=== PATIENT | male | born 1930 | race Asian ===

== ENCOUNTER 2020-06-19 15:45 | Inpatient (IN) | payer MEDICARE, MEDICAID ==
[2020-06-19] VITALS (9 sets, daily range): BP systolic 95–157; BP diastolic 62–103
[~2020-06-19] VITALS: Ht 172.7 cm; Wt 54.0 kg
--- NOTE | 2020-06-19 16:09 | NUR ---
pt arrives to ER with complaints of low oxygen saturation. EMS states oxygen saturation in 70% with supplemental oxygen. upon arrival pt placed on 4L NC with 95% saturation. Addendum: 06/19/20 at 1628 by KATE pt arrives to ER via EMS with complaints of generalized weakness x few days. pt was at [facility] with yesterday for evaluation of generalized weakness. EMS also states syncope episiode after bowel movement. pt placed on 4L nasal cannula en route due to low oxygen readings. Upon arrival, pt oxygen saturation 95%.
--- NOTE | 2020-06-19 16:20 | NUR ---
Patient brought into ER todays after having a syncopal episode after a bowel movement. No other significant complaint voiced. Will be monitored.
--- NOTE | 2020-06-19 16:30 | NUR ---
Patient noted to be spitting up blood- suction tube initiated. MD informed
--- NOTE | 2020-06-19 16:30 | Emergency Room Report ---
History of Present Illness General Chief Complaint: Syncope Source: Patient Present Illness HPI This patient is Kyrgyz speaking. However, the patient's granddaughter called me to give me the history regarding this patient. Apparently, for the past few days the patient has had generalized weakness and there was concern that he coughed or vomited up blood. He was seen at an emergency department last night and discharged home with a negative work-up per report. The patient is brought into the emergency department today because after having a bowel movement the patient had a syncopal episode. The patient himself has no specific complaints. There is no report of fever. There has been some cough. Allergies: Coded Allergies: No Known Allergies (Unverified , 06/19/20) COVID-19 Screening Contact w/high risk pt: No Experienced COVID-19 symptoms?: No COVID-19 Testing performed INSULATION MANAGER: No Patient History Past Medical History: see triage record, HTN Social History: Denies: smoking, alcohol use, drug use Reviewed Nursing Documentation: PMH: Agreed; PSxH: Agreed Nursing Documentation-PMH Hx Hypertension: Yes Review of Systems All Other Systems: negative except mentioned in HPI Physical Exam Vital Signs Date Time Temp Pulse Resp B/P (MAP) Pulse Ox O2 Delivery O2 Flow Rate FiO2 06/19/20 15:47 98.6 120 18 174/100 (124) 98 Room Air 06/19/20 16:08 4.0 Sp02 EP Interpretation: reviewed, normal General Appearance: no apparent distress, alert, GCS 15, non-toxic, cachetic Head: normocephalic, atraumatic Eyes: bilateral eye normal inspection, bilateral eye PERRL ENT: hearing grossly normal, normal pharynx, no angioedema, normal voice Neck: full range of motion, supple/symm/no masses Respiratory: chest non-tender, lungs clear, normal breath sounds, no respiratory distress, no retraction, no accessory muscle use, speaking full sentences Cardiovascular #1: no edema, tachycardia Gastrointestinal: normal bowel sounds, non tender, soft, no guarding, no rebound, distended - slightly distended Rectal: deferred Musculoskeletal: back normal, normal range of motion, gait/station normal, non- tender Neurologic: alert, motor strength/tone normal, oriented x3, sensory intact, responsive, speech normal Psychiatric: judgement/insight normal, memory normal, mood/affect normal, no suicidal/homicidal ideation Skin: no rash, normal color Procedures CPR/Code Blue CPR/Code Blue Narrative Mid ED course the patient suddenly began coughing up large amounts of blood and blood clots. The patient began having difficulty breathing and became hypoxemic. He also became altered and bradycardic. The patient also went into PEA arrest for less than a minute. The patient underwent CPR, rapid sequence intubation and ACLS protocol. Please see the RN code sheet. Prior to the patient becoming pulseless, the patient was becoming bradycardic and being bagged and he was given atropine. ROSC was obtained after 1 round of CPR. After the patient was intubated, the patient was arousing and fighting the ventilator. The patient was placed on a propofol drip and fentanyl drip for comfort on the ventilator. Intubation Intubation : Consent: Emergent Intubation Method: orotracheal Tube Size (cm): 7.5 Medications: Etomidate, Succinylcholine Breath Sounds after Intubation: equal Intubation Complications: no complications Post Intubation Xray: Yes Progress/Xray Impression: Appropriate tube placement Attempts: One Patient Tolerated: Well Complications: None Medical Decision Making Diagnostic Impression: Primary Impression: Massive hemoptysis Additional Impressions: Respiratory failure Anemia Cardiopulmonary arrest Elevated troponin Lactic acidosis ER Course Initially when I evaluated this patient he was alert, well-appearing and attempting to communicate with me. The patient is Kyrgyz speaking so history was primarily obtained through his granddaughter. During the patient's ED course, he suddenly developed massive hemoptysis and difficulty breathing. Initially, suctioning of the blood by the patient with a Yonker suction and later by myself was attempted to clear the patient's airway. However, the patient became more distressed and dyspneic and then became altered and was unable to maintain his airway. He became profoundly hypoxemic with oxygen saturations in the 40s. Initially the patient was incredibly tachycardic. The patient was bagged by bag valve mask and he was intubated by rapid sequence intubation. He did go into PEA temporarily and underwent CPR and ACLS for 1 round. ROSC was achieved. During the resuscitation the endotracheal tube was dislodged and was immediately replaced with a new endotracheal tube. An NG tube was placed to intermittent suction as the patient's abdomen was slightly distended. A large amount of blood was suctioned from the patient's airway. There was also blood in the nasogastric tube.At the same time during the patient's resuscitation he was also transfused 4 units of emergency release O type of blood. After the patient was intubated and during his ED course his heart rate became very rapid at over 200 and irregular consistent with A. fib or a flutter with rapid ventricular rate. Given that the patient was sedated and unstable, the patient underwent cardioversion x2. Initial cardioversion was with 50 J and the second cardioversion was with 100 J. This effectively converted the patient into sinus rhythm at a rate in the 120s with a repeat EKG showing sinus tachycardia. The patient's telemetry in the emergency department remained in a low sinus tachycardia in the low 100s 105-110. I am unsure of the etiology patient's massive hemoptysis versus GI bleed with aspiration. Possibilities do include gastric malignancy, pulmonary malignancy, infection. The patient did undergo CT of the head, chest, abdomen and pelvis but this was obtained emergently and before I had labs and so this was done without contrast. The patient also did arouse on the ventilator and was uncomfortable and agitated while on the ventilator so he was placed on a propofol drip and fentanyl drip for his own comfort and for ventilator synchronization. The patient's granddaughter was updated when the patient did deteriorate. The family would like him to be full code full treatment. This patient was evaluated in the context of the global COVID-19 pandemic, which necessitated consideration that the patient might be at risk for infection with the [id number] virus that causes COVID-19. Institutional protocols and algorithms that pertain to the evaluation of patients at risk for COVID-19 and the state of rapid change based on information released by multiple regulatory bodies including the CDC and federal and state organizations. These policies and algorithms were followed during the patient's care in the ED. This patient is critically ill. This patient required complex medical decision- making, aggressive intervention, extensive laboratory workup and monitoring. Critical care time: 40 minutes. Laboratory Tests Test 06/19/20 16:23 06/19/20 17:10 06/19/20 17:41 White Blood Count 3.5 K/UL (4.8-10.8) L 4.1 K/UL (4.8-10.8) L Red Blood Count 2.80 M/UL (4.70-6.10) L 2.05 M/UL (4.70-6.10) L Hemoglobin 9.7 G/DL (14.2-18.0) L 7.0 G/DL (14.2-18.0) L Hematocrit 28.5 % (42.0-52.0) L 21.4 % (42.0-52.0) L Mean Corpuscular Volume 102 FL (80-99) H 105 FL (80-99) H Mean Corpuscular Hemoglobin 34.5 PG (27.0-31.0) H 34.0 PG (27.0-31.0) H Mean Corpuscular Hemoglobin Concent 34.0 G/DL (32.0-36.0) 32.5 G/DL (32.0-36.0) Red Cell Distribution Width 14.1 % (11.6-14.8) 15.0 % (11.6-14.8) H Platelet Count 90 K/UL (150-450) L 89 K/UL (150-450) L Mean Platelet Volume 8.6 FL (6.5-10.1) 8.6 FL (6.5-10.1) Neutrophils (%) (Auto) % (45.0-75.0) % (45.0-75.0) Lymphocytes (%) (Auto) % (20.0-45.0) % (20.0-45.0) Monocytes (%) (Auto) % (1.0-10.0) % (1.0-10.0) Eosinophils (%) (Auto) % (0.0-3.0) % (0.0-3.0) Basophils (%) (Auto) % (0.0-2.0) % (0.0-2.0) Neutrophils % (Manual) Pending Pending Lymphocytes % (Manual) Pending Pending Platelet Estimate Pending Pending Platelet Morphology Pending Pending Prothrombin Time 11.6 SEC (9.30-11.50) H Prothrombin Time INR 1.1 (0.9-1.1) Activated Partial Thromboplast Time 24 SEC (23-33) Sodium Level 138 MMOL/L (136-145) Potassium Level 3.8 MMOL/L (3.5-5.1) Chloride Level 105 MMOL/L (98-107) Carbon Dioxide Level 21 MMOL/L (21-32) Anion Gap 12 mmol/L (5-15) Blood Urea Nitrogen 18 mg/dL (7-18) Creatinine 1.2 MG/DL (0.55-1.30) Estimated Glomerular Filtration Rate 57.1 mL/min (>60) Glucose Level 271 MG/DL (74-106) H Calcium Level 8.1 MG/DL (8.5-10.1) L Ferritin Pending Total Bilirubin 1.8 MG/DL (0.2-1.0) H Direct Bilirubin 0.7 MG/DL (0.0-0.3) H Aspartate Amino Transferase (AST) 68 U/L (15-37) H Alanine Aminotransferase (ALT) 37 U/L (12-78) Alkaline Phosphatase 81 U/L (46-116) Lactate Dehydrogenase Pending Total Creatine Kinase Pending Creatine Kinase MB Pending Troponin I 0.058 ng/mL (0.000-0.056) C-Reactive Protein, Quantitative Pending Total Protein 7.3 G/DL (6.4-8.2) Albumin 2.3 G/DL (3.4-5.0) L Globulin 5.0 g/dL Albumin/Globulin Ratio 0.5 (1.0-2.7) L Triglycerides Level Pending Lipase Pending Urine Color Yellow Urine Appearance Slightly cloudy Urine pH 6 (4.5-8.0) Urine Specific Dickens 1.015 (1.005-1.035) Urine Protein 4+ (NEGATIVE) H Urine Glucose (UA) 3+ (NEGATIVE) H Urine Ketones Negative (NEGATIVE) Urine Blood 5+ (NEGATIVE) H Urine Nitrite Negative (NEGATIVE) Urine Bilirubin Negative (NEGATIVE) Urine Urobilinogen 4 MG/DL (0.0-1.0) H Urine Leukocyte Esterase Negative (NEGATIVE) Urine RBC Pending Urine WBC Pending Urine Squamous Epithelial Cells Pending Urine Bacteria Pending Lactic Acid Level 4.00 mmol/L (0.4-2.0) H EKG Diagnostic Results Rate: tachycardiac Rhythm: other - S.tachycardia Rhythm Strip Diag. Results EP Interpretation: yes Rate: 120's Rhythm: no PVC's, no ectopy, other - S.tachycardia Chest X-Ray Diagnostic Results Chest X-Ray Diagnostic Results : Chest X-Ray Ordered: Yes # of Views/Limited/Complete: 1 View Indication: Other - cough, respiratory failure, Tube placement EP Interpretation: Yes Interpretation: other - Bilateral patchy opacities. ET in place, NGT in place. CT/MRI/US Diagnostic Results CT/MRI/US Diagnostic Results : Imaging Test Ordered: CT head, CT Chest/abd/pelvis Impression CT Head: No acute findings. Specifically no intracranial bleed, mass effect or edema. See official report. CT chest/abd/pelvis: Bilateral pulmonary interstitial fluid. Thickening of the stomach wall. Dilated small bowel loops with no transition point. Please see official reports in the electronic record medical record for details. Last Vital Signs Date Time Temp Pulse Resp B/P (MAP) Pulse Ox O2 Delivery O2 Flow Rate FiO2 06/19/20 16:08 100.3 106 18 157/103 95 Nasal Cannula 4.0 Disposition: ADMITTED INPATIENT Condition: Critical Belinda Schultz DO Jun 19, 2020 16:30
--- NOTE | 2020-06-19 16:33 | NUR ---
pt arrives to ER via EMS with complaints of generalized weakness and hematemesis x few days. pt was evaluated yesterday at [facility] for same complaints and discharged. upon arrival to room pt has one episode of vomiting bright red blood. pt placed on 4L NC. upon arrival oxygen saturation 95%. skin warm and dry. pt placed on surveillance monitor. Family also states pt had syncope episode after bowel movement today.
--- NOTE | 2020-06-19 16:50 | NUR ---
pt on continuous cardiac/O2 monitor. 20g L forearm, 20g R AC. labs sent. pt had hemoptysis/syncopal episode. pt vomiting blood. MD notified. MD in room with 3 ED RN and instrumentation engineering technician. suction setup at bedside, suctioning pt. 150mL blood suctioned. Code Blue initiated. RT called. XR called. Drugs - See code blue sheet meds given. pt placed on defib pads. 1650: vitals: HR elevation @195/109 R18 pt bradycardic, HR decreased to 52, O2 38%. pt placed on BVM. prepping to intubate. 1653: pulse check, no pulse felt. CPR initated. meds given per code sheet. 1655: CPR pause. pulse check.pt BP 42/23, HR 133 sinus tach, RR 48 pt on continuous cardiac/O2 monitor. 1659: pt intubated, 7.5cm, 20 @ teeth. BP 90/59, HR 156, O2 reading in progress. XRAY at bedside. 1700: 1st unit hung. untype for emergency bolus, lab aware, Oneg blood to R AC. 1701: IV placed, 18g R wrist. 1703: labs drawn, sent to lab for type & cross. 1705: second bag blood hung, untype/not crossed per emergency md order. lab aware. 1707: unit 1 blood complete. no reaction noted. 1710: unit 2 blood complete. no reaction noted. 1712: pt HR 140, sinus tach. pt cardiovert at 50J. per MD order. 1713: 138/96, HR 130, RR 16, O2 98%. 1716: OG tube inserted, 14 mohawk, per MD verbal order. placement checked with ascultation. XRAY ordered by MD. gastric contents returned,on intermittent wall suction. 1717: pt rhythm Vtach. cardiovert at 100J per MD order. 1719: 156/102 BP, HR 126, RR15, 95% 1720: 2LNS bolus hung per MD order. R AC, L forearm IV. 1723: MRSA/VRE swab sent, COVID sent. 1730: hung untype blood from lab, blood per emergency protocol, MD order, lab aware. unit 3. 16 mohawk hyman inserted per MD verbal order. 1738: hung unit 4 untype/uncross blood per emergency protocol, MD order, lab aware. 1740: unit 4 complete. no reaction noted. 1743: propofol started 5mcg/kg/min per MD order. 1747: unit 4 complete. no reaction noted. 1750: pt taken to CT. location and measurement technician, ED RN, instrumentation engineering technician & RT with pt. 1757: return from CT. 1758: BP 129/85, HR 105, RR 14, 98% O2. 1805: BP 142/92, HR 106, 100% O2, 15RR 1816: BP 139/76, RR 15, HR 111, 100% O2. 1819: increased propofol to 7.5 mcg/kg/min. 1820: belonging sheet completed. pt bleonging in bag. 1835: family at bedside. 1840: BP 132/82, HR 107, RR14, 100% O2. MD at bedside. pt still on continuous cardiac/O2 monitor. pt on vent. 100mL gastric contents suctioned.
--- NOTE | 2020-06-19 17:20 | Diagnostic Imaging Report ---
EXAM: XR Chest, 1 View CLINICAL HISTORY: SYNCOPE TECHNIQUE: Frontal view of the chest. COMPARISON: No relevant prior studies available. FINDINGS: Lungs: Multifocal bilateral interstitial and airspace opacities. Pleural space: No pleural effusion. No pneumothorax. Heart: Unremarkable. No cardiomegaly. Tubes, lines and devices: Endotracheal tube terminates 6.5 cm above the vijay. IMPRESSION: 1. Endotracheal tube terminates 6.5 cm above the vijay. 2. Multifocal bilateral interstitial and airspace opacities. Differential of multifocal infection, edema, pulmonary hemorrhage, or aspiration.
[2020-06-19 17:27] LABS: HEMATOCRIT 28.5 % (42.0-52.0); HEMOGLOBIN 9.7 G/DL (14.2-18.0); MEAN CORPUSCULAR VOLUME 102 FL (80-99); PLATELET COUNT 90 K/UL (150-450); RED CELL DISTRIBUTION WIDTH 14.1 % (11.6-14.8); WHITE BLOOD COUNT 3.5 K/UL (4.8-10.8)
[2020-06-19 17:29] LABS: HEMATOCRIT 21.4 % (42.0-52.0); MEAN CORPUSCULAR VOLUME 105 FL (80-99); PLATELET COUNT 89 K/UL (150-450); RED BLOOD COUNT 2.05 M/UL (4.70-6.10); WHITE BLOOD COUNT 4.1 K/UL (4.8-10.8)
[2020-06-19 17:32] LABS: INR 1.1 (0.9-1.1)
[2020-06-19] MEDS ORDERED: propofoL 1,000mg/100ml 100 ML IV PRN (17:45)
[2020-06-19] MEDS ORDERED: Morphine Sulfate 4mg/ml Inj (IV USE ONLY) IVP ONE (17:45)
--- NOTE | 2020-06-19 17:48 | Diagnostic Imaging Report ---
EXAM: XR Chest, 1 View CLINICAL HISTORY: TUBE PLCMT TECHNIQUE: Frontal view of the chest. COMPARISON: June 19, 2020 FINDINGS: Lungs: Unchanged multifocal bilateral interstitial and airspace opacities. Pleural space: No pleural effusion. No pneumothorax. Heart: Unremarkable. No cardiomegaly. Tubes, lines and devices: Esophagogastric tube terminates within the gastric fundus. Unchanged position of the endotracheal tube. IMPRESSION: 1. Esophagogastric tube terminates within the gastric fundus. Unchanged position of the endotracheal tube. 2. Unchanged multifocal bilateral interstitial and airspace opacities.
[2020-06-19 18:07] LABS: ALBUMIN 2.3 G/DL (3.4-5.0); ALBUMIN/GLOBULIN RATIO 0.5 (1.0-2.7); BILIRUBIN,TOTAL 1.8 MG/DL (0.2-1.0); CALCIUM 8.1 MG/DL (8.5-10.1); CREATININE 1.2 MG/DL (0.55-1.30); POTASSIUM 3.8 MMOL/L (3.5-5.1)
[2020-06-19 18:12] LABS: BILIRUBIN,DIRECT 0.7 MG/DL (0.0-0.3)
[2020-06-19 18:20] LABS: APPEARANCE,URINE SLIGHTLY CLOUDY; BILIRUBIN, URINE NEGATIVE (NEGATIVE); GLUCOSE, URINE (UA) 3+ (NEGATIVE); KETONES,URINE NEGATIVE (NEGATIVE); LEUKOCYTE ESTERASE ,URINE NEGATIVE (NEGATIVE); NITRITE,URINE NEGATIVE (NEGATIVE); PH,URINE 6 (4.5-8.0); PROTEIN,URINE 4+ (NEGATIVE); UROBILINOGEN,URINE 4 MG/DL (0.0-1.0)
--- NOTE | 2020-06-19 18:20 | Diagnostic Imaging Report ---
EXAM: CT Head Without Intravenous Contrast CLINICAL HISTORY: AMS TECHNIQUE: Axial computed tomography images of the head/brain without intravenous contrast. CTDI is 53.4 mGy and DLP is 992.1 mGy-cm. One or more of the following dose reduction techniques were used: automated exposure control, adjustment of the mA and/or kV according to patient size, use of iterative reconstruction technique. COMPARISON: No relevant prior studies available. FINDINGS: Brain: No hemorrhage, extra-axial fluid collection, mass effect, or edema. Parenchymal atrophy. Mild chronic microvascular ischemic changes. Ventricles: Unremarkable. Bones/joints: Unremarkable. No fracture. Soft tissues: Unremarkable. Sinuses: Trace fluid within the sphenoid sinuses. Mild mucosal thickening within the maxillary and ethmoid air cells.. Mastoid air cells: Unremarkable as visualized. IMPRESSION: 1. No acute intracranial abnormality. 2. Parenchymal atrophy and mild chronic microvascular ischemic changes.
[2020-06-19 18:33] LABS: COLOR,URINE YELLOW
--- NOTE | 2020-06-19 18:36 | Diagnostic Imaging Report ---
EXAM: CT Chest Without Intravenous Contrast CLINICAL HISTORY: AMS TECHNIQUE: Axial computed tomography images of the chest without intravenous contrast. CTDI is 3.7 mGy and DLP is 110 mGy-cm. One or more of the following dose reduction techniques were used: automated exposure control, adjustment of the mA and/or kV according to patient size, use of iterative reconstruction technique. COMPARISON: No relevant prior studies available. FINDINGS: Lungs: Multifocal bilateral groundglass and consolidative airspace opacities. Findings most pronounced within the left lower lobe but present within all lobes. Mild background paraseptal emphysematous changes at the bases. Some secretions within the bronchial tree bilaterally. Pleural space: Unremarkable. No pneumothorax. No significant effusion. Heart: Unremarkable. No cardiomegaly. No significant pericardial effusion. Bones/joints: Unremarkable. Soft tissues: Unremarkable. Vasculature: Unremarkable. Lymph nodes: Unremarkable. Tubes, lines and devices: Appropriately positioned endotracheal tube. IMPRESSION: Extensive bilateral airspace opacities. Secretions in the airways. Consider large volume aspiration or multifocal infection as the most likely etiologies. EXAM: CT Abdomen and Pelvis Without Intravenous Contrast CLINICAL HISTORY: AMS TECHNIQUE: Axial computed tomography images of the abdomen and pelvis without intravenous contrast. CTDI is 3.7 mGy and DLP is 155.7 mGy-cm. One or more of the following dose reduction techniques were used: automated exposure control, adjustment of the mA and/or kV according to patient size, use of iterative reconstruction technique. COMPARISON: No relevant prior studies available. FINDINGS: ABDOMEN: Liver: Few incompletely characterized low-attenuation lesions within the liver. Gallbladder and bile ducts: Cholelithiasis. Pancreas: Unremarkable. Spleen: Unremarkable. Adrenals: Unremarkable. Kidneys and ureters: Unremarkable. No obstructing stones. No hydronephrosis. Stomach and bowel: Gas filled mildly distended small bowel loops measuring up to 4 cm. There is mucosal thickening within the stomach potentially representing gastritis or malignancy. PELVIS: Appendix: No findings to suggest acute appendicitis. Bladder: Calabrese catheter in the bladder. Reproductive: Unremarkable as visualized. ABDOMEN and PELVIS: Intraperitoneal space: Trace nonspecific ascites. No free air. Bones/joints: Status post left hip ORIF. Multiple bones within the pelvis and spine. Soft tissues: Unremarkable. Vasculature: Unremarkable. Lymph nodes: Unremarkable. Tubes, lines and devices: Esophagogastric tube within the stomach. IMPRESSION: 1. Gas filled mildly distended small bowel loops measuring up to 4 cm. Abrupt transition point difficult to identify. Obstruction on the differential. Also consider ileus. 2. There is mucosal thickening within the stomach potentially representing gastritis or malignancy. 3. Few incompletely characterized low-attenuation lesions within the liver. 4. Cholelithiasis. 5. Trace nonspecific ascites.
[2020-06-19 18:43] LABS: CKMB 4.3 NG/ML (0.0-3.6)
[2020-06-19] MEDS ORDERED: fentaNYL 100 mcg/2 mL IV ONE (18:45)
--- NOTE | 2020-06-19 19:34 | NUR ---
REPORT FROM TL CALDWELL. PT CONNECTED TO MONITOR. PT CONNECTED TO VENT RATE 16, TV 450, FIO2 100, PEEP 5. PT HAS 18 G IV TO RFA. PROFOPOL AT 25MCG/KG/MIN. PT HAS 20G TO LFA. PT HAS [address] CATHE[address] PLACE. V/S STABLE. PT TOLERATING SEDATION WELL.
[2020-06-19] MEDS ORDERED: Succinylcholine 20mg/ml 10ml vial IV ONE (19:45)
[2020-06-19] MEDS ORDERED: Etomidate 40mg/20ml Inj IV ONE (19:45)
[2020-06-19] MEDS ORDERED: Atropine Inj 1mg/10ml Syr IVP ONE (19:45)
[2020-06-19] MEDS ORDERED: fentaNYL 2500mcg/NS 250ml 250 ML IV PRN (19:45)
--- NOTE | 2020-06-19 20:05 | NUR ---
RT AT BEDSIDE FOR ABG COLLECTION
--- NOTE | 2020-06-19 20:37 | NUR ---
RT AT BEDSIDE. FIO2 TITRATED TO 50%, FENTANYL STARTED TO LFA. 50MCG/HR.
--- NOTE | 2020-06-19 21:00 | NUR ---
NURSE NOTES: Report received from ALO Torres at the bedside. Pt is Covid PUI Pt arrived to ER via EMS with complaints of generalized weakness and hematemesis x few days. Pt was evaluated yesterday at [facility] for same complaints and discharged. Upon arrival to the ED, Pt has one episode of vomiting bright red blood. Blood suctioned 150mL. s/p Code Blue, SEE code blue sheet for the details, at ED (HR 52 O2 38%). Orally intubated, ETT 7.5/22cm from the lip line. Setting AC 16, TV 450, Peep 5, and FiO2 50% 4Units of RBC transfused at ED OG tube 14F inserted , gastric contents returned, on intermittent wall suction. Calabrese inserted 16F inserted. Pt rhythm changed to V-tach. Cardioversion performed at 100J per ERMD order. MRSA/VRE swab and COVID PCR sent to LAB. PIV LFA 20G and RFA 18G: Propofol 25mcgs/min and Fentanyl 50mg/hr are running 100mL gastric contents suctioned at the ED before transferred. Will contact Dr. Pelletier to receive the admission order. Belonging check done with charger operator helper. Safety measures observed and no acute distress noted. Will continue to monitor.
--- NOTE | 2020-06-19 21:05 | NUR ---
BEDSIDE REPORT GIVEN TO JEFF CALDWELL
--- NOTE | 2020-06-19 22:00 | NUR ---
NURSE NOTES: Contacted Dr. Pelletier. Raji call back. CT result IMPRESSION: 1. Gas filled mildly distended small bowel loops measuring up to 4 cm. Abrupt transition point difficult to identify. Obstruction on the differential. Also consider ileus. 2. There is mucosal thickening within the stomach potentially representing gastritis or malignancy. 3. Few incompletely characterized low-attenuation lesions within the liver. 4. Cholelithiasis. 5. Trace nonspecific ascites. IMPRESSION: Extensive bilateral airspace opacities. Secretions in the airways. Consider large volume aspiration or multifocal infection as the most likely etiologies.
--- NOTE | 2020-06-19 22:12 | History & Physical ---
History and Physical History & Physicial Ventura Pelletier MD Jun 19, 2020 22:12
[2020-06-19] MEDS ORDERED: Pantoprazole Inj IVP ONE (22:30)
[2020-06-19] MEDS ORDERED: Cefepime HCl 1 GM in D5W 55 ML IVPB ONE (22:30)
[2020-06-19] MEDS ORDERED: DOPamine 400mg/250ml 250 ML IV PRN (22:30)
--- NOTE | 2020-06-19 22:30 | NUR ---
NURSE NOTES: Received an admission order from Dr. Pelletier.
[2020-06-19] MEDS: fentaNYL 2500mcg/NS 250ml 250 ML IV SCH (23:00)
[2020-06-19] MEDS: D5 1/2NS w/KCl 20mEq 1,000 ML IV SCH (23:00)
--- NOTE | 2020-06-19 23:00 | NUR ---
NURSE NOTES: Family at bedside. Family expressed concerned regarding patients code status. Family expressed wishes to make patient DNR. Family has came to agreement to continue full treatment and be DNR. Relayed info to attending MD.
[2020-06-19 23:15] LABS: HEMOGLOBIN 10.9 G/DL (14.2-18.0); MEAN CORPUSCULAR VOLUME 96 FL (80-99); PLATELET COUNT 74 K/UL (150-450); RED BLOOD COUNT 3.45 M/UL (4.70-6.10); RED CELL DISTRIBUTION WIDTH 16.1 % (11.6-14.8); WHITE BLOOD COUNT 9.4 K/UL (4.8-10.8)
[2020-06-19 23:42] LABS: CALCIUM 7.2 MG/DL (8.5-10.1); CREATININE 1.2 MG/DL (0.55-1.30); POTASSIUM 4.4 MMOL/L (3.5-5.1)
[2020-06-19 23:55] LABS: ALBUMIN 1.9 G/DL (3.4-5.0); ALBUMIN/GLOBULIN RATIO 0.5 (1.0-2.7); BILIRUBIN,TOTAL 2.2 MG/DL (0.2-1.0); PHOSPHORUS 3.6 MG/DL (2.5-4.9)
[2020-06-20] VITALS (34 sets, daily range): BP systolic 89–173; BP diastolic 55–102
[2020-06-20 00:24] LABS: BILIRUBIN,DIRECT 1.1 MG/DL (0.0-0.3)
--- NOTE | 2020-06-20 01:00 | NUR ---
NURSE NOTES: Pt suctioned, turned, and repositioned Bloody tinge sputum noted. MD already aware. Pt remains afebrile and VSS. Neuro status remains unchanged No gag reflection noted. No reponse for pain stimuli
--- NOTE | 2020-06-20 03:00 | NUR ---
NURSE NOTES: Pt suctioned, turned, and repositioned Bloody tinge sputum still noted. MD already aware. Pt remains afebrile and VSS. Neuro status remains unchanged. No gag reflection noted. No response for pain stimuli Safety measures observed and no acute distress noted at this time. Will continue to monitor.
[2020-06-20 05:15] LABS: HEMOGLOBIN 10.7 G/DL (14.2-18.0); MEAN CORPUSCULAR VOLUME 96 FL (80-99); PLATELET COUNT 67 K/UL (150-450); RED BLOOD COUNT 3.33 M/UL (4.70-6.10); RED CELL DISTRIBUTION WIDTH 15.5 % (11.6-14.8); WHITE BLOOD COUNT 6.7 K/UL (4.8-10.8)
[2020-06-20 05:51] LABS: ALANINE AMINOTRANSFERASE 37 U/L (12-78); ALBUMIN 1.9 G/DL (3.4-5.0); ALBUMIN/GLOBULIN RATIO 0.5 (1.0-2.7); ALKALINE PHOSPHATASE 64 U/L (46-116); ANION GAP 7 mmol/L (5-15); ASPARTATE AMINO TRANSFERASE 71 U/L (15-37); BILIRUBIN,TOTAL 2.4 MG/DL (0.2-1.0); BLOOD UREA NITROGEN 23 mg/dL (7-18); CALCIUM 7.5 MG/DL (8.5-10.1); CARBON DIOXIDE 24 MMOL/L (21-32); CHLORIDE 110 MMOL/L (98-107); CREATININE 1.1 MG/DL (0.55-1.30); PHOSPHORUS 2.9 MG/DL (2.5-4.9); POTASSIUM 3.9 MMOL/L (3.5-5.1); SODIUM 141 MMOL/L (136-145)
[2020-06-20 06:48] LABS: BILIRUBIN,DIRECT 1.3 MG/DL (0.0-0.3)
--- NOTE | 2020-06-20 06:56 | NUR ---
HOME MEDICATION: Silodosin (Rapaflo) 8mg 1 pill daily BPH Valacyclovir HCL 50mg 1 pill daily Antivirals Temazepam 15mg 1 pill daily Benzodiazepines Amlodipine 2.5mg 1 pill daily [employer] [facility] [place] Levothyroxine 50mcg 1 pill daily Typothyroidism.
--- NOTE | 2020-06-20 06:56 | NUR ---
NURSE NOTES: AFB sputum collected and sent to lab TSPOT collected and sent with lab COVID PCR swabbed and sent to lab.
--- NOTE | 2020-06-20 07:20 | NUR ---
RESPIRATORY NOTE: PT received on mechanical ventilation with current ventilator settings: AC/VC 16,450,40%,+5. Alarms are on and audible. Vent circuit is secure and out of the way. Airway is secure and patent. No s/s of respiratory distress noted at this time. Will continue to monitor.
--- NOTE | 2020-06-20 07:42 | NUR ---
HAND OFF: Report given to Sharmila Joya RN. Endorsed POC.
--- NOTE | 2020-06-20 08:00 | NUR ---
NURSE NOTES: Received patient with both eyes open - does not follow commands. Orally intubated- no resp. distress noted. With OGT in place -connected to low int. suction with moderate amt. of dark brownish/greenish drainage. With [address] # 20 @ RFA and # 22 @ right wrist. F/C in place with moderate amt. of urine
--- NOTE | 2020-06-20 08:35 | NUR ---
NURSE NOTES: Kimber ( Grand daughter) caklled the unit updated with patient's condition. All questions and concerns addressed
--- NOTE | 2020-06-20 08:47 | NUR ---
RD ASSESSMENT & RECOMMENDATIONS SEE CARE ACTIVITY FOR COMPLETE ASSESSMENT DAILY ESTIMATED NEEDS: Needs based on Critical care, underweight/ 54kg 22-30 kcals/kg 1333-1374 total kcals 1.2-2 g protein/kg 65-108 g total protein 25-30 mL/kg 3825-4852 total fluid mLs NUTRITION DIAGNOSIS: Swallowing difficulty R/T respiratory failure as evidenced by orally intubated upon adm, s/p code blue, remains orally intubated and sedated, NPO. CURRENT TF:NPO ENTERAL NUTRITION RECOMMENDATIONS: Vital AF 1.2 @ 50ml/hr x 24 hrs to provide 1200ml, 1440kcal, 90g prot, 973ml free water * When medically appropriate to feed and hemodynamically stable, -> initiate Vital AF 1.2 @ 10ml/hr x 8 hrs, advance 10ml q 8 hrs as tolerated to goal rate -> HOB over 30 degrees/ H2O flush per MD ADDITIONAL RECOMMENDATIONS: * Calibrated bedscale wt * Monitor for ability to feed: s/p hematemesis, possible GIB, on pressors * Monitor BGs, need for hypoglycemics * Monitor lytes, replete as needed (low mag)
[2020-06-20] MEDS: Pantoprazole Inj IVP SCH ×2 (08:55→20:48)
[2020-06-20] MEDS: Cefepime HCl 1 GM in D5W 55 ML IVPB SCH ×2 (08:58→21:00)
--- NOTE | 2020-06-20 09:00 | NUR ---
RESPIRATORY NOTE: ABG drawn at this time. Results reported to Mahnaz CALDWELL.
--- NOTE | 2020-06-20 10:14 | NUR ---
NURSE NOTES: Dr. hunt called to inform the heart rate has increased to 135-160 in rhythm of SVT, telephone order obtained to administer one dose of metoprolol 2.5mg, IVP
[2020-06-20] MEDS ORDERED: Metoprolol Tartrate 5mg/5ml Inj IVP SCH (10:15)
--- NOTE | 2020-06-20 10:42 | NUR ---
NURSE NOTES: HR 173 BP 127/86- Metoprolol 2.5 mg given slow IVP
[2020-06-20] MEDS ORDERED: RAPAFLO8 MG ORAL (10:55)
[2020-06-20] MEDS ORDERED: SYNTHROID50 MCG ORAL (10:55)
[2020-06-20] MEDS ORDERED: TEMAZEPAM15 MG ORAL (10:55)
[2020-06-20] MEDS ORDERED: VALACYCLOVIR500 MG ORAL (10:55)
[2020-06-20] MEDS ORDERED: AMLODIPINE BES2.5 MG ORAL (10:55)
--- NOTE | 2020-06-20 11:00 | NUR ---
NURSE NOTES: HR decreased to 88/min and JUDITH 143/80 after metoprolol2.5 mg IVP
--- NOTE | 2020-06-20 11:09 | Consultation ---
History of Present Illness General Date patient seen: Jun 20, 2020 Reason for Hospitalization: Syncope Present Illness HPI This is a very unfortunate 89-year-old male multimedical comorbidities who had a syncopal event recently after a bowel movement came into the ED for evaluation hypotensive bradycardic cardiac arrest ACLS intubated resuscitated imaging performed identified possible SBO ileus GI bleed possible gastric malignancy surgery called to evaluate assist with care. Patient seen patient evaluated chart reviewed patient in intensive care unit critically ill on support unable to provide history. Allergies: Coded Allergies: No Known Allergies (Unverified , 06/19/20) COVID-19 Screening Contact w/high risk pt: Yes Experienced COVID-19 symptoms?: Yes Coronavirus symptoms experienc: Fatigue, Shortness of Breath, Cough, Nausea/Vomiting Medication History Scheduled Amlodipine Besylate* (Amlodipine Besylate*), 2.5 MG ORAL DAILY, (Reported) Levothyroxine Sodium (Synthroid*), 50 MCG ORAL DAILY, (Reported) Silodosin (Rapaflo), 8 MG ORAL DAILY, (Reported) Temazepam (Temazepam*), 15 MG ORAL BEDTIME, (Reported) Valacyclovir Hcl* (Valtrex*), 500 MG ORAL DAILY, (Reported) Patient History Limited by: medical condition History Provided By: Medical Record, PMD Healthcare decision maker N Resuscitation status Advanced Directive on File Past Medical/Surgical History Past Medical/Surgical History: (1) Massive hemoptysis (2) Cardiopulmonary arrest (3) Lactic acidosis (4) Anemia (5) Respiratory failure (6) Elevated troponin Review of Systems Review of Symptoms General ROS: no weight loss or fever Psychological ROS: no depression or mood changes, no memory loss Ophthalmic ROS: no visual changes or eye irritation ENT ROS: no nasal congestion, hearing loss, dizziness Allergy and Immunology ROS: no allergic symptoms or urticaria Hematological and Lymphatic ROS: no swollen glands, unusual bleeding or bruising Endocrine ROS: no polyuria, polydipsia, weight changes, temperature intolerance Respiratory ROS: no cough, shortness of breath, or wheezing Cardiovascular ROS: no chest pain or dyspnea on exertion Gastrointestinal ROS: denies abdominal pain, bright red blood in stool. Musculoskeletal ROS: no myalgias or arthralgias Neurological ROS: no TIA or stroke symptoms Dermatological ROS: no new or changing skin lesions, rashes or pruritis limited given medical condition Physical Exam Physical Exam General appearance: mod distress, appears stated age Head: Normocephalic, without obvious abnormality, atraumatic Eyes: conjunctivae/corneas clear. PERRL, EOM's intact. Fundi benign Throat: Lips, mucosa, and tongue normal. Teeth and gums normal ett in place Neck: supple, symmetrical, trachea midline, no adenopathy, thyroid: not enlarged, symmetric, no tenderness/mass/nodules, no carotid bruit and no JVD Lungs: dec to auscultation bilaterally on vent Heart: regular rate and rhythm, S1, S2 normal, no murmur, click, rub or gallop Abdomen: soft, non-tender. Bowel sounds normal. No masses, no organomegaly distended Extremities: extremities normal, atraumatic, no cyanosis or edema Pulses: 2+ and symmetric Skin: Skin color, texture, turgor normal. No rashes or lesions Neurologic: Grossly normal Last 24 Hour Vital Signs Date Time Temp Pulse Resp B/P (MAP) Pulse Ox O2 Delivery O2 Flow Rate FiO2 06/20/20 10:40 173 127/86 06/20/20 10:00 148 15 135/89 (104) 97 06/20/20 09:00 91 16 148/80 (102) 97 06/20/20 09:00 Mechanical Ventilator Mechanical Ventilator Mechanical Ventilator 06/20/20 08:00 78 06/20/20 08:00 40 06/20/20 08:00 98.7 97 14 173/94 (120) 97 06/20/20 07:20 99 22 40 06/20/20 07:00 77 19 124/65 (84) 100 06/20/20 07:00 19 124/65 Mechanical Ventilator 40 06/20/20 06:30 73 17 102/58 (73) 100 06/20/20 06:30 73 17 06/20/20 06:00 18 104/60 Mechanical Ventilator 40 06/20/20 06:00 98.7 71 18 104/60 (75) 99 06/20/20 05:30 74 18 107/61 (76) 99 06/20/20 05:00 18 97/60 Mechanical Ventilator 40 06/20/20 05:00 72 18 97/60 (72) 98 06/20/20 04:49 94 19 40 06/20/20 04:30 75 20 90/55 (67) 96 06/20/20 04:00 75 06/20/20 04:00 40 06/20/20 04:00 20 89/58 Mechanical Ventilator 40 06/20/20 04:00 75 20 89/58 (68) 96 06/20/20 04:00 Mechanical Ventilator 06/20/20 03:30 93 8 137/77 (97) 96 06/20/20 03:00 109 22 167/102 (123) 91 06/20/20 03:00 22 167/102 Mechanical Ventilator 40 06/20/20 02:44 92 22 40 06/20/20 02:30 87 19 134/75 (94) 98 06/20/20 02:00 90 15 132/77 (95) 98 06/20/20 02:00 15 132/77 Mechanical Ventilator 40 06/20/20 01:00 10 152/85 Mechanical Ventilator 40 06/20/20 01:00 101 10 152/85 (107) 98 06/20/20 00:51 96 20 40 06/20/20 00:30 91 12 141/85 (103) 98 06/20/20 00:00 78 06/20/20 00:00 Mechanical Ventilator 06/20/20 00:00 18 101/66 Mechanical Ventilator 40 06/20/20 00:00 98.7 78 16 101/66 (78) 100 06/20/20 00:00 40 06/19/20 23:30 79 16 95/62 (73) 98 06/19/20 23:00 81 15 101/66 (78) 98 06/19/20 23:00 30 100/61 Mechanical Ventilator 50 06/19/20 23:00 15 101/66 Mechanical Ventilator 40 06/19/20 22:31 81 21 40 06/19/20 22:00 11 120/79 Mechanical Ventilator 40 06/19/20 22:00 93 11 120/79 (93) 96 06/19/20 21:45 98 12 128/75 (92) 96 06/19/20 21:30 104 13 129/79 (96) 95 06/19/20 21:15 107 16 142/91 (108) 94 06/19/20 21:00 98.6 101 13 119/78 (92) 99 06/19/20 21:00 13 119/78 Mechanical Ventilator 40 06/19/20 21:00 Mechanical Ventilator 06/19/20 20:43 16 126/85 Endotracheal Tube 50 06/19/20 20:01 107 16 50 06/19/20 19:37 110 16 121/89 100 Endotracheal Tube 100 06/19/20 18:56 11 118/69 Endotracheal Tube 100 06/19/20 17:14 163 16 100 06/19/20 16:08 100.3 106 18 157/103 95 Nasal Cannula 4.0 06/19/20 15:47 98.6 120 18 174/100 (124) 98 Room Air Intake and Output 06/19/20 06/20/20 19:00 07:00 Intake Total 653.266 ml Output Total 330 ml Balance 323.266 ml Intake IV Total 653.266 ml Output Urine Total 330 ml Laboratory Tests Test 06/19/20 16:23 06/19/20 17:10 06/19/20 17:41 06/19/20 19:50 White Blood Count 3.5 K/UL (4.8-10.8) L 4.1 K/UL (4.8-10.8) L Red Blood Count 2.80 M/UL (4.70-6.10) L 2.05 M/UL (4.70-6.10) L Hemoglobin 9.7 G/DL (14.2-18.0) L 7.0 G/DL (14.2-18.0) L Hematocrit 28.5 % (42.0-52.0) L 21.4 % (42.0-52.0) L Mean Corpuscular Volume 102 FL (80-99) H 105 FL (80-99) H Mean Corpuscular Hemoglobin 34.5 PG (27.0-31.0) H 34.0 PG (27.0-31.0) H Mean Corpuscular Hemoglobin Concent 34.0 G/DL (32.0-36.0) 32.5 G/DL (32.0-36.0) Red Cell Distribution Width 14.1 % (11.6-14.8) 15.0 % (11.6-14.8) H Platelet Count 90 K/UL (150-450) L 89 K/UL (150-450) L Mean Platelet Volume 8.6 FL (6.5-10.1) 8.6 FL (6.5-10.1) Neutrophils (%) (Auto) % (45.0-75.0) % (45.0-75.0) Lymphocytes (%) (Auto) % (20.0-45.0) % (20.0-45.0) Monocytes (%) (Auto) % (1.0-10.0) % (1.0-10.0) Eosinophils (%) (Auto) % (0.0-3.0) % (0.0-3.0) Basophils (%) (Auto) % (0.0-2.0) % (0.0-2.0) Differential Total Cells Counted 100 100 Neutrophils % (Manual) 83 % (45-75) H 65 % (45-75) Lymphocytes % (Manual) 11 % (20-45) L 30 % (20-45) Monocytes % (Manual) 6 % (1-10) 5 % (1-10) Eosinophils % (Manual) 0 % (0-3) 0 % (0-3) Basophils % (Manual) 0 % (0-2) 0 % (0-2) Band Neutrophils 0 % (0-8) 0 % (0-8) Platelet Estimate Decreased L Decreased L Platelet Morphology Normal Normal Hypochromasia 1+ 2+ Anisocytosis 1+ 1+ Macrocytosis 1+ 1+ Prothrombin Time 11.6 SEC (9.30-11.50) H Prothromb Time International Ratio 1.1 (0.9-1.1) Activated Partial Thromboplast Time 24 SEC (23-33) Sodium Level 138 MMOL/L (136-145) Potassium Level 3.8 MMOL/L (3.5-5.1) Chloride Level 105 MMOL/L (98-107) Carbon Dioxide Level 21 MMOL/L (21-32) Anion Gap 12 mmol/L (5-15) Blood Urea Nitrogen 18 mg/dL (7-18) Creatinine 1.2 MG/DL (0.55-1.30) Estimat Glomerular Filtration Rate 57.1 mL/min (>60) Glucose Level 271 MG/DL (74-106) H Calcium Level 8.1 MG/DL (8.5-10.1) L Ferritin 142 NG/ML (8-388) Total Bilirubin 1.8 MG/DL (0.2-1.0) H Direct Bilirubin 0.7 MG/DL (0.0-0.3) H Aspartate Amino Transf (AST/SGOT) 68 U/L (15-37) H Alanine Aminotransferase (ALT/SGPT) 37 U/L (12-78) Alkaline Phosphatase 81 U/L (46-116) Lactate Dehydrogenase 328 U/L (81-234) H Total Creatine Kinase 253 U/L (26-308) Creatine Kinase MB 4.3 NG/ML (0.0-3.6) H Creatine Kinase MB Relative Index 1.6 Troponin I 0.058 ng/mL (0.000-0.056) C-Reactive Protein, Quantitative 4.4 mg/dL (0.00-0.90) H Total Protein 7.3 G/DL (6.4-8.2) Albumin 2.3 G/DL (3.4-5.0) L Globulin 5.0 g/dL Albumin/Globulin Ratio 0.5 (1.0-2.7) L Triglycerides Level 71 MG/DL (30-150) Lipase 81 U/L (73-393) Urine Color Yellow Urine Appearance Slightly cloudy Urine pH 6 (4.5-8.0) Urine Specific [place] 1.015 (1.005-1.035) Urine Protein 4+ (NEGATIVE) H Urine Glucose (UA) 3+ (NEGATIVE) H Urine Ketones Negative (NEGATIVE) Urine Blood 5+ (NEGATIVE) H Urine Nitrite Negative (NEGATIVE) Urine Bilirubin Negative (NEGATIVE) Urine Urobilinogen 4 MG/DL (0.0-1.0) H Urine Leukocyte Esterase Negative (NEGATIVE) Urine RBC 20-30 /HPF (0 - 0) H Urine WBC 0-2 /HPF (0 - 0) Urine Squamous Epithelial Cells Occasional /LPF Urine Bacteria Moderate /HPF (NONE) H Lactic Acid Level 4.00 mmol/L (0.4-2.0) H Arterial Blood pH 7.245 (7.350-7.450) Arterial Blood Partial Pressure CO2 44.3 mmHg (35.0-45.0) Arterial Blood Partial Pressure O2 265.0 mmHg (75.0-100.0) H Arterial Blood HCO3 18.8 mmol/L (22.0-26.0) L Arterial Blood Oxygen Saturation 98.9 % (95-100) Arterial Blood Base Excess -8.2 (-2-2) L Manan Test Positive Test 3/4/21 22:40 06/19/20 23:00 06/20/20 03:50 06/20/20 09:00 Arterial Blood pH 7.426 (7.350-7.450) 7.364 (7.350-7.450) Arterial Blood Partial Pressure CO2 31.3 mmHg (35.0-45.0) L 38.3 mmHg (35.0-45.0) Arterial Blood Partial Pressure O2 111.0 mmHg (75.0-100.0) H 73.6 mmHg (75.0-100.0) L Arterial Blood HCO3 20.1 mmol/L (22.0-26.0) L 21.3 mmol/L (22.0-26.0) L Arterial Blood Oxygen Saturation 97.4 % (95-100) 94.2 % (95-100) L Arterial Blood Base Excess -3.4 (-2-2) L -3.6 (-2-2) L Manan Test Positive Positive White Blood Count 9.4 K/UL (4.8-10.8) # 6.7 K/UL (4.8-10.8) Red Blood Count 3.45 M/UL (4.70-6.10) L 3.33 M/UL (4.70-6.10) L Hemoglobin 10.9 G/DL (14.2-18.0) #L 10.7 G/DL (14.2-18.0) L Hematocrit 33.0 % (42.0-52.0) #L 32.0 % (42.0-52.0) L Mean Corpuscular Volume 96 FL (80-99) # 96 FL (80-99) Mean Corpuscular Hemoglobin 31.6 PG (27.0-31.0) H 32.2 PG (27.0-31.0) H Mean Corpuscular Hemoglobin Concent 32.9 G/DL (32.0-36.0) 33.4 G/DL (32.0-36.0) Red Cell Distribution Width 16.1 % (11.6-14.8) H 15.5 % (11.6-14.8) H Platelet Count 74 K/UL (150-450) L 67 K/UL (150-450) L Mean Platelet Volume 8.1 FL (6.5-10.1) 8.8 FL (6.5-10.1) Neutrophils (%) (Auto) % (45.0-75.0) % (45.0-75.0) Lymphocytes (%) (Auto) % (20.0-45.0) % (20.0-45.0) Monocytes (%) (Auto) % (1.0-10.0) % (1.0-10.0) Eosinophils (%) (Auto) % (0.0-3.0) % (0.0-3.0) Basophils (%) (Auto) % (0.0-2.0) % (0.0-2.0) Sodium Level 142 MMOL/L (136-145) 141 MMOL/L (136-145) Potassium Level 4.4 MMOL/L (3.5-5.1) 3.9 MMOL/L (3.5-5.1) Chloride Level 110 MMOL/L (98-107) H 110 MMOL/L (98-107) H Carbon Dioxide Level 24 MMOL/L (21-32) 24 MMOL/L (21-32) Anion Gap 8 mmol/L (5-15) 7 mmol/L (5-15) Blood Urea Nitrogen 21 mg/dL (7-18) H 23 mg/dL (7-18) H Creatinine 1.2 MG/DL (0.55-1.30) 1.1 MG/DL (0.55-1.30) Estimat Glomerular Filtration Rate 57.1 mL/min (>60) > 60 mL/min (>60) Glucose Level 188 MG/DL (74-106) H 153 MG/DL (74-106) H Lactic Acid Level 2.20 mmol/L (0.66-2.22) Calcium Level 7.2 MG/DL (8.5-10.1) L 7.5 MG/DL (8.5-10.1) L Phosphorus Level 3.6 MG/DL (2.5-4.9) 2.9 MG/DL (2.5-4.9) Magnesium Level 1.7 MG/DL (1.8-2.4) L 1.7 MG/DL (1.8-2.4) L Total Bilirubin 2.2 MG/DL (0.2-1.0) H 2.4 MG/DL (0.2-1.0) H Direct Bilirubin 1.1 MG/DL (0.0-0.3) H 1.3 MG/DL (0.0-0.3) H Aspartate Amino Transf (AST/SGOT) 68 U/L (15-37) H 71 U/L (15-37) H Alanine Aminotransferase (ALT/SGPT) 37 U/L (12-78) 37 U/L (12-78) Alkaline Phosphatase 68 U/L (46-116) 64 U/L (46-116) Troponin I 0.326 ng/mL (0.000-0.056) 0.346 ng/mL (0.000-0.056) Total Protein 5.7 G/DL (6.4-8.2) L 5.8 G/DL (6.4-8.2) L Albumin 1.9 G/DL (3.4-5.0) L 1.9 G/DL (3.4-5.0) L Globulin 3.8 g/dL 3.9 g/dL Albumin/Globulin Ratio 0.5 (1.0-2.7) L 0.5 (1.0-2.7) L TB Test (T-Spot) Pending TB Test Nil Control (T-Spot) Pending TB Test Panel A (T-Spot) Pending TB Test Panel B (T-Spot) Pending TB Test Positive Control (T-Spot) Pending Microbiology Date/Time Source Procedure Growth Status 06/19/20 17:51 Nasopharynx SARS-CoV-2 Antigen (Rapid)(KENDRICK) - Final Complete Height (Feet): 5 Height (Inches): 8.00 Weight (Pounds): 119 Medications Current Medications Medications (Trade) Dose Ordered Sig/Augusto Route PRN Reason Start Time Stop Time Status Last Admin Dose Admin Acetaminophen (Tylenol) 650 mg EVERY 6 HOURS PRN NG Temp >100.5 06/19/20 22:30 07/19/20 22:29 Cefepime HCl 1 gm/ Dextrose 55 ml @ 110 mls/hr EVERY 12 HOURS IVPB 06/20/20 09:00 06/27/20 08:59 06/20/20 08:58 Dextrose/ Electrolytes 1,000 ml @ 75 mls/hr [id number] IV 06/19/20 22:30 07/19/20 22:29 06/19/20 23:00 Dopamine HCl/ Dextrose 250 ml @ 0 mls/hr Q24H PRN IV For hypotension 06/19/20 22:30 06/22/20 22:18 Fentanyl Citrate 250 ml @ 1 mls/hr Q24H IV 06/19/20 22:30 06/21/20 22:29 06/19/20 23:00 Pantoprazole (Protonix) 40 mg EVERY 12 HOURS IVP 06/20/20 09:00 07/20/20 08:59 06/20/20 08:55 Assessment/Plan Problem List: (1) Massive hemoptysis Assessment & Plan: Trend h/h no active bleeding ? gi malignancy GI consult ?EGD NG tube ICD Codes: R04.2 - Hemoptysis SNOMED: 63748937, 28291216 (2) Cardiopulmonary arrest ICD Codes: I46.9 - Cardiac arrest, cause unspecified SNOMED: 609400892, 49502037 (3) Lactic acidosis ICD Codes: E87.2 - Acidosis SNOMED: 50953902, 841462722, 089620830 (4) Anemia ICD Codes: D64.9 - Anemia, unspecified SNOMED: 430759524, 94450910 (5) Respiratory failure ICD Codes: J96.90 - Respiratory failure, unspecified, unspecified whether with hypoxia or hypercapnia SNOMED: 377520642, 07757108 (6) Elevated troponin ICD Codes: R77.8 - Other specified abnormalities of plasma proteins SNOMED: 829344436, 340064831, 032551659 (7) Abdominal distension Assessment & Plan: CT noted sbo vs ileus gas filled bowel loops abd distended on exam limited exam given condition critically ill will follow with exam and recs KUB ordered ABDOMEN: Liver: Few incompletely characterized low-attenuation lesions within the liver. Gallbladder and bile ducts: Cholelithiasis. Pancreas: Unremarkable. Spleen: Unremarkable. Adrenals: Unremarkable. Kidneys and ureters: Unremarkable. No obstructing stones. No hydronephrosis. Stomach and bowel: Gas filled mildly distended small bowel loops measuring up to 4 cm. There is mucosal thickening within the stomach potentially representing gastritis or malignancy. PELVIS: Appendix: No findings to suggest acute appendicitis. Bladder: Calabrese catheter in the bladder. Reproductive: Unremarkable as visualized. ABDOMEN and PELVIS: Intraperitoneal space: Trace nonspecific ascites. No free air. Bones/joints: Status post left hip ORIF. Multiple bones within the pelvis and spine. Soft tissues: Unremarkable. Vasculature: Unremarkable. Lymph nodes: Unremarkable. Tubes, lines and devices: Esophagogastric tube within the stomach. IMPRESSION: 1. Gas filled mildly distended small bowel loops measuring up to 4 cm. Abrupt transition point difficult to identify. Obstruction on the differential. Also consider ileus. 2. There is mucosal thickening within the stomach potentially representing gastritis or malignancy. 3. Few incompletely characterized low-attenuation lesions within the liver. 4. Cholelithiasis. 5. Trace nonspecific ascites. ICD Codes: R14.0 - Abdominal distension (gaseous) SNOMED: 33087223 Samuel Lazar Jun 20, 2020 11:09
--- NOTE | 2020-06-20 11:31 | Diagnostic Imaging Report ---
Indication: Lower extremity edema, shortness of breath Technique: Grayscale and duplex images of the bilateral lower extremity veins Comparison: Negative Findings: Bilaterally, grayscale and duplex images demonstrate no evidence of intraluminal thrombus. Normal phasic Doppler waveforms, demonstrating normal augmentation response and no evidence of valvular insufficiency. Greater saphenous vein(s) and tibial veins are patent. Normal compressibility. Impression: Negative for evidence of lower extremity deep venous thrombosis bilaterally
--- NOTE | 2020-06-20 12:00 | NUR ---
NURSE NOTES: Fentanyl at 150mcg/hr- patient calm at this time .V/S stable
--- NOTE | 2020-06-20 14:04 | Internal Med Progress Note ---
Subjective Physician Name Ventura Pelletier Attending Physician Ventura Pelletier MD Current Medications Medications (Trade) Dose Ordered Sig/Augusto Route PRN Reason Start Time Stop Time Status Last Admin Dose Admin Acetaminophen (Tylenol) 650 mg EVERY 6 HOURS PRN NG Temp >100.5 06/19/20 22:30 07/19/20 22:29 Cefepime HCl 1 gm/ Dextrose 55 ml @ 110 mls/hr EVERY 12 HOURS IVPB 06/20/20 09:00 06/27/20 08:59 06/20/20 08:58 Dextrose/ Electrolytes 1,000 ml @ 75 mls/hr [id number] IV 06/19/20 22:30 07/19/20 22:29 06/19/20 23:00 Dopamine HCl/ Dextrose 250 ml @ 0 mls/hr Q24H PRN IV For hypotension 06/19/20 22:30 06/22/20 22:18 Fentanyl Citrate 250 ml @ 1 mls/hr Q24H IV 06/19/20 22:30 06/21/20 22:29 06/19/20 23:00 Pantoprazole (Protonix) 40 mg EVERY 12 HOURS IVP 06/20/20 09:00 07/20/20 08:59 06/20/20 08:55 Allergies: Coded Allergies: No Known Allergies (Unverified , 06/19/20) Subjective In MICU, remain intubated, on ventilation, sedated, hemoglobin: 10.7, troponin 0 0.058 decreased to 0.346. Objective Last Vital Signs Date Time Temp Pulse Resp B/P (MAP) Pulse Ox O2 Delivery O2 Flow Rate FiO2 06/20/20 13:00 88 17 142/73 (96) 98 06/20/20 12:00 40 06/20/20 12:00 Mechanical Ventilator Mechanical Ventilator Mechanical Ventilator 06/20/20 12:00 98.4 06/19/20 16:08 4.0 Laboratory Tests Test 06/19/20 16:23 06/19/20 17:10 06/19/20 17:41 06/19/20 19:50 White Blood Count 3.5 K/UL (4.8-10.8) L 4.1 K/UL (4.8-10.8) L Red Blood Count 2.80 M/UL (4.70-6.10) L 2.05 M/UL (4.70-6.10) L Hemoglobin 9.7 G/DL (14.2-18.0) L 7.0 G/DL (14.2-18.0) L Hematocrit 28.5 % (42.0-52.0) L 21.4 % (42.0-52.0) L Mean Corpuscular Volume 102 FL (80-99) H 105 FL (80-99) H Mean Corpuscular Hemoglobin 34.5 PG (27.0-31.0) H 34.0 PG (27.0-31.0) H Mean Corpuscular Hemoglobin Concent 34.0 G/DL (32.0-36.0) 32.5 G/DL (32.0-36.0) Red Cell Distribution Width 14.1 % (11.6-14.8) 15.0 % (11.6-14.8) H Platelet Count 90 K/UL (150-450) L 89 K/UL (150-450) L Mean Platelet Volume 8.6 FL (6.5-10.1) 8.6 FL (6.5-10.1) Neutrophils (%) (Auto) % (45.0-75.0) % (45.0-75.0) Lymphocytes (%) (Auto) % (20.0-45.0) % (20.0-45.0) Monocytes (%) (Auto) % (1.0-10.0) % (1.0-10.0) Eosinophils (%) (Auto) % (0.0-3.0) % (0.0-3.0) Basophils (%) (Auto) % (0.0-2.0) % (0.0-2.0) Differential Total Cells Counted 100 100 Neutrophils % (Manual) 83 % (45-75) H 65 % (45-75) Lymphocytes % (Manual) 11 % (20-45) L 30 % (20-45) Monocytes % (Manual) 6 % (1-10) 5 % (1-10) Eosinophils % (Manual) 0 % (0-3) 0 % (0-3) Basophils % (Manual) 0 % (0-2) 0 % (0-2) Band Neutrophils 0 % (0-8) 0 % (0-8) Platelet Estimate Decreased L Decreased L Platelet Morphology Normal Normal Hypochromasia 1+ 2+ Anisocytosis 1+ 1+ Macrocytosis 1+ 1+ Prothrombin Time 11.6 SEC (9.30-11.50) H Prothromb Time International Ratio 1.1 (0.9-1.1) Activated Partial Thromboplast Time 24 SEC (23-33) Sodium Level 138 MMOL/L (136-145) Potassium Level 3.8 MMOL/L (3.5-5.1) Chloride Level 105 MMOL/L (98-107) Carbon Dioxide Level 21 MMOL/L (21-32) Anion Gap 12 mmol/L (5-15) Blood Urea Nitrogen 18 mg/dL (7-18) Creatinine 1.2 MG/DL (0.55-1.30) Estimat Glomerular Filtration Rate 57.1 mL/min (>60) Glucose Level 271 MG/DL (74-106) H Calcium Level 8.1 MG/DL (8.5-10.1) L Ferritin 142 NG/ML (8-388) Total Bilirubin 1.8 MG/DL (0.2-1.0) H Direct Bilirubin 0.7 MG/DL (0.0-0.3) H Aspartate Amino Transf (AST/SGOT) 68 U/L (15-37) H Alanine Aminotransferase (ALT/SGPT) 37 U/L (12-78) Alkaline Phosphatase 81 U/L (46-116) Lactate Dehydrogenase 328 U/L (81-234) H Total Creatine Kinase 253 U/L (26-308) Creatine Kinase MB 4.3 NG/ML (0.0-3.6) H Creatine Kinase MB Relative Index 1.6 Troponin I 0.058 ng/mL (0.000-0.056) C-Reactive Protein, Quantitative 4.4 mg/dL (0.00-0.90) H Total Protein 7.3 G/DL (6.4-8.2) Albumin 2.3 G/DL (3.4-5.0) L Globulin 5.0 g/dL Albumin/Globulin Ratio 0.5 (1.0-2.7) L Triglycerides Level 71 MG/DL (30-150) Lipase 81 U/L (73-393) Urine Color Yellow Urine Appearance Slightly cloudy Urine pH 6 (4.5-8.0) Urine Specific [place] 1.015 (1.005-1.035) Urine Protein 4+ (NEGATIVE) H Urine Glucose (UA) 3+ (NEGATIVE) H Urine Ketones Negative (NEGATIVE) Urine Blood 5+ (NEGATIVE) H Urine Nitrite Negative (NEGATIVE) Urine Bilirubin Negative (NEGATIVE) Urine Urobilinogen 4 MG/DL (0.0-1.0) H Urine Leukocyte Esterase Negative (NEGATIVE) Urine RBC 20-30 /HPF (0 - 0) H Urine WBC 0-2 /HPF (0 - 0) Urine Squamous Epithelial Cells Occasional /LPF Urine Bacteria Moderate /HPF (NONE) H Lactic Acid Level 4.00 mmol/L (0.4-2.0) H Arterial Blood pH 7.245 (7.350-7.450) Arterial Blood Partial Pressure CO2 44.3 mmHg (35.0-45.0) Arterial Blood Partial Pressure O2 265.0 mmHg (75.0-100.0) H Arterial Blood HCO3 18.8 mmol/L (22.0-26.0) L Arterial Blood Oxygen Saturation 98.9 % (95-100) Arterial Blood Base Excess -8.2 (-2-2) L Manan Test Positive Test 06/19/20 22:40 06/19/20 23:00 06/20/20 03:50 06/20/20 09:00 Arterial Blood pH 7.426 (7.350-7.450) 7.364 (7.350-7.450) Arterial Blood Partial Pressure CO2 31.3 mmHg (35.0-45.0) L 38.3 mmHg (35.0-45.0) Arterial Blood Partial Pressure O2 111.0 mmHg (75.0-100.0) H 73.6 mmHg (75.0-100.0) L Arterial Blood HCO3 20.1 mmol/L (22.0-26.0) L 21.3 mmol/L (22.0-26.0) L Arterial Blood Oxygen Saturation 97.4 % (95-100) 94.2 % (95-100) L Arterial Blood Base Excess -3.4 (-2-2) L -3.6 (-2-2) L Manan Test Positive Positive White Blood Count 9.4 K/UL (4.8-10.8) # 6.7 K/UL (4.8-10.8) Red Blood Count 3.45 M/UL (4.70-6.10) L 3.33 M/UL (4.70-6.10) L Hemoglobin 10.9 G/DL (14.2-18.0) #L 10.7 G/DL (14.2-18.0) L Hematocrit 33.0 % (42.0-52.0) #L 32.0 % (42.0-52.0) L Mean Corpuscular Volume 96 FL (80-99) # 96 FL (80-99) Mean Corpuscular Hemoglobin 31.6 PG (27.0-31.0) H 32.2 PG (27.0-31.0) H Mean Corpuscular Hemoglobin Concent 32.9 G/DL (32.0-36.0) 33.4 G/DL (32.0-36.0) Red Cell Distribution Width 16.1 % (11.6-14.8) H 15.5 % (11.6-14.8) H Platelet Count 74 K/UL (150-450) L 67 K/UL (150-450) L Mean Platelet Volume 8.1 FL (6.5-10.1) 8.8 FL (6.5-10.1) Neutrophils (%) (Auto) % (45.0-75.0) % (45.0-75.0) Lymphocytes (%) (Auto) % (20.0-45.0) % (20.0-45.0) Monocytes (%) (Auto) % (1.0-10.0) % (1.0-10.0) Eosinophils (%) (Auto) % (0.0-3.0) % (0.0-3.0) Basophils (%) (Auto) % (0.0-2.0) % (0.0-2.0) Sodium Level 142 MMOL/L (136-145) 141 MMOL/L (136-145) Potassium Level 4.4 MMOL/L (3.5-5.1) 3.9 MMOL/L (3.5-5.1) Chloride Level 110 MMOL/L (98-107) H 110 MMOL/L (98-107) H Carbon Dioxide Level 24 MMOL/L (21-32) 24 MMOL/L (21-32) Anion Gap 8 mmol/L (5-15) 7 mmol/L (5-15) Blood Urea Nitrogen 21 mg/dL (7-18) H 23 mg/dL (7-18) H Creatinine 1.2 MG/DL (0.55-1.30) 1.1 MG/DL (0.55-1.30) Estimat Glomerular Filtration Rate 57.1 mL/min (>60) > 60 mL/min (>60) Glucose Level 188 MG/DL (74-106) H 153 MG/DL (74-106) H Lactic Acid Level 2.20 mmol/L (0.66-2.22) Calcium Level 7.2 MG/DL (8.5-10.1) L 7.5 MG/DL (8.5-10.1) L Phosphorus Level 3.6 MG/DL (2.5-4.9) 2.9 MG/DL (2.5-4.9) Magnesium Level 1.7 MG/DL (1.8-2.4) L 1.7 MG/DL (1.8-2.4) L Total Bilirubin 2.2 MG/DL (0.2-1.0) H 2.4 MG/DL (0.2-1.0) H Direct Bilirubin 1.1 MG/DL (0.0-0.3) H 1.3 MG/DL (0.0-0.3) H Aspartate Amino Transf (AST/SGOT) 68 U/L (15-37) H 71 U/L (15-37) H Alanine Aminotransferase (ALT/SGPT) 37 U/L (12-78) 37 U/L (12-78) Alkaline Phosphatase 68 U/L (46-116) 64 U/L (46-116) Troponin I 0.326 ng/mL (0.000-0.056) 0.346 ng/mL (0.000-0.056) Total Protein 5.7 G/DL (6.4-8.2) L 5.8 G/DL (6.4-8.2) L Albumin 1.9 G/DL (3.4-5.0) L 1.9 G/DL (3.4-5.0) L Globulin 3.8 g/dL 3.9 g/dL Albumin/Globulin Ratio 0.5 (1.0-2.7) L 0.5 (1.0-2.7) L TB Test (T-Spot) Pending TB Test Nil Control (T-Spot) Pending TB Test Panel A (T-Spot) Pending TB Test Panel B (T-Spot) Pending TB Test Positive Control (T-Spot) Pending Microbiology Date/Time Source Procedure Growth Status 06/19/20 17:51 Nasopharynx SARS-CoV-2 Antigen (Rapid)(KENDRICK) - Final Complete Intake and Output 06/19/20 06/20/20 19:00 07:00 Intake Total 653.266 ml Output Total 330 ml Balance 323.266 ml Intake IV Total 653.266 ml Output Urine Total 330 ml Objective General: intubated, remained on ventilation, sedated. HEENT: NCAT, sclera anicteric, PERRL, ET Tube, NG Tube. Neck: Supple, no significant jugular venous distention, Lungs: mechanical breath sounds, no Wheeze or Rales. Heart: Regular rate and rhythm, normal S1/S2, no murmurs. Abdomen: soft, nontender, nondistended. Normoactive bowel sounds. / Rectal: Refused and deferred. Extremities: No Cyanosis , clubbing or edema. Neuro: limited secondary to patient's status, able to move extremities slowly. Skin: warm, no rash. Assessment/Plan Assessment/Plan Acute respiratory failure Acute PE arrest. Elevated troponin most likely due to non-ST elevation [place] type 2 , demand ischemia. Thrombocytopenia. Upper GI bleed. Severe anemia most likely secondary to acute blood loss as a result of GI bleed. Aspiration pneumonia. Hypertension. Hypothyroidism. BPH. Plan: Follow up with cultures and laboratory. 2D echo reviewed. Antibiotics: Cefepime and Flagyl. DVT prophylaxis: SCD. Protonix IV twice a day. Discussed with the granddaughter Landy at [phone] extensively with regard to the plan of care laboratory and imaging studies. CODE STATUS: DNR. Ventura Pelletier MD Jun 20, 2020 14:04
--- NOTE | 2020-06-20 14:10 | NUR ---
NURSE NOTES: Dr. Davis called the unit- updated with patient's condition- aware of latest lab. results
--- NOTE | 2020-06-20 14:11 | Cardiology Report ---
APPROVED REPORT EXAM: Two-dimensional and M-mode echocardiogram with Doppler and color Doppler. INDICATION s/p arrest M-Mode DIMENSIONS IVSd0.9 (0.7-1.1cm)Left Atrium (MM)3.8 (1.6-4.0cm) LVDd4.9 (3.5-5.6cm)Aortic Root2.7 (2.0-3.7cm) PWd0.9 (0.7-1.1cm)Aortic Cusp Exc.1.3 (1.5-2.0cm) IVSs1.2 cmEPSS0.7 (>1.0cm) LVDs3.0 (2.5-4.0cm) PWs1.2 cm <Conclusion> Normal left ventricular chamber size, systolic function and wall motion. Left ventricular ejection fraction estimated to be 55 %. No evidence of left ventricular hypertrophy. Mild left atrial enlargement. Right atrial size at upper limits of normal. Right ventricular chamber size at upper limits of normal. Moderate focal aortic valve sclerosis with adequate cusp excursion. Thickened mitral valve leaflets with normal excursion. Mitral annulus and aortic root calcification. Pulmonic valve not well visualized. Normal tricuspid valve structure. IVC at normal size and collapsing with respiration. A color flow and spectral Doppler study was performed and revealed: Severe aortic regurgitation. Mitral diastolic velocities suggest reduced left ventricular relaxation c/w mild diastolic dysfunction (Grade I). Moderate mitral regurgitation. Moderate tricuspid regurgitation. Tricuspid systolic velocities suggests peak right ventricular systolic pressure of 81 mmHg, consistent with severe pulmonary hypertension.
--- NOTE | 2020-06-20 14:22 | Consultation ---
Consult Note Consult Note I am asked to evaluate the patient at the request of Dr. Pelletier for fluid and electrolyte management Patient seen in ICU. Intubated on ventilator. Labs reviewed. ER note: This patient is Maced[place] speaking. However, the patient's granddaughter called me to give me the history regarding this patient. Apparently, for the past few days the patient has had generalized weakness and there was concern that he coughed or vomited up blood. He was seen at an emergency department last night and discharged home with a negative work-up per report. The patient is brought into the emergency department today because after having a bowel movement the patient had a syncopal episode. The patient himself has no specific complaints. There is no report of fever. There has been some cough. Allergies: No Known Allergies (Unverified , 06/19/20) COVID-19 Screening Contact w/high risk pt: No Experienced COVID-19 symptoms?: No COVID-19 Testing performed [employer] SPECIALIST: No Past Medical History: see triage record, HTN Social History: Denies: smoking, alcohol use, drug use Reviewed Nursing Documentation: PMH: Agreed; PSxH: Agreed Hx Hypertension: Yes Vital Signs Date Time Temp Pulse Resp B/P (MAP) Pulse Ox O2 Delivery O2 Flow Rate FiO2 06/19/20 15:47 98.6 120 18 174/100 (124) 98 Room Air 06/19/20 16:08 4.0 Sp02 EP Interpretation: reviewed, normal PHYSICAL EXAMINATION: GENERAL: Reveals an 89-year-old male. HEENT: Unremarkable. Endotracheal tube is in place. LUNGS: Clear breath sounds bilaterally. ABDOMEN: Soft. EXTREMITIES: There is no edema. NEUROLOGIC: Nonfocal. He is sedated, therefore full exam is not possible. VITAL SIGNS: Blood pressure is 113/60, heart rate 74, respirations 18, O2 saturation 100% on 40% FiO2. X-ray chest obtained earlier yesterday shows bilateral multifocal interstitial opacities suspicious of a COVID pneumonia and/or pulmonary edema. His initial COVID testing is negative. . Assessment/Plan Status post cardiorespiratory arrest Elevated troponin Oliguria Lactic acidosis Massive hemoptysis Acute respiratory failure, intubated on ventilator Electrolyte imbalance Plan: Pulmonary support Correct abnormal electrolytes and chemistries Anemia work-up Monitor renal parameters and urine output Urine studies Magnesium supplement Per orders Kapil Rea MD Jun 20, 2020 14:22
--- NOTE | 2020-06-20 14:30 | NUR ---
NURSE NOTES: Dr. Pelletier came to see patient- updated with patient's condition- made aware that grand daughter would like to speak with him- with instruction to let the family call his office.
[2020-06-20] MEDS: D5 1/2NS w/KCl 20mEq 1,000 ML IV SCH (14:45)
--- NOTE | 2020-06-20 17:15 | NUR ---
NURSE NOTES: Grand daughter ( Kimber ) called the unit- updated with patient's condition by Edda Dumont RN
--- NOTE | 2020-06-20 17:29 | Diagnostic Imaging Report ---
Indication: Shortness of breath Technique: One view of the chest Comparison: 06/19/2020 Findings: Stable satisfactory tube positions. Bilateral infiltrates are probably unchanged, allowing for differences in degree of exposure technique. There does appear to be slightly increased pleural fluid on the left. Impression: Increased left pleural effusion Other stable findings as described
--- NOTE | 2020-06-20 17:49 | Diagnostic Imaging Report ---
History: ABD TEND Exam: US ABDOMEN Comparison: FINDINGS: Visualized portions of the pancreas appear unremarkable. 2.3 x 1.8 x 1.8 cm hyperechoic focus within the liver is nonspecific. Main portal vein is patent with flow towards the liver. CBD within limits for age at 6 mm. Gallbladder is distended and contains a couple small stones measuring around 5 mm. Echogenic focus at the fundus measuring around 9 mm may represent tumefactive sludge, polyp or stone. No wall thickening or pericholecystic free fluid identified. No hydronephrosis or free fluid seen. 1.6 cm right renal cyst. Spleen measures 9.5 cm. IMPRESSION: 2.3 x 1.8 x 1.8 cm hyperechoic focus within the liver is nonspecific. CBD within limits for age at 6 mm. Gallbladder is distended and contains a couple small stones measuring around 5 mm. Echogenic focus at the fundus measuring around 9 mm may represent tumefactive sludge, polyp or stone. No wall thickening or pericholecystic free fluid identified.
--- NOTE | 2020-06-20 17:52 | NUR ---
NURSE NOTES: Dr. Sevilla here - seen patient- updated with patient's status- aware of fast HR rate this morning. Also made aware of latest troponin level 0.238
--- NOTE | 2020-06-20 18:14 | Cardiology Progress Note ---
Assessment/Plan Assessment/Plan respiratory failure s/p cp arrest / pea resolved with in 1 min massive hemoptysis vs gi bleed vs both svt paf phtn ar / mr / tr with normal lv function abn trop due to demand anemia thrombocytopenia pui probable aspiration not clear why such high pasp duplex neg amio for main of sinus metoprolol for tachy if needed consider heme evla supportive care silvino abx empiric repeat ekg in am repeat trop iv diuretics when bp allow [id number] Objective Last 24 Hour Vital Signs Date Time Temp Pulse Resp B/P (MAP) Pulse Ox O2 Delivery O2 Flow Rate FiO2 06/20/20 18:00 144 14 101/71 (81) 95 06/20/20 17:00 14 127/78 Mechanical Ventilator 40 06/20/20 17:00 134 16 127/78 (94) 98 06/20/20 16:00 99.5 78 16 113/61 (78) 98 06/20/20 16:00 40 06/20/20 16:00 16 113/61 Mechanical Ventilator 40 06/20/20 16:00 Mechanical Ventilator Mechanical Ventilator Mechanical Ventilator 06/20/20 16:00 78 06/20/20 15:00 16 119/55 Mechanical Ventilator 40 06/20/20 15:00 77 16 119/55 (76) 97 06/20/20 14:00 15 126/6 Mechanical Ventilator 40 06/20/20 14:00 86 19 140/73 (95) 97 06/20/20 13:47 87 19 40 06/20/20 13:00 88 17 142/73 (96) 98 06/20/20 13:00 17 136/73 40 06/20/20 12:00 40 06/20/20 12:00 Mechanical Ventilator Mechanical Ventilator Mechanical Ventilator 06/20/20 12:00 17 136/73 Mechanical Ventilator 40 06/20/20 12:00 18 132/74 Mechanical Ventilator 40 06/20/20 12:00 85 06/20/20 12:00 98.4 86 18 132/74 (93) 99 06/20/20 11:45 18 143/78 Mechanical Ventilator 40 06/20/20 11:30 18 133/74 Mechanical Ventilator 40 06/20/20 11:15 19 135/79 Mechanical Ventilator 40 06/20/20 11:00 20 143/80 Mechanical Ventilator 40 06/20/20 11:00 88 20 143/80 (101) 98 06/20/20 10:40 173 127/86 06/20/20 10:00 148 15 135/89 (104) 97 06/20/20 10:00 15 135/89 Mechanical Ventilator 40 06/20/20 09:00 91 16 148/80 (102) 97 06/20/20 09:00 16 148/80 Mechanical Ventilator 40 06/20/20 09:00 Mechanical Ventilator Mechanical Ventilator Mechanical Ventilator 06/20/20 08:00 78 06/20/20 08:00 40 06/20/20 08:00 15 173/94 Mechanical Ventilator 40 06/20/20 08:00 98.7 97 14 173/94 (120) 97 06/20/20 07:20 99 22 40 06/20/20 07:00 77 19 124/65 (84) 100 06/20/20 07:00 19 124/65 Mechanical Ventilator 40 06/20/20 06:30 73 17 102/58 (73) 100 06/20/20 06:30 73 17 06/20/20 06:00 18 104/60 Mechanical Ventilator 40 06/20/20 06:00 98.7 71 18 104/60 (75) 99 06/20/20 05:30 74 18 107/61 (76) 99 06/20/20 05:00 18 97/60 Mechanical Ventilator 40 06/20/20 05:00 72 18 97/60 (72) 98 06/20/20 04:49 94 19 40 06/20/20 04:30 75 20 90/55 (67) 96 06/20/20 04:00 75 06/20/20 04:00 40 06/20/20 04:00 20 89/58 Mechanical Ventilator 40 06/20/20 04:00 75 20 89/58 (68) 96 06/20/20 04:00 Mechanical Ventilator 06/20/20 03:30 93 8 137/77 (97) 96 06/20/20 03:00 109 22 167/102 (123) 91 06/20/20 03:00 22 167/102 Mechanical Ventilator 40 06/20/20 02:44 92 22 40 06/20/20 02:30 87 19 134/75 (94) 98 06/20/20 02:00 90 15 132/77 (95) 98 06/20/20 02:00 15 132/77 Mechanical Ventilator 40 06/20/20 01:00 10 152/85 Mechanical Ventilator 40 06/20/20 01:00 101 10 152/85 (107) 98 06/20/20 00:51 96 20 40 06/20/20 00:30 91 12 141/85 (103) 98 06/20/20 00:00 78 06/20/20 00:00 Mechanical Ventilator 06/20/20 00:00 18 101/66 Mechanical Ventilator 40 06/20/20 00:00 98.7 78 16 101/66 (78) 100 06/20/20 00:00 40 06/19/20 23:30 79 16 95/62 (73) 98 06/19/20 23:00 81 15 101/66 (78) 98 06/19/20 23:00 30 100/61 Mechanical Ventilator 50 06/19/20 23:00 15 101/66 Mechanical Ventilator 40 06/19/20 22:31 81 21 40 06/19/20 22:00 11 120/79 Mechanical Ventilator 40 06/19/20 22:00 93 11 120/79 (93) 96 06/19/20 21:45 98 12 128/75 (92) 96 06/19/20 21:30 104 13 129/79 (96) 95 06/19/20 21:15 107 16 142/91 (108) 94 06/19/20 21:00 98.6 101 13 119/78 (92) 99 06/19/20 21:00 13 119/78 Mechanical Ventilator 40 06/19/20 21:00 Mechanical Ventilator 06/19/20 20:43 16 126/85 Endotracheal Tube 50 06/19/20 20:01 107 16 50 06/19/20 19:37 110 16 121/89 100 Endotracheal Tube 100 06/19/20 18:56 11 118/69 Endotracheal Tube 100 Intake and Output 06/19/20 06/20/20 19:00 07:00 Intake Total 653.266 ml Output Total 330 ml Balance 323.266 ml Intake IV Total 653.266 ml Output Urine Total 330 ml Laboratory Tests Test 06/19/20 19:50 06/19/20 22:40 06/19/20 23:00 06/20/20 03:50 Arterial Blood pH 7.245 (7.350-7.450) 7.426 (7.350-7.450) Arterial Blood Partial Pressure CO2 44.3 mmHg (35.0-45.0) 31.3 mmHg (35.0-45.0) L Arterial Blood Partial Pressure O2 265.0 mmHg (75.0-100.0) H 111.0 mmHg (75.0-100.0) H Arterial Blood HCO3 18.8 mmol/L (22.0-26.0) L 20.1 mmol/L (22.0-26.0) L Arterial Blood Oxygen Saturation 98.9 % (95-100) 97.4 % (95-100) Arterial Blood Base Excess -8.2 (-2-2) L -3.4 (-2-2) L Manan Test Positive Positive White Blood Count 9.4 K/UL (4.8-10.8) # 6.7 K/UL (4.8-10.8) Red Blood Count 3.45 M/UL (4.70-6.10) L 3.33 M/UL (4.70-6.10) L Hemoglobin 10.9 G/DL (14.2-18.0) #L 10.7 G/DL (14.2-18.0) L Hematocrit 33.0 % (42.0-52.0) #L 32.0 % (42.0-52.0) L Mean Corpuscular Volume 96 FL (80-99) # 96 FL (80-99) Mean Corpuscular Hemoglobin 31.6 PG (27.0-31.0) H 32.2 PG (27.0-31.0) H Mean Corpuscular Hemoglobin Concent 32.9 G/DL (32.0-36.0) 33.4 G/DL (32.0-36.0) Red Cell Distribution Width 16.1 % (11.6-14.8) H 15.5 % (11.6-14.8) H Platelet Count 74 K/UL (150-450) L 67 K/UL (150-450) L Mean Platelet Volume 8.1 FL (6.5-10.1) 8.8 FL (6.5-10.1) Neutrophils (%) (Auto) % (45.0-75.0) % (45.0-75.0) Lymphocytes (%) (Auto) % (20.0-45.0) % (20.0-45.0) Monocytes (%) (Auto) % (1.0-10.0) % (1.0-10.0) Eosinophils (%) (Auto) % (0.0-3.0) % (0.0-3.0) Basophils (%) (Auto) % (0.0-2.0) % (0.0-2.0) Sodium Level 142 MMOL/L (136-145) 141 MMOL/L (136-145) Potassium Level 4.4 MMOL/L (3.5-5.1) 3.9 MMOL/L (3.5-5.1) Chloride Level 110 MMOL/L (98-107) H 110 MMOL/L (98-107) H Carbon Dioxide Level 24 MMOL/L (21-32) 24 MMOL/L (21-32) Anion Gap 8 mmol/L (5-15) 7 mmol/L (5-15) Blood Urea Nitrogen 21 mg/dL (7-18) H 23 mg/dL (7-18) H Creatinine 1.2 MG/DL (0.55-1.30) 1.1 MG/DL (0.55-1.30) Estimat Glomerular Filtration Rate 57.1 mL/min (>60) > 60 mL/min (>60) Glucose Level 188 MG/DL (74-106) H 153 MG/DL (74-106) H Lactic Acid Level 2.20 mmol/L (0.66-2.22) Calcium Level 7.2 MG/DL (8.5-10.1) L 7.5 MG/DL (8.5-10.1) L Phosphorus Level 3.6 MG/DL (2.5-4.9) 2.9 MG/DL (2.5-4.9) Magnesium Level 1.7 MG/DL (1.8-2.4) L 1.7 MG/DL (1.8-2.4) L Total Bilirubin 2.2 MG/DL (0.2-1.0) H 2.4 MG/DL (0.2-1.0) H Direct Bilirubin 1.1 MG/DL (0.0-0.3) H 1.3 MG/DL (0.0-0.3) H Aspartate Amino Transf (AST/SGOT) 68 U/L (15-37) H 71 U/L (15-37) H Alanine Aminotransferase (ALT/SGPT) 37 U/L (12-78) 37 U/L (12-78) Alkaline Phosphatase 68 U/L (46-116) 64 U/L (46-116) Troponin I 0.326 ng/mL (0.000-0.056) 0.346 ng/mL (0.000-0.056) Total Protein 5.7 G/DL (6.4-8.2) L 5.8 G/DL (6.4-8.2) L Albumin 1.9 G/DL (3.4-5.0) L 1.9 G/DL (3.4-5.0) L Globulin 3.8 g/dL 3.9 g/dL Albumin/Globulin Ratio 0.5 (1.0-2.7) L 0.5 (1.0-2.7) L TB Test (T-Spot) Pending TB Test Nil Control (T-Spot) Pending TB Test Panel A (T-Spot) Pending TB Test Panel B (T-Spot) Pending TB Test Positive Control (T-Spot) Pending Test 06/20/20 09:00 06/20/20 14:45 Arterial Blood pH 7.364 (7.350-7.450) Arterial Blood Partial Pressure CO2 38.3 mmHg (35.0-45.0) Arterial Blood Partial Pressure O2 73.6 mmHg (75.0-100.0) L Arterial Blood HCO3 21.3 mmol/L (22.0-26.0) L Arterial Blood Oxygen Saturation 94.2 % (95-100) L Arterial Blood Base Excess -3.6 (-2-2) L Manan Test Positive Troponin I 0.238 ng/mL (0.000-0.056) Microbiology Date/Time Source Procedure Growth Status 06/19/20 17:51 Nasopharynx SARS-CoV-2 Antigen (Rapid)([facility]) - Final Complete Ken Sevilla MD Jun 20, 2020 18:14
--- NOTE | 2020-06-20 18:19 | NUR ---
Patient went to A-Fib after PM care - Dr. Sevilla aware - with new orders given
[2020-06-20] MEDS: Metoprolol Tartrate 5mg/5ml Inj IVP PRN (18:32)
--- NOTE | 2020-06-20 18:32 | NUR ---
NURSE NOTES: HR 132- A-fib- Metoprolol 2.5 mg given IVP as PRN per Dr. Sevilla
[2020-06-20] MEDS: fentaNYL 2500mcg/NS 250ml 250 ML IV SCH (19:00)
--- NOTE | 2020-06-20 19:20 | NUR ---
NURSE NOTES: Report given to Haleigh Merrill RN. Endorsed
[2020-06-20] MEDS: Octreotide Acetate 500 MCG in Sodium Chloride 499 ML IV SCH (19:30)
--- NOTE | 2020-06-20 19:30 | NUR ---
NURSE NOTES: NURSE NOTES: Report received from JAVI Joya.Pt is Covid PUI Pt is sedated and obtunded s/p Code Blue, SEE code blue sheet for the details, at ED (HR 52 O2 38%). Orally intubated, ETT 7.5/22cm from the lip line. Setting AC 16, TV 450, Peep 5, and FiO2 50% 4Units of RBC transfused at ED Hgn 10.7 this morning OG tube 14F inserted , gastric contents returned, continuous suction ordered per AMRN Calabrese inserted 16F inserted. Pt rhythm changed to Afif w RVR. Metprolol 2.5mg PRN q4h >125SBP DVT duplex negative SCD started IVP R Wrist 22G and L Wrist 20G Troponn 0.32 and 0.346, 0.238 Dr. Tillmanrad aware. ABG done. 2D echo done EF 55% PIV LFA 20G and RFA 18G: Fentanyl 150mg/hr and D5 1/2NS with Kcl20 are running, CDI 80mL gastric contents suctioned per AMRN. EKG ddone, AFB x 2 done 3rd test will be due at [address] Davis is planning to do EGD but wait TB result. EEG tets will be done by midnight. OB stool must be collected Xray abs and pelvis tomorrow Safety measures observed and no acute distress noted. Will continue to monitor.
--- NOTE | 2020-06-20 19:44 | History and Physical Report ---
DATE OF ADMISSION: 06/19/2020 CHIEF COMPLAINT: Respiratory arrest. HISTORY OF PRESENT ILLNESS: This is an 89-year-old Nepali gentleman with a past medical history significant for hypertension, hypothyroidism, BPH, history of fall in 2018 with a hip fracture status post repair, followed by pneumonia complication, who presented to the hospital from home after he was noted to be vomiting blood. The patient's granddaughter, Landy, who is reporting everything stated that the last Tuesday, four days ago, the patient started having coughing blood, then by Tuesday, he started having vomiting blood, went to the [facility] emergency, had extensive workup done including imaging and blood work and subsequently was discharged home. On , which is today, the patient noted to have multiple bowel movements and then after the bowel movements he started having shakiness, shivering, and then had a syncopal episode. EMS was called and the patient was transferred to the hospital. While he was in the emergency department, the patient initially was awake, responsive and was in no acute distress. However, the patient went into respiratory arrest after having large bloody clots he was vomiting and became hypoxemic, altered, bradycardic and went into PEA arrest for less than a minute. CPR was started, rapid sequence intubation and ACLS protocol, and the patient became pulseless and had become bradycardic and bagged. Atropine was given and subsequently the patient was placed on ventilation. drip and fentanyl drip for comfort ventilation was started in the emergency room and subsequently the patient was admitted to ICU with acute hypoxemic respiratory failure with PEA arrest with possible upper GI bleed requiring blood transfusion. PAST MEDICAL HISTORY/PAST SURGICAL HISTORY: As above, history of hypertension, hypothyroidism, BPH, history of fall with a hip fracture, status post ORIF in 2018 followed by pneumonia. MEDICATIONS: At home, please refer to medication reconciliation. ALLERGIES: No known drug allergies. SOCIAL HISTORY: No smoking, alcohol, or drugs. According to granddaughterLandy, the patient is independent living at home by himself. FAMILY HISTORY: Noncontributory. REVIEW OF SYSTEMS: Mostly as above, coughing up blood and vomiting blood. No double vision. No chest pain or shortness of breath prior to arrival to emergency room. PHYSICAL EXAMINATION: VITAL SIGNS: On admission from the emergency room, temperature 98.6, pulse 120, respirations 18, and blood pressure 174/100. GENERAL: The patient is intubated on ventilation, sedated. HEAD AND NECK: Pupils are equal and reactive to light. Anicteric. ET tube in mouth. Neck was supple. No JVD. LUNGS: Good air entry. No wheezing or rhonchi. The patient has mechanical breath sounds. HEART: S1, S2. Regular rhythm. No murmur or gallops. ABDOMEN: Soft, nondistended, nontender. Positive bowel sounds. EXTREMITIES: No cyanosis, clubbing, or edema. NEUROLOGIC: Very limited secondary to the patient's status. The patient is sedated and cannot follow commands. LABORATORY DATA: On admission from the emergency department, WBC of 3.5, hemoglobin 9.7, hematocrit 28, platelets 90,000. Repeat laboratory again is WBC of 9.4, hemoglobin 10.9, hematocrit of 33, platelets 74,000 after the transfusion, two units of packed transfusion. Sodium 138, potassium 3.8, chloride 105, bicarb is 21, BUN 18, creatinine 1.2. GFR is 57. Glucose is 271. Calcium is 8.1. Lactate is 4.0. Lactate dehydrogenase is 328. First troponin 0.058. CRP is 4.4. Triglycerides 71, lipase is 81. PT 11, INR is 1.1, PTT of 24. UA is +4 protein, +3 glucose, +5 blood, 20 to 30 rbc's, leukocyte esterase is negative, moderate bacteria. The patient's rapid COVID test is negative. Chest x-ray - initial chest x-ray showed endotracheal tube terminating at 6.5 cm, multifocal bilateral interstitial and airspace opacity, differential multifocal infection, edema, pulmonary hemorrhage or aspiration. CT scan of the chest, abdomen and pelvis, extensive bilateral airspace opacity secretion in the airway. Consider large volume aspiration or multifocal infection as a possibility, likely etiology and gas filling mild distended small bowel loops measure up to 4 cm, abrupt transition point difficult to identify obstruction, on the differential possible ileus. There is a mucosal thickening within the stomach potential representing gastritis or malignancy. Few incomplete characterized low attenuation lesion within the liver and cholelithiasis. Trace nonspecific ascites. CT of the head was done. No acute intracranial abnormality, parenchymal atrophy, and mild chronic microvascular ischemic changes. ASSESSMENT: 1. Acute hypoxemic respiratory failure. 2. PEA arrest. 3. Upper GI bleed. 4. Severe anemia, most likely secondary to acute GI bleed and acute blood loss. 5. History of hypertension. 6. Hypothyroidism. 7. BPH. 8. Thrombocytopenia. 9. The patient has elevated troponin, most likely secondary to non-ST elevation LA type 2 as a result of demand ischemia. PLAN: Admit the patient to ICU. We will follow up with Dr. Ken Sevilla from Cardiology, Dr. Davis from Gastroenterology, and Dr. Cormier from Pulmonary Critical Care. Follow up with 2D echo, duplex of lower extremity. At this time, with family member's discussion, the patient's code status is DNR. We will follow up with the laboratory, serial cardiac enzymes, and 2D echo. We will start the patient on Protonix IV and broad-spectrum antibiotics with cefepime and Flagyl. Ventura Pelletier M.D. DR: LAURYN JOB#: [id number] CC:
--- NOTE | 2020-06-20 20:14 | Consultation ---
DATE OF CONSULTATION: 06/20/2020 CHIEF COMPLAINT: GI bleeding. HISTORY OF PRESENT ILLNESS: Most of history per chart. The patient is elderly Sinhala male came to the hospital. He is intubated in ICU right now with respiratory failure. According to family, he possibly vomited blood, so GI consult requested. PAST MEDICAL HISTORY: Hypertension. SOCIAL HISTORY: There is no history of tobacco, alcohol, drug abuse. REVIEW OF SYSTEMS: Unable to obtain. FAMILY HISTORY: Noncontributory. PHYSICAL EXAMINATION: VITAL SIGNS: Temperature is 98.4, pulse 86, respirations 15, blood pressure is 126/61. HEENT: Normocephalic and atraumatic. Pale conjunctivae. NECK: Supple. No evidence of obvious lymphadenopathy. CARDIOVASCULAR: Tachy. Regular rate. Plus S1, S2. LUNGS: Decreased breath sounds bilaterally and diffusely based on the supine exam. ABDOMEN: Soft and nontender. No rebound. No guarding. No peritoneal sign. EXTREMITIES: No cyanosis, no clubbing, no edema. LABORATORY AND DIAGNOSTIC DATA: On admission hemoglobin was 9.7 dropped to 7, after 4 units now up to 10.7, platelet count is 67. INR is 1.1. Chem, sodium 141, potassium 3.9, BUN is 23, creatinine is 1.1, total bilirubin is 2.4, AST is 71, ALT of 37, alkaline phosphatase of 64. Troponin elevated at 0.346. ASSESSMENT AND PLAN: This is an 89-year-old Sinhala male with questionable liver disease given the patient has evidence of thrombocytopenia, admitted to the hospital with possible GI bleeding, currently on isolation has elevated troponins. CT of the abdomen showed evidence of gallstones, trace ascites, possible gastric wall thickening, questionable malignancy. Our plan is to keep the patient NPO. Monitor hemoglobin and hematocrit. Transfuse as needed. IV fluids for hydration. We were waiting for Cardiology to clear the patient for endoscopy. If the patient shows signs and symptoms of bleeding over the weekend, we have to do emergency endoscopy on the weekend. Otherwise, we will schedule him on Tuesday if it is cleared by Cardiology. Meanwhile, we are going to add octreotide drip given evidence of thrombocytopenia and ascites. Matt Olvin Davis DR: Shivam JOB#: [id number] CC:
--- NOTE | 2020-06-20 20:59 | Consultation ---
DATE OF CONSULTATION: 06/20/2020 PULMONARY/ICU CONSULTATION CONSULTING PHYSICIAN: Evangelista Cormier MD HISTORY OF PRESENT ILLNESS: This is an 89-year-old male who was brought in to the emergency room by family with generalized weakness. Patient also apparently had a syncopal episode after a bowel movement. Patient was seen and evaluated in the emergency room and subsequently was noted to have significant amount of hematemesis. He became hypoxic, altered, bradycardic. He went to PEA arrest as well. Patient underwent CPR and required intubation and ACLS protocol. He was admitted to the ICU. Patient is intubated. Currently, he is sedated and on ventilator. I have reviewed his most recent lab testing and noted hemoglobin is now 10.7 after transfusion. ABG showed pH 7.36, pCO2 38, pO2 of 73. Glucose of 155. Troponin is elevated at 0.32. His current vent settings are AC 16, tidal volume 50, FiO2 40%, PEEP of 5. Patient has been started on cefepime, IV fluids, dopamine. He has received fentanyl for sedation. He is also on broad-spectrum antibiotics. He has also been started on Protonix and octreotide. He has been seen by Gastroenterology and cardiac consult is pending. PAST MEDICAL HISTORY: Not known. ALLERGIES: Not known. PAST SURGICAL HISTORY: Not known. HOME MEDICATIONS: Apparently he was only on thyroid medications at home. CODE STATUS: DNR. I note, however, he is currently intubated and on pressors. REVIEW OF SYSTEMS: Not obtainable. PHYSICAL EXAMINATION: GENERAL: Reveals an 89-year-old male. HEENT: Unremarkable. Endotracheal tube is in place. LUNGS: Clear breath sounds bilaterally. ABDOMEN: Soft. EXTREMITIES: There is no edema. NEUROLOGIC: Nonfocal. He is sedated, therefore full exam is not possible. VITAL SIGNS: Blood pressure is 113/60, heart rate 74, respirations 18, O2 saturation 100% on 40% FiO2. X-ray chest obtained earlier yesterday shows bilateral multifocal interstitial opacities suspicious of a COVID pneumonia and/or pulmonary edema. His initial COVID testing is negative. IMPRESSION: 1. GI bleed. 2. Respiratory failure. 3. Shock. 4. Patchy bilateral infiltrates. 5. Non-STEMI. DISCUSSION: Admit to ICU. Cardiology consult pending. Patient cannot receive anticoagulation for STEMI given his GI bleed. Agree with the use of Protonix and octreotide. We will maintain assist-control mechanical ventilation. Deep prophylaxis with SCD. Sedation as required. IV fluids. We will follow carefully. Empiric antibiotics as appropriate. Evangelista Cormier M.D. DR: KIAN JOB#: [id number] CC: LISETTE
--- NOTE | 2020-06-20 21:00 | NUR ---
NURSE NOTES: Family Bill stopped by the unit to leave ER records from [facility] visit. Medical records in patients chart.
--- NOTE | 2020-06-20 21:30 | NUR ---
NURSE NOTES: Family has decided to reverse current code status. Patient will now Full code. Notified Dr. Pelletier regarding families decision.
--- NOTE | 2020-06-20 23:30 | NUR ---
NURSE NOTES: pathology technician arrived. EEG will be started in 20min.
[2020-06-21] VITALS (32 sets, daily range): BP systolic 83–173; BP diastolic 54–98
--- NOTE | 2020-06-21 00:30 | NUR ---
NURSE NOTES: EEG completed. Impression: generalized slowing. Pt opens eye.
[2020-06-21] MEDS: Metoprolol Tartrate 5mg/5ml Inj IVP PRN ×2 (00:48→20:04)
--- NOTE | 2020-06-21 00:48 | NUR ---
NURSE NOTES: Pt was Afib with RVR. Metoprolol 2.5mg IVP was given.
--- NOTE | 2020-06-21 01:59 | Consultation ---
DATE OF CONSULTATION: 06/20/2020 CARDIOLOGY CONSULTATION CONSULTING PHYSICIAN: Ken Sevilla MD REFERRING PHYSICIAN: Ventura Pelletier MD REASON FOR REFERRAL: SVT, abnormal cardiac enzymes, and GI bleed. HISTORY OF PRESENT ILLNESS: This is an elderly gentleman who is really not able to provide any meaningful history whatsoever. The patient's information is obtained from review of the patient's chart. The patient's granddaughter apparently provided some information to the emergency room physician. For the past few days, the patient has had generalized weakness and was concerned that he coughed up or vomited up some blood. He was seen in an emergency room the night before this admission and was discharged home with negative workup according to the reports of the family, but was taken back to the emergency room yesterday because of bowel movements and having an episode of passing out. The patient did not have any specific complaint. During the emergency room visit, the patient suddenly began coughing up large amounts of blood and blood clots and was having difficulty breathing and became hypoxic, altered, bradycardiac, and went through pulseless electric activity, arrest for less than a minute, underwent CPR, rapid sequence intubation, ACLS protocol, and was bagged and given atropine. Return of spontaneous conduction was noted after about 1 round of CPR. The patient was intubated and was aroused and ventilator. He was placed on propofol drip and fentanyl drip. During the evaluation in the emergency room, he was also noted to have a very distended abdomen and an NG tube was placed. Large amount of blood was suctioned from the patient's airway and blood in the nasogastric tube, and received 4 units of emergency release type-O blood and developed rapid heart rate of over 200 and irregular rhythm that was felt to be atrial fibrillation with rapid ventricular response. The patient was sedated and underwent cardioversion initially with 50, subsequently 100 joules, and finally achieved sinus rhythm at a rate of 120. PAST MEDICAL HISTORY: He is only known to be positive for history of hypertension. No other information is unfortunately available. ALLERGIES: No known drug allergies. SOCIAL HISTORY: Really unknown at this time. PHYSICAL EXAMINATION: GENERAL: On the physical examination that was performed through the emergency room, he was noted to have initially no respiratory distress, initially was nontoxic. NECK: Supple. No jugular venous distention. LUNGS: Mechanical breath sounds were noted. No wheezes or rales were noted. CARDIAC: Regular rate and rhythm. ABDOMEN: Soft. EXTREMITIES: Show no clubbing, cyanosis, or edema. LABORATORY VALUES: The patient's electrocardiograms were reviewed. It looks like the patient in the emergency room had episodes of what appeared to be supraventricular tachycardia at rate of 197, although likely in atrial fibrillation, if able to see any atrial activity at all. There are EKGs and subsequently the patient has been in sinus rhythm with premature complexes either before or after the episode of cardioversion and today with a lot of tremor artifact, appears to be sinus with right bundle-branch conduction defect. Really no significant ST or T-wave abnormalities on the EKG that was performed at 2:48 in the afternoon. The telemetry strips also showed some sinus rhythm, but subsequently the patient has converted to what appears to be in atrial fibrillation at the present time with ventricular response of 120. A CT of chest shows multifocal bilateral ground-glass and consolidative airspace opacities, most consistent with left lower lobe, but present in all lobes with mild background of paraseptal emphysemas. No pleural effusion is noted. Heart was unremarkable. No significant pericardial effusion was noted. The concern was large-volume aspiration or multifocal infection, most probably the etiology based on the CT scan. The patient had a CT scan of the head that showed no acute intracranial pathology, and a chest x-ray was performed today left pleural effusion, bilateral infiltrates felt to be unchanged. An echocardiogram was performed today and showed normal left ventricular systolic function, ejection fraction of 55%, severe aortic regurgitation, mild diastolic velocity suggestive of mild diastolic relaxation. Moderate MR and TR is noted with pulmonary artery systolic pressure of 81 with ejection fraction of 55%. A venous duplex study of the lower extremities was negative for deep venous thromboses bilaterally and abdominal ultrasound was performed showing a 2.3 x 1.8 x 1.8 hypoechoic focus in the liver nonspecific, common bile duct within normal limits, gallbladder is distended and contains small stones. Chest x-ray showed bilateral infiltrates at least with the one on my reading today. The patient's laboratory values, white count of 6.6 with hemoglobin of 10.7 and platelet count of 67. The patient's hemoglobin was as low as 7 yesterday at 5 o'clock. Platelets have been as high as 90 and as low as 67,000. A pH of 7.24 at the time of initial admission with pCO2 of 44, pO2 of 265, bicarb of 19, and 99% saturation. Subsequently, pH of 7.36, pCO2 of 38, pO2 of 74 with saturation of 94.2. Sodium 141, potassium 3.9, chloride 107, bicarb 24, BUN of 23, creatinine 1.1, and glucose of 153. Bilirubin is elevated at 2.4. AST and ALT of 71 and 37 respectively. Troponin 0.326, 0.346, and 0.238. Albumin of 1.9 and coags, INR 1.1 and PTT of 24. Urinalysis, 20-30 rbc's, 0-2 wbc's. ASSESSMENT AND PLAN: 1. Massive hemoptysis. 2. Possible GI bleed. 3. Status post cardiopulmonary arrest/PEA. 4. Anemia. 5. Abnormal cardiac enzymes secondary to demand. 6. Intermittent supraventricular tachycardia. 7. Paroxysmal atrial fibrillation. 8. Significant aortic regurgitation on echo with moderate mitral and tricuspid regurgitation. 9. Pulmonary hypertension. 10. Thromb[address]. Dr. Pelletier, this patient was seen in cardiac consultation. The patient has been in sinus rhythm and unfortunately converted to AFib. He will be provided some beta-blockers and some amiodarone to maintain sinus rhythm as he is not a candidate for any anticoagulation obviously at the present time. Infectious etiologies are being looked into and include not only COVID, SARS, but also tuberculosis. The patient remains in respiratory isolation. His cardiac enzymes have not increased nor decreased in a pattern that could be suggestive of a peak or karlee to suggest coronary syndrome. I suspect all demand related. How much of his pulmonary findings are related to aspiration or infiltrate versus how much possibility of pneumonia remains to be seen. If his blood pressure does allow and he is not febrile, diuretics will be provided to keep him rather on the dry side to see if his oxygenation would improve. Continue maintenance of ventilator therapy. Goals of care should be discussed with the patient's family to see, at the age of 89 with all of the things that he has already gone through, whether more aggressive care would be indicated or not. With his pulmonary findings on the CT scan, I am quite impressive and if truly aspirated or infection, prognosis will probably be poor. From a cardiac point of view, I will follow the patient with amiodarone and intermittent diuretics. His overall LV function appears to be intact. Ken Sevilla M.D. DR: PAPITO JOB#: [id number] CC:
--- NOTE | 2020-06-21 03:18 | NUR ---
NURSE NOTES: Message left for MD Sevilla in regards to patient HR 159-175. A-fib with RVR. awaiting call back.
--- NOTE | 2020-06-21 03:20 | NUR ---
NURSE NOTES: Pt has a fever 102.2 Cooling measure started and Tylenol sup given.
[2020-06-21] MEDS: Acetaminophen 650 MG SUPP RECTAL PRN (03:36)
[2020-06-21] MEDS: D5 1/2NS w/KCl 20mEq 1,000 ML IV SCH (04:00)
--- NOTE | 2020-06-21 05:00 | NUR ---
NURSE NOTES: AM care given. Turned and repositioned. Oral care performed
[2020-06-21] MEDS: Octreotide Acetate 500 MCG in Sodium Chloride 499 ML IV SCH ×3 (05:30→17:00)
[2020-06-21 06:31] LABS: HEMOGLOBIN 11.5 G/DL (14.2-18.0); MEAN CORPUSCULAR VOLUME 100 FL (80-99); PLATELET COUNT 92 K/UL (150-450); RED BLOOD COUNT 3.51 M/UL (4.70-6.10); RED CELL DISTRIBUTION WIDTH 15.7 % (11.6-14.8); WHITE BLOOD COUNT 7.6 K/UL (4.8-10.8)
[2020-06-21 06:42] LABS: INR 1.1 (0.9-1.1)
--- NOTE | 2020-06-21 06:59 | NUR ---
NURSE NOTES: Temp down to 97.3.
[2020-06-21 07:27] LABS: ALBUMIN 1.9 G/DL (3.4-5.0); ALBUMIN/GLOBULIN RATIO 0.4 (1.0-2.7); BILIRUBIN,TOTAL 2.3 MG/DL (0.2-1.0); CREATININE 1.2 MG/DL (0.55-1.30); POTASSIUM 4.7 MMOL/L (3.5-5.1)
[2020-06-21 07:29] LABS: BILIRUBIN,DIRECT 1.4 MG/DL (0.0-0.3)
--- NOTE | 2020-06-21 07:30 | NUR ---
HAND OFF; Report given to JAVI Sargent. Endorsed POC.
--- NOTE | 2020-06-21 08:00 | NUR ---
RESPIRATORY NOTE: Received pt on AC 16-450ml-40%FiO2- peep 5, ETT 7.5 @21cm lip line, secured by anchor fast. Pt is sedated, resting comfortably in the bed. Alarms are on and audible. Vent circuit is secure and out of the way.Vent is plugged into the red outlet, ambu bag at bedside. No acute respiratory distress noted at this time. ABG done and report to JAVI Sargent. No weaning today due to abnormal result of ABG. Will continue to closely monitor.
--- NOTE | 2020-06-21 08:20 | NUR ---
NURSE NOTES: Report received from JAVI Ricardo. Pt is Covid PUI, pending result. Pt is sedated and obtunded. s/p Code Blue, SEE code blue sheet for the details, at ED (HR 52 O2 38%). Orally intubated, ETT 7.5/22cm from the lip line. Setting AC 16, TV 450, Peep 5, and FiO2 50%. 4 Units of RBC transfused in ED. OG tube 14F noted at low intermittent suction. Calabrese inserted 16F inserted per MD request graining dark tony urine. Rhythm is in Afib with RVR HR 110-120. DVT duplex negative SCD on IV: R Wrist 22G and L Wrist 20G. Troponin trending down, last value 0.128, cardio Dr. Sevilla aware. ABG done this AM at 0730: PH 7.265 PCO2 50.8, O2 88.6, HCO3 22.5, O2 sat 95.2 Excess 4.6. 2D echo EF 55%. PIV LFA 20G and RFA 18G Safety measures observed and no acute distress noted. Will continue to monitor.
--- NOTE | 2020-06-21 08:57 | General Progress Note ---
Subjective ROS Limited/Unobtainable: No Allergies: Coded Allergies: No Known Allergies (Unverified , 06/19/20) Objective Last 24 Hour Vital Signs Date Time Temp Pulse Resp B/P (MAP) Pulse Ox O2 Delivery O2 Flow Rate FiO2 06/21/20 08:00 16 120/63 Mechanical Ventilator 40 06/21/20 08:00 40 06/21/20 07:30 67 16 40 06/21/20 07:00 97.3 61 16 121/54 (76) 100 06/21/20 07:00 16 121/54 Mechanical Ventilator 40 06/21/20 06:30 66 16 109/63 (78) 100 06/21/20 06:30 66 16 06/21/20 06:00 72 17 112/62 (79) 97 06/21/20 06:00 17 112/62 Mechanical Ventilator 40 06/21/20 05:30 84 16 153/83 (106) 95 06/21/20 05:09 92 22 40 06/21/20 05:00 77 16 126/66 (86) 95 06/21/20 05:00 16 126/66 Mechanical Ventilator 40 06/21/20 04:30 84 16 141/73 (95) 95 06/21/20 04:06 101.0 06/21/20 04:00 88 15 157/85 (109) 97 06/21/20 04:00 15 157/85 40 06/21/20 04:00 40 06/21/20 04:00 Mechanical Ventilator Mechanical Ventilator Mechanical Ventilator 06/21/20 04:00 88 06/21/20 03:30 102.3 141 16 105/66 (79) 97 06/21/20 03:20 146 16 40 06/21/20 03:00 82 16 109/74 (86) 97 06/21/20 03:00 16 109/74 Mechanical Ventilator 40 06/21/20 02:00 16 101/70 Mechanical Ventilator 40 06/21/20 02:00 143 16 101/70 (80) 97 06/21/20 01:30 80 15 114/63 (80) 96 06/21/20 01:15 133 15 103/59 (74) 96 06/21/20 01:00 18 96/73 Mechanical Ventilator 40 06/21/20 01:00 128 16 96/73 (81) 96 06/21/20 00:58 134 16 40 06/21/20 00:48 152 113/64 06/21/20 00:45 152 15 113/64 (80) 96 06/21/20 00:30 106 22 113/64 (80) 96 06/21/20 00:00 99.9 85 15 127/78 (94) 96 06/21/20 00:00 15 127/78 Mechanical Ventilator 40 06/21/20 00:00 85 06/21/20 00:00 Mechanical Ventilator Mechanical Ventilator Mechanical Ventilator 06/20/20 23:30 82 15 116/63 (80) 98 06/20/20 23:12 90 16 40 06/20/20 23:00 92 16 156/86 (109) 97 06/20/20 23:00 16 156/86 Mechanical Ventilator 40 06/20/20 22:30 80 14 110/60 (77) 99 06/20/20 22:00 80 15 108/59 (75) 99 06/20/20 22:00 15 108/59 Mechanical Ventilator 40 06/20/20 21:30 82 15 108/60 (76) 99 06/20/20 21:07 79 19 40 06/20/20 21:00 15 100/51 Mechanical Ventilator 40 06/20/20 21:00 80 15 100/57 (71) 97 06/20/20 20:30 80 16 100/61 (74) 97 06/20/20 20:00 Mechanical Ventilator Mechanical Ventilator Mechanical Ventilator 06/20/20 20:00 40 06/20/20 20:00 15 108/62 Mechanical Ventilator 40 06/20/20 20:00 99.0 76 15 108/62 (77) 98 06/20/20 19:19 69 19 40 06/20/20 19:00 74 17 96/68 (77) 95 06/20/20 19:00 16 105/61 Mechanical Ventilator 40 06/20/20 19:00 17 96/68 Mechanical Ventilator 40 06/20/20 19:00 16 105/61 Mechanical Ventilator 40 06/20/20 18:32 113 77/132 06/20/20 18:00 144 14 101/71 (81) 95 06/20/20 18:00 14 101/71 Mechanical Ventilator 40 06/20/20 17:00 14 127/78 Mechanical Ventilator 40 06/20/20 17:00 134 16 127/78 (94) 98 06/20/20 16:00 99.5 78 16 113/61 (78) 98 06/20/20 16:00 40 06/20/20 16:00 16 130/67 Mechanical Ventilator 40 06/20/20 16:00 16 113/61 Mechanical Ventilator 40 06/20/20 16:00 Mechanical Ventilator Mechanical Ventilator Mechanical Ventilator 06/20/20 16:00 78 06/20/20 15:30 16 130/67 Mechanical Ventilator 40 06/20/20 15:00 16 129/71 Mechanical Ventilator 40 06/20/20 15:00 16 119/55 Mechanical Ventilator 40 06/20/20 15:00 77 16 119/55 (76) 97 06/20/20 14:00 15 126/6 Mechanical Ventilator 40 06/20/20 14:00 86 19 140/73 (95) 97 06/20/20 13:47 87 19 40 06/20/20 13:00 88 17 142/73 (96) 98 06/20/20 13:00 17 136/73 40 06/20/20 12:00 40 06/20/20 12:00 Mechanical Ventilator Mechanical Ventilator Mechanical Ventilator 06/20/20 12:00 17 136/73 Mechanical Ventilator 40 06/20/20 12:00 18 132/74 Mechanical Ventilator 40 06/20/20 12:00 85 06/20/20 12:00 98.4 86 18 132/74 (93) 99 06/20/20 11:45 18 143/78 Mechanical Ventilator 40 06/20/20 11:30 18 133/74 Mechanical Ventilator 40 06/20/20 11:15 19 135/79 Mechanical Ventilator 40 06/20/20 11:00 20 143/80 Mechanical Ventilator 40 06/20/20 11:00 88 20 143/80 (101) 98 06/20/20 10:40 173 127/86 06/20/20 10:00 148 15 135/89 (104) 97 06/20/20 10:00 15 135/89 Mechanical Ventilator 40 06/20/20 09:00 91 16 148/80 (102) 97 06/20/20 09:00 16 148/80 Mechanical Ventilator 40 06/20/20 09:00 Mechanical Ventilator Mechanical Ventilator Mechanical Ventilator Intake and Output 06/20/20 06/21/20 19:00 07:00 Intake Total 1040 ml 1005 ml Output Total 675 ml 480 ml Balance 365 ml 525 ml Intake IV Total 1040 ml 1005 ml Output Urine Total 595 ml 480 ml Other 80 ml Laboratory Tests 06/20/20 09:00: Arterial Blood pH 7.364, Arterial Blood Partial Pressure CO2 38.3, Arterial Blood Partial Pressure O2 73.6L, Arterial Blood HCO3 21.3L, Arterial Blood Oxygen Saturation 94.2L, Arterial Blood Base Excess -3.6L, Manan Test Positive 06/20/20 14:45: Troponin I 0.238H 06/20/20 23:00: Troponin I 0.169H 06/21/20 05:20: Troponin I 0.128H, White Blood Count 7.6, Red Blood Count 3.51L, Hemoglobin 11.5L, Hematocrit 35.0L, Mean Corpuscular Volume 100H, Mean Corpuscular Hemoglobin 32.6H, Mean Corpuscular Hemoglobin Concent 32.7, Red Cell Distribution Width 15.7H, Platelet Count 92L, Mean Platelet Volume 8.6, Neutrophils (%) (Auto) , Lymphocytes (%) (Auto) , Monocytes (%) (Auto) , Eosinophils (%) (Auto) , Basophils (%) (Auto) , Neutrophils % (Manual) [Pending], Lymphocytes % (Manual) [Pending], Platelet Estimate [Pending], Platelet Morphology [Pending], Erythrocyte Sedimentation Rate 69H, Prothrombin Time 11.9H, Prothromb Time International Ratio 1.1, Activated Partial Thromboplast Time 32, Sodium Level 141, Potassium Level 4.7, Chloride Level 112H , Carbon Dioxide Level 24, Anion Gap 5, Blood Urea Nitrogen 25H, Creatinine 1.2, Estimat Glomerular Filtration Rate 57.1, Glucose Level 197H, Lactic Acid Level 1.10, Calcium Level 8.0L, Magnesium Level 2.3, Total Bilirubin 2.3H, Direct Bilirubin 1.4H, Aspartate Amino Transf (AST/SGOT) 63H, Alanine Aminotransferase (ALT/SGPT) 36, Alkaline Phosphatase 64, C-Reactive Protein, Quantitative 10.1H, Pro-B-Type Natriuretic Peptide 3248H, Total Protein 6.3L, Albumin 1.9L, Globulin 4.4, Albumin/Globulin Ratio 0.4L, Amylase Level 24L, Lipase 135, Carcinoembryonic Antigen [Pending], Hepatitis A IgM Antibody [Pending], Hep atitis B Surface Antigen [Pending], Hepatitis B Core IgM Antibody [Pending], Hepatitis C Antibody [Pending] 06/21/20 07:32: Arterial Blood pH 7.265L, Arterial Blood Partial Pressure CO2 50.8H, Arterial Blood Partial Pressure O2 88.6, Arterial Blood HCO3 22.5, Arterial Blood Oxygen Saturation 95.2, Arterial Blood Base Excess -4.6L, Manan Test Positive Height (Feet): 5 Height (Inches): 8.00 Weight (Pounds): 119 General Appearance: lethargic EENT: normal ENT inspection Neck: supple Cardiovascular: tachycardia Respiratory/Chest: decreased breath sounds Abdomen: hypoactive bowel sounds Extremities: non-tender Assessment/Plan Assessment/Plan: 1. Massive hemoptysis. 2. Possible GI bleed. 3. Status post cardiopulmonary arrest/PEA. 4. Anemia. 5. elevated trop>>>improving 6. Paroxysmal atrial fibrillation. 7. Thrombocytopenia. npo ppi GI procedures on hold fu cardiology poor prognosis Matt Davis MD Jun 21, 2020 08:57
--- NOTE | 2020-06-21 09:32 | Consultation ---
Consult Note Consult Note NEUROLOGY CONSULTATION DATE OF CONSULTATION: 06/21/2020 KYLEE MD: Dr. Awilda Johnson REASON FOR REFERRAL: Syncope HPI: This is a 89 year old Croatian speaking male patient. He is currently in ICU sedated on fentanyl most of the history and information was obtained from the chart, Apparently, for the past few days the patient has had generalized weakness and there was concern that he coughed or vomited up blood. He was seen at an emergency department with a negative work-up per report. The patient is brought into the emergency department again because due to syncopal episode alongside having bowel movements. He was coded in the ER according to the bedside RN and he was intubated. He lives at home. He has a past medical history significant for hypertension, hypothyroidism, BPH,history of fall in 2018 with a hip fracture status post repair, pneumonia he had large bloody clots he was vomiting in ER, he is being worked up for GI work up. We were consulted for syncope. PAST MEDICAL HISTORY: hypertension, hypothyroidism, BPH, history of fall with a hip fracture, status post ORIF in 2018 followed by pneumonia. PAST SURGICAL HISTORY: Unknown FAMILY HISTORY: Unknown SOCIAL HISTORY: Lives at home, unknown smoker drinks or does drugs. ALLERIGIES: NKDA ROS difficult to assess PE Neuro exam is limited at this time he is sedated on sedation IV meds in ICU has spontaneous movements of upper extremities. No facial droop symmetrical withdraws to painful stimuli. LAB Reviewed IMAGING: CT of the head was done. No acute intracranial abnormality, parenchymal atrophy, and mild chronic microvascular ischemic changes. MEDS: Reviewed Assessment and Plan: 1. Syncope --> likely due to vasovagal was having Bowel movement at that time also hypovolemic due to gi bleeding vomiting --> dehydration 2. Resp Arrest --> s/p intubation on vent 3. Hypertension 4. Anemia Thank you for allowing us to participate in patient's care plan of care was discussed with Dr. Edmar Valencia who agrees with plan. Jacqueline Solis NP Jun 21, 2020 09:32
[2020-06-21] MEDS: Pantoprazole Inj IVP SCH ×2 (09:34→20:04)
[2020-06-21] MEDS: Cefepime HCl 1 GM in D5W 55 ML IVPB SCH ×2 (09:34→20:03)
--- NOTE | 2020-06-21 09:48 | Diagnostic Imaging Report ---
EXAM: XR Abdomen, 1 View CLINICAL HISTORY: F/U TECHNIQUE: Frontal supine view of the abdomen/pelvis. COMPARISON: CT abdomen and pelvis 06/19/20, and chest x-ray 06/21/20 FINDINGS: Lower thorax: Bilateral lower lung airspace disease, worse in the left similar to prior study. Probable tiny pleural effusions. Gastrointestinal tract: The previously seen distended small bowel loops are improved. Gassy colon without definite obstruction, may be an ileus. Organs: Catheter in the urinary bladder. Bones/joints: Left femoral dynamic hip screw and intramedullary augustina. Degenerative changes of spine. Tubes, lines and devices: Nasogastric tube in the stomach. Proximal side-port at the GE junction, consider advancing 5 cm. IMPRESSION: 1. Nasogastric tube in the stomach. Proximal side-port at the GE junction, consider advancing 5 cm. 2. The previously seen distended small bowel loops are improved. Gassy colon without definite obstruction, may be an ileus. 3. Bilateral lower lung airspace disease, worse in the left similar to prior study. Probable tiny pleural effusions. <MYCVCSECTION> Communications: 06/21/20 10:12 Verify Receipt with Nurse Verified receipt with GARCE Dumont on 06/21 10:17 (-08:00)
--- NOTE | 2020-06-21 09:50 | Diagnostic Imaging Report ---
EXAM: XR Chest, 1 View CLINICAL HISTORY: F/U TECHNIQUE: Frontal view of the chest. COMPARISON: Chest x-ray 06/20/20 FINDINGS: Lungs: Perihilar and bilateral interstitial and airspace opacities are similar to prior study. Pleural space: Similar small left pleural effusion. Query tiny right pleural effusion. No pneumothorax. Heart: Stable mild cardiomegaly. Mediastinum: Unremarkable. Bones/joints: Unremarkable. Tubes, lines and devices: NG tube tip in the stomach, proximal side- port at the GE junction, consider advancing 5 cm. ET tube stable. IMPRESSION: 1. NG tube tip in the stomach, proximal side-port at the GE junction, consider advancing 5 cm. 2. Perihilar and bilateral interstitial and airspace opacities are similar to prior study. 3. Similar small left pleural effusion. Query tiny right pleural effusion.
--- NOTE | 2020-06-21 10:08 | Surgery Progress Note ---
Surgery Progress Note Subjective Additional Comments ill appearing non responsive NG tube with bilious output kub improved on vent Objective Last 24 Hour Vital Signs Date Time Temp Pulse Resp B/P (MAP) Pulse Ox O2 Delivery O2 Flow Rate FiO2 06/21/20 09:00 128 17 110/80 (90) 100 06/21/20 09:00 17 124/93 Mechanical Ventilator 40 06/21/20 08:55 77 22 40 06/21/20 08:00 130 06/21/20 08:00 Mechanical Ventilator Mechanical Ventilator Mechanical Ventilator 06/21/20 08:00 122 21 141/83 (102) 100 06/21/20 08:00 16 120/63 Mechanical Ventilator 40 06/21/20 08:00 40 06/21/20 07:30 67 16 40 06/21/20 07:00 97.3 61 16 121/54 (76) 100 06/21/20 07:00 16 121/54 Mechanical Ventilator 40 06/21/20 06:30 66 16 109/63 (78) 100 06/21/20 06:30 66 16 06/21/20 06:00 72 17 112/62 (79) 97 06/21/20 06:00 17 112/62 Mechanical Ventilator 40 06/21/20 05:30 84 16 153/83 (106) 95 06/21/20 05:09 92 22 40 06/21/20 05:00 77 16 126/66 (86) 95 06/21/20 05:00 16 126/66 Mechanical Ventilator 40 06/21/20 04:30 84 16 141/73 (95) 95 06/21/20 04:06 101.0 06/21/20 04:00 88 15 157/85 (109) 97 06/21/20 04:00 15 157/85 40 06/21/20 04:00 40 06/21/20 04:00 Mechanical Ventilator Mechanical Ventilator Mechanical Ventilator 06/21/20 04:00 88 06/21/20 03:30 102.3 141 16 105/66 (79) 97 06/21/20 03:20 146 16 40 06/21/20 03:00 82 16 109/74 (86) 97 06/21/20 03:00 16 109/74 Mechanical Ventilator 40 06/21/20 02:00 16 101/70 Mechanical Ventilator 40 06/21/20 02:00 143 16 101/70 (80) 97 06/21/20 01:30 80 15 114/63 (80) 96 06/21/20 01:15 133 15 103/59 (74) 96 06/21/20 01:00 18 96/73 Mechanical Ventilator 40 06/21/20 01:00 128 16 96/73 (81) 96 06/21/20 00:58 134 16 40 06/21/20 00:48 152 113/64 06/21/20 00:45 152 15 113/64 (80) 96 06/21/20 00:30 106 22 113/64 (80) 96 06/21/20 00:00 99.9 85 15 127/78 (94) 96 06/21/20 00:00 15 127/78 Mechanical Ventilator 40 06/21/20 00:00 85 06/21/20 00:00 Mechanical Ventilator Mechanical Ventilator Mechanical Ventilator 06/20/20 23:30 82 15 116/63 (80) 98 06/20/20 23:12 90 16 40 06/20/20 23:00 92 16 156/86 (109) 97 06/20/20 23:00 16 156/86 Mechanical Ventilator 40 06/20/20 22:30 80 14 110/60 (77) 99 06/20/20 22:00 80 15 108/59 (75) 99 06/20/20 22:00 15 108/59 Mechanical Ventilator 40 06/20/20 21:30 82 15 108/60 (76) 99 06/20/20 21:07 79 19 40 06/20/20 21:00 15 100/51 Mechanical Ventilator 40 06/20/20 21:00 80 15 100/57 (71) 97 06/20/20 20:30 80 16 100/61 (74) 97 06/20/20 20:00 Mechanical Ventilator Mechanical Ventilator Mechanical Ventilator 06/20/20 20:00 40 06/20/20 20:00 15 108/62 Mechanical Ventilator 40 06/20/20 20:00 99.0 76 15 108/62 (77) 98 06/20/20 19:19 69 19 40 06/20/20 19:00 74 17 96/68 (77) 95 06/20/20 19:00 16 105/61 Mechanical Ventilator 40 06/20/20 19:00 17 96/68 Mechanical Ventilator 40 06/20/20 19:00 16 105/61 Mechanical Ventilator 40 06/20/20 18:32 113 77/132 06/20/20 18:00 144 14 101/71 (81) 95 06/20/20 18:00 14 101/71 Mechanical Ventilator 40 06/20/20 17:00 14 127/78 Mechanical Ventilator 40 06/20/20 17:00 134 16 127/78 (94) 98 06/20/20 16:00 99.5 78 16 113/61 (78) 98 06/20/20 16:00 40 06/20/20 16:00 16 130/67 Mechanical Ventilator 40 06/20/20 16:00 16 113/61 Mechanical Ventilator 40 06/20/20 16:00 Mechanical Ventilator Mechanical Ventilator Mechanical Ventilator 06/20/20 16:00 78 06/20/20 15:30 16 130/67 Mechanical Ventilator 40 06/20/20 15:00 16 129/71 Mechanical Ventilator 40 06/20/20 15:00 16 119/55 Mechanical Ventilator 40 06/20/20 15:00 77 16 119/55 (76) 97 06/20/20 14:00 15 126/6 Mechanical Ventilator 40 06/20/20 14:00 86 19 140/73 (95) 97 06/20/20 13:47 87 19 40 06/20/20 13:00 88 17 142/73 (96) 98 06/20/20 13:00 17 136/73 40 06/20/20 12:00 40 06/20/20 12:00 Mechanical Ventilator Mechanical Ventilator Mechanical Ventilator 06/20/20 12:00 17 136/73 Mechanical Ventilator 40 06/20/20 12:00 18 132/74 Mechanical Ventilator 40 06/20/20 12:00 85 06/20/20 12:00 98.4 86 18 132/74 (93) 99 06/20/20 11:45 18 143/78 Mechanical Ventilator 40 06/20/20 11:30 18 133/74 Mechanical Ventilator 40 06/20/20 11:15 19 135/79 Mechanical Ventilator 40 06/20/20 11:00 20 143/80 Mechanical Ventilator 40 06/20/20 11:00 88 20 143/80 (101) 98 06/20/20 10:40 173 127/86 I&O Intake and Output 06/20/20 06/21/20 19:00 07:00 Intake Total 1040 ml 1005 ml Output Total 675 ml 480 ml Balance 365 ml 525 ml Intake IV Total 1040 ml 1005 ml Output Urine Total 595 ml 480 ml Other 80 ml Dressing: saturated Cardiovascular: RSR Respiratory: decreased breath sounds Abdomen: soft, non-tender, present bowel sounds, non-distended, decreased bowel sounds Extremities: no edema, no tenderness, no cyanosis Laboratory Tests Test 06/20/20 14:45 06/20/20 23:00 06/21/20 05:20 06/21/20 07:32 Troponin I 0.238 ng/mL (0.000-0.056) 0.169 ng/mL (0.000-0.056) 0.128 ng/mL (0.000-0.056) White Blood Count 7.6 K/UL (4.8-10.8) Red Blood Count 3.51 M/UL (4.70-6.10) L Hemoglobin 11.5 G/DL (14.2-18.0) L Hematocrit 35.0 % (42.0-52.0) L Mean Corpuscular Volume 100 FL (80-99) H Mean Corpuscular Hemoglobin 32.6 PG (27.0-31.0) H Mean Corpuscular Hemoglobin Concent 32.7 G/DL (32.0-36.0) Red Cell Distribution Width 15.7 % (11.6-14.8) H Platelet Count 92 K/UL (150-450) L Mean Platelet Volume 8.6 FL (6.5-10.1) Neutrophils (%) (Auto) % (45.0-75.0) Lymphocytes (%) (Auto) % (20.0-45.0) Monocytes (%) (Auto) % (1.0-10.0) Eosinophils (%) (Auto) % (0.0-3.0) Basophils (%) (Auto) % (0.0-2.0) Neutrophils % (Manual) Pending Lymphocytes % (Manual) Pending Platelet Estimate Pending Platelet Morphology Pending Erythrocyte Sedimentation Rate 69 MM/HR (0-20) H Prothrombin Time 11.9 SEC (9.30-11.50) H Prothromb Time International Ratio 1.1 (0.9-1.1) Activated Partial Thromboplast Time 32 SEC (23-33) Sodium Level 141 MMOL/L (136-145) Potassium Level 4.7 MMOL/L (3.5-5.1) Chloride Level 112 MMOL/L (98-107) H Carbon Dioxide Level 24 MMOL/L (21-32) Anion Gap 5 mmol/L (5-15) Blood Urea Nitrogen 25 mg/dL (7-18) H Creatinine 1.2 MG/DL (0.55-1.30) Estimat Glomerular Filtration Rate 57.1 mL/min (>60) Glucose Level 197 MG/DL (74-106) H Lactic Acid Level 1.10 mmol/L (0.4-2.0) Calcium Level 8.0 MG/DL (8.5-10.1) L Magnesium Level 2.3 MG/DL (1.8-2.4) Total Bilirubin 2.3 MG/DL (0.2-1.0) H Direct Bilirubin 1.4 MG/DL (0.0-0.3) H Aspartate Amino Transf (AST/SGOT) 63 U/L (15-37) H Alanine Aminotransferase (ALT/SGPT) 36 U/L (12-78) Alkaline Phosphatase 64 U/L (46-116) C-Reactive Protein, Quantitative 10.1 mg/dL (0.00-0.90) H Pro-B-Type Natriuretic Peptide 3248 pg/mL (0-125) H Total Protein 6.3 G/DL (6.4-8.2) L Albumin 1.9 G/DL (3.4-5.0) L Globulin 4.4 g/dL Albumin/Globulin Ratio 0.4 (1.0-2.7) L Amylase Level 24 U/L (25-115) L Lipase 135 U/L (73-393) Carcinoembryonic Antigen Pending Hepatitis A IgM Antibody Pending Hepatitis B Surface Antigen Pending Hepatitis B Core IgM Antibody Pending Hepatitis C Antibody Pending Arterial Blood pH 7.265 (7.350-7.450) Arterial Blood Partial Pressure CO2 50.8 mmHg (35.0-45.0) H Arterial Blood Partial Pressure O2 88.6 mmHg (75.0-100.0) Arterial Blood HCO3 22.5 mmol/L (22.0-26.0) Arterial Blood Oxygen Saturation 95.2 % (95-100) Arterial Blood Base Excess -4.6 (-2-2) L Manan Test Positive Plan Problems: (1) Massive hemoptysis Assessment & Plan: Trend h/h no active bleeding ? gi malignancy GI consult ?EGD NG tube (2) Cardiopulmonary arrest (3) Lactic acidosis (4) Anemia (5) Respiratory failure (6) Elevated troponin (7) Abdominal distension Assessment & Plan: CT noted sbo vs ileus gas filled bowel loops abd distended on exam limited exam given condition critically ill will follow with exam and recs KUB ordered - improved ng with bilious output likely ileus or resolving sbo will follow with clinical exam ABDOMEN: Liver: Few incompletely characterized low-attenuation lesions within the liver. Gallbladder and bile ducts: Cholelithiasis. Pancreas: Unremarkable. Spleen: Unremarkable. Adrenals: Unremarkable. Kidneys and ureters: Unremarkable. No obstructing stones. No hydronephrosis. Stomach and bowel: Gas filled mildly distended small bowel loops measuring up to 4 cm. There is mucosal thickening within the stomach potentially representing gastritis or malignancy. PELVIS: Appendix: No findings to suggest acute appendicitis. Bladder: Calabrese catheter in the bladder. Reproductive: Unremarkable as visualized. ABDOMEN and PELVIS: Intraperitoneal space: Trace nonspecific ascites. No free air. Bones/joints: Status post left hip ORIF. Multiple bones within the pelvis and spine. Soft tissues: Unremarkable. Vasculature: Unremarkable. Lymph nodes: Unremarkable. Tubes, lines and devices: Esophagogastric tube within the stomach. IMPRESSION: 1. Gas filled mildly distended small bowel loops measuring up to 4 cm. Abrupt transition point difficult to identify. Obstruction on the differential. Also consider ileus. 2. There is mucosal thickening within the stomach potentially representing gastritis or malignancy. 3. Few incompletely characterized low-attenuation lesions within the liver. 4. Cholelithiasis. 5. Trace nonspecific ascites. Samuel Lazar Jun 21, 2020 10:08
[2020-06-21] MEDS ORDERED: Tubing IV Secondary IV ONE (10:12)
[2020-06-21] MEDS ORDERED: D5 1/2NS 1000ml IV ONE (10:12)
[2020-06-21] MEDS ORDERED: NS 275ml ONE (10:12)
--- NOTE | 2020-06-21 10:30 | NUR ---
NURSE NOTES: AM care given. pt was found on cooling measures. all sheets changed. Turned and repositioned. Oral care performed
[2020-06-21] MEDS ORDERED: Etomidate 40mg/20ml Inj IV ONE (10:35)
[2020-06-21] MEDS ORDERED: Rocuronium Bromide 50mg/5ml Inj IV ONE (10:35)
--- NOTE | 2020-06-21 11:36 | Pulmonology Progress Note ---
Subjective ROS Limited/Unobtainable: No Interval Events: OGT in plaace; having darl NG drainage Constitutional: Reports: no symptoms HEENT: Repors: no symptoms Respiratory: Reports: no symptoms Cardiovascular: Reports: no symptoms Allergies: Coded Allergies: No Known Allergies (Unverified , 06/19/20) Objective Last 24 Hour Vital Signs Date Time Temp Pulse Resp B/P (MAP) Pulse Ox O2 Delivery O2 Flow Rate FiO2 06/21/20 11:00 16 90/56 Mechanical Ventilator 40 06/21/20 11:00 119 16 90/56 (67) 100 06/21/20 10:00 16 106/72 Mechanical Ventilator 40 06/21/20 10:00 120 17 99/65 (76) 99 06/21/20 09:00 128 17 110/80 (90) 100 06/21/20 09:00 17 124/93 Mechanical Ventilator 40 06/21/20 08:55 77 22 40 06/21/20 08:00 130 06/21/20 08:00 Mechanical Ventilator Mechanical Ventilator Mechanical Ventilator 06/21/20 08:00 122 21 141/83 (102) 100 06/21/20 08:00 16 120/63 Mechanical Ventilator 40 06/21/20 08:00 40 06/21/20 07:30 67 16 40 06/21/20 07:00 97.3 61 16 121/54 (76) 100 06/21/20 07:00 16 121/54 Mechanical Ventilator 40 06/21/20 06:30 66 16 109/63 (78) 100 06/21/20 06:30 66 16 06/21/20 06:00 72 17 112/62 (79) 97 06/21/20 06:00 17 112/62 Mechanical Ventilator 40 06/21/20 05:30 84 16 153/83 (106) 95 06/21/20 05:09 92 22 40 06/21/20 05:00 77 16 126/66 (86) 95 06/21/20 05:00 16 126/66 Mechanical Ventilator 40 06/21/20 04:30 84 16 141/73 (95) 95 06/21/20 04:06 101.0 06/21/20 04:00 88 15 157/85 (109) 97 06/21/20 04:00 15 157/85 40 06/21/20 04:00 40 06/21/20 04:00 Mechanical Ventilator Mechanical Ventilator Mechanical Ventilator 06/21/20 04:00 88 06/21/20 03:30 102.3 141 16 105/66 (79) 97 06/21/20 03:20 146 16 40 06/21/20 03:00 82 16 109/74 (86) 97 06/21/20 03:00 16 109/74 Mechanical Ventilator 40 06/21/20 02:00 16 101/70 Mechanical Ventilator 40 06/21/20 02:00 143 16 101/70 (80) 97 06/21/20 01:30 80 15 114/63 (80) 96 06/21/20 01:15 133 15 103/59 (74) 96 06/21/20 01:00 18 96/73 Mechanical Ventilator 40 06/21/20 01:00 128 16 96/73 (81) 96 06/21/20 00:58 134 16 40 06/21/20 00:48 152 113/64 06/21/20 00:45 152 15 113/64 (80) 96 06/21/20 00:30 106 22 113/64 (80) 96 06/21/20 00:00 99.9 85 15 127/78 (94) 96 06/21/20 00:00 15 127/78 Mechanical Ventilator 40 06/21/20 00:00 85 06/21/20 00:00 Mechanical Ventilator Mechanical Ventilator Mechanical Ventilator 06/20/20 23:30 82 15 116/63 (80) 98 06/20/20 23:12 90 16 40 06/20/20 23:00 92 16 156/86 (109) 97 06/20/20 23:00 16 156/86 Mechanical Ventilator 40 06/20/20 22:30 80 14 110/60 (77) 99 06/20/20 22:00 80 15 108/59 (75) 99 06/20/20 22:00 15 108/59 Mechanical Ventilator 40 06/20/20 21:30 82 15 108/60 (76) 99 06/20/20 21:07 79 19 40 06/20/20 21:00 15 100/51 Mechanical Ventilator 40 06/20/20 21:00 80 15 100/57 (71) 97 06/20/20 20:30 80 16 100/61 (74) 97 06/20/20 20:00 Mechanical Ventilator Mechanical Ventilator Mechanical Ventilator 06/20/20 20:00 40 06/20/20 20:00 15 108/62 Mechanical Ventilator 40 06/20/20 20:00 99.0 76 15 108/62 (77) 98 06/20/20 19:19 69 19 40 06/20/20 19:00 74 17 96/68 (77) 95 06/20/20 19:00 16 105/61 Mechanical Ventilator 40 06/20/20 19:00 17 96/68 Mechanical Ventilator 40 06/20/20 19:00 16 105/61 Mechanical Ventilator 40 06/20/20 18:32 113 77/132 06/20/20 18:00 144 14 101/71 (81) 95 06/20/20 18:00 14 101/71 Mechanical Ventilator 40 06/20/20 17:00 14 127/78 Mechanical Ventilator 40 06/20/20 17:00 134 16 127/78 (94) 98 06/20/20 16:00 99.5 78 16 113/61 (78) 98 06/20/20 16:00 40 06/20/20 16:00 16 130/67 Mechanical Ventilator 40 06/20/20 16:00 16 113/61 Mechanical Ventilator 40 06/20/20 16:00 Mechanical Ventilator Mechanical Ventilator Mechanical Ventilator 06/20/20 16:00 78 06/20/20 15:30 16 130/67 Mechanical Ventilator 40 06/20/20 15:00 16 129/71 Mechanical Ventilator 40 06/20/20 15:00 16 119/55 Mechanical Ventilator 40 06/20/20 15:00 77 16 119/55 (76) 97 06/20/20 14:00 15 126/6 Mechanical Ventilator 40 06/20/20 14:00 86 19 140/73 (95) 97 06/20/20 13:47 87 19 40 06/20/20 13:00 88 17 142/73 (96) 98 06/20/20 13:00 17 136/73 40 06/20/20 12:00 40 06/20/20 12:00 Mechanical Ventilator Mechanical Ventilator Mechanical Ventilator 06/20/20 12:00 17 136/73 Mechanical Ventilator 40 06/20/20 12:00 18 132/74 Mechanical Ventilator 40 06/20/20 12:00 85 06/20/20 12:00 98.4 86 18 132/74 (93) 99 06/20/20 11:45 18 143/78 Mechanical Ventilator 40 Intake and Output 06/20/20 06/21/20 19:00 07:00 Intake Total 1040 ml 1005 ml Output Total 675 ml 480 ml Balance 365 ml 525 ml Intake IV Total 1040 ml 1005 ml Output Urine Total 595 ml 480 ml Other 80 ml General Appearance: no acute distress HEENT: normocephalic Respiratory: chest wall non-tender, lungs clear Cardiovascular: normal peripheral pulses, normal rate Abdomen: normal bowel sounds Microbiology Date/Time Source Procedure Growth Status 06/19/20 17:55 Blood Blood Culture - Preliminary NO GROWTH AFTER 24 HOURS Resulted 06/19/20 17:51 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 Complete 06/19/20 17:51 Nasopharynx SARS-CoV-2 Antigen (Rapid)(KENDRICK) - Final Complete 06/19/20 17:45 Blood Blood Culture - Preliminary NO GROWTH AFTER 24 HOURS Resulted 06/19/20 17:41 Urine,Clean Catch Urine Culture - Preliminary NO GROWTH Resulted Laboratory Tests 06/20/20 14:45: Troponin I 0.238H 06/20/20 23:00: Troponin I 0.169H 06/21/20 05:20: Troponin I 0.128H, White Blood Count 7.6, Red Blood Count 3.51L, Hemoglobin 11.5L, Hematocrit 35.0L, Mean Corpuscular Volume 100H, Mean Corpuscular Hemoglobin 32.6H, Mean Corpuscular Hemoglobin Concent 32.7, Red Cell Distribution Width 15.7H, Platelet Count 92L, Mean Platelet Volume 8.6, Neutrophils (%) (Auto) , Lymphocytes (%) (Auto) , Monocytes (%) (Auto) , Eosinophils (%) (Auto) , Basophils (%) (Auto) , Differential Total Cells Counted 100, Neutrophils % (Manual) 89H, Lymphocytes % (Manual) 6L, Monocytes % (Manual) 5, Eosinophils % (Manual) 0, Basophils % (Manual) 0, Band Neutrophils 0, Platelet Estimate DecreasedL, Platelet Morphology Normal, Anisocytosis 1+, Erythrocyte Sedimentation Rate 69H, Prothrombin Time 11.9H, Prothromb Time International Ratio 1.1, Activated Partial Thromboplast Time 32, Sodium Level 141, Potassium Level 4.7, Chloride Level 112H, Carbon Dioxide Level 24, Anion Gap 5, Blood Urea Nitrogen 25H, Creatinine 1.2, Estimat Glomerular Filtration Rate 57.1, Glucose Level 197H, Lactic Acid Level 1.10, Calcium Level 8.0L, Magnesium Level 2.3, Total Bilirubin 2.3H, Direct Bilirubin 1.4H, Aspartate Amino Transf (AST/SGOT) 63H, Alanine Aminotransferase (ALT/SGPT) 36, Alkaline Phosphatase 64, C-Reactive Protein, Quantitative 10.1H, Pro-B-Type Natriuretic Peptide 3248H, Total Protein 6.3L, Albumin 1.9L, Globulin 4.4, Albumin/Globulin Ratio 0.4L, Amylase Level 24L, Lipase 135, Carcinoembryonic Antigen [Pending], Hepatitis A IgM Antibody [Pending], Hepatitis B Surface Antigen [Pending], Hepatitis B Core IgM Antibody [Pending], Hepatitis C Antibody [Pending] 06/21/20 07:32: Arterial Blood pH 7.265L, Arterial Blood Partial Pressure CO2 50.8H, Arterial Blood Partial Pressure O2 88.6, Arterial Blood HCO3 22.5, Arterial Blood Oxygen Saturation 95.2, Arterial Blood Base Excess -4.6L, Manan Test Positive Current Medications Medications (Trade) Dose Ordered Sig/Augusto Route PRN Reason Start Time Stop Time Status Last Admin Dose Admin Acetaminophen (Tylenol) 650 mg EVERY 6 HOURS PRN NG Temp >100.5 06/19/20 22:30 07/19/20 22:29 Acetaminophen (Tylenol) 650 mg Q4H PRN RECTAL Temp >100.5 06/21/20 03:30 07/21/20 03:29 06/21/20 03:36 Cefepime HCl 1 gm/ Dextrose 55 ml @ 110 mls/hr EVERY 12 HOURS IVPB 06/20/20 09:00 06/27/20 08:59 06/21/20 09:34 Dextrose/ Electrolytes 1,000 ml @ 75 mls/hr [id number] IV 06/19/20 22:30 07/19/20 22:29 06/21/20 04:00 Dopamine HCl/ Dextrose 250 ml @ 0 mls/hr Q24H PRN IV For hypotension 06/19/20 22:30 06/22/20 22:18 Fentanyl Citrate 250 ml @ 1 mls/hr Q24H IV 06/19/20 22:30 06/21/20 22:29 06/20/20 19:00 Levothyroxine Sodium (Synthroid) 25 mcg DAILY IV 06/20/20 16:00 07/20/20 15:59 06/21/20 09:35 Metoprolol Tartrate (Lopressor) 2.5 mg Q4H PRN IVP hr greatern than 125 06/20/20 18:15 09/18/20 18:14 06/21/20 00:48 Metronidazole 100 ml @ 100 mls/hr Q8HR IVPB 06/20/20 22:00 06/27/20 21:59 06/21/20 06:00 Octreotide Acetate 500 mcg/ Sodium Chloride 500 ml @ 50 mls/hr Q10H IV 06/20/20 16:30 07/20/20 16:29 06/21/20 05:30 Pantoprazole (Protonix) 40 mg EVERY 12 HOURS IVP 06/20/20 09:00 07/20/20 08:59 06/21/20 09:34 Assessment/Plan Assessment/Plan IMPRESSION: 1. GI bleed. Now resolved; on Octreotide 2. Respiratory failure. WIll continue AC mode 3. Shock. 4. Patchy bilateral infiltrates. 5. Non-STEMI. DISCUSSION: Patient cannot receive anticoagulation for STEMI given his GI bleed. Agree with the use of Protonix and octreotide. I will maintain assist-control mechanical ventilation. Deep prophylaxis with SCD. Sedation as required. IV fluids. I will follow carefully. Empiric antibiotics as appropriate. ABG 7./56/85; will hold weaning given respiratory acidosis Evangelista Cormier M.D. Evangelista Cormier MD Jun 21, 2020 11:36
--- NOTE | 2020-06-21 11:44 | NUR ---
PT,SEEN BY KIMBERLY HINOJOSA VENT SETING CHANGED [id number] ABG [place] ORDERS
[2020-06-21] MEDS: fentaNYL 2500mcg/NS 250ml 250 ML IV SCH ×3 (12:12→23:38)
--- NOTE | 2020-06-21 12:30 | NUR ---
NURSE NOTES: OGT was irrigated and reconnected to suction
[2020-06-21] MEDS: D5 1/2NS 1,000 ML IV SCH (13:48)
--- NOTE | 2020-06-21 13:54 | Nephrology Progress Note ---
Assessment/Plan Problem List: (1) Cardiopulmonary arrest (2) Respiratory failure (3) Elevated troponin (4) Abdominal distension (5) Electrolyte imbalance Assessment Status post cardiorespiratory arrest Elevated troponin Oliguria Lactic acidosis Massive hemoptysis Acute respiratory failure, intubated on ventilator Electrolyte imbalance Plan June 21: Midodrine for low BP started. Albumin bolus given. Potassium and IV discontinued. Continue to monitor renal parameters. Abnormal electrolytes noted and addressed. Check TSH level. Pulmonary support Correct abnormal electrolytes and chemistries Anemia work-up Monitor renal parameters and urine output Urine studies Magnesium supplement Per orders Subjective ROS Limited/Unobtainable: Yes Objective Objective Last 24 Hour Vital Signs Date Time Temp Pulse Resp B/P (MAP) Pulse Ox O2 Delivery O2 Flow Rate FiO2 06/21/20 13:00 106 18 83/55 (64) 100 06/21/20 12:45 109 18 40 06/21/20 12:12 18 116/65 Mechanical Ventilator 40 06/21/20 12:00 40 06/21/20 12:00 18 116/65 Mechanical Ventilator 40 06/21/20 12:00 130 06/21/20 12:00 Mechanical Ventilator Mechanical Ventilator Mechanical Ventilator 06/21/20 12:00 106 18 93/55 (68) 100 06/21/20 11:44 40 06/21/20 11:00 16 90/56 Mechanical Ventilator 40 06/21/20 11:00 119 16 40 06/21/20 11:00 119 16 90/56 (67) 100 06/21/20 10:00 16 106/72 Mechanical Ventilator 40 06/21/20 10:00 120 17 99/65 (76) 99 06/21/20 09:00 128 17 110/80 (90) 100 06/21/20 09:00 17 124/93 Mechanical Ventilator 40 06/21/20 08:55 77 22 40 06/21/20 08:00 130 06/21/20 08:00 Mechanical Ventilator Mechanical Ventilator Mechanical Ventilator 06/21/20 08:00 122 21 141/83 (102) 100 06/21/20 08:00 16 120/63 Mechanical Ventilator 40 06/21/20 08:00 40 06/21/20 07:30 67 16 40 06/21/20 07:00 97.3 61 16 121/54 (76) 100 06/21/20 07:00 16 121/54 Mechanical Ventilator 40 06/21/20 06:30 66 16 109/63 (78) 100 06/21/20 06:30 66 16 06/21/20 06:00 72 17 112/62 (79) 97 06/21/20 06:00 17 112/62 Mechanical Ventilator 40 06/21/20 05:30 84 16 153/83 (106) 95 06/21/20 05:09 92 22 40 06/21/20 05:00 77 16 126/66 (86) 95 06/21/20 05:00 16 126/66 Mechanical Ventilator 40 06/21/20 04:30 84 16 141/73 (95) 95 06/21/20 04:06 101.0 06/21/20 04:00 88 15 157/85 (109) 97 06/21/20 04:00 15 157/85 40 06/21/20 04:00 40 06/21/20 04:00 Mechanical Ventilator Mechanical Ventilator Mechanical Ventilator 06/21/20 04:00 88 06/21/20 03:30 102.3 141 16 105/66 (79) 97 06/21/20 03:20 146 16 40 06/21/20 03:00 82 16 109/74 (86) 97 06/21/20 03:00 16 109/74 Mechanical Ventilator 40 06/21/20 02:00 16 101/70 Mechanical Ventilator 40 06/21/20 02:00 143 16 101/70 (80) 97 06/21/20 01:30 80 15 114/63 (80) 96 06/21/20 01:15 133 15 103/59 (74) 96 06/21/20 01:00 18 96/73 Mechanical Ventilator 40 06/21/20 01:00 128 16 96/73 (81) 96 06/21/20 00:58 134 16 40 06/21/20 00:48 152 113/64 06/21/20 00:45 152 15 113/64 (80) 96 06/21/20 00:30 106 22 113/64 (80) 96 06/21/20 00:00 99.9 85 15 127/78 (94) 96 06/21/20 00:00 15 127/78 Mechanical Ventilator 40 06/21/20 00:00 85 06/21/20 00:00 Mechanical Ventilator Mechanical Ventilator Mechanical Ventilator 06/20/20 23:30 82 15 116/63 (80) 98 06/20/20 23:12 90 16 40 06/20/20 23:00 92 16 156/86 (109) 97 06/20/20 23:00 16 156/86 Mechanical Ventilator 40 06/20/20 22:30 80 14 110/60 (77) 99 06/20/20 22:00 80 15 108/59 (75) 99 06/20/20 22:00 15 108/59 Mechanical Ventilator 40 06/20/20 21:30 82 15 108/60 (76) 99 06/20/20 21:07 79 19 40 06/20/20 21:00 15 100/51 Mechanical Ventilator 40 06/20/20 21:00 80 15 100/57 (71) 97 06/20/20 20:30 80 16 100/61 (74) 97 06/20/20 20:00 Mechanical Ventilator Mechanical Ventilator Mechanical Ventilator 06/20/20 20:00 40 06/20/20 20:00 15 108/62 Mechanical Ventilator 40 06/20/20 20:00 99.0 76 15 108/62 (77) 98 06/20/20 19:19 69 19 40 06/20/20 19:00 74 17 96/68 (77) 95 06/20/20 19:00 16 105/61 Mechanical Ventilator 40 06/20/20 19:00 17 96/68 Mechanical Ventilator 40 06/20/20 19:00 16 105/61 Mechanical Ventilator 40 06/20/20 18:32 113 77/132 06/20/20 18:00 144 14 101/71 (81) 95 06/20/20 18:00 14 101/71 Mechanical Ventilator 40 06/20/20 17:00 14 127/78 Mechanical Ventilator 40 06/20/20 17:00 134 16 127/78 (94) 98 06/20/20 16:00 99.5 78 16 113/61 (78) 98 06/20/20 16:00 40 06/20/20 16:00 16 130/67 Mechanical Ventilator 40 06/20/20 16:00 16 113/61 Mechanical Ventilator 40 06/20/20 16:00 Mechanical Ventilator Mechanical Ventilator Mechanical Ventilator 06/20/20 16:00 78 06/20/20 15:30 16 130/67 Mechanical Ventilator 40 06/20/20 15:00 16 129/71 Mechanical Ventilator 40 06/20/20 15:00 16 119/55 Mechanical Ventilator 40 06/20/20 15:00 77 16 119/55 (76) 97 06/20/20 14:00 15 126/6 Mechanical Ventilator 40 06/20/20 14:00 86 19 140/73 (95) 97 Intake and Output 06/20/20 06/21/20 19:00 07:00 Intake Total 1040 ml 1005 ml Output Total 675 ml 480 ml Balance 365 ml 525 ml Intake IV Total 1040 ml 1005 ml Output Urine Total 595 ml 480 ml Other 80 ml Current Medications Medications (Trade) Dose Ordered Sig/Augusto Route PRN Reason Start Time Stop Time Status Last Admin Dose Admin Acetaminophen (Tylenol) 650 mg EVERY 6 HOURS PRN NG Temp >100.5 06/19/20 22:30 07/19/20 22:29 Acetaminophen (Tylenol) 650 mg Q4H PRN RECTAL Temp >100.5 06/21/20 03:30 07/21/20 03:29 06/21/20 03:36 Cefepime HCl 1 gm/ Dextrose 55 ml @ 110 mls/hr EVERY 12 HOURS IVPB 06/20/20 09:00 06/27/20 08:59 06/21/20 09:34 Dextrose/Sodium Chloride 1,000 ml @ 75 mls/hr [id number] IV 06/21/20 13:41 07/21/20 13:40 06/21/20 13:48 Dopamine HCl/ Dextrose 250 ml @ 0 mls/hr Q24H PRN IV For hypotension 06/19/20 22:30 06/22/20 22:18 Fentanyl Citrate 250 ml @ 1 mls/hr Q24H IV 06/19/20 22:30 06/21/20 22:29 06/21/20 12:12 Levothyroxine Sodium (Synthroid) 25 mcg DAILY IV 06/20/20 16:00 07/20/20 15:59 06/21/20 09:35 Metoprolol Tartrate (Lopressor) 2.5 mg Q4H PRN IVP hr greatern than 125 06/20/20 18:15 09/18/20 18:14 06/21/20 00:48 Metronidazole 100 ml @ 100 mls/hr Q8HR IVPB 06/20/20 22:00 06/27/20 21:59 06/21/20 13:48 Octreotide Acetate 500 mcg/ Sodium Chloride 500 ml @ 50 mls/hr Q10H IV 06/20/20 16:30 07/20/20 16:29 06/21/20 05:30 Pantoprazole (Protonix) 40 mg EVERY 12 HOURS IVP 06/20/20 09:00 07/20/20 08:59 06/21/20 09:34 Laboratory Tests 06/20/20 14:45: Troponin I 0.238H 06/20/20 23:00: Troponin I 0.169H 06/21/20 05:20: Troponin I 0.128H, White Blood Count 7.6, Red Blood Count 3.51L, Hemoglobin 11.5L, Hematocrit 35.0L, Mean Corpuscular Volume 100H, Mean Corpuscular Hemoglobin 32.6H, Mean Corpuscular Hemoglobin Concent 32.7, Red Cell Distribution Width 15.7H, Platelet Count 92L, Mean Platelet Volume 8.6, Neutrophils (%) (Auto) , Lymphocytes (%) (Auto) , Monocytes (%) (Auto) , Eosinophils (%) (Auto) , Basophils (%) (Auto) , Differential Total Cells Counted 100, Neutrophils % (Manual) 89H, Lymphocytes % (Manual) 6L, Monocytes % (Manual) 5, Eosinophils % (Manual) 0, Basophils % (Manual) 0, Band Neutrophils 0, Platelet Estimate DecreasedL, Platelet Morphology Normal, Anisocytosis 1+, Erythrocyte Sedimentation Rate 69H, Prothrombin Time 11.9H, Prothromb Time International Ratio 1.1, Activated Partial Thromboplast Time 32, Sodium Level 141, Potassium Level 4.7, Chloride Level 112H, Carbon Dioxide Level 24, Anion Gap 5, Blood Urea Nitrogen 25H, Creatinine 1.2, Estimat Glomerular Filtration Rate 57.1, Glucose Level 197H, Lactic Acid Level 1.10, Calcium Level 8.0L, Magnesium Level 2.3, Total Bilirubin 2.3H, Direct Bilirubin 1.4H, Aspartate Amino Transf (AST/SGOT) 63H, Alanine Aminotransferase (ALT/SGPT) 36, Alkaline Phosphatase 64, C-Reactive Protein, Quantitative 10.1H, Pro-B-Type Natriuretic Peptide 3248H, Total Protein 6.3L, Albumin 1.9L, Globulin 4.4, Albumin/Globulin Ratio 0.4L, Amylase Level 24L, Lipase 135, Carcinoembryonic Antigen [Pending], Hepatitis A IgM Antibody [Pending], Hepatitis B Surface Antigen [Pending], Hepatitis B Core IgM Antibody [Pending], Hepatitis C Antibody [Pending] 06/21/20 07:32: Arterial Blood pH 7.265L, Arterial Blood Partial Pressure CO2 50.8H, Arterial Blood Partial Pressure O2 88.6, Arterial Blood HCO3 22.5, Arterial Blood Oxygen Saturation 95.2, Arterial Blood Base Excess -4.6L, Manan Test Positive Height (Feet): 5 Height (Inches): 8.00 Weight (Pounds): 119 Cardiovascular: tachycardia Respiratory/Chest: decreased breath sounds Abdomen: distended Kapil Rea MD Jun 21, 2020 13:54
[2020-06-21] MEDS ORDERED: fentaNYL 2500mcg/NS 250ml 250 ML IV SCH (14:00)
[2020-06-21] MEDS: Midodrine 10mg tab NG SCH ×2 (15:26→21:18)
--- NOTE | 2020-06-21 16:01 | Internal Med Progress Note ---
Subjective Date of Service: Jun 21, 2020 Physician Name Angel Peter Attending Physician Ventura Pelletier MD Current Medications Medications (Trade) Dose Ordered Sig/Augusto Route PRN Reason Start Time Stop Time Status Last Admin Dose Admin Acetaminophen (Tylenol) 650 mg EVERY 6 HOURS PRN NG Temp >100.5 06/19/20 22:30 07/19/20 22:29 Acetaminophen (Tylenol) 650 mg Q4H PRN RECTAL Temp >100.5 06/21/20 03:30 07/21/20 03:29 06/21/20 03:36 Cefepime HCl 1 gm/ Dextrose 55 ml @ 110 mls/hr EVERY 12 HOURS IVPB 06/20/20 09:00 06/27/20 08:59 06/21/20 09:34 Dextrose/Sodium Chloride 1,000 ml @ 75 mls/hr [id number] IV 06/21/20 13:41 07/21/20 13:40 06/21/20 13:48 Dopamine HCl/ Dextrose 250 ml @ 0 mls/hr Q24H PRN IV For hypotension 06/19/20 22:30 06/22/20 22:18 Fentanyl Citrate 250 ml @ 1 mls/hr Q24H IV 06/19/20 22:30 06/23/20 22:29 06/21/20 12:12 Levothyroxine Sodium (Synthroid) 25 mcg DAILY IV 06/20/20 16:00 07/20/20 15:59 06/21/20 09:35 Metoprolol Tartrate (Lopressor) 2.5 mg Q4H PRN IVP hr greatern than 125 06/20/20 18:15 09/18/20 18:14 06/21/20 00:48 Metronidazole 100 ml @ 100 mls/hr Q8HR IVPB 06/20/20 22:00 06/27/20 21:59 06/21/20 13:48 Midodrine (Pro-Amatine) 10 mg Q8HR NG 06/21/20 14:00 09/19/20 13:59 06/21/20 15:26 Octreotide Acetate 500 mcg/ Sodium Chloride 500 ml @ 50 mls/hr Q10H IV 06/20/20 16:30 07/20/20 16:29 06/21/20 05:30 Pantoprazole (Protonix) 40 mg EVERY 12 HOURS IVP 06/20/20 09:00 07/20/20 08:59 06/21/20 09:34 Allergies: Coded Allergies: No Known Allergies (Unverified , 06/19/20) ROS Limited/Unobtainable: Yes Subjective 89 YO M admitted with syncopal episode. Now S/P cardiac arrest and GI bleed. Cover for Int Rashaun-Dr Pelletier. ICU. Intubated and sedated Objective Last Vital Signs Date Time Temp Pulse Resp B/P (MAP) Pulse Ox O2 Delivery O2 Flow Rate FiO2 06/21/20 15:00 18 112/62 Mechanical Ventilator 40 06/21/20 14:45 105 06/21/20 14:00 100 06/21/20 07:00 97.3 06/19/20 16:08 4.0 Laboratory Tests Test 06/20/20 23:00 06/21/20 05:20 06/21/20 07:32 Troponin I 0.169 ng/mL (0.000-0.056) 0.128 ng/mL (0.000-0.056) White Blood Count 7.6 K/UL (4.8-10.8) Red Blood Count 3.51 M/UL (4.70-6.10) L Hemoglobin 11.5 G/DL (14.2-18.0) L Hematocrit 35.0 % (42.0-52.0) L Mean Corpuscular Volume 100 FL (80-99) H Mean Corpuscular Hemoglobin 32.6 PG (27.0-31.0) H Mean Corpuscular Hemoglobin Concent 32.7 G/DL (32.0-36.0) Red Cell Distribution Width 15.7 % (11.6-14.8) H Platelet Count 92 K/UL (150-450) L Mean Platelet Volume 8.6 FL (6.5-10.1) Neutrophils (%) (Auto) % (45.0-75.0) Lymphocytes (%) (Auto) % (20.0-45.0) Monocytes (%) (Auto) % (1.0-10.0) Eosinophils (%) (Auto) % (0.0-3.0) Basophils (%) (Auto) % (0.0-2.0) Differential Total Cells Counted 100 Neutrophils % (Manual) 89 % (45-75) H Lymphocytes % (Manual) 6 % (20-45) L Monocytes % (Manual) 5 % (1-10) Eosinophils % (Manual) 0 % (0-3) Basophils % (Manual) 0 % (0-2) Band Neutrophils 0 % (0-8) Platelet Estimate Decreased L Platelet Morphology Normal Anisocytosis 1+ Erythrocyte Sedimentation Rate 69 MM/HR (0-20) H Prothrombin Time 11.9 SEC (9.30-11.50) H Prothromb Time International Ratio 1.1 (0.9-1.1) Activated Partial Thromboplast Time 32 SEC (23-33) Sodium Level 141 MMOL/L (136-145) Potassium Level 4.7 MMOL/L (3.5-5.1) Chloride Level 112 MMOL/L (98-107) H Carbon Dioxide Level 24 MMOL/L (21-32) Anion Gap 5 mmol/L (5-15) Blood Urea Nitrogen 25 mg/dL (7-18) H Creatinine 1.2 MG/DL (0.55-1.30) Estimat Glomerular Filtration Rate 57.1 mL/min (>60) Glucose Level 197 MG/DL (74-106) H Lactic Acid Level 1.10 mmol/L (0.4-2.0) Calcium Level 8.0 MG/DL (8.5-10.1) L Phosphorus Level 2.0 MG/DL (2.5-4.9) L Magnesium Level 2.3 MG/DL (1.8-2.4) Total Bilirubin 2.3 MG/DL (0.2-1.0) H Direct Bilirubin 1.4 MG/DL (0.0-0.3) H Aspartate Amino Transf (AST/SGOT) 63 U/L (15-37) H Alanine Aminotransferase (ALT/SGPT) 36 U/L (12-78) Alkaline Phosphatase 64 U/L (46-116) C-Reactive Protein, Quantitative 10.1 mg/dL (0.00-0.90) H Pro-B-Type Natriuretic Peptide 3248 pg/mL (0-125) H Total Protein 6.3 G/DL (6.4-8.2) L Albumin 1.9 G/DL (3.4-5.0) L Globulin 4.4 g/dL Albumin/Globulin Ratio 0.4 (1.0-2.7) L Amylase Level 24 U/L (25-115) L Lipase 135 U/L (73-393) Carcinoembryonic Antigen Pending Thyroid Stimulating Hormone (TSH) 1.608 uiU/mL (0.358-3.740) Hepatitis A IgM Antibody Pending Hepatitis B Surface Antigen Pending Hepatitis B Core IgM Antibody Pending Hepatitis C Antibody Pending Arterial Blood pH 7.265 (7.350-7.450) Arterial Blood Partial Pressure CO2 50.8 mmHg (35.0-45.0) H Arterial Blood Partial Pressure O2 88.6 mmHg (75.0-100.0) Arterial Blood HCO3 22.5 mmol/L (22.0-26.0) Arterial Blood Oxygen Saturation 95.2 % (95-100) Arterial Blood Base Excess -4.6 (-2-2) L Manan Test Positive Microbiology Date/Time Source Procedure Growth Status 06/19/20 17:55 Blood Blood Culture - Preliminary NO GROWTH AFTER 24 HOURS Resulted 06/19/20 17:51 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 Complete 06/19/20 17:51 Nasopharynx SARS-CoV-2 Antigen (Rapid)(KENDRICK) - Final Complete 06/19/20 17:45 Blood Blood Culture - Preliminary NO GROWTH AFTER 24 HOURS Resulted 06/19/20 17:41 Urine,Clean Catch Urine Culture - Preliminary NO GROWTH Resulted Intake and Output 06/20/20 06/21/20 19:00 07:00 Intake Total 1040 ml 1005 ml Output Total 675 ml 480 ml Balance 365 ml 525 ml Intake IV Total 1040 ml 1005 ml Output Urine Total 595 ml 480 ml Other 80 ml Objective Objective General: intubated, remained on ventilation, sedated. HEENT: NCAT, sclera anicteric, PERRL, ET Tube, NG Tube. Neck: Supple, no significant jugular venous distention, Lungs: mech vent; coarsebreath sounds with Wheeze and Rales. Heart: Regular rate and rhythm, normal S1/S2, no murmurs. Abdomen: soft, nontender, nondistended. Normoactive bowel sounds. / Rectal: Refused and deferred. Extremities: No Cyanosis , clubbing or edema. Neuro: limited secondary to patient's status, able to move extremities slowly. Skin: warm, no rash. Assessment/Plan Assessment/Plan ASSESSMENT: 1. Acute hypoxemic respiratory failure. 2. PEA arrest. 3. Upper GI bleed. 4. Severe anemia, most likely secondary to acute GI bleed and acute blood loss. 5. History of hypertension. 6. Hypothyroidism. 7. BPH. 8. Thrombocytopenia. 9. The patient has elevated troponin, most likely secondary to non-ST elevation ND type 2 as a result of demand ischemia. PLAN: Admit the patient to ICU. We will follow up with Dr. Ken Sevilla from Cardiology, Dr. Davis from Gastroenterology, and Dr. Cormier from Pulmonary Critical Care. Follow up with 2D echo, duplex of lower extremity. At this time, with family member's discussion, the patient's code status is full code. We will follow up with the laboratory, serial cardiac enzymes, and 2D echo. We will start the patient on Protonix IV and broad-spectrum antibiotics with cefepime and Flagyl. Angel Peter MD Jun 21, 2020 16:01
--- NOTE | 2020-06-21 16:29 | Electroencephalogram ---
DATE OF PROCEDURE: 06/20/2020 REQUESTING PHYSICIAN: Ventura Pelletier MD. READING PHYSICIAN: Marcello Alberto MD. PROCEDURE PERFORMED: EEG. HISTORY: This EEG was performed on an 89-year-old gentleman with history of cardiopulmonary arrest. The purpose of this EEG was to evaluate the patient for the degree and type of encephalopathy. TECHNICAL NOTE: This EEG was performed on a [employer] Unit with electrodes placed on the scalp according to the International 10-20 system. [id number] and [id number]-ev-vul montages were used. The EEG was technically satisfactory and was performed while the patient was in an unresponsive state. OBSERVATIONS: In the reportedly unresponsive state, the background activity consisted of 4-4.5 Hz theta and 1.5-2.5 Hz delta activity. A few triphasic waveforms with an anterior to posterior gradient were also seen throughout the tracing. No significant change in the EEG background was noted when the patent was stimulated. No definite focal abnormalities or epileptiform discharges were seen. IMPRESSION: This is an abnormal EEG characterized by: 1. Slowing of the background in the 4-5 Hz theta and 1.5-2.5 Hz delta range. 2. The presence of triphasic waveforms. 3. No reactivity to external stimulation. COMMENT: This study is consistent with an encephalopathy of a moderately severe degree, most probably with a metabolic component as evidenced by the triphasic waveforms. Marcello Alberto M.D., M.S.P.H. DR: Jarret JOB#: [id number] [facility]ITALKayla
--- NOTE | 2020-06-21 16:56 | Cardiology Progress Note ---
Assessment/Plan Problem List: (1) Massive hemoptysis (2) Cardiopulmonary arrest (3) Elevated troponin Status: not improved, unchanged Status Narrative s/p cardiopulm arrest, ? PEA Respiratory failure, on vent Acute GI bleed PAF Elevated troponin / type 2 AR Assessment/Plan Continue vent support - wean as tolerated. Monitor h/h -. transfuse as needed to mainain hg > 7. Gi following Continue metoprolol, amiodarone for PAF Subjective ROS Limited/Unobtainable: Yes Subjective Cardiology for Dr. Sevilla. Intubated, opens eyes to voice Objective Last 24 Hour Vital Signs Date Time Temp Pulse Resp B/P (MAP) Pulse Ox O2 Delivery O2 Flow Rate FiO2 06/21/20 16:00 Mechanical Ventilator Mechanical Ventilator Mechanical Ventilator 06/21/20 16:00 85 06/21/20 16:00 97.6 84 18 138/70 (92) 100 06/21/20 16:00 40 06/21/20 15:00 62 18 112/62 (79) 100 06/21/20 15:00 18 112/62 Mechanical Ventilator 40 06/21/20 14:45 105 18 40 06/21/20 14:00 18 111/68 Mechanical Ventilator 40 06/21/20 14:00 108 18 111/68 (82) 100 06/21/20 13:00 106 18 83/55 (64) 100 06/21/20 13:00 18 80/54 Mechanical Ventilator 40 06/21/20 12:45 109 18 40 06/21/20 12:12 18 116/65 Mechanical Ventilator 40 06/21/20 12:00 40 06/21/20 12:00 18 116/65 Mechanical Ventilator 40 06/21/20 12:00 130 06/21/20 12:00 Mechanical Ventilator Mechanical Ventilator Mechanical Ventilator 06/21/20 12:00 106 18 93/55 (68) 100 06/21/20 11:44 40 06/21/20 11:00 16 90/56 Mechanical Ventilator 40 06/21/20 11:00 119 16 40 06/21/20 11:00 119 16 90/56 (67) 100 06/21/20 10:00 16 106/72 Mechanical Ventilator 40 06/21/20 10:00 120 17 99/65 (76) 99 06/21/20 09:00 128 17 110/80 (90) 100 06/21/20 09:00 17 124/93 Mechanical Ventilator 40 06/21/20 08:55 77 22 40 06/21/20 08:00 130 06/21/20 08:00 Mechanical Ventilator Mechanical Ventilator Mechanical Ventilator 06/21/20 08:00 122 21 141/83 (102) 100 06/21/20 08:00 16 120/63 Mechanical Ventilator 40 06/21/20 08:00 40 06/21/20 07:30 67 16 40 06/21/20 07:00 97.3 61 16 121/54 (76) 100 06/21/20 07:00 16 121/54 Mechanical Ventilator 40 06/21/20 06:30 66 16 109/63 (78) 100 06/21/20 06:30 66 16 06/21/20 06:00 72 17 112/62 (79) 97 06/21/20 06:00 17 112/62 Mechanical Ventilator 40 06/21/20 05:30 84 16 153/83 (106) 95 06/21/20 05:09 92 22 40 06/21/20 05:00 77 16 126/66 (86) 95 06/21/20 05:00 16 126/66 Mechanical Ventilator 40 06/21/20 04:30 84 16 141/73 (95) 95 06/21/20 04:06 101.0 06/21/20 04:00 88 15 157/85 (109) 97 06/21/20 04:00 15 157/85 40 06/21/20 04:00 40 06/21/20 04:00 Mechanical Ventilator Mechanical Ventilator Mechanical Ventilator 06/21/20 04:00 88 06/21/20 03:30 102.3 141 16 105/66 (79) 97 06/21/20 03:20 146 16 40 06/21/20 03:00 82 16 109/74 (86) 97 06/21/20 03:00 16 109/74 Mechanical Ventilator 40 06/21/20 02:00 16 101/70 Mechanical Ventilator 40 06/21/20 02:00 143 16 101/70 (80) 97 06/21/20 01:30 80 15 114/63 (80) 96 06/21/20 01:15 133 15 103/59 (74) 96 06/21/20 01:00 18 96/73 Mechanical Ventilator 40 06/21/20 01:00 128 16 96/73 (81) 96 06/21/20 00:58 134 16 40 06/21/20 00:48 152 113/64 06/21/20 00:45 152 15 113/64 (80) 96 06/21/20 00:30 106 22 113/64 (80) 96 06/21/20 00:00 99.9 85 15 127/78 (94) 96 06/21/20 00:00 15 127/78 Mechanical Ventilator 40 06/21/20 00:00 85 06/21/20 00:00 Mechanical Ventilator Mechanical Ventilator Mechanical Ventilator 06/20/20 23:30 82 15 116/63 (80) 98 06/20/20 23:12 90 16 40 06/20/20 23:00 92 16 156/86 (109) 97 06/20/20 23:00 16 156/86 Mechanical Ventilator 40 06/20/20 22:30 80 14 110/60 (77) 99 06/20/20 22:00 80 15 108/59 (75) 99 06/20/20 22:00 15 108/59 Mechanical Ventilator 40 06/20/20 21:30 82 15 108/60 (76) 99 06/20/20 21:07 79 19 40 06/20/20 21:00 15 100/51 Mechanical Ventilator 40 06/20/20 21:00 80 15 100/57 (71) 97 06/20/20 20:30 80 16 100/61 (74) 97 06/20/20 20:00 Mechanical Ventilator Mechanical Ventilator Mechanical Ventilator 06/20/20 20:00 40 06/20/20 20:00 15 108/62 Mechanical Ventilator 40 06/20/20 20:00 99.0 76 15 108/62 (77) 98 06/20/20 19:19 69 19 40 06/20/20 19:00 74 17 96/68 (77) 95 06/20/20 19:00 16 105/61 Mechanical Ventilator 40 06/20/20 19:00 17 96/68 Mechanical Ventilator 40 06/20/20 19:00 16 105/61 Mechanical Ventilator 40 06/20/20 18:32 113 77/132 06/20/20 18:00 144 14 101/71 (81) 95 06/20/20 18:00 14 101/71 Mechanical Ventilator 40 06/20/20 17:00 14 127/78 Mechanical Ventilator 40 06/20/20 17:00 134 16 127/78 (94) 98 General Appearance: WD/WN, thin, on vent EENT: PERRL/EOMI, other - og tube w/ brown drainage Neck: no JVD Rhythm: NSR Cardiovascular: normal rate, regular rhythm, no gallop/murmur Respiratory/Chest: lungs clear Abdomen: non tender, soft, decreased bowel sounds Extremities: no swelling Intake and Output 06/20/20 06/21/20 19:00 07:00 Intake Total 1040 ml 1005 ml Output Total 675 ml 480 ml Balance 365 ml 525 ml Intake IV Total 1040 ml 1005 ml Output Urine Total 595 ml 480 ml Other 80 ml Laboratory Tests Test 06/20/20 23:00 06/21/20 05:20 06/21/20 07:32 Troponin I 0.169 ng/mL (0.000-0.056) 0.128 ng/mL (0.000-0.056) White Blood Count 7.6 K/UL (4.8-10.8) Red Blood Count 3.51 M/UL (4.70-6.10) L Hemoglobin 11.5 G/DL (14.2-18.0) L Hematocrit 35.0 % (42.0-52.0) L Mean Corpuscular Volume 100 FL (80-99) H Mean Corpuscular Hemoglobin 32.6 PG (27.0-31.0) H Mean Corpuscular Hemoglobin Concent 32.7 G/DL (32.0-36.0) Red Cell Distribution Width 15.7 % (11.6-14.8) H Platelet Count 92 K/UL (150-450) L Mean Platelet Volume 8.6 FL (6.5-10.1) Neutrophils (%) (Auto) % (45.0-75.0) Lymphocytes (%) (Auto) % (20.0-45.0) Monocytes (%) (Auto) % (1.0-10.0) Eosinophils (%) (Auto) % (0.0-3.0) Basophils (%) (Auto) % (0.0-2.0) Differential Total Cells Counted 100 Neutrophils % (Manual) 89 % (45-75) H Lymphocytes % (Manual) 6 % (20-45) L Monocytes % (Manual) 5 % (1-10) Eosinophils % (Manual) 0 % (0-3) Basophils % (Manual) 0 % (0-2) Band Neutrophils 0 % (0-8) Platelet Estimate Decreased L Platelet Morphology Normal Anisocytosis 1+ Erythrocyte Sedimentation Rate 69 MM/HR (0-20) H Prothrombin Time 11.9 SEC (9.30-11.50) H Prothromb Time International Ratio 1.1 (0.9-1.1) Activated Partial Thromboplast Time 32 SEC (23-33) Sodium Level 141 MMOL/L (136-145) Potassium Level 4.7 MMOL/L (3.5-5.1) Chloride Level 112 MMOL/L (98-107) H Carbon Dioxide Level 24 MMOL/L (21-32) Anion Gap 5 mmol/L (5-15) Blood Urea Nitrogen 25 mg/dL (7-18) H Creatinine 1.2 MG/DL (0.55-1.30) Estimat Glomerular Filtration Rate 57.1 mL/min (>60) Glucose Level 197 MG/DL (74-106) H Lactic Acid Level 1.10 mmol/L (0.4-2.0) Calcium Level 8.0 MG/DL (8.5-10.1) L Phosphorus Level 2.0 MG/DL (2.5-4.9) L Magnesium Level 2.3 MG/DL (1.8-2.4) Total Bilirubin 2.3 MG/DL (0.2-1.0) H Direct Bilirubin 1.4 MG/DL (0.0-0.3) H Aspartate Amino Transf (AST/SGOT) 63 U/L (15-37) H Alanine Aminotransferase (ALT/SGPT) 36 U/L (12-78) Alkaline Phosphatase 64 U/L (46-116) C-Reactive Protein, Quantitative 10.1 mg/dL (0.00-0.90) H Pro-B-Type Natriuretic Peptide 3248 pg/mL (0-125) H Total Protein 6.3 G/DL (6.4-8.2) L Albumin 1.9 G/DL (3.4-5.0) L Globulin 4.4 g/dL Albumin/Globulin Ratio 0.4 (1.0-2.7) L Amylase Level 24 U/L (25-115) L Lipase 135 U/L (73-393) Carcinoembryonic Antigen Pending Thyroid Stimulating Hormone (TSH) 1.608 uiU/mL (0.358-3.740) Hepatitis A IgM Antibody Pending Hepatitis B Surface Antigen Pending Hepatitis B Core IgM Antibody Pending Hepatitis C Antibody Pending Arterial Blood pH 7.265 (7.350-7.450) Arterial Blood Partial Pressure CO2 50.8 mmHg (35.0-45.0) H Arterial Blood Partial Pressure O2 88.6 mmHg (75.0-100.0) Arterial Blood HCO3 22.5 mmol/L (22.0-26.0) Arterial Blood Oxygen Saturation 95.2 % (95-100) Arterial Blood Base Excess -4.6 (-2-2) L Manan Test Positive Microbiology Date/Time Source Procedure Growth Status 06/19/20 17:55 Blood Blood Culture - Preliminary NO GROWTH AFTER 24 HOURS Resulted 06/19/20 17:51 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 Complete 06/19/20 17:51 Nasopharynx SARS-CoV-2 Antigen (Rapid)(KENDRICK) - Final Complete 06/19/20 17:45 Blood Blood Culture - Preliminary NO GROWTH AFTER 24 HOURS Resulted 06/19/20 17:41 Urine,Clean Catch Urine Culture - Preliminary NO GROWTH Resulted Tala Mittal MD Jun 21, 2020 16:56
--- NOTE | 2020-06-21 19:54 | NUR ---
NURSE NOTES: Received report from JAVI Sargent. Pt is awake, opens eyes, tracks some movement, no movement of the extremities. Pt is romanian speaking, RN attempted to communicate in Occitan, no specific acknowledgement other than blinking of eyes. Pt currently in afib RVR with HR 140s. Will give metoprolo 5mg IVP PRN. SpO2 98% on ETT 7.5cm, 22cm from lip, AC 18, TV 500, P5, FiO2 40%. Calabrese draining well to gravity with dark tony urine. R W 22g and L AC 22g asymptomatic and flushing well, D51/2NS running at 75cc/hr, Sandostatin at 50cc/hr. Vitals are stable at this moment. HOB elevated, side rails x2, bed alarmed, locked, and in lowest position, Will continue plan of care. WIll continue to monitor.
--- NOTE | 2020-06-21 21:00 | NUR ---
NURSE NOTES: Attempts to communicate with pt successful. Pt able to nod, shake head, and use other body language to communicate. Pt able to follow commands. Will continue to monitor.
[2020-06-21] MEDS ORDERED: Metoprolol Tartrate 5mg/5ml Inj IVP ONE (21:15)
--- NOTE | 2020-06-21 21:30 | NUR ---
NURSE NOTES: Pt still in afib RVR, HR 140s to 170s. Dr. Sevilla called, received orders for metoprolol 5mg IVP once. Orders received and will carry out.
[2020-06-21] MEDS ORDERED: Digoxin 0.5mg/2ml Inj IVP ONE ×2 (22:30→23:30)
--- NOTE | 2020-06-21 22:30 | NUR ---
NURSE NOTES: Pt sustaining afib RVR Hr 120-150s after previous interventions. Dr. Sevilla called, received orders for digoxin 0.25mg IVP once now and another dose of digoxin 0.25 IVP one hour later. Will carry out.
[2020-06-22] VITALS (24 sets, daily range): BP systolic 87–184; BP diastolic 58–95
--- NOTE | 2020-06-22 00:08 | NUR ---
NURSE NOTES: Pt now ST rate of 120s to 140s. Will give metoprolol 2.5mg IVP PRN and continue to monitor.
[2020-06-22] MEDS: Metoprolol Tartrate 5mg/5ml Inj IVP PRN ×2 (00:22→11:36)
--- NOTE | 2020-06-22 03:12 | NUR ---
NURSE NOTES: Cleaned and turned pt. Oral care provided. Linens and gowns changed. Pt tolerated well. No acute distress noted. No change in condition at this time. Will continue to monitor.
[2020-06-22] MEDS: D5 1/2NS 1,000 ML IV SCH ×2 (03:21→16:32)
--- NOTE | 2020-06-22 04:55 | NUR ---
NURSE NOTES: Pt in sinus rhythm. Vital signs are stable at this time. Will continue to monitor.
[2020-06-22] MEDS: Midodrine 10mg tab NG SCH ×3 (05:04→22:00)
--- NOTE | 2020-06-22 07:15 | NUR ---
NURSE NOTES: Report received from Batsheva Altamirano RN.Pt in bed awake,restless on and off,Orally intubated ETT7.5,LIP line 22cm AC18,TV 500 Fio2 40%,Peep +5,no signs of pain or discomfort,S-R on the monitor,OGT to low intermittent suction,with coffee ground to dark green secretions,Calabrese cath draining yellow urine ,Skin warm and dry with PIV x2 LFA and Rt Wrist,with Fentanyl drip at 90mcg /hr,ans to LFA Sandostatin at 50 ml/hr and IVF D5 1/2 NS at 75 ml/hr,SR up x2 HOB elevated ,bed lock in lowest position,will continue with plans of care.
--- NOTE | 2020-06-22 07:30 | NUR ---
RESPIRATORY NOTE: Received pt with ETT 7.5@ 21cm lip lines, secured by anchor fast. Pt opens eyes, resting comfortably in the bed with current vent settings. Endotracheal suctioned moderate thick bloody secretions. RN Seema notified. No SOB or resp distress noted. Alarms are on and audible. Vent circuit is secure and out of the way.Vent is plugged into the red outlet, ambu bag at bedside. Will continue to closely monitor.
--- NOTE | 2020-06-22 08:00 | NUR ---
NURSE NOTES: Pt awake, restless, fighting the vent,Fentanyl drip increased to 100 mcg/hr,will continue to monitor pt .
[2020-06-22 08:02] LABS: HEMATOCRIT 37.6 % (42.0-52.0); HEMOGLOBIN 12.5 G/DL (14.2-18.0); MEAN CORPUSCULAR VOLUME 98 FL (80-99); PLATELET COUNT 80 K/UL (150-450); RED BLOOD COUNT 3.84 M/UL (4.70-6.10); RED CELL DISTRIBUTION WIDTH 15.4 % (11.6-14.8); WHITE BLOOD COUNT 7.6 K/UL (4.8-10.8)
[2020-06-22 08:38] LABS: ALANINE AMINOTRANSFERASE 34 U/L (12-78); ALBUMIN 2.3 G/DL (3.4-5.0); ALBUMIN/GLOBULIN RATIO 0.5 (1.0-2.7); ALKALINE PHOSPHATASE 66 U/L (46-116); ANION GAP 8 mmol/L (5-15); ASPARTATE AMINO TRANSFERASE 59 U/L (15-37); BILIRUBIN,TOTAL 2.2 MG/DL (0.2-1.0); BLOOD UREA NITROGEN 21 mg/dL (7-18); CALCIUM 8.2 MG/DL (8.5-10.1); CARBON DIOXIDE 24 MMOL/L (21-32); CHLORIDE 109 MMOL/L (98-107); POTASSIUM 4.5 MMOL/L (3.5-5.1); SODIUM 141 MMOL/L (136-145)
--- NOTE | 2020-06-22 08:40 | NUR ---
NURSE NOTES: ABG drawn,per results of ABG,Gee increased FIo2 to 50%,o2 sat 98%.
[2020-06-22 08:43] LABS: BILIRUBIN,DIRECT 1.2 MG/DL (0.0-0.3)
[2020-06-22 08:46] LABS: PHOSPHORUS 1.9 MG/DL (2.5-4.9)
--- NOTE | 2020-06-22 09:16 | General Progress Note ---
Subjective ROS Limited/Unobtainable: No Allergies: Coded Allergies: No Known Allergies (Unverified , 06/19/20) Objective Last 24 Hour Vital Signs Date Time Temp Pulse Resp B/P (MAP) Pulse Ox O2 Delivery O2 Flow Rate FiO2 06/22/20 09:00 91 21 151/78 (102) 100 06/22/20 08:00 40 06/22/20 08:00 Mechanical Ventilator Mechanical Ventilator Mechanical Ventilator 06/22/20 08:00 106 06/22/20 08:00 98.7 102 19 149/78 (101) 97 06/22/20 07:30 107 23 40 06/22/20 07:00 22 166/90 Mechanical Ventilator 40 06/22/20 07:00 19 153/85 Mechanical Ventilator 40 06/22/20 07:00 110 21 166/90 (115) 92 06/22/20 06:30 90 18 06/22/20 06:00 116 26 184/95 (124) 89 06/22/20 06:00 20 184/95 Mechanical Ventilator 40 06/22/20 05:00 91 14 160/81 (107) 99 06/22/20 05:00 21 160/81 Mechanical Ventilator 40 06/22/20 04:00 97.6 98 20 160/88 (112) 97 06/22/20 04:00 21 160/84 Mechanical Ventilator 40 06/22/20 04:00 Mechanical Ventilator Mechanical Ventilator Mechanical Ventilator 06/22/20 04:00 93 06/22/20 04:00 40 06/22/20 03:15 101 25 40 06/22/20 03:00 27 160/84 Mechanical Ventilator 40 06/22/20 03:00 100 27 160/84 (109) 95 06/22/20 02:15 21 158/83 Mechanical Ventilator 40 06/22/20 02:00 101 21 158/87 (110) 95 06/22/20 02:00 21 158/87 Mechanical Ventilator 40 06/22/20 01:25 21 158/87 Mechanical Ventilator 40 06/22/20 01:10 19 155/84 Mechanical Ventilator 40 06/22/20 01:00 97 19 155/84 (107) 98 06/22/20 00:55 19 155/84 Mechanical Ventilator 40 06/22/20 00:40 19 145/93 Mechanical Ventilator 40 06/22/20 00:25 23 130/93 Mechanical Ventilator 40 06/22/20 00:22 143 143/96 06/22/20 00:10 21 148/85 Mechanical Ventilator 40 06/22/20 00:00 98.1 129 23 148/85 (106) 96 06/22/20 00:00 147 06/22/20 00:00 Mechanical Ventilator Mechanical Ventilator Mechanical Ventilator 06/21/20 23:55 24 143/96 Mechanical Ventilator 40 06/21/20 23:38 143 06/21/20 23:38 18 149/63 Mechanical Ventilator 40 06/21/20 23:30 146 28 40 06/21/20 23:00 145 23 148/98 (115) 98 06/21/20 22:45 143 06/21/20 22:00 143 23 122/82 (95) 97 06/21/20 21:27 172 159/96 06/21/20 21:00 175 26 159/98 (118) 96 06/21/20 20:04 146 175/67 06/21/20 20:00 97.5 154 17 143/92 (109) 99 06/21/20 20:00 157 06/21/20 20:00 40 06/21/20 20:00 Mechanical Ventilator Mechanical Ventilator Mechanical Ventilator 06/21/20 19:30 133 18 40 06/21/20 18:59 98 18 173/92 (119) 99 06/21/20 18:00 90 18 151/77 (101) 99 06/21/20 17:00 96 18 168/87 (114) 100 06/21/20 16:58 93 18 40 06/21/20 16:00 Mechanical Ventilator Mechanical Ventilator Mechanical Ventilator 06/21/20 16:00 85 06/21/20 16:00 97.6 84 18 138/70 (92) 100 06/21/20 16:00 40 06/21/20 15:00 62 18 112/62 (79) 100 06/21/20 15:00 18 112/62 Mechanical Ventilator 40 06/21/20 14:45 105 18 40 06/21/20 14:00 18 111/68 Mechanical Ventilator 40 06/21/20 14:00 108 18 111/68 (82) 100 06/21/20 13:00 106 18 83/55 (64) 100 06/21/20 13:00 18 80/54 Mechanical Ventilator 40 06/21/20 12:45 109 18 40 06/21/20 12:12 18 116/65 Mechanical Ventilator 40 06/21/20 12:00 40 06/21/20 12:00 18 116/65 Mechanical Ventilator 40 06/21/20 12:00 130 06/21/20 12:00 Mechanical Ventilator Mechanical Ventilator Mechanical Ventilator 06/21/20 12:00 106 18 93/55 (68) 100 06/21/20 11:44 40 06/21/20 11:00 16 90/56 Mechanical Ventilator 40 06/21/20 11:00 119 16 40 06/21/20 11:00 119 16 90/56 (67) 100 06/21/20 10:00 16 106/72 Mechanical Ventilator 40 06/21/20 10:00 120 17 99/65 (76) 99 Intake and Output 06/21/20 06/22/20 19:00 07:00 Intake Total 1605 ml 1363.00 ml Output Total 370 ml 770 ml Balance 1235 ml 593.00 ml Intake IV Total 1605 ml 1363.00 ml Output Urine Total 370 ml 370 ml Gastric Drainage Total 400 ml Laboratory Tests 06/22/20 06:15: White Blood Count 7.6, Red Blood Count 3.84L, Hemoglobin 12.5L, Hematocrit 37.6L , Mean Corpuscular Volume 98, Mean Corpuscular Hemoglobin 32.5H, Mean Corpuscular Hemoglobin Concent 33.3, Red Cell Distribution Width 15.4H, Platelet Count 80L, Mean Platelet Volume 9.4, Neutrophils (%) (Auto) , Lymphocytes (%) (Auto) , Monocytes (%) (Auto) , Eosinophils (%) (Auto) , Basophils (%) (Auto) , Differential Total Cells Counted 100, Neutrophils % (Manual) 90H, Lymphocytes % (Manual) 5L, Monocytes % (Manual) 5, Eosinophils % (Manual) 0, Basophils % (Manual) 0, Band Neutrophils 0, Platelet Estimate DecreasedL, Platelet Morphology Normal, Anisocytosis 1+, Sodium Level 141, Potassium Level 4.5, Chloride Level 109H, Carbon Dioxide Level 24, Anion Gap 8, Blood Urea Nitrogen 21H, Creatinine 1.0, Estimat Glomerular Filtration Rate > 60, Glucose Level 182H , Calcium Level 8.2L, Phosphorus Level 1.9L, Magnesium Level 1.9, Total Bilirubin 2.2H, Direct Bilirubin 1.2H, Aspartate Amino Transf (AST/SGOT) 59H, Alanine Aminotransferase (ALT/SGPT) 34, Alkaline Phosphatase 66, C-Reactive Protein, Quantitative 9.5H, Pro-B-Type Natriuretic Peptide 6997H, Total Protein 6.8, Albumin 2.3L, Globulin 4.5, Albumin/Globulin Ratio 0.5L 06/22/20 07:42: Arterial Blood pH 7.331L, Arterial Blood Partial Pressure CO2 43.3, Arterial Blood Partial Pressure O2 52.0L, Arterial Blood HCO3 22.4, Arterial Blood Oxygen Saturation 86.0*L, Arterial Blood Base Excess -3.4L, Manan Test Positive Height (Feet): 5 Height (Inches): 8.00 Weight (Pounds): 119 General Appearance: no apparent distress EENT: normal ENT inspection Neck: supple Cardiovascular: normal rate Respiratory/Chest: decreased breath sounds Abdomen: hypoactive bowel sounds Extremities: non-tender Assessment/Plan Status: not improved, unchanged Assessment/Plan: 1. Massive hemoptysis. 2. Possible GI bleed. 3. Status post cardiopulmonary arrest/PEA. 4. Anemia. 5. elevated trop>>>improving 6. Paroxysmal atrial fibrillation. 7. Thrombocytopenia. npo ppi GI procedures on hold fu cardiology poor prognosis Matt Davis MD Jun 22, 2020 09:16
--- NOTE | 2020-06-22 09:47 | Pulmonology Progress Note ---
Subjective ROS Limited/Unobtainable: No Interval Events: OGT in plaace; having dark NG drainage; hgb stable Constitutional: Reports: no symptoms HEENT: Repors: no symptoms Respiratory: Reports: no symptoms Cardiovascular: Reports: no symptoms Allergies: Coded Allergies: No Known Allergies (Unverified , 06/19/20) Objective Last 24 Hour Vital Signs Date Time Temp Pulse Resp B/P (MAP) Pulse Ox O2 Delivery O2 Flow Rate FiO2 06/22/20 09:00 91 21 151/78 (102) 100 06/22/20 08:40 111 22 50 06/22/20 08:00 40 06/22/20 08:00 Mechanical Ventilator Mechanical Ventilator Mechanical Ventilator 06/22/20 08:00 106 06/22/20 08:00 98.7 102 19 149/78 (101) 97 06/22/20 07:30 107 23 40 06/22/20 07:00 22 166/90 Mechanical Ventilator 40 06/22/20 07:00 19 153/85 Mechanical Ventilator 40 06/22/20 07:00 110 21 166/90 (115) 92 06/22/20 06:30 90 18 06/22/20 06:00 116 26 184/95 (124) 89 06/22/20 06:00 20 184/95 Mechanical Ventilator 40 06/22/20 05:00 91 14 160/81 (107) 99 06/22/20 05:00 21 160/81 Mechanical Ventilator 40 06/22/20 04:00 97.6 98 20 160/88 (112) 97 06/22/20 04:00 21 160/84 Mechanical Ventilator 40 06/22/20 04:00 Mechanical Ventilator Mechanical Ventilator Mechanical Ventilator 06/22/20 04:00 93 06/22/20 04:00 40 06/22/20 03:15 101 25 40 06/22/20 03:00 27 160/84 Mechanical Ventilator 40 06/22/20 03:00 100 27 160/84 (109) 95 06/22/20 02:15 21 158/83 Mechanical Ventilator 40 06/22/20 02:00 101 21 158/87 (110) 95 06/22/20 02:00 21 158/87 Mechanical Ventilator 40 06/22/20 01:25 21 158/87 Mechanical Ventilator 40 06/22/20 01:10 19 155/84 Mechanical Ventilator 40 06/22/20 01:00 97 19 155/84 (107) 98 06/22/20 00:55 19 155/84 Mechanical Ventilator 40 06/22/20 00:40 19 145/93 Mechanical Ventilator 40 06/22/20 00:25 23 130/93 Mechanical Ventilator 40 06/22/20 00:22 143 143/96 06/22/20 00:10 21 148/85 Mechanical Ventilator 40 06/22/20 00:00 98.1 129 23 148/85 (106) 96 06/22/20 00:00 147 06/22/20 00:00 Mechanical Ventilator Mechanical Ventilator Mechanical Ventilator 06/21/20 23:55 24 143/96 Mechanical Ventilator 40 06/21/20 23:38 143 06/21/20 23:38 18 149/63 Mechanical Ventilator 40 06/21/20 23:30 146 28 40 06/21/20 23:00 145 23 148/98 (115) 98 06/21/20 22:45 143 06/21/20 22:00 143 23 122/82 (95) 97 06/21/20 21:27 172 159/96 06/21/20 21:00 175 26 159/98 (118) 96 06/21/20 20:04 146 175/67 06/21/20 20:00 97.5 154 17 143/92 (109) 99 06/21/20 20:00 157 06/21/20 20:00 40 06/21/20 20:00 Mechanical Ventilator Mechanical Ventilator Mechanical Ventilator 06/21/20 19:30 133 18 40 06/21/20 18:59 98 18 173/92 (119) 99 06/21/20 18:00 90 18 151/77 (101) 99 06/21/20 17:00 96 18 168/87 (114) 100 06/21/20 16:58 93 18 40 06/21/20 16:00 Mechanical Ventilator Mechanical Ventilator Mechanical Ventilator 06/21/20 16:00 85 06/21/20 16:00 97.6 84 18 138/70 (92) 100 06/21/20 16:00 40 06/21/20 15:00 62 18 112/62 (79) 100 06/21/20 15:00 18 112/62 Mechanical Ventilator 40 06/21/20 14:45 105 18 40 06/21/20 14:00 18 111/68 Mechanical Ventilator 40 06/21/20 14:00 108 18 111/68 (82) 100 06/21/20 13:00 106 18 83/55 (64) 100 06/21/20 13:00 18 80/54 Mechanical Ventilator 40 06/21/20 12:45 109 18 40 06/21/20 12:12 18 116/65 Mechanical Ventilator 40 06/21/20 12:00 40 06/21/20 12:00 18 116/65 Mechanical Ventilator 40 06/21/20 12:00 130 06/21/20 12:00 Mechanical Ventilator Mechanical Ventilator Mechanical Ventilator 06/21/20 12:00 106 18 93/55 (68) 100 06/21/20 11:44 40 06/21/20 11:00 16 90/56 Mechanical Ventilator 40 06/21/20 11:00 119 16 40 06/21/20 11:00 119 16 90/56 (67) 100 06/21/20 10:00 16 106/72 Mechanical Ventilator 40 06/21/20 10:00 120 17 99/65 (76) 99 Intake and Output 06/21/20 06/22/20 19:00 07:00 Intake Total 1605 ml 1363.00 ml Output Total 370 ml 770 ml Balance 1235 ml 593.00 ml Intake IV Total 1605 ml 1363.00 ml Output Urine Total 370 ml 370 ml Gastric Drainage Total 400 ml General Appearance: no acute distress HEENT: normocephalic Respiratory: chest wall non-tender, lungs clear Cardiovascular: normal peripheral pulses, normal rate Abdomen: normal bowel sounds Microbiology Date/Time Source Procedure Growth Status 06/20/20 05:00 Nasopharynx Coronavirus COVID-19 PCR ([facility]) - Final Complete 06/19/20 17:55 Blood Blood Culture - Preliminary NO GROWTH AFTER 48 HOURS Resulted 06/19/20 17:51 Rectum - Final NO CARBAPENEM-RESISTANT ENTEROBACTERI... Complete 06/19/20 17:51 Rectum VRE Culture - Final Enterococcus Faecium - Vre Complete 06/19/20 17:51 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 Complete 06/19/20 17:51 Nasopharynx SARS-CoV-2 Antigen (Rapid)([facility]) - Final Complete 06/19/20 17:45 Blood Blood Culture - Preliminary NO GROWTH AFTER 48 HOURS Resulted 06/19/20 17:41 Urine,Clean Catch Urine Culture - Final NO GROWTH AFTER 48 HOURS Complete Laboratory Tests 06/22/20 06:15: White Blood Count 7.6, Red Blood Count 3.84L, Hemoglobin 12.5L, Hematocrit 37.6L , Mean Corpuscular Volume 98, Mean Corpuscular Hemoglobin 32.5H, Mean Corpuscular Hemoglobin Concent 33.3, Red Cell Distribution Width 15.4H, Platelet Count 80L, Mean Platelet Volume 9.4, Neutrophils (%) (Auto) , Lymphocytes (%) (Auto) , Monocytes (%) (Auto) , Eosinophils (%) (Auto) , Basophils (%) (Auto) , Differential Total Cells Counted 100, Neutrophils % (Manual) 90H, Lymphocytes % (Manual) 5L, Monocytes % (Manual) 5, Eosinophils % (Manual) 0, Basophils % (Manual) 0, Band Neutrophils 0, Platelet Estimate DecreasedL, Platelet Morphology Normal, Anisocytosis 1+, Sodium Level 141, Potassium Level 4.5, Chloride Level 109H, Carbon Dioxide Level 24, Anion Gap 8, Blood Urea Nitrogen 21H, Creatinine 1.0, Estimat Glomerular Filtration Rate > 60, Glucose Level 182H , Calcium Level 8.2L, Phosphorus Level 1.9L, Magnesium Level 1.9, Total Bilirubin 2.2H, Direct Bilirubin 1.2H, Aspartate Amino Transf (AST/SGOT) 59H, Alanine Aminotransferase (ALT/SGPT) 34, Alkaline Phosphatase 66, C-Reactive Protein, Quantitative 9.5H, Pro-B-Type Natriuretic Peptide 6997H, Total Protein 6.8, Albumin 2.3L, Globulin 4.5, Albumin/Globulin Ratio 0.5L 06/22/20 07:42: Arterial Blood pH 7.331L, Arterial Blood Partial Pressure CO2 43.3, Arterial Blood Partial Pressure O2 52.0L, Arterial Blood HCO3 22.4, Arterial Blood Oxygen Saturation 86.0*L, Arterial Blood Base Excess -3.4L, Manan Test Positive Current Medications Medications (Trade) Dose Ordered Sig/Augusto Route PRN Reason Start Time Stop Time Status Last Admin Dose Admin Acetaminophen (Tylenol) 650 mg EVERY 6 HOURS PRN NG Temp >100.5 06/19/20 22:30 07/19/20 22:29 Acetaminophen (Tylenol) 650 mg Q4H PRN RECTAL Temp >100.5 06/21/20 03:30 07/21/20 03:29 06/21/20 03:36 Cefepime HCl 1 gm/ Dextrose 55 ml @ 110 mls/hr EVERY 12 HOURS IVPB 06/20/20 09:00 06/27/20 08:59 06/21/20 20:03 Dextrose/Sodium Chloride 1,000 ml @ 75 mls/hr [id number] IV 06/21/20 13:41 07/21/20 13:40 06/22/20 03:21 Dopamine HCl/ Dextrose 250 ml @ 0 mls/hr Q24H PRN IV For hypotension 06/19/20 22:30 06/22/20 22:18 Fentanyl Citrate 250 ml @ 1 mls/hr Q24H IV 06/19/20 22:30 06/23/20 22:29 06/21/20 23:38 Levothyroxine Sodium (Synthroid) 50 mcg DAILY@0630 ORAL 06/22/20 11:00 07/22/20 10:59 Metoprolol Tartrate (Lopressor) 2.5 mg Q4H PRN IVP hr greatern than 125 06/20/20 18:15 09/18/20 18:14 06/22/20 00:22 Metronidazole 100 ml @ 100 mls/hr Q8HR IVPB 06/20/20 22:00 06/27/20 21:59 06/22/20 05:04 Midodrine (Pro-Amatine) 10 mg Q8HR NG 06/21/20 14:00 09/19/20 13:59 06/21/20 15:26 Octreotide Acetate 500 mcg/ Sodium Chloride 500 ml @ 50 mls/hr Q10H IV 06/20/20 16:30 07/20/20 16:29 06/21/20 17:00 Pantoprazole (Protonix) 40 mg EVERY 12 HOURS IVP 06/20/20 09:00 07/20/20 08:59 06/21/20 20:04 Assessment/Plan Assessment/Plan IMPRESSION: 1. GI bleed. Now resolved; on Octreotide 2. Respiratory failure. Will continue AC mode 3. Shock. 4. Patchy bilateral infiltrates. 5. Non-STEMI. DISCUSSION: Patient cannot receive anticoagulation for STEMI given his GI bleed. Agree with the use of Protonix and octreotide. I will maintain assist-control mechanical ventilation. Deep prophylaxis with SCD. Sedation as required. IV fluids. I will follow carefully. Empiric antibiotics as appropriate. ABG 7.; will hold weaning given respiratory acidosis Vent adjusted Olvin Flores Omar Syed MD Jun 22, 2020 09:47
[2020-06-22] MEDS: Pantoprazole Inj IVP SCH ×2 (09:48→19:59)
[2020-06-22] MEDS: Octreotide Acetate 500 MCG in Sodium Chloride 499 ML IV SCH ×2 (09:48→18:49)
[2020-06-22] MEDS: Cefepime HCl 1 GM in D5W 55 ML IVPB SCH ×2 (09:49→19:58)
--- NOTE | 2020-06-22 10:15 | Diagnostic Imaging Report ---
EXAM: XR Abdomen, 2 Views CLINICAL HISTORY: NGT TECHNIQUE: Frontal view of the abdomen/pelvis with upright view of the abdomen. COMPARISON: 06/21/20 FINDINGS: Lower thorax: There unchanged bibasilar infiltrates. Intraperitoneal space: No free air. Gastrointestinal tract: The bowel gas pattern is nonspecific. No obstruction is identified. Bones/joints: Unremarkable. Tubes, lines and devices: There is an NG tube in good position in the mid stomach. IMPRESSION: 1. The bowel gas pattern is nonspecific. No obstruction is identified. 2. There is an NG tube in good position in the mid stomach.
--- NOTE | 2020-06-22 10:17 | Neurology Progress Note ---
Interim History Interim History ROS Limited/Unobtainable: No Events: awake remains in icu Objective Physical Exam Last Vital Signs Date Time Temp Pulse Resp B/P (MAP) Pulse Ox O2 Delivery O2 Flow Rate FiO2 06/22/20 09:00 91 21 151/78 (102) 100 06/22/20 08:40 50 06/22/20 08:00 Mechanical Ventilator Mechanical Ventilator Mechanical Ventilator 06/22/20 08:00 98.7 06/19/20 16:08 4.0 Laboratory Tests Test 06/22/20 06:15 06/22/20 07:42 White Blood Count 7.6 K/UL (4.8-10.8) Red Blood Count 3.84 M/UL (4.70-6.10) L Hemoglobin 12.5 G/DL (14.2-18.0) L Hematocrit 37.6 % (42.0-52.0) L Mean Corpuscular Volume 98 FL (80-99) Mean Corpuscular Hemoglobin 32.5 PG (27.0-31.0) H Mean Corpuscular Hemoglobin Concent 33.3 G/DL (32.0-36.0) Red Cell Distribution Width 15.4 % (11.6-14.8) H Platelet Count 80 K/UL (150-450) L Mean Platelet Volume 9.4 FL (6.5-10.1) Neutrophils (%) (Auto) % (45.0-75.0) Lymphocytes (%) (Auto) % (20.0-45.0) Monocytes (%) (Auto) % (1.0-10.0) Eosinophils (%) (Auto) % (0.0-3.0) Basophils (%) (Auto) % (0.0-2.0) Differential Total Cells Counted 100 Neutrophils % (Manual) 90 % (45-75) H Lymphocytes % (Manual) 5 % (20-45) L Monocytes % (Manual) 5 % (1-10) Eosinophils % (Manual) 0 % (0-3) Basophils % (Manual) 0 % (0-2) Band Neutrophils 0 % (0-8) Platelet Estimate Decreased L Platelet Morphology Normal Anisocytosis 1+ Sodium Level 141 MMOL/L (136-145) Potassium Level 4.5 MMOL/L (3.5-5.1) Chloride Level 109 MMOL/L (98-107) H Carbon Dioxide Level 24 MMOL/L (21-32) Anion Gap 8 mmol/L (5-15) Blood Urea Nitrogen 21 mg/dL (7-18) H Creatinine 1.0 MG/DL (0.55-1.30) Estimat Glomerular Filtration Rate > 60 mL/min (>60) Glucose Level 182 MG/DL (74-106) H Calcium Level 8.2 MG/DL (8.5-10.1) L Phosphorus Level 1.9 MG/DL (2.5-4.9) L Magnesium Level 1.9 MG/DL (1.8-2.4) Total Bilirubin 2.2 MG/DL (0.2-1.0) H Direct Bilirubin 1.2 MG/DL (0.0-0.3) H Aspartate Amino Transf (AST/SGOT) 59 U/L (15-37) H Alanine Aminotransferase (ALT/SGPT) 34 U/L (12-78) Alkaline Phosphatase 66 U/L (46-116) C-Reactive Protein, Quantitative 9.5 mg/dL (0.00-0.90) H Pro-B-Type Natriuretic Peptide 6997 pg/mL (0-125) H Total Protein 6.8 G/DL (6.4-8.2) Albumin 2.3 G/DL (3.4-5.0) L Globulin 4.5 g/dL Albumin/Globulin Ratio 0.5 (1.0-2.7) L Arterial Blood pH 7.331 (7.350-7.450) Arterial Blood Partial Pressure CO2 43.3 mmHg (35.0-45.0) Arterial Blood Partial Pressure O2 52.0 mmHg (75.0-100.0) L Arterial Blood HCO3 22.4 mmol/L (22.0-26.0) Arterial Blood Oxygen Saturation 86.0 % (95-100) *L Arterial Blood Base Excess -3.4 (-2-2) L Manan Test Positive Neurologic Exam Objective ROS difficult to assess PE Neuro exam is limited at this time he is awake today , tracts eyes PERRLA has spontaneous movements of upper extremities. No facial droop symmetrical withdraws to painful stimul Impression/Recommendations Status: not improved, unchanged Diagnostic Impression LAB Reviewed IMAGING: CT of the head was done. No acute intracranial abnormality, parenchymal atrophy, and mild chronic microvascular ischemic changes. MEDS: Reviewed Assessment and Plan: 1. Syncope --> likely due to vasovagal was having Bowel movement at that time also hyp ovolemic due to gi bleeding vomiting --> dehydration 2. Resp Arrest --> s/p intubation on vent 3. Hypertension 4. Anemia Thank you for allowing us to participate in patient's care plan of care was discussed with Dr. Edmar Valencia who agrees with plan. Jacqueline Solis NP Jun 22, 2020 10:16
--- NOTE | 2020-06-22 11:05 | Surgery Progress Note ---
Surgery Progress Note Subjective Additional Comments ill appearing on support no n/v Objective Last 24 Hour Vital Signs Date Time Temp Pulse Resp B/P (MAP) Pulse Ox O2 Delivery O2 Flow Rate FiO2 06/22/20 10:00 91 21 154/78 (103) 100 06/22/20 09:00 91 21 151/78 (102) 100 06/22/20 08:40 111 22 50 06/22/20 08:00 40 06/22/20 08:00 Mechanical Ventilator Mechanical Ventilator Mechanical Ventilator 06/22/20 08:00 106 06/22/20 08:00 98.7 102 19 149/78 (101) 97 06/22/20 07:30 107 23 40 06/22/20 07:00 22 166/90 Mechanical Ventilator 40 06/22/20 07:00 19 153/85 Mechanical Ventilator 40 06/22/20 07:00 110 21 166/90 (115) 92 06/22/20 06:30 90 18 06/22/20 06:00 116 26 184/95 (124) 89 06/22/20 06:00 20 184/95 Mechanical Ventilator 40 06/22/20 05:00 91 14 160/81 (107) 99 06/22/20 05:00 21 160/81 Mechanical Ventilator 40 06/22/20 04:00 97.6 98 20 160/88 (112) 97 06/22/20 04:00 21 160/84 Mechanical Ventilator 40 06/22/20 04:00 Mechanical Ventilator Mechanical Ventilator Mechanical Ventilator 06/22/20 04:00 93 06/22/20 04:00 40 06/22/20 03:15 101 25 40 06/22/20 03:00 27 160/84 Mechanical Ventilator 40 06/22/20 03:00 100 27 160/84 (109) 95 06/22/20 02:15 21 158/83 Mechanical Ventilator 40 06/22/20 02:00 101 21 158/87 (110) 95 06/22/20 02:00 21 158/87 Mechanical Ventilator 40 06/22/20 01:25 21 158/87 Mechanical Ventilator 40 06/22/20 01:10 19 155/84 Mechanical Ventilator 40 06/22/20 01:00 97 19 155/84 (107) 98 06/22/20 00:55 19 155/84 Mechanical Ventilator 40 06/22/20 00:40 19 145/93 Mechanical Ventilator 40 06/22/20 00:25 23 130/93 Mechanical Ventilator 40 06/22/20 00:22 143 143/96 06/22/20 00:10 21 148/85 Mechanical Ventilator 40 06/22/20 00:00 98.1 129 23 148/85 (106) 96 06/22/20 00:00 147 06/22/20 00:00 Mechanical Ventilator Mechanical Ventilator Mechanical Ventilator 06/21/20 23:55 24 143/96 Mechanical Ventilator 40 06/21/20 23:38 143 06/21/20 23:38 18 149/63 Mechanical Ventilator 40 06/21/20 23:30 146 28 40 06/21/20 23:00 145 23 148/98 (115) 98 06/21/20 22:45 143 06/21/20 22:00 143 23 122/82 (95) 97 06/21/20 21:27 172 159/96 06/21/20 21:00 175 26 159/98 (118) 96 06/21/20 20:04 146 175/67 06/21/20 20:00 97.5 154 17 143/92 (109) 99 06/21/20 20:00 157 06/21/20 20:00 40 06/21/20 20:00 Mechanical Ventilator Mechanical Ventilator Mechanical Ventilator 06/21/20 19:30 133 18 40 06/21/20 18:59 98 18 173/92 (119) 99 06/21/20 18:00 90 18 151/77 (101) 99 06/21/20 17:00 96 18 168/87 (114) 100 06/21/20 16:58 93 18 40 06/21/20 16:00 Mechanical Ventilator Mechanical Ventilator Mechanical Ventilator 06/21/20 16:00 85 06/21/20 16:00 97.6 84 18 138/70 (92) 100 06/21/20 16:00 40 06/21/20 15:00 62 18 112/62 (79) 100 06/21/20 15:00 18 112/62 Mechanical Ventilator 40 06/21/20 14:45 105 18 40 06/21/20 14:00 18 111/68 Mechanical Ventilator 40 06/21/20 14:00 108 18 111/68 (82) 100 06/21/20 13:00 106 18 83/55 (64) 100 06/21/20 13:00 18 80/54 Mechanical Ventilator 40 06/21/20 12:45 109 18 40 06/21/20 12:12 18 116/65 Mechanical Ventilator 40 06/21/20 12:00 40 06/21/20 12:00 18 116/65 Mechanical Ventilator 40 06/21/20 12:00 130 06/21/20 12:00 Mechanical Ventilator Mechanical Ventilator Mechanical Ventilator 06/21/20 12:00 106 18 93/55 (68) 100 06/21/20 11:44 40 I&O Intake and Output 06/21/20 06/22/20 19:00 07:00 Intake Total 1605 ml 1363.00 ml Output Total 370 ml 770 ml Balance 1235 ml 593.00 ml Intake IV Total 1605 ml 1363.00 ml Output Urine Total 370 ml 370 ml Gastric Drainage Total 400 ml Dressing: saturated Cardiovascular: RSR Respiratory: decreased breath sounds Abdomen: soft, non-tender, present bowel sounds Extremities: no tenderness, no cyanosis Laboratory Tests Test 06/22/20 06:15 06/22/20 07:42 White Blood Count 7.6 K/UL (4.8-10.8) Red Blood Count 3.84 M/UL (4.70-6.10) L Hemoglobin 12.5 G/DL (14.2-18.0) L Hematocrit 37.6 % (42.0-52.0) L Mean Corpuscular Volume 98 FL (80-99) Mean Corpuscular Hemoglobin 32.5 PG (27.0-31.0) H Mean Corpuscular Hemoglobin Concent 33.3 G/DL (32.0-36.0) Red Cell Distribution Width 15.4 % (11.6-14.8) H Platelet Count 80 K/UL (150-450) L Mean Platelet Volume 9.4 FL (6.5-10.1) Neutrophils (%) (Auto) % (45.0-75.0) Lymphocytes (%) (Auto) % (20.0-45.0) Monocytes (%) (Auto) % (1.0-10.0) Eosinophils (%) (Auto) % (0.0-3.0) Basophils (%) (Auto) % (0.0-2.0) Differential Total Cells Counted 100 Neutrophils % (Manual) 90 % (45-75) H Lymphocytes % (Manual) 5 % (20-45) L Monocytes % (Manual) 5 % (1-10) Eosinophils % (Manual) 0 % (0-3) Basophils % (Manual) 0 % (0-2) Band Neutrophils 0 % (0-8) Platelet Estimate Decreased L Platelet Morphology Normal Anisocytosis 1+ Sodium Level 141 MMOL/L (136-145) Potassium Level 4.5 MMOL/L (3.5-5.1) Chloride Level 109 MMOL/L (98-107) H Carbon Dioxide Level 24 MMOL/L (21-32) Anion Gap 8 mmol/L (5-15) Blood Urea Nitrogen 21 mg/dL (7-18) H Creatinine 1.0 MG/DL (0.55-1.30) Estimat Glomerular Filtration Rate > 60 mL/min (>60) Glucose Level 182 MG/DL (74-106) H Calcium Level 8.2 MG/DL (8.5-10.1) L Phosphorus Level 1.9 MG/DL (2.5-4.9) L Magnesium Level 1.9 MG/DL (1.8-2.4) Total Bilirubin 2.2 MG/DL (0.2-1.0) H Direct Bilirubin 1.2 MG/DL (0.0-0.3) H Aspartate Amino Transf (AST/SGOT) 59 U/L (15-37) H Alanine Aminotransferase (ALT/SGPT) 34 U/L (12-78) Alkaline Phosphatase 66 U/L (46-116) C-Reactive Protein, Quantitative 9.5 mg/dL (0.00-0.90) H Pro-B-Type Natriuretic Peptide 6997 pg/mL (0-125) H Total Protein 6.8 G/DL (6.4-8.2) Albumin 2.3 G/DL (3.4-5.0) L Globulin 4.5 g/dL Albumin/Globulin Ratio 0.5 (1.0-2.7) L Arterial Blood pH 7.331 (7.350-7.450) Arterial Blood Partial Pressure CO2 43.3 mmHg (35.0-45.0) Arterial Blood Partial Pressure O2 52.0 mmHg (75.0-100.0) L Arterial Blood HCO3 22.4 mmol/L (22.0-26.0) Arterial Blood Oxygen Saturation 86.0 % (95-100) *L Arterial Blood Base Excess -3.4 (-2-2) L Manan Test Positive Plan Problems: (1) Massive hemoptysis Assessment & Plan: Trend h/h no active bleeding ? gi malignancy GI consult ?EGD NG tube (2) Cardiopulmonary arrest (3) Lactic acidosis (4) Anemia (5) Respiratory failure (6) Elevated troponin (7) Abdominal distension Assessment & Plan: CT noted sbo vs ileus gas filled bowel loops abd distended on exam limited exam given condition critically ill will follow with exam and recs KUB ordered - improved ng with bilious output likely ileus or resolving sbo will follow with clinical exam ABDOMEN: Liver: Few incompletely characterized low-attenuation lesions within the liver. Gallbladder and bile ducts: Cholelithiasis. Pancreas: Unremarkable. Spleen: Unremarkable. Adrenals: Unremarkable. Kidneys and ureters: Unremarkable. No obstructing stones. No hydronephrosis. Stomach and bowel: Gas filled mildly distended small bowel loops measuring up to 4 cm. There is mucosal thickening within the stomach potentially representing gastritis or malignancy. PELVIS: Appendix: No findings to suggest acute appendicitis. Bladder: Calabrese catheter in the bladder. Reproductive: Unremarkable as visualized. ABDOMEN and PELVIS: Intraperitoneal space: Trace nonspecific ascites. No free air. Bones/joints: Status post left hip ORIF. Multiple bones within the pelvis and spine. Soft tissues: Unremarkable. Vasculature: Unremarkable. Lymph nodes: Unremarkable. Tubes, lines and devices: Esophagogastric tube within the stomach. IMPRESSION: 1. Gas filled mildly distended small bowel loops measuring up to 4 cm. Abrupt transition point difficult to identify. Obstruction on the differential. Also consider ileus. 2. There is mucosal thickening within the stomach potentially representing gastritis or malignancy. 3. Few incompletely characterized low-attenuation lesions within the liver. 4. Cholelithiasis. 5. Trace nonspecific ascites. Samuel Lazar Jun 22, 2020 11:05
--- NOTE | 2020-06-22 11:35 | NUR ---
NURSE NOTES: Metoprolol 2.5mg IV given ,HR 140-150 /min,Pt with low grade fever T99.6,1200 Tylenol 650 mg per OGT given,will continue to monitor HR.
[2020-06-22] MEDS: Acetaminophen 650mg/20.3ml NG PRN (12:09)
--- NOTE | 2020-06-22 14:44 | Internal Med Progress Note ---
Subjective Date of Service: Jun 22, 2020 Physician Name Angel Peter Attending Physician Ventura Pelletier MD Current Medications Medications (Trade) Dose Ordered Sig/Augusto Route PRN Reason Start Time Stop Time Status Last Admin Dose Admin Acetaminophen (Tylenol) 650 mg EVERY 6 HOURS PRN NG Temp >100.5 06/19/20 22:30 07/19/20 22:29 06/22/20 12:09 Acetaminophen (Tylenol) 650 mg Q4H PRN RECTAL Temp >100.5 06/21/20 03:30 07/21/20 03:29 06/21/20 03:36 Cefepime HCl 1 gm/ Dextrose 55 ml @ 110 mls/hr EVERY 12 HOURS IVPB 06/20/20 09:00 06/27/20 08:59 06/22/20 09:49 Dextrose/Sodium Chloride 1,000 ml @ 75 mls/hr [id number] IV 06/21/20 13:41 07/21/20 13:40 06/22/20 03:21 Dopamine HCl/ Dextrose 250 ml @ 0 mls/hr Q24H PRN IV For hypotension 06/19/20 22:30 06/22/20 22:18 Fentanyl Citrate 250 ml @ 1 mls/hr Q24H IV 06/19/20 22:30 06/23/20 22:29 06/21/20 23:38 Levothyroxine Sodium (Synthroid) 50 mcg DAILY@0630 ORAL 06/22/20 11:00 07/22/20 10:59 06/22/20 11:36 Metoprolol Tartrate (Lopressor) 2.5 mg Q4H PRN IVP hr greatern than 125 06/20/20 18:15 09/18/20 18:14 06/22/20 11:36 Metronidazole 100 ml @ 100 mls/hr Q8HR IVPB 06/20/20 22:00 06/27/20 21:59 06/22/20 13:47 Midodrine (Pro-Amatine) 10 mg Q8HR NG 06/21/20 14:00 09/19/20 13:59 06/22/20 13:47 Octreotide Acetate 500 mcg/ Sodium Chloride 500 ml @ 50 mls/hr Q10H IV 06/20/20 16:30 07/20/20 16:29 06/22/20 09:48 Pantoprazole (Protonix) 40 mg EVERY 12 HOURS IVP 06/20/20 09:00 07/20/20 08:59 06/22/20 09:48 Allergies: Coded Allergies: No Known Allergies (Unverified , 06/19/20) ROS Limited/Unobtainable: Yes Subjective 89 YO M admitted with syncopal episode. Now S/P cardiac arrest and GI bleed. Cover for Int Med-Dr Pelletier. ICU. Intubated and sedated Objective Last Vital Signs Date Time Temp Pulse Resp B/P (MAP) Pulse Ox O2 Delivery O2 Flow Rate FiO2 06/22/20 14:00 79 17 110/67 (81) 100 06/22/20 14:00 Mechanical Ventilator 60 06/22/20 12:00 99.6 06/19/20 16:08 4.0 Laboratory Tests Test 06/22/20 06:15 06/22/20 07:42 White Blood Count 7.6 K/UL (4.8-10.8) Red Blood Count 3.84 M/UL (4.70-6.10) L Hemoglobin 12.5 G/DL (14.2-18.0) L Hematocrit 37.6 % (42.0-52.0) L Mean Corpuscular Volume 98 FL (80-99) Mean Corpuscular Hemoglobin 32.5 PG (27.0-31.0) H Mean Corpuscular Hemoglobin Concent 33.3 G/DL (32.0-36.0) Red Cell Distribution Width 15.4 % (11.6-14.8) H Platelet Count 80 K/UL (150-450) L Mean Platelet Volume 9.4 FL (6.5-10.1) Neutrophils (%) (Auto) % (45.0-75.0) Lymphocytes (%) (Auto) % (20.0-45.0) Monocytes (%) (Auto) % (1.0-10.0) Eosinophils (%) (Auto) % (0.0-3.0) Basophils (%) (Auto) % (0.0-2.0) Differential Total Cells Counted 100 Neutrophils % (Manual) 90 % (45-75) H Lymphocytes % (Manual) 5 % (20-45) L Monocytes % (Manual) 5 % (1-10) Eosinophils % (Manual) 0 % (0-3) Basophils % (Manual) 0 % (0-2) Band Neutrophils 0 % (0-8) Platelet Estimate Decreased L Platelet Morphology Normal Anisocytosis 1+ Sodium Level 141 MMOL/L (136-145) Potassium Level 4.5 MMOL/L (3.5-5.1) Chloride Level 109 MMOL/L (98-107) H Carbon Dioxide Level 24 MMOL/L (21-32) Anion Gap 8 mmol/L (5-15) Blood Urea Nitrogen 21 mg/dL (7-18) H Creatinine 1.0 MG/DL (0.55-1.30) Estimat Glomerular Filtration Rate > 60 mL/min (>60) Glucose Level 182 MG/DL (74-106) H Calcium Level 8.2 MG/DL (8.5-10.1) L Phosphorus Level 1.9 MG/DL (2.5-4.9) L Magnesium Level 1.9 MG/DL (1.8-2.4) Total Bilirubin 2.2 MG/DL (0.2-1.0) H Direct Bilirubin 1.2 MG/DL (0.0-0.3) H Aspartate Amino Transf (AST/SGOT) 59 U/L (15-37) H Alanine Aminotransferase (ALT/SGPT) 34 U/L (12-78) Alkaline Phosphatase 66 U/L (46-116) C-Reactive Protein, Quantitative 9.5 mg/dL (0.00-0.90) H Pro-B-Type Natriuretic Peptide 6997 pg/mL (0-125) H Total Protein 6.8 G/DL (6.4-8.2) Albumin 2.3 G/DL (3.4-5.0) L Globulin 4.5 g/dL Albumin/Globulin Ratio 0.5 (1.0-2.7) L Arterial Blood pH 7.331 (7.350-7.450) Arterial Blood Partial Pressure CO2 43.3 mmHg (35.0-45.0) Arterial Blood Partial Pressure O2 52.0 mmHg (75.0-100.0) L Arterial Blood HCO3 22.4 mmol/L (22.0-26.0) Arterial Blood Oxygen Saturation 86.0 % (95-100) *L Arterial Blood Base Excess -3.4 (-2-2) L Manan Test Positive Microbiology Date/Time Source Procedure Growth Status 06/20/20 05:00 Nasopharynx Coronavirus COVID-19 PCR ([facility]) - Final Complete 06/19/20 17:55 Blood Blood Culture - Preliminary NO GROWTH AFTER 48 HOURS Resulted 06/19/20 17:51 Rectum - Final NO CARBAPENEM-RESISTANT ENTEROBACTERI... Complete 06/19/20 17:51 Rectum VRE Culture - Final Enterococcus Faecium - Vre Complete 06/19/20 17:51 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 Complete 06/19/20 17:51 Nasopharynx SARS-CoV-2 Antigen (Rapid)(KENDRICK) - Final Complete 06/19/20 17:45 Blood Blood Culture - Preliminary NO GROWTH AFTER 48 HOURS Resulted 06/19/20 17:41 Urine,Clean Catch Urine Culture - Final NO GROWTH AFTER 48 HOURS Complete Intake and Output 06/21/20 06/22/20 19:00 07:00 Intake Total 1605 ml 1363.00 ml Output Total 370 ml 770 ml Balance 1235 ml 593.00 ml Intake IV Total 1605 ml 1363.00 ml Output Urine Total 370 ml 370 ml Gastric Drainage Total 400 ml Objective Objective General: intubated, remained on ventilation, sedated. HEENT: NCAT, sclera anicteric, PERRL, ET Tube, NG Tube. Neck: Supple, no significant jugular venous distention, Lungs: mech vent; coarse breath sounds with Wheeze and Rales. Heart: Regular rate and rhythm, normal S1/S2, no murmurs. Abdomen: soft, nontender, nondistended. Normoactive bowel sounds. / Rectal: Refused and deferred. Extremities: No Cyanosis , clubbing or edema. Neuro: limited secondary to patient's status, able to move extremities slowly. Skin: warm, no rash. Assessment/Plan Assessment/Plan ASSESSMENT: 1. Acute hypoxemic respiratory failure. 2. PEA arrest. 3. Upper GI bleed. 4. Severe anemia, most likely secondary to acute GI bleed and acute blood loss. 5. History of hypertension. 6. Hypothyroidism. 7. BPH. 8. Thrombocytopenia. 9. The patient has elevated troponin, most likely secondary to non-ST elevation HI type 2 as a result of demand ischemia. PLAN: Admit the patient to ICU. We will follow up with Dr. Ken Sevilla from Cardiology, Dr. Davis from Gastroenterology, and Dr. Cormier from Pulmonary Critical Care. Follow up with 2D echo, duplex of lower extremity. At this time, with family member's discussion, the patient's code status is full code. We will follow up with the laboratory, serial cardiac enzymes, and 2D echo. We will start the patient on Protonix IV and broad-spectrum antibiotics with cefepime and Flagyl. Angel Peter MD Jun 22, 2020 14:44
--- NOTE | 2020-06-22 15:35 | NUR ---
NURSE NOTES: Dr Chan at bedside,seen pt .
--- NOTE | 2020-06-22 15:54 | Cardiology Progress Note ---
Assessment/Plan Problem List: (1) Massive hemoptysis (2) Cardiopulmonary arrest (3) Elevated troponin Status: not improved, unchanged Status Narrative s/p cardiopulm arrest, ? PEA - > due to hypovolemia w/ GI bleed. Respiratory failure, on vent Acute GI bleed PAF - maintaining SR Elevated troponin / type 2 SD - troponin levels decreasing Assessment/Plan Continue vent support - wean as tolerated. Monitor h/h -. transfuse as needed to maintain hg > 7. Gi following. Now on metoprolol prn, as BPs borderline. Would start amiodarone if any further AF episodes. Subjective ROS Limited/Unobtainable: Yes Subjective Cardiology for Dr. Sevilla. Intubated, sedated Objective Last 24 Hour Vital Signs Date Time Temp Pulse Resp B/P (MAP) Pulse Ox O2 Delivery O2 Flow Rate FiO2 06/22/20 15:00 76 18 109/59 (76) 100 06/22/20 14:56 75 18 60 06/22/20 14:00 79 17 110/67 (81) 100 06/22/20 14:00 16 106/61 Mechanical Ventilator 60 06/22/20 13:00 17 93/68 Mechanical Ventilator 60 06/22/20 13:00 149 18 87/58 (68) 100 06/22/20 12:55 149 18 60 06/22/20 12:00 Mechanical Ventilator Mechanical Ventilator Mechanical Ventilator 06/22/20 12:00 99.6 06/22/20 12:00 17 98/62 Mechanical Ventilator 60 06/22/20 12:00 140 06/22/20 12:00 60 06/22/20 12:00 148 18 94/66 (75) 100 06/22/20 11:36 140 149/93 06/22/20 11:00 140 20 143/93 (110) 93 06/22/20 11:00 24 149/93 Mechanical Ventilator 60 06/22/20 10:51 159 25 60 06/22/20 10:00 91 21 154/78 (103) 100 06/22/20 10:00 17 154/78 Mechanical Ventilator 60 06/22/20 09:00 22 151/78 Mechanical Ventilator 50 06/22/20 09:00 91 21 151/78 (102) 100 06/22/20 08:40 111 22 50 06/22/20 08:00 40 06/22/20 08:00 Mechanical Ventilator Mechanical Ventilator Mechanical Ventilator 06/22/20 08:00 22 172/88 Mechanical Ventilator 50 06/22/20 08:00 106 06/22/20 08:00 98.7 102 19 149/78 (101) 97 06/22/20 07:30 107 23 40 06/22/20 07:00 22 166/90 Mechanical Ventilator 40 06/22/20 07:00 19 153/85 Mechanical Ventilator 40 06/22/20 07:00 110 21 166/90 (115) 92 06/22/20 06:30 90 18 06/22/20 06:00 116 26 184/95 (124) 89 06/22/20 06:00 20 184/95 Mechanical Ventilator 40 06/22/20 05:00 91 14 160/81 (107) 99 06/22/20 05:00 21 160/81 Mechanical Ventilator 40 06/22/20 04:00 97.6 98 20 160/88 (112) 97 06/22/20 04:00 21 160/84 Mechanical Ventilator 40 06/22/20 04:00 Mechanical Ventilator Mechanical Ventilator Mechanical Ventilator 06/22/20 04:00 93 06/22/20 04:00 40 06/22/20 03:15 101 25 40 06/22/20 03:00 27 160/84 Mechanical Ventilator 40 06/22/20 03:00 100 27 160/84 (109) 95 06/22/20 02:15 21 158/83 Mechanical Ventilator 40 06/22/20 02:00 101 21 158/87 (110) 95 06/22/20 02:00 21 158/87 Mechanical Ventilator 40 06/22/20 01:25 21 158/87 Mechanical Ventilator 40 06/22/20 01:10 19 155/84 Mechanical Ventilator 40 06/22/20 01:00 97 19 155/84 (107) 98 06/22/20 00:55 19 155/84 Mechanical Ventilator 40 06/22/20 00:40 19 145/93 Mechanical Ventilator 40 06/22/20 00:25 23 130/93 Mechanical Ventilator 40 06/22/20 00:22 143 143/96 06/22/20 00:10 21 148/85 Mechanical Ventilator 40 06/22/20 00:00 98.1 129 23 148/85 (106) 96 06/22/20 00:00 147 06/22/20 00:00 Mechanical Ventilator Mechanical Ventilator Mechanical Ventilator 06/21/20 23:55 24 143/96 Mechanical Ventilator 40 06/21/20 23:38 143 06/21/20 23:38 18 149/63 Mechanical Ventilator 40 06/21/20 23:30 146 28 40 06/21/20 23:00 145 23 148/98 (115) 98 06/21/20 22:45 143 06/21/20 22:00 143 23 122/82 (95) 97 06/21/20 21:27 172 159/96 06/21/20 21:00 175 26 159/98 (118) 96 06/21/20 20:04 146 175/67 06/21/20 20:00 97.5 154 17 143/92 (109) 99 06/21/20 20:00 157 06/21/20 20:00 40 06/21/20 20:00 Mechanical Ventilator Mechanical Ventilator Mechanical Ventilator 06/21/20 19:30 133 18 40 06/21/20 18:59 98 18 173/92 (119) 99 06/21/20 18:00 90 18 151/77 (101) 99 06/21/20 17:00 96 18 168/87 (114) 100 06/21/20 16:58 93 18 40 06/21/20 16:00 Mechanical Ventilator Mechanical Ventilator Mechanical Ventilator 06/21/20 16:00 85 06/21/20 16:00 97.6 84 18 138/70 (92) 100 06/21/20 16:00 40 General Appearance: thin, on vent EENT: other - ET and OG tubes in place Neck: no JVD Rhythm: NSR Cardiovascular: normal rate, regular rhythm, no gallop/murmur Respiratory/Chest: other - bilateral rhonchi Abdomen: non tender, soft Extremities: no swelling Intake and Output 06/21/20 06/22/20 19:00 07:00 Intake Total 1605 ml 1363.00 ml Output Total 370 ml 770 ml Balance 1235 ml 593.00 ml Intake IV Total 1605 ml 1363.00 ml Output Urine Total 370 ml 370 ml Gastric Drainage Total 400 ml CXR: reviewed - biateral infiltrates L > R, other Laboratory Tests Test 06/22/20 06:15 06/22/20 07:42 White Blood Count 7.6 K/UL (4.8-10.8) Red Blood Count 3.84 M/UL (4.70-6.10) L Hemoglobin 12.5 G/DL (14.2-18.0) L Hematocrit 37.6 % (42.0-52.0) L Mean Corpuscular Volume 98 FL (80-99) Mean Corpuscular Hemoglobin 32.5 PG (27.0-31.0) H Mean Corpuscular Hemoglobin Concent 33.3 G/DL (32.0-36.0) Red Cell Distribution Width 15.4 % (11.6-14.8) H Platelet Count 80 K/UL (150-450) L Mean Platelet Volume 9.4 FL (6.5-10.1) Neutrophils (%) (Auto) % (45.0-75.0) Lymphocytes (%) (Auto) % (20.0-45.0) Monocytes (%) (Auto) % (1.0-10.0) Eosinophils (%) (Auto) % (0.0-3.0) Basophils (%) (Auto) % (0.0-2.0) Differential Total Cells Counted 100 Neutrophils % (Manual) 90 % (45-75) H Lymphocytes % (Manual) 5 % (20-45) L Monocytes % (Manual) 5 % (1-10) Eosinophils % (Manual) 0 % (0-3) Basophils % (Manual) 0 % (0-2) Band Neutrophils 0 % (0-8) Platelet Estimate Decreased L Platelet Morphology Normal Anisocytosis 1+ Sodium Level 141 MMOL/L (136-145) Potassium Level 4.5 MMOL/L (3.5-5.1) Chloride Level 109 MMOL/L (98-107) H Carbon Dioxide Level 24 MMOL/L (21-32) Anion Gap 8 mmol/L (5-15) Blood Urea Nitrogen 21 mg/dL (7-18) H Creatinine 1.0 MG/DL (0.55-1.30) Estimat Glomerular Filtration Rate > 60 mL/min (>60) Glucose Level 182 MG/DL (74-106) H Calcium Level 8.2 MG/DL (8.5-10.1) L Phosphorus Level 1.9 MG/DL (2.5-4.9) L Magnesium Level 1.9 MG/DL (1.8-2.4) Total Bilirubin 2.2 MG/DL (0.2-1.0) H Direct Bilirubin 1.2 MG/DL (0.0-0.3) H Aspartate Amino Transf (AST/SGOT) 59 U/L (15-37) H Alanine Aminotransferase (ALT/SGPT) 34 U/L (12-78) Alkaline Phosphatase 66 U/L (46-116) C-Reactive Protein, Quantitative 9.5 mg/dL (0.00-0.90) H Pro-B-Type Natriuretic Peptide 6997 pg/mL (0-125) H Total Protein 6.8 G/DL (6.4-8.2) Albumin 2.3 G/DL (3.4-5.0) L Globulin 4.5 g/dL Albumin/Globulin Ratio 0.5 (1.0-2.7) L Arterial Blood pH 7.331 (7.350-7.450) Arterial Blood Partial Pressure CO2 43.3 mmHg (35.0-45.0) Arterial Blood Partial Pressure O2 52.0 mmHg (75.0-100.0) L Arterial Blood HCO3 22.4 mmol/L (22.0-26.0) Arterial Blood Oxygen Saturation 86.0 % (95-100) *L Arterial Blood Base Excess -3.4 (-2-2) L Manan Test Positive Microbiology Date/Time Source Procedure Growth Status 06/20/20 05:00 Nasopharynx Coronavirus COVID-19 PCR ([facility]) - Final Complete 06/19/20 17:55 Blood Blood Culture - Preliminary NO GROWTH AFTER 48 HOURS Resulted 06/19/20 17:51 Rectum - Final NO CARBAPENEM-RESISTANT ENTEROBACTERI... Complete 06/19/20 17:51 Rectum VRE Culture - Final Enterococcus Faecium - Vre Complete 06/19/20 17:51 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 Complete 06/19/20 17:51 Nasopharynx SARS-CoV-2 Antigen (Rapid)(KENDRICK) - Final Complete 06/19/20 17:45 Blood Blood Culture - Preliminary NO GROWTH AFTER 48 HOURS Resulted 06/19/20 17:41 Urine,Clean Catch Urine Culture - Final NO GROWTH AFTER 48 HOURS Complete Tala Mittal MD Jun 22, 2020 15:54
--- NOTE | 2020-06-22 16:12 | Nephrology Progress Note ---
Assessment/Plan Problem List: (1) Cardiopulmonary arrest (2) Respiratory failure (3) Elevated troponin (4) Abdominal distension (5) Electrolyte imbalance Assessment Status post cardiorespiratory arrest Elevated troponin Oliguria Lactic acidosis Massive hemoptysis Acute respiratory failure, intubated on ventilator Electrolyte imbalance Plan June 22: Labs reviewed. Abnormal electrolytes addressed. Patient is full code intubated on ventilator. FiO2 60%. Continue per current management. Continue per consultants. June 21: Midodrine for low BP started. Albumin bolus given. Potassium and IV discontinued. Continue to monitor renal parameters. Abnormal electrolytes noted and addressed. Check TSH level. Pulmonary support Correct abnormal electrolytes and chemistries Anemia work-up Monitor renal parameters and urine output Urine studies Magnesium supplement Per orders Subjective ROS Limited/Unobtainable: Yes Objective Objective Last 24 Hour Vital Signs Date Time Temp Pulse Resp B/P (MAP) Pulse Ox O2 Delivery O2 Flow Rate FiO2 06/22/20 16:00 76 06/22/20 16:00 Mechanical Ventilator Mechanical Ventilator Mechanical Ventilator 06/22/20 16:00 60 06/22/20 15:00 76 18 109/59 (76) 100 06/22/20 14:56 75 18 60 06/22/20 14:00 79 17 110/67 (81) 100 06/22/20 14:00 16 106/61 Mechanical Ventilator 60 06/22/20 13:00 17 93/68 Mechanical Ventilator 60 06/22/20 13:00 149 18 87/58 (68) 100 06/22/20 12:55 149 18 60 06/22/20 12:00 Mechanical Ventilator Mechanical Ventilator Mechanical Ventilator 06/22/20 12:00 99.6 06/22/20 12:00 17 98/62 Mechanical Ventilator 60 06/22/20 12:00 140 06/22/20 12:00 60 06/22/20 12:00 148 18 94/66 (75) 100 06/22/20 11:36 140 149/93 06/22/20 11:00 140 20 143/93 (110) 93 06/22/20 11:00 24 149/93 Mechanical Ventilator 60 06/22/20 10:51 159 25 60 06/22/20 10:00 91 21 154/78 (103) 100 06/22/20 10:00 17 154/78 Mechanical Ventilator 60 06/22/20 09:00 22 151/78 Mechanical Ventilator 50 06/22/20 09:00 91 21 151/78 (102) 100 06/22/20 08:40 111 22 50 06/22/20 08:00 40 06/22/20 08:00 Mechanical Ventilator Mechanical Ventilator Mechanical Ventilator 06/22/20 08:00 22 172/88 Mechanical Ventilator 50 06/22/20 08:00 106 06/22/20 08:00 98.7 102 19 149/78 (101) 97 06/22/20 07:30 107 23 40 06/22/20 07:00 22 166/90 Mechanical Ventilator 40 06/22/20 07:00 19 153/85 Mechanical Ventilator 40 06/22/20 07:00 110 21 166/90 (115) 92 06/22/20 06:30 90 18 06/22/20 06:00 116 26 184/95 (124) 89 06/22/20 06:00 20 184/95 Mechanical Ventilator 40 06/22/20 05:00 91 14 160/81 (107) 99 06/22/20 05:00 21 160/81 Mechanical Ventilator 40 06/22/20 04:00 97.6 98 20 160/88 (112) 97 06/22/20 04:00 21 160/84 Mechanical Ventilator 40 06/22/20 04:00 Mechanical Ventilator Mechanical Ventilator Mechanical Ventilator 06/22/20 04:00 93 06/22/20 04:00 40 06/22/20 03:15 101 25 40 06/22/20 03:00 27 160/84 Mechanical Ventilator 40 06/22/20 03:00 100 27 160/84 (109) 95 06/22/20 02:15 21 158/83 Mechanical Ventilator 40 06/22/20 02:00 101 21 158/87 (110) 95 06/22/20 02:00 21 158/87 Mechanical Ventilator 40 06/22/20 01:25 21 158/87 Mechanical Ventilator 40 06/22/20 01:10 19 155/84 Mechanical Ventilator 40 06/22/20 01:00 97 19 155/84 (107) 98 06/22/20 00:55 19 155/84 Mechanical Ventilator 40 06/22/20 00:40 19 145/93 Mechanical Ventilator 40 06/22/20 00:25 23 130/93 Mechanical Ventilator 40 06/22/20 00:22 143 143/96 06/22/20 00:10 21 148/85 Mechanical Ventilator 40 06/22/20 00:00 98.1 129 23 148/85 (106) 96 06/22/20 00:00 147 06/22/20 00:00 Mechanical Ventilator Mechanical Ventilator Mechanical Ventilator 06/21/20 23:55 24 143/96 Mechanical Ventilator 40 06/21/20 23:38 143 06/21/20 23:38 18 149/63 Mechanical Ventilator 40 06/21/20 23:30 146 28 40 06/21/20 23:00 145 23 148/98 (115) 98 06/21/20 22:45 143 06/21/20 22:00 143 23 122/82 (95) 97 06/21/20 21:27 172 159/96 06/21/20 21:00 175 26 159/98 (118) 96 06/21/20 20:04 146 175/67 06/21/20 20:00 97.5 154 17 143/92 (109) 99 06/21/20 20:00 157 06/21/20 20:00 40 06/21/20 20:00 Mechanical Ventilator Mechanical Ventilator Mechanical Ventilator 06/21/20 19:30 133 18 40 06/21/20 18:59 98 18 173/92 (119) 99 06/21/20 18:00 90 18 151/77 (101) 99 06/21/20 17:00 96 18 168/87 (114) 100 06/21/20 16:58 93 18 40 Intake and Output 06/21/20 06/22/20 19:00 07:00 Intake Total 1605 ml 1363.00 ml Output Total 370 ml 770 ml Balance 1235 ml 593.00 ml Intake IV Total 1605 ml 1363.00 ml Output Urine Total 370 ml 370 ml Gastric Drainage Total 400 ml Current Medications Medications (Trade) Dose Ordered Sig/Augusto Route PRN Reason Start Time Stop Time Status Last Admin Dose Admin Acetaminophen (Tylenol) 650 mg EVERY 6 HOURS PRN NG Temp >100.5 06/19/20 22:30 07/19/20 22:29 06/22/20 12:09 Acetaminophen (Tylenol) 650 mg Q4H PRN RECTAL Temp >100.5 06/21/20 03:30 07/21/20 03:29 06/21/20 03:36 Cefepime HCl 1 gm/ Dextrose 55 ml @ 110 mls/hr EVERY 12 HOURS IVPB 06/20/20 09:00 06/27/20 08:59 06/22/20 09:49 Dextrose/Sodium Chloride 1,000 ml @ 75 mls/hr [id number] IV 06/21/20 13:41 07/21/20 13:40 06/22/20 03:21 Dopamine HCl/ Dextrose 250 ml @ 0 mls/hr Q24H PRN IV For hypotension 06/19/20 22:30 06/22/20 22:18 Fentanyl Citrate 250 ml @ 1 mls/hr Q24H IV 06/19/20 22:30 06/23/20 22:29 06/21/20 23:38 Levothyroxine Sodium (Synthroid) 50 mcg DAILY@0630 ORAL 06/22/20 11:00 07/22/20 10:59 06/22/20 11:36 Metoprolol Tartrate (Lopressor) 2.5 mg Q4H PRN IVP hr greatern than 125 06/20/20 18:15 09/18/20 18:14 06/22/20 11:36 Metronidazole 100 ml @ 100 mls/hr Q8HR IVPB 06/20/20 22:00 06/27/20 21:59 06/22/20 13:47 Midodrine (Pro-Amatine) 10 mg Q8HR NG 06/21/20 14:00 09/19/20 13:59 06/22/20 13:47 Octreotide Acetate 500 mcg/ Sodium Chloride 500 ml @ 50 mls/hr Q10H IV 06/20/20 16:30 07/20/20 16:29 06/22/20 09:48 Pantoprazole (Protonix) 40 mg EVERY 12 HOURS IVP 06/20/20 09:00 07/20/20 08:59 06/22/20 09:48 Potassium Phosphate 20 mm/ Sodium Chloride 281.6667 ml @ 46.944 m... ONCE ONCE IV 06/22/20 17:00 06/22/20 22:59 Laboratory Tests 06/22/20 06:15: White Blood Count 7.6, Red Blood Count 3.84L, Hemoglobin 12.5L, Hematocrit 37.6L , Mean Corpuscular Volume 98, Mean Corpuscular Hemoglobin 32.5H, Mean Corpusc ular Hemoglobin Concent 33.3, Red Cell Distribution Width 15.4H, Platelet Count 80L, Mean Platelet Volume 9.4, Neutrophils (%) (Auto) , Lymphocytes (%) (Auto) , Monocytes (%) (Auto) , Eosinophils (%) (Auto) , Basophils (%) (Auto) , Differential Total Cells Counted 100, Neutrophils % (Manual) 90H, Lymphocytes % (Manual) 5L, Monocytes % (Manual) 5, Eosinophils % (Manual) 0, Basophils % (Manual) 0, Band Neutrophils 0, Platelet Estimate DecreasedL, Platelet Morphology Normal, Anisocytosis 1+, Sodium Level 141, Potassium Level 4.5, Chloride Level 109H, Carbon Dioxide Level 24, Anion Gap 8, Blood Urea Nitrogen 21H, Creatinine 1.0, Estimat Glomerular Filtration Rate > 60, Glucose Level 182H , Calcium Level 8.2L, Phosphorus Level 1.9L, Magnesium Level 1.9, Total Bilirubin 2.2H, Direct Bilirubin 1.2H, Aspartate Amino Transf (AST/SGOT) 59H, Alanine Aminotransferase (ALT/SGPT) 34, Alkaline Phosphatase 66, C-Reactive Protein, Quantitative 9.5H, Pro-B-Type Natriuretic Peptide 6997H, Total Protein 6.8, Albumin 2.3L, Globulin 4.5, Albumin/Globulin Ratio 0.5L 06/22/20 07:42: Arterial Blood pH 7.331L, Arterial Blood Partial Pressure CO2 43.3, Arterial Blood Partial Pressure O2 52.0L, Arterial Blood HCO3 22.4, Arterial Blood Oxygen Saturation 86.0*L, Arterial Blood Base Excess -3.4L, Manan Test Positive Height (Feet): 5 Height (Inches): 8.00 Weight (Pounds): 119 General Appearance: no apparent distress EENT: other - Intubated on ventilator Neck: limited range of motion Cardiovascular: tachycardia Respiratory/Chest: decreased breath sounds Abdomen: distended Kapil Rea MD Jun 22, 2020 16:12
[2020-06-22] MEDS ORDERED: Potassium Phosphate 20 MM in NS 275 ML IV ONE (17:00)
--- NOTE | 2020-06-22 17:00 | NUR ---
NURSE NOTES: Bed bath given ,kept dry and clean,Pulled turned and repositioned.
--- NOTE | 2020-06-22 18:30 | NUR ---
NURSE NOTES: Family members at bedside,seen condition of ptKyung cruise staff member updated family re pt's status in Malay language.
--- NOTE | 2020-06-22 19:15 | NUR ---
NURSE HAND-OFF REPORT: Latest Vital Signs: Temperature 98.9 , Pulse 75 , B/P 137 /70 , Respiratory Rate 18 , O2 SAT 100 , Mechanical Ventilator, O2 Flow Rate . Vital Sign Comment: stable EKG Rhythm: Sinus Rhythm Rhythm change?: N Notified?: Nilesh -Dr. Roel LEUNG Response: Order Received& Read Back Latest Coyle Fall Score: 50 Fall Risk: High Risk Safety Measures: Call light Within Reach, Bed Alarm Zone 2, Side Rails Side Rails x2, Bed position Low and Locked. Fall Precautions: Yellow Socks Report given to Batsheva Altamirano RN..
--- NOTE | 2020-06-22 19:37 | NUR ---
NURSE NOTES: Received report from JAVI Stephenson. Pt is sedated RASS -2, arousable to shaking, follows commands when given in Sinhala. No distress noted. Pt currently SR. SpO2 98% on ETT 7.5cm, 22cm from lip, AC 18, TV 500, P5, FiO2 60%. Calabrese draining well to gravity with tony urine. R W 22g and L AC 22g asymptomatic and flushing well, D5 1/2NS running at 75cc/hr, Sandostatin at 50cc/hr. Fentanyl drip at 100mcg/hr. Vitals are stable at this moment. HOB elevated, side rails x2, bed alarmed, locked, and in lowest position, Will continue plan of care. WIll continue to monitor.
[2020-06-22] MEDS: Amiodarone 200mg tab NG SCH (20:45)
--- NOTE | 2020-06-22 21:15 | NUR ---
NURSE NOTES: Called Dr. Sevilla due to pt's SBP 170 to 160. Received orders to dc metoprolol 2.5mg ivp prn4h, and schedule amiodarone 2.5mg ogt bid and amlodipine 2.5mg ogt bidprn. Orders noted and will carry out.
[2020-06-22] MEDS: fentaNYL 2500mcg/NS 250ml 250 ML IV SCH ×2 (22:34→23:17)
[2020-06-23] VITALS (24 sets, daily range): BP systolic 94–195; BP diastolic 47–105
[2020-06-23] MEDS: Acetaminophen 650mg/20.3ml NG PRN ×2 (00:17→18:28)
--- NOTE | 2020-06-23 00:22 | NUR ---
NURSE NOTES: Pt noted to have a fever of 100.5. Tylenol 650mg OGT given for PRN fever. Will continue to monitor.
--- NOTE | 2020-06-23 02:10 | NUR ---
NURSE NOTES: No change in condition. SR on radiation monitor, SpO2 98% with FiO2 50%. Will continue to monitor.
--- NOTE | 2020-06-23 04:00 | NUR ---
NURSE NOTES: Pt cleaned and turned. Linens and gown changed. No BM noted at this time. Oral care provided. Pt follows commands. Will continue to monitor.
[2020-06-23] MEDS: Midodrine 10mg tab NG SCH ×2 (05:09→14:15)
[2020-06-23 05:12] LABS: HEMOGLOBIN 10.1 G/DL (14.2-18.0); MEAN CORPUSCULAR VOLUME 99 FL (80-99); PLATELET COUNT 64 K/UL (150-450); RED BLOOD COUNT 3.12 M/UL (4.70-6.10); RED CELL DISTRIBUTION WIDTH 15.3 % (11.6-14.8); WHITE BLOOD COUNT 3.5 K/UL (4.8-10.8)
[2020-06-23 05:40] LABS: PHOSPHORUS 2.2 MG/DL (2.5-4.9)
[2020-06-23] MEDS: Octreotide Acetate 500 MCG in Sodium Chloride 499 ML IV SCH ×3 (05:50→19:59)
[2020-06-23 06:07] LABS: ALANINE AMINOTRANSFERASE 25 U/L (12-78); ALBUMIN 1.5 G/DL (3.4-5.0); ALBUMIN/GLOBULIN RATIO 0.4 (1.0-2.7); ALKALINE PHOSPHATASE 45 U/L (46-116); ANION GAP 6 mmol/L (5-15); ASPARTATE AMINO TRANSFERASE 40 U/L (15-37); BILIRUBIN,TOTAL 1.7 MG/DL (0.2-1.0); BLOOD UREA NITROGEN 21 mg/dL (7-18); CALCIUM 7.6 MG/DL (8.5-10.1); CARBON DIOXIDE 24 MMOL/L (21-32); CHLORIDE 111 MMOL/L (98-107); POTASSIUM 4.2 MMOL/L (3.5-5.1); SODIUM 141 MMOL/L (136-145)
--- NOTE | 2020-06-23 07:13 | NUR ---
NURSE NOTES: Received report from JAVI Herman. Patient in bed, sedated RASS -2, no active s/s cardiac, respiratory distress noticed at this time. Patient SR with HR 75 at this time. ETT 7.5 22cm lip line. Vent AC 18 TV 500 PEEP 5 Fio2 50% O2 sat 100% at this time. NPO at this time, OGT in place, IV on right wrist 22G, left AC 22G, asymptomatic, patent, intact. Calabrese Catheter draining well to gravity at this time. Fentanyl drip running at 100mcg/hr, RASS -2, D5 1/2 NS @ 75ml/h, Sandostatin 50ml/hr. Bed in lowest position, side rails upx3, call light within reach, bed alarm on, Will continue to monitor.
--- NOTE | 2020-06-23 07:20 | NUR ---
NURSE HAND-OFF REPORT: Latest Vital Signs: Temperature 97.9 , Pulse 80 , B/P 161 /75 , Respiratory Rate 18 , O2 SAT 100 , Mechanical Ventilator, O2 Flow Rate . Vital Sign Comment: [Stable] EKG Rhythm: Sinus Rhythm Rhythm change?: N Notified?: Y -Dr. Roel LEUNG Response: Order Received& Read Back Latest Coyle Fall Score: 50 Fall Risk: High Risk Safety Measures: Call light Within Reach, Bed Alarm Zone 2, Side Rails Side Rails x2, Bed position Low and Locked. Fall Precautions: Yellow Socks Report given to [JAVI Schwartz].
--- NOTE | 2020-06-23 07:26 | NUR ---
RD ASSESSMENT & RECOMMENDATIONS SEE CARE ACTIVITY FOR COMPLETE ASSESSMENT DAILY ESTIMATED NEEDS: Needs based on Critical care, underweight/ 54kg 22-30 kcals/kg 3823-3936 total kcals 1.2-2 g protein/kg 65-108 g total protein 25-30 mL/kg 8353-4668 total fluid mLs NUTRITION DIAGNOSIS: Swallowing difficulty R/T respiratory failure as evidenced by orally intubated upon adm, s/p code blue, remains orally intubated and sedated, NPO. CURRENT TF:NPO ENTERAL NUTRITION RECOMMENDATIONS: Vital AF 1.2 @ 50ml/hr x 24 hrs to provide 1200ml, 1440kcal, 90g prot, 973ml free water * When medically appropriate to feed and hemodynamically stable, -> initiate Vital AF 1.2 @ 10ml/hr x 8 hrs, advance 10ml q 8 hrs as tolerated to goal rate -> HOB over 30 degrees/ H2O flush per MD ADDITIONAL RECOMMENDATIONS: * Calibrated bedscale wt * Monitor for ability to feed: s/p hematemesis, possible GIB, on pressors * Monitor BGs, need for hypoglycemics-> BG elevated, rec bed side BG/niss * Monitor lytes, replete as needed (low phos)
[2020-06-23] MEDS: Pantoprazole Inj IVP SCH ×2 (08:23→20:18)
[2020-06-23] MEDS: Amiodarone 200mg tab NG SCH (08:23)
[2020-06-23] MEDS: Cefepime HCl 1 GM in D5W 55 ML IVPB SCH ×2 (08:24→20:18)
[2020-06-23] MEDS: D5 1/2NS 1,000 ML IV SCH (09:36)
--- NOTE | 2020-06-23 10:22 | Nephrology Progress Note ---
Assessment/Plan Problem List: (1) Cardiopulmonary arrest (2) Respiratory failure (3) Elevated troponin (4) Abdominal distension (5) Electrolyte imbalance Assessment Status post cardiorespiratory arrest Elevated troponin Oliguria Lactic acidosis Massive hemoptysis Acute respiratory failure, intubated on ventilator Electrolyte imbalance Plan June 23: Labs reviewed. Abnormal electrolytes addressed. Discussed with RN. FiO2 lower at 60%. Continue per current management. June 22: Labs reviewed. Abnormal electrolytes addressed. Patient is full code intubated on ventilator. FiO2 60%. Continue per current management. Continue per consultants. June 21: Midodrine for low BP started. Albumin bolus given. Potassium and IV discontinued. Continue to monitor renal parameters. Abnormal electrolytes noted and addressed. Check TSH level. Pulmonary support Correct abnormal electrolytes and chemistries Anemia work-up Monitor renal parameters and urine output Urine studies Magnesium supplement Per orders Subjective ROS Limited/Unobtainable: Yes Objective Objective Last 24 Hour Vital Signs Date Time Temp Pulse Resp B/P (MAP) Pulse Ox O2 Delivery O2 Flow Rate FiO2 06/23/20 09:00 77 17 148/72 (97) 100 06/23/20 09:00 17 136/68 Mechanical Ventilator 50 06/23/20 08:55 74 18 50 06/23/20 08:00 50 06/23/20 08:00 Mechanical Ventilator Mechanical Ventilator Mechanical Ventilator 06/23/20 08:00 18 151/75 Mechanical Ventilator 50 06/23/20 08:00 82 06/23/20 08:00 98.7 81 18 151/75 (100) 100 06/23/20 07:00 18 161/75 Mechanical Ventilator 50 06/23/20 07:00 80 17 161/75 (103) 100 06/23/20 06:32 79 21 50 06/23/20 06:30 74 17 06/23/20 06:00 18 139/75 Mechanical Ventilator 50 06/23/20 06:00 75 17 139/75 (96) 100 06/23/20 05:00 17 131/68 Mechanical Ventilator 40 06/23/20 05:00 80 18 131/68 (89) 100 06/23/20 04:00 73 06/23/20 04:00 50 06/23/20 04:00 17 121/62 Mechanical Ventilator 40 06/23/20 04:00 97.9 77 17 121/62 (81) 100 06/23/20 04:00 Mechanical Ventilator Mechanical Ventilator Mechanical Ventilator 3/8/21 03:30 70 18 50 06/23/20 03:00 17 103/59 Mechanical Ventilator 50 06/23/20 03:00 73 17 103/59 (74) 100 06/23/20 02:00 17 94/54 Mechanical Ventilator 50 06/23/20 02:00 74 17 94/54 (67) 100 06/23/20 01:00 17 130/60 Mechanical Ventilator 50 06/23/20 01:00 81 17 103/60 (74) 100 06/23/20 00:51 99.1 06/23/20 00:00 100.5 86 17 144/69 (94) 100 06/23/20 00:00 Mechanical Ventilator Mechanical Ventilator Mechanical Ventilator 06/23/20 00:00 85 06/23/20 00:00 17 144/69 Mechanical Ventilator 50 06/22/20 23:28 85 18 50 06/22/20 23:17 17 144/71 Mechanical Ventilator 60 06/22/20 23:00 85 17 144/71 (95) 100 06/22/20 23:00 18 151/73 Mechanical Ventilator 60 06/22/20 22:00 17 151/74 Mechanical Ventilator 60 06/22/20 22:00 86 18 151/73 (99) 100 06/22/20 21:00 86 17 151/74 (99) 100 06/22/20 21:00 17 151/74 Mechanical Ventilator 40 06/22/20 20:00 60 06/22/20 20:00 98.5 84 17 169/83 (111) 100 06/22/20 20:00 Mechanical Ventilator Mechanical Ventilator Mechanical Ventilator 06/22/20 20:00 93 06/22/20 20:00 17 169/83 Mechanical Ventilator 60 06/22/20 19:30 80 19 60 06/22/20 19:00 79 17 164/73 (103) 100 06/22/20 19:00 17 164/73 Mechanical Ventilator 60 06/22/20 18:00 75 18 137/70 (92) 100 06/22/20 18:00 18 137/70 Mechanical Ventilator 60 06/22/20 17:00 17 143/67 Mechanical Ventilator 60 06/22/20 17:00 80 18 136/61 (86) 100 06/22/20 16:42 75 18 60 06/22/20 16:00 76 06/22/20 16:00 Mechanical Ventilator Mechanical Ventilator Mechanical Ventilator 06/22/20 16:00 18 120/65 Mechanical Ventilator 60 06/22/20 16:00 60 06/22/20 16:00 98.9 75 18 121/62 (81) 100 06/22/20 15:00 76 18 109/59 (76) 100 06/22/20 15:00 17 109/63 Mechanical Ventilator 60 06/22/20 14:56 75 18 60 06/22/20 14:00 79 17 110/67 (81) 100 06/22/20 14:00 16 106/61 Mechanical Ventilator 60 06/22/20 13:00 17 93/68 Mechanical Ventilator 60 06/22/20 13:00 149 18 87/58 (68) 100 06/22/20 12:55 149 18 60 06/22/20 12:00 Mechanical Ventilator Mechanical Ventilator Mechanical Ventilator 06/22/20 12:00 99.6 06/22/20 12:00 17 98/62 Mechanical Ventilator 60 06/22/20 12:00 140 06/22/20 12:00 60 06/22/20 12:00 148 18 94/66 (75) 100 06/22/20 11:36 140 149/93 06/22/20 11:00 140 20 143/93 (110) 93 06/22/20 11:00 24 149/93 Mechanical Ventilator 60 06/22/20 10:51 159 25 60 Intake and Output 06/22/20 06/23/20 19:00 07:00 Intake Total 1893.888 ml 2030.5 ml Output Total 855 ml 510 ml Balance 1038.888 ml 1520.5 ml Intake IV Total 1713.888 ml 2030.5 ml Other 180 ml Output Urine Total 755 ml 510 ml Gastric Drainage Total 100 ml Current Medications Medications (Trade) Dose Ordered Sig/Augusto Route PRN Reason Start Time Stop Time Status Last Admin Dose Admin Acetaminophen (Tylenol) 650 mg EVERY 6 HOURS PRN NG Temp >100.5 06/19/20 22:30 07/19/20 22:29 06/23/20 00:17 Acetaminophen (Tylenol) 650 mg Q4H PRN RECTAL Temp >100.5 06/21/20 03:30 07/21/20 03:29 06/21/20 03:36 Amiodarone HCl (Cordarone) 200 mg EVERY 12 HOURS NG 06/22/20 21:00 09/20/20 20:59 06/23/20 08:23 Amlodipine Besylate (Norvasc) 2.5 mg BIDPRN PRN NG For High Blood Pressure 06/22/20 20:30 07/22/20 20:29 Cefepime HCl 1 gm/ Dextrose 55 ml @ 110 mls/hr EVERY 12 HOURS IVPB 06/20/20 09:00 06/27/20 08:59 06/23/20 08:24 Dextrose/Sodium Chloride 1,000 ml @ 40 mls/hr Q24H IV 06/21/20 13:41 07/21/20 13:40 06/23/20 09:36 Fentanyl Citrate 250 ml @ 1 mls/hr Q24H IV 06/19/20 22:30 06/23/20 22:29 06/22/20 23:17 Levothyroxine Sodium (Synthroid) 50 mcg DAILY@0630 ORAL 06/22/20 11:00 07/22/20 10:59 06/23/20 05:49 Metronidazole 100 ml @ 100 mls/hr Q8HR IVPB 06/20/20 22:00 06/27/20 21:59 06/23/20 05:09 Midodrine (Pro-Amatine) 10 mg Q8HR NG 06/21/20 14:00 09/19/20 13:59 06/23/20 05:09 Octreotide Acetate 500 mcg/ Sodium Chloride 500 ml @ 50 mls/hr Q10H IV 06/20/20 16:30 07/20/20 16:29 06/23/20 05:50 Pantoprazole (Protonix) 40 mg EVERY 12 HOURS IVP 06/20/20 09:00 07/20/20 08:59 06/23/20 08:23 Potassium Phosphate 20 mm/ Sodium Chloride 281.6667 ml @ 46.944 m... ONCE ONCE IV 06/23/20 11:00 06/23/20 16:59 Laboratory Tests 06/23/20 04:16: White Blood Count 3.5#L, Red Blood Count 3.12L, Hemoglobin 10.1L, Hematocrit 31.0L, Mean Corpuscular Volume 99, Mean Corpuscular Hemoglobin 32.4H, Mean Corpuscular Hemoglobin Concent 32.6, Red Cell Distribution Width 15.3H, Platelet Count 64L, Mean Platelet Volume 9.1, Neutrophils (%) (Auto) , Lymphocytes (%) (Auto) , Monocytes (%) (Auto) , Eosinophils (%) (Auto) , Basophils (%) (Auto) , Sodium Level 141, Potassium Level 4.2, Chloride Level 111H, Carbon Dioxide Level 24, Anion Gap 6, Blood Urea Nitrogen 21H, Creatinine 1.0, Estimat Glomerular Filtration Rate > 60, Glucose Level 202H, Uric Acid 4.7, Calcium Level 7.6L, Phosphorus Level 2.2L, Magnesium Level 1.9, Total Bilirubin 1.7H, Direct Bilirubin 1.0H, Aspartate Amino Transf (AST/SGOT) 40H, Alanine Aminotransferase (ALT/SGPT) 25, Alkaline Phosphatase 45L, C-Reactive Protein, Quantitative 8.3H, Pro-B-Type Natriuretic Peptide [id number], Total Protein 5.0L, Albumin 1.5L, G lobulin 3.5, Albumin/Globulin Ratio 0.4L Height (Feet): 5 Height (Inches): 8.00 Weight (Pounds): 119 General Appearance: no apparent distress EENT: other - Intubated on ventilator Cardiovascular: normal rate Respiratory/Chest: decreased breath sounds Abdomen: distended Kapil Rea MD Jun 23, 2020 10:22
[2020-06-23] MEDS ORDERED: Potassium Phosphate 20 MM in NS 275 ML IV ONE (11:00)
--- NOTE | 2020-06-23 11:00 | NUR ---
NURSE NOTES: Patient tolerating Fio2 45%, O2 sat 100%. Will continue to monitor.
--- NOTE | 2020-06-23 11:09 | Pulmonology Progress Note ---
Subjective ROS Limited/Unobtainable: Yes Interval Events: OGT in plaace; having dark NG drainage; hgb stable Constitutional: Reports: no symptoms HEENT: Repors: no symptoms Respiratory: Reports: no symptoms Cardiovascular: Reports: no symptoms Allergies: Coded Allergies: No Known Allergies (Unverified , 06/19/20) Objective Last 24 Hour Vital Signs Date Time Temp Pulse Resp B/P (MAP) Pulse Ox O2 Delivery O2 Flow Rate FiO2 06/23/20 10:43 75 18 50 06/23/20 10:00 75 18 150/70 (96) 100 06/23/20 09:00 77 17 148/72 (97) 100 06/23/20 09:00 17 136/68 Mechanical Ventilator 50 06/23/20 08:55 74 18 50 06/23/20 08:00 50 06/23/20 08:00 Mechanical Ventilator Mechanical Ventilator Mechanical Ventilator 06/23/20 08:00 18 151/75 Mechanical Ventilator 50 06/23/20 08:00 82 06/23/20 08:00 98.7 81 18 151/75 (100) 100 06/23/20 07:00 18 161/75 Mechanical Ventilator 50 06/23/20 07:00 80 17 161/75 (103) 100 06/23/20 06:32 79 21 50 06/23/20 06:30 74 17 06/23/20 06:00 18 139/75 Mechanical Ventilator 50 06/23/20 06:00 75 17 139/75 (96) 100 06/23/20 05:00 17 131/68 Mechanical Ventilator 40 06/23/20 05:00 80 18 131/68 (89) 100 06/23/20 04:00 73 06/23/20 04:00 50 06/23/20 04:00 17 121/62 Mechanical Ventilator 40 06/23/20 04:00 97.9 77 17 121/62 (81) 100 06/23/20 04:00 Mechanical Ventilator Mechanical Ventilator Mechanical Ventilator 06/23/20 03:30 70 18 50 06/23/20 03:00 17 103/59 Mechanical Ventilator 50 06/23/20 03:00 73 17 103/59 (74) 100 06/23/20 02:00 17 94/54 Mechanical Ventilator 50 06/23/20 02:00 74 17 94/54 (67) 100 06/23/20 01:00 17 130/60 Mechanical Ventilator 50 06/23/20 01:00 81 17 103/60 (74) 100 06/23/20 00:51 99.1 06/23/20 00:00 100.5 86 17 144/69 (94) 100 06/23/20 00:00 Mechanical Ventilator Mechanical Ventilator Mechanical Ventilator 06/23/20 00:00 85 06/23/20 00:00 17 144/69 Mechanical Ventilator 50 06/22/20 23:28 85 18 50 06/22/20 23:17 17 144/71 Mechanical Ventilator 60 06/22/20 23:00 85 17 144/71 (95) 100 06/22/20 23:00 18 151/73 Mechanical Ventilator 60 06/22/20 22:00 17 151/74 Mechanical Ventilator 60 06/22/20 22:00 86 18 151/73 (99) 100 06/22/20 21:00 86 17 151/74 (99) 100 06/22/20 21:00 17 151/74 Mechanical Ventilator 40 06/22/20 20:00 60 06/22/20 20:00 98.5 84 17 169/83 (111) 100 06/22/20 20:00 Mechanical Ventilator Mechanical Ventilator Mechanical Ventilator 06/22/20 20:00 93 06/22/20 20:00 17 169/83 Mechanical Ventilator 60 06/22/20 19:30 80 19 60 06/22/20 19:00 79 17 164/73 (103) 100 06/22/20 19:00 17 164/73 Mechanical Ventilator 60 06/22/20 18:00 75 18 137/70 (92) 100 06/22/20 18:00 18 137/70 Mechanical Ventilator 60 06/22/20 17:00 17 143/67 Mechanical Ventilator 60 06/22/20 17:00 80 18 136/61 (86) 100 06/22/20 16:42 75 18 60 06/22/20 16:00 76 06/22/20 16:00 Mechanical Ventilator Mechanical Ventilator Mechanical Ventilator 06/22/20 16:00 18 120/65 Mechanical Ventilator 60 06/22/20 16:00 60 06/22/20 16:00 98.9 75 18 121/62 (81) 100 06/22/20 15:00 76 18 109/59 (76) 100 06/22/20 15:00 17 109/63 Mechanical Ventilator 60 06/22/20 14:56 75 18 60 06/22/20 14:00 79 17 110/67 (81) 100 06/22/20 14:00 16 106/61 Mechanical Ventilator 60 06/22/20 13:00 17 93/68 Mechanical Ventilator 60 06/22/20 13:00 149 18 87/58 (68) 100 06/22/20 12:55 149 18 60 06/22/20 12:00 Mechanical Ventilator Mechanical Ventilator Mechanical Ventilator 06/22/20 12:00 99.6 06/22/20 12:00 17 98/62 Mechanical Ventilator 60 06/22/20 12:00 140 06/22/20 12:00 60 06/22/20 12:00 148 18 94/66 (75) 100 06/22/20 11:36 140 149/93 Intake and Output 06/22/20 06/23/20 19:00 07:00 Intake Total 1893.888 ml 2030.5 ml Output Total 855 ml 510 ml Balance 1038.888 ml 1520.5 ml Intake IV Total 1713.888 ml 2030.5 ml Other 180 ml Output Urine Total 755 ml 510 ml Gastric Drainage Total 100 ml General Appearance: no acute distress HEENT: normocephalic Respiratory: chest wall non-tender, lungs clear Cardiovascular: normal peripheral pulses, normal rate Abdomen: normal bowel sounds Microbiology Date/Time Source Procedure Growth Status 06/21/20 01:00 Sputum AFB Specimen Processing Tissue - Final Resulted 06/21/20 01:00 Sputum Acid Fast Bacilli Smear - Final Resulted 06/21/20 01:00 Sputum Acid Fast Bacilli Culture Pending Resulted 06/20/20 14:00 Sputum AFB Specimen Processing Tissue - Final Resulted 06/20/20 14:00 Sputum Acid Fast Bacilli Smear - Final Resulted 06/20/20 14:00 Sputum Acid Fast Bacilli Culture Pending Resulted Laboratory Tests 06/23/20 04:16: White Blood Count 3.5#L, Red Blood Count 3.12L, Hemoglobin 10.1L, Hematocrit 31.0L, Mean Corpuscular Volume 99, Mean Corpuscular Hemoglobin 32.4H, Mean Corpuscular Hemoglobin Concent 32.6, Red Cell Distribution Width 15.3H, Platelet Count 64L, Mean Platelet Volume 9.1, Neutrophils (%) (Auto) , Lymphocytes (%) (Auto) , Monocytes (%) (Auto) , Eosinophils (%) (Auto) , Basophils (%) (Auto) , Sodium Level 141, Potassium Level 4.2, Chloride Level 111H, Carbon Dioxide Level 24, Anion Gap 6, Blood Urea Nitrogen 21H, Creatinine 1.0, Estimat Glomerular Filtration Rate > 60, Glucose Level 202H, Uric Acid 4.7, Calcium Level 7.6L, Phosphorus Level 2.2L, Magnesium Level 1.9, Total Bilirubin 1.7H, Direct Bilirubin 1.0H, Aspartate Amino Transf (AST/SGOT) 40H, Alanine Aminotransferase (ALT/SGPT) 25, Alkaline Phosphatase 45L, C-Reactive Protein, Quantitative 8.3H, Pro-B-Type Natriuretic Peptide 58694O, Total Protein 5.0L, Albumin 1.5L, Globulin 3.5, Albumin/Globulin Ratio 0.4L Current Medications Medications (Trade) Dose Ordered Sig/Augusto Route PRN Reason Start Time Stop Time Status Last Admin Dose Admin Acetaminophen (Tylenol) 650 mg EVERY 6 HOURS PRN NG Temp >100.5 06/19/20 22:30 07/19/20 22:29 06/23/20 00:17 Acetaminophen (Tylenol) 650 mg Q4H PRN RECTAL Temp >100.5 06/21/20 03:30 07/21/20 03:29 06/21/20 03:36 Amiodarone HCl (Cordarone) 200 mg EVERY 12 HOURS NG 06/22/20 21:00 09/20/20 20:59 06/23/20 08:23 Amlodipine Besylate (Norvasc) 2.5 mg BIDPRN PRN NG For High Blood Pressure 06/22/20 20:30 07/22/20 20:29 Cefepime HCl 1 gm/ Dextrose 55 ml @ 110 mls/hr EVERY 12 HOURS IVPB 06/20/20 09:00 06/27/20 08:59 06/23/20 08:24 Dextrose/Sodium Chloride 1,000 ml @ 40 mls/hr Q24H IV 06/21/20 13:41 07/21/20 13:40 06/23/20 09:36 Fentanyl Citrate 250 ml @ 1 mls/hr Q24H IV 06/19/20 22:30 06/23/20 22:29 06/22/20 23:17 Levothyroxine Sodium (Synthroid) 50 mcg DAILY@0630 ORAL 06/22/20 11:00 07/22/20 10:59 06/23/20 05:49 Metronidazole 100 ml @ 100 mls/hr Q8HR IVPB 06/20/20 22:00 06/27/20 21:59 06/23/20 05:09 Midodrine (Pro-Amatine) 10 mg Q8HR NG 06/21/20 14:00 09/19/20 13:59 06/23/20 05:09 Octreotide Acetate 500 mcg/ Sodium Chloride 500 ml @ 50 mls/hr Q10H IV 06/20/20 16:30 07/20/20 16:29 06/23/20 05:50 Pantoprazole (Protonix) 40 mg EVERY 12 HOURS IVP 06/20/20 09:00 07/20/20 08:59 06/23/20 08:23 Potassium Phosphate 20 mm/ Sodium Chloride 281.6667 ml @ 46.944 m... ONCE ONCE IV 06/23/20 11:00 06/23/20 16:59 Assessment/Plan Assessment/Plan 1. GI bleed. Now resolved; on Octreotide - TB result pending 2. Respiratory failure. Will continue AC mode 3. Shock. 4. Patchy bilateral infiltrates. 5. Non-STEMI. DISCUSSION: Patient cannot receive anticoagulation for STEMI given his GI bleed. Agree with the use of Protonix and octreotide. We will maintain assist-control mechanical ventilation. Deep prophylaxis with SCD. Sedation as required. IV fluids. I will follow carefully. Empiric antibiotics as appropriate. ABG noted; will hold weaning given respiratory acidosis -> Vent adjusted The care of this patient was discussed with my supervising physician Time spent for this encounter was approximately 31 minutes Saad Renteria Jun 23, 2020 11:09
--- NOTE | 2020-06-23 11:37 | Surgery Progress Note ---
Surgery Progress Note Subjective Additional Comments non responsive ill appearingon support Objective Last 24 Hour Vital Signs Date Time Temp Pulse Resp B/P (MAP) Pulse Ox O2 Delivery O2 Flow Rate FiO2 06/23/20 10:43 75 18 50 06/23/20 10:00 75 18 150/70 (96) 100 06/23/20 09:00 77 17 148/72 (97) 100 06/23/20 09:00 17 136/68 Mechanical Ventilator 50 06/23/20 08:55 74 18 50 06/23/20 08:00 50 06/23/20 08:00 Mechanical Ventilator Mechanical Ventilator Mechanical Ventilator 06/23/20 08:00 18 151/75 Mechanical Ventilator 50 06/23/20 08:00 82 06/23/20 08:00 98.7 81 18 151/75 (100) 100 06/23/20 07:00 18 161/75 Mechanical Ventilator 50 06/23/20 07:00 80 17 161/75 (103) 100 06/23/20 06:32 79 21 50 06/23/20 06:30 74 17 06/23/20 06:00 18 139/75 Mechanical Ventilator 50 06/23/20 06:00 75 17 139/75 (96) 100 06/23/20 05:00 17 131/68 Mechanical Ventilator 40 06/23/20 05:00 80 18 131/68 (89) 100 06/23/20 04:00 73 06/23/20 04:00 50 06/23/20 04:00 17 121/62 Mechanical Ventilator 40 06/23/20 04:00 97.9 77 17 121/62 (81) 100 06/23/20 04:00 Mechanical Ventilator Mechanical Ventilator Mechanical Ventilator 06/23/20 03:30 70 18 50 06/23/20 03:00 17 103/59 Mechanical Ventilator 50 06/23/20 03:00 73 17 103/59 (74) 100 06/23/20 02:00 17 94/54 Mechanical Ventilator 50 06/23/20 02:00 74 17 94/54 (67) 100 06/23/20 01:00 17 130/60 Mechanical Ventilator 50 06/23/20 01:00 81 17 103/60 (74) 100 06/23/20 00:51 99.1 06/23/20 00:00 100.5 86 17 144/69 (94) 100 06/23/20 00:00 Mechanical Ventilator Mechanical Ventilator Mechanical Ventilator 06/23/20 00:00 85 06/23/20 00:00 17 144/69 Mechanical Ventilator 50 06/22/20 23:28 85 18 50 06/22/20 23:17 17 144/71 Mechanical Ventilator 60 06/22/20 23:00 85 17 144/71 (95) 100 06/22/20 23:00 18 151/73 Mechanical Ventilator 60 06/22/20 22:00 17 151/74 Mechanical Ventilator 60 06/22/20 22:00 86 18 151/73 (99) 100 06/22/20 21:00 86 17 151/74 (99) 100 06/22/20 21:00 17 151/74 Mechanical Ventilator 40 06/22/20 20:00 60 06/22/20 20:00 98.5 84 17 169/83 (111) 100 06/22/20 20:00 Mechanical Ventilator Mechanical Ventilator Mechanical Ventilator 06/22/20 20:00 93 06/22/20 20:00 17 169/83 Mechanical Ventilator 60 06/22/20 19:30 80 19 60 06/22/20 19:00 79 17 164/73 (103) 100 06/22/20 19:00 17 164/73 Mechanical Ventilator 60 06/22/20 18:00 75 18 137/70 (92) 100 06/22/20 18:00 18 137/70 Mechanical Ventilator 60 06/22/20 17:00 17 143/67 Mechanical Ventilator 60 06/22/20 17:00 80 18 136/61 (86) 100 06/22/20 16:42 75 18 60 06/22/20 16:00 76 06/22/20 16:00 Mechanical Ventilator Mechanical Ventilator Mechanical Ventilator 06/22/20 16:00 18 120/65 Mechanical Ventilator 60 06/22/20 16:00 60 06/22/20 16:00 98.9 75 18 121/62 (81) 100 06/22/20 15:00 76 18 109/59 (76) 100 06/22/20 15:00 17 109/63 Mechanical Ventilator 60 06/22/20 14:56 75 18 60 06/22/20 14:00 79 17 110/67 (81) 100 06/22/20 14:00 16 106/61 Mechanical Ventilator 60 06/22/20 13:00 17 93/68 Mechanical Ventilator 60 06/22/20 13:00 149 18 87/58 (68) 100 06/22/20 12:55 149 18 60 06/22/20 12:00 Mechanical Ventilator Mechanical Ventilator Mechanical Ventilator 06/22/20 12:00 99.6 06/22/20 12:00 17 98/62 Mechanical Ventilator 60 06/22/20 12:00 140 06/22/20 12:00 60 06/22/20 12:00 148 18 94/66 (75) 100 I&O Intake and Output 06/22/20 06/23/20 19:00 07:00 Intake Total 1893.888 ml 2030.5 ml Output Total 855 ml 510 ml Balance 1038.888 ml 1520.5 ml Intake IV Total 1713.888 ml 2030.5 ml Other 180 ml Output Urine Total 755 ml 510 ml Gastric Drainage Total 100 ml Dressing: saturated Cardiovascular: RSR Respiratory: decreased breath sounds Abdomen: soft, non-tender, present bowel sounds, non-distended Extremities: no tenderness, no cyanosis Laboratory Tests Test 06/23/20 04:16 White Blood Count 3.5 K/UL (4.8-10.8) #L Red Blood Count 3.12 M/UL (4.70-6.10) L Hemoglobin 10.1 G/DL (14.2-18.0) L Hematocrit 31.0 % (42.0-52.0) L Mean Corpuscular Volume 99 FL (80-99) Mean Corpuscular Hemoglobin 32.4 PG (27.0-31.0) H Mean Corpuscular Hemoglobin Concent 32.6 G/DL (32.0-36.0) Red Cell Distribution Width 15.3 % (11.6-14.8) H Platelet Count 64 K/UL (150-450) L Mean Platelet Volume 9.1 FL (6.5-10.1) Neutrophils (%) (Auto) % (45.0-75.0) Lymphocytes (%) (Auto) % (20.0-45.0) Monocytes (%) (Auto) % (1.0-10.0) Eosinophils (%) (Auto) % (0.0-3.0) Basophils (%) (Auto) % (0.0-2.0) Sodium Level 141 MMOL/L (136-145) Potassium Level 4.2 MMOL/L (3.5-5.1) Chloride Level 111 MMOL/L (98-107) H Carbon Dioxide Level 24 MMOL/L (21-32) Anion Gap 6 mmol/L (5-15) Blood Urea Nitrogen 21 mg/dL (7-18) H Creatinine 1.0 MG/DL (0.55-1.30) Estimat Glomerular Filtration Rate > 60 mL/min (>60) Glucose Level 202 MG/DL (74-106) H Uric Acid 4.7 MG/DL (2.6-7.2) Calcium Level 7.6 MG/DL (8.5-10.1) L Phosphorus Level 2.2 MG/DL (2.5-4.9) L Magnesium Level 1.9 MG/DL (1.8-2.4) Total Bilirubin 1.7 MG/DL (0.2-1.0) H Direct Bilirubin 1.0 MG/DL (0.0-0.3) H Aspartate Amino Transf (AST/SGOT) 40 U/L (15-37) H Alanine Aminotransferase (ALT/SGPT) 25 U/L (12-78) Alkaline Phosphatase 45 U/L (46-116) L C-Reactive Protein, Quantitative 8.3 mg/dL (0.00-0.90) H Pro-B-Type Natriuretic Peptide 04926 pg/mL (0-125) H Total Protein 5.0 G/DL (6.4-8.2) L Albumin 1.5 G/DL (3.4-5.0) L Globulin 3.5 g/dL Albumin/Globulin Ratio 0.4 (1.0-2.7) L Plan Problems: (1) Massive hemoptysis Assessment & Plan: Trend h/h no active bleeding ? gi malignancy GI consult ?EGD NG tube (2) Cardiopulmonary arrest (3) Lactic acidosis (4) Anemia (5) Respiratory failure (6) Elevated troponin (7) Abdominal distension Assessment & Plan: CT noted sbo vs ileus gas filled bowel loops abd distended on exam limited exam given condition critically ill will follow with exam and recs KUB ordered - improved ng with bilious output likely ileus or resolving sbo will follow with clinical exam ABDOMEN: Liver: Few incompletely characterized low-attenuation lesions within the liver. Gallbladder and bile ducts: Cholelithiasis. Pancreas: Unremarkable. Spleen: Unremarkable. Adrenals: Unremarkable. Kidneys and ureters: Unremarkable. No obstructing stones. No hydronephrosis. Stomach and bowel: Gas filled mildly distended small bowel loops measuring up to 4 cm. There is mucosal thickening within the stomach potentially representing gastritis or malignancy. PELVIS: Appendix: No findings to suggest acute appendicitis. Bladder: Calabrese catheter in the bladder. Reproductive: Unremarkable as visualized. ABDOMEN and PELVIS: Intraperitoneal space: Trace nonspecific ascites. No free air. Bones/joints: Status post left hip ORIF. Multiple bones within the pelvis and spine. Soft tissues: Unremarkable. Vasculature: Unremarkable. Lymph nodes: Unremarkable. Tubes, lines and devices: Esophagogastric tube within the stomach. IMPRESSION: 1. Gas filled mildly distended small bowel loops measuring up to 4 cm. Abrupt transition point difficult to identify. Obstruction on the differential. Also consider ileus. 2. There is mucosal thickening within the stomach potentially representing gastritis or malignancy. 3. Few incompletely characterized low-attenuation lesions within the liver. 4. Cholelithiasis. 5. Trace nonspecific ascites. Smauel Lazar Jun 23, 2020 11:37
--- NOTE | 2020-06-23 13:45 | General Progress Note ---
Subjective ROS Limited/Unobtainable: No Allergies: Coded Allergies: No Known Allergies (Unverified , 06/19/20) Objective Last 24 Hour Vital Signs Date Time Temp Pulse Resp B/P (MAP) Pulse Ox O2 Delivery O2 Flow Rate FiO2 06/23/20 13:00 82 17 132/70 (90) 100 06/23/20 12:50 80 18 45 06/23/20 12:00 45 06/23/20 12:00 Mechanical Ventilator Mechanical Ventilator Mechanical Ventilator 06/23/20 12:00 98.9 78 17 143/73 (96) 100 06/23/20 12:00 76 06/23/20 11:00 80 18 147/68 (94) 100 06/23/20 10:43 75 18 45 06/23/20 10:40 45 06/23/20 10:00 75 18 150/70 (96) 100 06/23/20 09:00 77 17 148/72 (97) 100 06/23/20 09:00 17 136/68 Mechanical Ventilator 50 06/23/20 08:55 74 18 50 06/23/20 08:00 50 06/23/20 08:00 Mechanical Ventilator Mechanical Ventilator Mechanical Ventilator 06/23/20 08:00 18 151/75 Mechanical Ventilator 50 06/23/20 08:00 82 06/23/20 08:00 98.7 81 18 151/75 (100) 100 06/23/20 07:00 18 161/75 Mechanical Ventilator 50 06/23/20 07:00 80 17 161/75 (103) 100 06/23/20 06:32 79 21 50 06/23/20 06:30 74 17 06/23/20 06:00 18 139/75 Mechanical Ventilator 50 06/23/20 06:00 75 17 139/75 (96) 100 06/23/20 05:00 17 131/68 Mechanical Ventilator 40 06/23/20 05:00 80 18 131/68 (89) 100 06/23/20 04:00 73 06/23/20 04:00 50 06/23/20 04:00 17 121/62 Mechanical Ventilator 40 06/23/20 04:00 97.9 77 17 121/62 (81) 100 06/23/20 04:00 Mechanical Ventilator Mechanical Ventilator Mechanical Ventilator 06/23/20 03:30 70 18 50 06/23/20 03:00 17 103/59 Mechanical Ventilator 50 06/23/20 03:00 73 17 103/59 (74) 100 06/23/20 02:00 17 94/54 Mechanical Ventilator 50 06/23/20 02:00 74 17 94/54 (67) 100 06/23/20 01:00 17 130/60 Mechanical Ventilator 50 06/23/20 01:00 81 17 103/60 (74) 100 06/23/20 00:51 99.1 06/23/20 00:00 100.5 86 17 144/69 (94) 100 06/23/20 00:00 Mechanical Ventilator Mechanical Ventilator Mechanical Ventilator 06/23/20 00:00 85 06/23/20 00:00 17 144/69 Mechanical Ventilator 50 06/22/20 23:28 85 18 50 06/22/20 23:17 17 144/71 Mechanical Ventilator 60 06/22/20 23:00 85 17 144/71 (95) 100 06/22/20 23:00 18 151/73 Mechanical Ventilator 60 06/22/20 22:00 17 151/74 Mechanical Ventilator 60 06/22/20 22:00 86 18 151/73 (99) 100 06/22/20 21:00 86 17 151/74 (99) 100 06/22/20 21:00 17 151/74 Mechanical Ventilator 40 06/22/20 20:00 60 06/22/20 20:00 98.5 84 17 169/83 (111) 100 06/22/20 20:00 Mechanical Ventilator Mechanical Ventilator Mechanical Ventilator 06/22/20 20:00 93 06/22/20 20:00 17 169/83 Mechanical Ventilator 60 06/22/20 19:30 80 19 60 06/22/20 19:00 79 17 164/73 (103) 100 06/22/20 19:00 17 164/73 Mechanical Ventilator 60 06/22/20 18:00 75 18 137/70 (92) 100 06/22/20 18:00 18 137/70 Mechanical Ventilator 60 06/22/20 17:00 17 143/67 Mechanical Ventilator 60 06/22/20 17:00 80 18 136/61 (86) 100 06/22/20 16:42 75 18 60 06/22/20 16:00 76 06/22/20 16:00 Mechanical Ventilator Mechanical Ventilator Mechanical Ventilator 06/22/20 16:00 18 120/65 Mechanical Ventilator 60 06/22/20 16:00 60 06/22/20 16:00 98.9 75 18 121/62 (81) 100 06/22/20 15:00 76 18 109/59 (76) 100 06/22/20 15:00 17 109/63 Mechanical Ventilator 60 06/22/20 14:56 75 18 60 06/22/20 14:00 79 17 110/67 (81) 100 06/22/20 14:00 16 106/61 Mechanical Ventilator 60 Intake and Output 06/22/20 06/23/20 19:00 07:00 Intake Total 1893.888 ml 2030.5 ml Output Total 855 ml 510 ml Balance 1038.888 ml 1520.5 ml Intake IV Total 1713.888 ml 2030.5 ml Other 180 ml Output Urine Total 755 ml 510 ml Gastric Drainage Total 100 ml Laboratory Tests 06/23/20 04:16: White Blood Count 3.5#L, Red Blood Count 3.12L, Hemoglobin 10.1L, Hematocrit 31.0L, Mean Corpuscular Volume 99, Mean Corpuscular Hemoglobin 32.4H, Mean Corpuscular Hemoglobin Concent 32.6, Red Cell Distribution Width 15.3H, Platelet Count 64L, Mean Platelet Volume 9.1, Neutrophils (%) (Auto) , Lymphocytes (%) (Auto) , Monocytes (%) (Auto) , Eosinophils (%) (Auto) , Basophils (%) (Auto) , Sodium Level 141, Potassium Level 4.2, Chloride Level 111H, Carbon Dioxide Level 24, Anion Gap 6, Blood Urea Nitrogen 21H, Creatinine 1.0, Estimat Glomerular Filtration Rate > 60, Glucose Level 202H, Uric Acid 4.7, Calcium Level 7.6L, Phosphorus Level 2.2L, Magnesium Level 1.9, Total Bilirubin 1.7H, Direct Bilirubin 1.0H, Aspartate Amino Transf (AST/SGOT) 40H, Alanine Aminotransferase (ALT/SGPT) 25, Alkaline Phosphatase 45L, C-Reactive Protein, Quantitative 8.3H, Pro-B-Type Natriuretic Peptide 54351S, Total Protein 5.0L, Albumin 1.5L, Globulin 3.5, Albumin/Globulin Ratio 0.4L Height (Feet): 5 Height (Inches): 8.00 Weight (Pounds): 119 General Appearance: no apparent distress EENT: normal ENT inspection Neck: supple Cardiovascular: normal rate Respiratory/Chest: decreased breath sounds Abdomen: hypoactive bowel sounds Extremities: non-tender Assessment/Plan Status: not improved, unchanged Assessment/Plan: 1. Massive hemoptysis. 2. Possible GI bleed. 3. Status post cardiopulmonary arrest/PEA. 4. Anemia. 5. elevated trop>>>improving 6. Paroxysmal atrial fibrillation. 7. Thrombocytopenia. ppi GI procedures on hold cardiology poor prognosis start [facility] Matt Davis MD Jun 23, 2020 13:45
--- NOTE | 2020-06-23 15:50 | Neurology Progress Note ---
Interim History Interim History ROS Limited/Unobtainable: No Events: appears weaker, awake Objective Physical Exam Last Vital Signs Date Time Temp Pulse Resp B/P (MAP) Pulse Ox O2 Delivery O2 Flow Rate FiO2 06/23/20 15:00 86 18 145/76 (99) 100 06/23/20 14:00 Mechanical Ventilator 45 06/23/20 12:00 98.9 06/19/20 16:08 4.0 Laboratory Tests Test 06/23/20 04:16 White Blood Count 3.5 K/UL (4.8-10.8) #L Red Blood Count 3.12 M/UL (4.70-6.10) L Hemoglobin 10.1 G/DL (14.2-18.0) L Hematocrit 31.0 % (42.0-52.0) L Mean Corpuscular Volume 99 FL (80-99) Mean Corpuscular Hemoglobin 32.4 PG (27.0-31.0) H Mean Corpuscular Hemoglobin Concent 32.6 G/DL (32.0-36.0) Red Cell Distribution Width 15.3 % (11.6-14.8) H Platelet Count 64 K/UL (150-450) L Mean Platelet Volume 9.1 FL (6.5-10.1) Neutrophils (%) (Auto) % (45.0-75.0) Lymphocytes (%) (Auto) % (20.0-45.0) Monocytes (%) (Auto) % (1.0-10.0) Eosinophils (%) (Auto) % (0.0-3.0) Basophils (%) (Auto) % (0.0-2.0) Sodium Level 141 MMOL/L (136-145) Potassium Level 4.2 MMOL/L (3.5-5.1) Chloride Level 111 MMOL/L (98-107) H Carbon Dioxide Level 24 MMOL/L (21-32) Anion Gap 6 mmol/L (5-15) Blood Urea Nitrogen 21 mg/dL (7-18) H Creatinine 1.0 MG/DL (0.55-1.30) Estimat Glomerular Filtration Rate > 60 mL/min (>60) Glucose Level 202 MG/DL (74-106) H Uric Acid 4.7 MG/DL (2.6-7.2) Calcium Level 7.6 MG/DL (8.5-10.1) L Phosphorus Level 2.2 MG/DL (2.5-4.9) L Magnesium Level 1.9 MG/DL (1.8-2.4) Total Bilirubin 1.7 MG/DL (0.2-1.0) H Direct Bilirubin 1.0 MG/DL (0.0-0.3) H Aspartate Amino Transf (AST/SGOT) 40 U/L (15-37) H Alanine Aminotransferase (ALT/SGPT) 25 U/L (12-78) Alkaline Phosphatase 45 U/L (46-116) L C-Reactive Protein, Quantitative 8.3 mg/dL (0.00-0.90) H Pro-B-Type Natriuretic Peptide 26575 pg/mL (0-125) H Total Protein 5.0 G/DL (6.4-8.2) L Albumin 1.5 G/DL (3.4-5.0) L Globulin 3.5 g/dL Albumin/Globulin Ratio 0.4 (1.0-2.7) L Neurologic Exam Objective ROS difficult to assess PE Neuro exam is limited at this time he is awake today , tracts eyes PERRLA has spontaneous movements of upper extremities. No facial droop symmetrical withdraws to painful stimul Impression/Recommendations Status: not improved, unchanged Diagnostic Impression LAB Reviewed IMAGING: CT of the head was done. No acute intracranial abnormality, parenchymal atrophy, and mild chronic microvascular ischemic changes. MEDS: Reviewed Assessment and Plan: 1. Syncope --> likely due to vasovagal was having Bowel movement at that time also hypovolemic due to amount of blood loss from gi bleeding vomiting --> we will follow along at this time no further neuro recommendations. Continue to monitor. 2. Resp Arrest --> s/p intubation on vent 3. Hypertension 4. Anemia Thank you for allowing us to participate in patient's care plan of care was discussed with Dr. Edmar Valencia who agrees with plan. Jacqueline Solis NP Jun 23, 2020 15:50
--- NOTE | 2020-06-23 16:17 | NUR ---
NURSE NOTES: Dr. Sevilla made aware patient a.fib with RVR rate of 180-200s, [id number]. Per MD amiodarone 150mg bolus, amiodarone IV drip per pharmacy to dose, Order noted, entered, carried out, Will continue to monitor.
[2020-06-23] MEDS ORDERED: Amiodarone 900 MG in D5W 500ml 482 ML IV SCH (16:30)
--- NOTE | 2020-06-23 17:00 | NUR ---
NURSE NOTES: Amiodarone drip initiated 1mg/min, HR 115 BP 112/73 at this time.
[2020-06-23] MEDS ORDERED: Tubing IV Secondary IV ONE (17:02)
[2020-06-23] MEDS ORDERED: D5 1/2NS 1000ml IV ONE (17:02)
--- NOTE | 2020-06-23 19:12 | Internal Med Progress Note ---
Subjective Date of Service: Jun 23, 2020 Physician Name Angel Peter Attending Physician Ventura Pelletier MD Current Medications Medications (Trade) Dose Ordered Sig/Augusto Route PRN Reason Start Time Stop Time Status Last Admin Dose Admin Acetaminophen (Tylenol) 650 mg EVERY 6 HOURS PRN NG Temp >100.5 06/19/20 22:30 07/19/20 22:29 06/23/20 18:28 Acetaminophen (Tylenol) 650 mg Q4H PRN RECTAL Temp >100.5 06/21/20 03:30 07/21/20 03:29 06/21/20 03:36 Amiodarone HCl (Cordarone) 200 mg EVERY 12 HOURS NG 06/22/20 21:00 09/20/20 20:59 06/23/20 08:23 Amiodarone HCl 900 mg/Dextrose 500 ml @ 0 mls/hr ONCE IV 06/23/20 16:30 06/25/20 16:29 06/23/20 16:53 Amlodipine Besylate (Norvasc) 2.5 mg BIDPRN PRN NG For High Blood Pressure 06/22/20 20:30 07/22/20 20:29 06/23/20 15:57 Cefepime HCl 1 gm/ Dextrose 55 ml @ 110 mls/hr EVERY 12 HOURS IVPB 06/20/20 09:00 06/27/20 08:59 06/23/20 08:24 Dextrose/Sodium Chloride 1,000 ml @ 40 mls/hr Q24H IV 06/21/20 13:41 07/21/20 13:40 06/23/20 09:36 Fentanyl Citrate 250 ml @ 1 mls/hr Q24H IV 06/19/20 22:30 06/23/20 22:29 06/22/20 23:17 Levothyroxine Sodium (Synthroid) 50 mcg DAILY@0630 ORAL 06/22/20 11:00 07/22/20 10:59 06/23/20 05:49 Metronidazole 100 ml @ 100 mls/hr Q8HR IVPB 06/20/20 22:00 06/27/20 21:59 06/23/20 14:14 Midodrine (Pro-Amatine) 10 mg Q8HR NG 06/21/20 14:00 09/19/20 13:59 06/23/20 14:15 Octreotide Acetate 500 mcg/ Sodium Chloride 500 ml @ 50 mls/hr Q10H IV 06/20/20 16:30 07/20/20 16:29 06/23/20 05:50 Pantoprazole (Protonix) 40 mg EVERY 12 HOURS IVP 06/20/20 09:00 07/20/20 08:59 06/23/20 08:23 Allergies: Coded Allergies: No Known Allergies (Unverified , 06/19/20) ROS Limited/Unobtainable: Yes Subjective 89 YO M admitted with syncopal episode. Now S/P cardiac arrest and GI bleed. Cover for Int Med-Dr Pelletier. ICU. Intubated and sedated Objective Last Vital Signs Date Time Temp Pulse Resp B/P (MAP) Pulse Ox O2 Delivery O2 Flow Rate FiO2 06/23/20 18:00 110 17 112/73 (86) 100 06/23/20 18:00 Mechanical Ventilator 100 06/23/20 16:00 99.8 06/19/20 16:08 4.0 Laboratory Tests Test 06/23/20 04:16 White Blood Count 3.5 K/UL (4.8-10.8) #L Red Blood Count 3.12 M/UL (4.70-6.10) L Hemoglobin 10.1 G/DL (14.2-18.0) L Hematocrit 31.0 % (42.0-52.0) L Mean Corpuscular Volume 99 FL (80-99) Mean Corpuscular Hemoglobin 32.4 PG (27.0-31.0) H Mean Corpuscular Hemoglobin Concent 32.6 G/DL (32.0-36.0) Red Cell Distribution Width 15.3 % (11.6-14.8) H Platelet Count 64 K/UL (150-450) L Mean Platelet Volume 9.1 FL (6.5-10.1) Neutrophils (%) (Auto) % (45.0-75.0) Lymphocytes (%) (Auto) % (20.0-45.0) Monocytes (%) (Auto) % (1.0-10.0) Eosinophils (%) (Auto) % (0.0-3.0) Basophils (%) (Auto) % (0.0-2.0) Sodium Level 141 MMOL/L (136-145) Potassium Level 4.2 MMOL/L (3.5-5.1) Chloride Level 111 MMOL/L (98-107) H Carbon Dioxide Level 24 MMOL/L (21-32) Anion Gap 6 mmol/L (5-15) Blood Urea Nitrogen 21 mg/dL (7-18) H Creatinine 1.0 MG/DL (0.55-1.30) Estimat Glomerular Filtration Rate > 60 mL/min (>60) Glucose Level 202 MG/DL (74-106) H Uric Acid 4.7 MG/DL (2.6-7.2) Calcium Level 7.6 MG/DL (8.5-10.1) L Phosphorus Level 2.2 MG/DL (2.5-4.9) L Magnesium Level 1.9 MG/DL (1.8-2.4) Total Bilirubin 1.7 MG/DL (0.2-1.0) H Direct Bilirubin 1.0 MG/DL (0.0-0.3) H Aspartate Amino Transf (AST/SGOT) 40 U/L (15-37) H Alanine Aminotransferase (ALT/SGPT) 25 U/L (12-78) Alkaline Phosphatase 45 U/L (46-116) L C-Reactive Protein, Quantitative 8.3 mg/dL (0.00-0.90) H Pro-B-Type Natriuretic Peptide 88763 pg/mL (0-125) H Total Protein 5.0 G/DL (6.4-8.2) L Albumin 1.5 G/DL (3.4-5.0) L Globulin 3.5 g/dL Albumin/Globulin Ratio 0.4 (1.0-2.7) L Microbiology Date/Time Source Procedure Growth Status 06/21/20 01:00 Sputum AFB Specimen Processing Tissue - Final Resulted 06/21/20 01:00 Sputum Acid Fast Bacilli Smear - Final Resulted 06/21/20 01:00 Sputum Acid Fast Bacilli Culture Pending Resulted Intake and Output 06/22/20 06/23/20 19:00 07:00 Intake Total 1893.888 ml 2030.5 ml Output Total 855 ml 510 ml Balance 1038.888 ml 1520.5 ml IV Total 1713.888 ml 2030.5 ml Other 180 ml Output Urine Total 755 ml 510 ml Gastric Drainage Total 100 ml Objective Objective General: intubated, remained on ventilation, sedated. HEENT: NCAT, sclera anicteric, PERRL, ET Tube, NG Tube. Neck: Supple, no significant jugular venous distention, Lungs: mech vent; coarse breath sounds with Wheeze and Rales. Heart: Regular rate and rhythm, normal S1/S2, no murmurs. Abdomen: soft, nontender, nondistended. Normoactive bowel sounds. / Rectal: Refused and deferred. Extremities: No Cyanosis , clubbing or edema. Neuro: limited secondary to patient's status, able to move extremities slowly. Skin: warm, no rash. Assessment/Plan Assessment/Plan ASSESSMENT: 1. Acute hypoxemic respiratory failure. 2. PEA arrest. 3. Upper GI bleed. 4. Severe anemia, most likely secondary to acute GI bleed and acute blood loss. 5. History of hypertension. 6. Hypothyroidism. 7. BPH. 8. Thrombocytopenia. 9. The patient has elevated troponin, most likely secondary to non-ST elevation [place] type 2 as a result of demand ischemia. PLAN: Admit the patient to ICU. We will follow up with Dr. Ken Sevilla from Cardiology, Dr. Davis from Gastroenterology, and Dr. Cormier from Pulmonary Critical Care. Follow up with 2D echo, duplex of lower extremity. At this time, with family member's discussion, the patient's code status is full code. We will follow up with the laboratory, serial cardiac enzymes, and 2D echo. We will start the patient on Protonix IV and broad-spectrum antibiotics with cefepime and Flagyl. Angel Peter MD Jun 23, 2020 19:12
--- NOTE | 2020-06-23 19:14 | NUR ---
NURSE HAND-OFF REPORT: Latest Vital Signs: Temperature 100.0 , Pulse 108 , B/P 100 /62 , Respiratory Rate 17 , O2 SAT 100 , Mechanical Ventilator, O2 Flow Rate . Vital Sign Comment: Afib RVR made aware, on Amiodarone drip EKG Rhythm: A.fib RVR Rhythm change?: Nilesh LEUNG Notified?: Y -Dr. Roel LEUNG Response: Order Received& Read Back Latest Coyle Fall Score: 50 Fall Risk: High Risk Safety Measures: Call light Within Reach, Bed Alarm Zone 2, Side Rails Side Rails x2, Bed position Low and Locked. Fall Precautions: Yellow Socks Report given to JAVI Hannon.
--- NOTE | 2020-06-23 19:20 | Cardiology Progress Note ---
Assessment/Plan Assessment/Plan respiratory failure s/p cp arrest / pea resolved with in 1 min massive hemoptysis vs gi bleed vs both svt paf phtn ar / mr / tr with normal lv function abn trop due to demand anemia thrombocytopenia pui probable aspiration sytemic htn cirtical care not clear why such high pasp duplex neg amio for main of sinus iv stated today as wasin sinus but flipped back in to afib rvr now better on amiod drip metoprolol for tachy if needed consider heme evla supportive care silvino abx empiric in isolation fro possible TB repeat ekg in am repeat trop amlodipien started for sig elevated bp d/w rn on several occasion dc midodrine dc ivf when tolerated ngt feeding well cl need diuretics Subjective ROS Limited/Unobtainable: Yes Objective Last 24 Hour Vital Signs Date Time Temp Pulse Resp B/P (MAP) Pulse Ox O2 Delivery O2 Flow Rate FiO2 06/23/20 19:00 108 18 100/62 (75) 100 06/23/20 18:00 110 17 112/73 (86) 100 06/23/20 18:00 16 117/61 Mechanical Ventilator 100 06/23/20 17:00 128 16 103/60 (74) 100 06/23/20 17:00 17 105/57 Mechanical Ventilator 100 06/23/20 16:20 189 22 100 06/23/20 16:13 197 06/23/20 16:00 Mechanical Ventilator Mechanical Ventilator Mechanical Ventilator 06/23/20 16:00 115 06/23/20 16:00 21 155/78 Mechanical Ventilator 45 06/23/20 16:00 99.8 108 30 195/105 (135) 87 06/23/20 16:00 100 06/23/20 15:57 101 171/84 06/23/20 15:14 115 22 45 06/23/20 15:00 19 180/95 Mechanical Ventilator 45 06/23/20 15:00 86 18 145/76 (99) 100 06/23/20 14:00 18 142/77 Mechanical Ventilator 45 06/23/20 14:00 79 18 143/69 (93) 100 06/23/20 13:00 17 145/71 Mechanical Ventilator 45 06/23/20 13:00 82 17 132/70 (90) 100 06/23/20 12:50 80 18 45 06/23/20 12:00 17 133/63 Mechanical Ventilator 45 06/23/20 12:00 45 06/23/20 12:00 Mechanical Ventilator Mechanical Ventilator Mechanical Ventilator 06/23/20 12:00 98.9 78 17 143/73 (96) 100 06/23/20 12:00 76 06/23/20 11:00 80 18 147/68 (94) 100 06/23/20 11:00 17 143/72 Mechanical Ventilator 45 06/23/20 10:43 75 18 45 06/23/20 10:40 45 06/23/20 10:00 17 140/74 Mechanical Ventilator 45 06/23/20 10:00 75 18 150/70 (96) 100 06/23/20 09:00 77 17 148/72 (97) 100 06/23/20 09:00 17 136/68 Mechanical Ventilator 50 06/23/20 08:55 74 18 50 06/23/20 08:00 50 06/23/20 08:00 Mechanical Ventilator Mechanical Ventilator Mechanical Ventilator 06/23/20 08:00 18 151/75 Mechanical Ventilator 50 06/23/20 08:00 82 06/23/20 08:00 98.7 81 18 151/75 (100) 100 06/23/20 07:00 18 161/75 Mechanical Ventilator 50 06/23/20 07:00 80 17 161/75 (103) 100 06/23/20 06:32 79 21 50 06/23/20 06:30 74 17 06/23/20 06:00 18 139/75 Mechanical Ventilator 50 06/23/20 06:00 75 17 139/75 (96) 100 06/23/20 05:00 17 131/68 Mechanical Ventilator 40 06/23/20 05:00 80 18 131/68 (89) 100 06/23/20 04:00 73 06/23/20 04:00 50 06/23/20 04:00 17 121/62 Mechanical Ventilator 40 06/23/20 04:00 97.9 77 17 121/62 (81) 100 06/23/20 04:00 Mechanical Ventilator Mechanical Ventilator Mechanical Ventilator 06/23/20 03:30 70 18 50 06/23/20 03:00 17 103/59 Mechanical Ventilator 50 06/23/20 03:00 73 17 103/59 (74) 100 06/23/20 02:00 17 94/54 Mechanical Ventilator 50 06/23/20 02:00 74 17 94/54 (67) 100 06/23/20 01:00 17 130/60 Mechanical Ventilator 50 06/23/20 01:00 81 17 103/60 (74) 100 06/23/20 00:51 99.1 06/23/20 00:00 100.5 86 17 144/69 (94) 100 06/23/20 00:00 Mechanical Ventilator Mechanical Ventilator Mechanical Ventilator 06/23/20 00:00 85 06/23/20 00:00 17 144/69 Mechanical Ventilator 50 06/22/20 23:28 85 18 50 06/22/20 23:17 17 144/71 Mechanical Ventilator 60 06/22/20 23:00 85 17 144/71 (95) 100 06/22/20 23:00 18 151/73 Mechanical Ventilator 60 06/22/20 22:00 17 151/74 Mechanical Ventilator 60 06/22/20 22:00 86 18 151/73 (99) 100 06/22/20 21:00 86 17 151/74 (99) 100 06/22/20 21:00 17 151/74 Mechanical Ventilator 40 06/22/20 20:00 60 06/22/20 20:00 98.5 84 17 169/83 (111) 100 06/22/20 20:00 Mechanical Ventilator Mechanical Ventilator Mechanical Ventilator 06/22/20 20:00 93 06/22/20 20:00 17 169/83 Mechanical Ventilator 60 06/22/20 19:30 80 19 60 General Appearance: no apparent distress, on vent, patient on isolation, iso lation precautions Cardiovascular: irregularly irregular Extremities: no swelling Intake and Output 06/22/20 06/23/20 19:00 07:00 Intake Total 1893.888 ml 2030.5 ml Output Total 855 ml 510 ml Balance 1038.888 ml 1520.5 ml IV Total 1713.888 ml 2030.5 ml Other 180 ml Output Urine Total 755 ml 510 ml Gastric Drainage Total 100 ml Laboratory Tests Test 06/23/20 04:16 White Blood Count 3.5 K/UL (4.8-10.8) #L Red Blood Count 3.12 M/UL (4.70-6.10) L Hemoglobin 10.1 G/DL (14.2-18.0) L Hematocrit 31.0 % (42.0-52.0) L Mean Corpuscular Volume 99 FL (80-99) Mean Corpuscular Hemoglobin 32.4 PG (27.0-31.0) H Mean Corpuscular Hemoglobin Concent 32.6 G/DL (32.0-36.0) Red Cell Distribution Width 15.3 % (11.6-14.8) H Platelet Count 64 K/UL (150-450) L Mean Platelet Volume 9.1 FL (6.5-10.1) Neutrophils (%) (Auto) % (45.0-75.0) Lymphocytes (%) (Auto) % (20.0-45.0) Monocytes (%) (Auto) % (1.0-10.0) Eosinophils (%) (Auto) % (0.0-3.0) Basophils (%) (Auto) % (0.0-2.0) Sodium Level 141 MMOL/L (136-145) Potassium Level 4.2 MMOL/L (3.5-5.1) Chloride Level 111 MMOL/L (98-107) H Carbon Dioxide Level 24 MMOL/L (21-32) Anion Gap 6 mmol/L (5-15) Blood Urea Nitrogen 21 mg/dL (7-18) H Creatinine 1.0 MG/DL (0.55-1.30) Estimat Glomerular Filtration Rate > 60 mL/min (>60) Glucose Level 202 MG/DL (74-106) H Uric Acid 4.7 MG/DL (2.6-7.2) Calcium Level 7.6 MG/DL (8.5-10.1) L Phosphorus Level 2.2 MG/DL (2.5-4.9) L Magnesium Level 1.9 MG/DL (1.8-2.4) Total Bilirubin 1.7 MG/DL (0.2-1.0) H Direct Bilirubin 1.0 MG/DL (0.0-0.3) H Aspartate Amino Transf (AST/SGOT) 40 U/L (15-37) H Alanine Aminotransferase (ALT/SGPT) 25 U/L (12-78) Alkaline Phosphatase 45 U/L (46-116) L C-Reactive Protein, Quantitative 8.3 mg/dL (0.00-0.90) H Pro-B-Type Natriuretic Peptide 02497 pg/mL (0-125) H Total Protein 5.0 G/DL (6.4-8.2) L Albumin 1.5 G/DL (3.4-5.0) L Globulin 3.5 g/dL Albumin/Globulin Ratio 0.4 (1.0-2.7) L Microbiology Date/Time Source Procedure Growth Status 06/21/20 01:00 Sputum AFB Specimen Processing Tissue - Final Resulted 06/21/20 01:00 Sputum Acid Fast Bacilli Smear - Final Resulted 06/21/20 01:00 Sputum Acid Fast Bacilli Culture Pending Resulted Ken Sevilla MD Jun 23, 2020 19:20
--- NOTE | 2020-06-23 19:30 | NUR ---
NURSE NOTES: Received pt in bed, sedated, LUIS E -2, on Fentanyl @ 100mcg/hr via right wrist #22, on vent via ETT not showing any signs of distress at present settings. D5 1/2 infusing at 40cc/hr, Sandostatin in infusing at 50cc/hr and Amiodarone running at 33.333ml/hr or 1 mg/min. via left hand #22. Glucerna 1.5 running at 10cc/hr via OGT. Calabrese in place draining tony colored urine. VSS and pt is now SR on the monitor.
--- NOTE | 2020-06-23 22:40 | NUR ---
NURSE NOTES: Left a voice message for Dr. Sevilla regarding pt's sinus isma at 50's. Amiodarone drip has been held since 2199. Awaiting call back.
[2020-06-24] VITALS (24 sets, daily range): BP systolic 85–175; BP diastolic 50–87
--- NOTE | 2020-06-24 00:15 | NUR ---
NURSE NOTES: Pt's condition remains unchanged. Pt still Sinus on the monitor with rates between 60-70's. Amiodarone drip will be re started at 0.5mg/min. Pt when assessed in [place], (nando Herman RN) was noted to be alert and follows commands and denies any pain or discomfort. Fentanyl infusion will be ended.
--- NOTE | 2020-06-24 01:30 | NUR ---
NURSE NOTES: Pt awake and alert but is agitated and denies any pain. Pt now A. Fib with RVR on the monitor but pt is asymptomatic. Pt still on Amiodarone drip. Will re start Fentanyl per protocol.
[2020-06-24] MEDS ORDERED: fentaNYL 2500mcg/NS 250ml 250 ML IV SCH (01:45)
--- NOTE | 2020-06-24 03:00 | NUR ---
NURSE NOTES: Pt now calm and sedated, LUIS E -2. Pt is now NSR with a HR of 80. Will continue to monitor pt.
--- NOTE | 2020-06-24 04:30 | NUR ---
NURSE NOTES: Pt agitated, tachycardic and is bucking the vent. spoke on the phone with Dr. Cormier. Order to start versed drip per protocol given.
[2020-06-24] MEDS: Versed 100mg/NS 200ml 200 ML IV SCH (05:02)
[2020-06-24 05:09] LABS: HEMATOCRIT 34.2 % (42.0-52.0); MEAN CORPUSCULAR VOLUME 99 FL (80-99); PLATELET COUNT 81 K/UL (150-450); RED BLOOD COUNT 3.46 M/UL (4.70-6.10); RED CELL DISTRIBUTION WIDTH 15.6 % (11.6-14.8)
[2020-06-24 05:19] LABS: ANION GAP 6 mmol/L (5-15); BLOOD UREA NITROGEN 23 mg/dL (7-18); CALCIUM 7.2 MG/DL (8.5-10.1); CARBON DIOXIDE 23 MMOL/L (21-32); CHLORIDE 109 MMOL/L (98-107); CREATININE 1.1 MG/DL (0.55-1.30); POTASSIUM 4.2 MMOL/L (3.5-5.1); SODIUM 138 MMOL/L (136-145)
[2020-06-24] MEDS: Octreotide Acetate 500 MCG in Sodium Chloride 499 ML IV SCH (06:19)
--- NOTE | 2020-06-24 07:07 | NUR ---
NURSE HAND-OFF REPORT: Latest Vital Signs: Temperature 98.5 , Pulse 102 , B/P 108 /66 , Respiratory Rate 17 , O2 SAT 100 , Mechanical Ventilator, O2 Flow Rate . Vital Sign Comment: EKG Rhythm: Sinus Rhythm Rhythm change?: N Notified?: N -Dr. Roel LEUNG Response: Order Received& Read Back Latest Coyle Fall Score: 50 Fall Risk: High Risk Safety Measures: Call light Within Reach, Bed Alarm Zone 2, Side Rails Side Rails x2, Bed position Low and Locked. Fall Precautions: Yellow Socks Report given to JAVI Schwartz .
--- NOTE | 2020-06-24 07:08 | NUR ---
NURSE NOTES: Received report from JAVI Hannon. Patient in bed sedated RASS -2. Patient A. fib with HR 110 at this time, ETT 7.5 22cm on lip line, cent setting AC 18 TV 500 Fio2 75% PEEP 5 O2 sat 100% at this time. IV on left hand 22G, left AC 22g, left UA 20G, right wrist 22G, asymptomatic, patent, intact, Fentanyl @ 100mcg/hr, Versed 1mg/hr RASS -2. IVF D5 1/2 NS @ 40ml/h, Sandostatin 50ml/h, amiodarone 0.5 mg/min will turn off @ 1800, a. fib HR 104. Endorsed unable to wean Fentanyl, patient agitated, restless. Calabrese catheter draining well to gravity, OGT patent, intact, Glucerna 1/5 @ 30ml/h goal of 50ml. Bed in lowest position, side rails upx 3, call light within reach, bed alarm on, Will continue to monitor.
--- NOTE | 2020-06-24 08:00 | NUR ---
NURSE NOTES: Patient calm, sedated RASS -2, Versed titrated to 0mg at this time, Fentanyl @ 100 mcg/h, will continue to monitor .
[2020-06-24] MEDS: Pantoprazole Inj IVP SCH ×2 (08:07→20:20)
[2020-06-24] MEDS: Cefepime HCl 1 GM in D5W 55 ML IVPB SCH ×2 (08:08→20:20)
--- NOTE | 2020-06-24 09:09 | Nephrology Progress Note ---
Assessment/Plan Problem List: (1) Cardiopulmonary arrest (2) Respiratory failure (3) Elevated troponin (4) Abdominal distension (5) Electrolyte imbalance Assessment Status post cardiorespiratory arrest Elevated troponin Oliguria Lactic acidosis Massive hemoptysis Acute respiratory failure, intubated on ventilator Electrolyte imbalance Plan June 24: Labs reviewed. Seen in ICU. Discussed with RN. On amiodarone drip for atrial fibrillation with fast ventricular rate. Continues to be full code, intubated on ventilator. Renal parameters reviewed. Continue per consultants. June 23: Labs reviewed. Abnormal electrolytes addressed. Discussed with RN. FiO2 lower at 60%. Continue per current management. June 22: Labs reviewed. Abnormal electrolytes addressed. Patient is full code intubated on ventilator. FiO2 60%. Continue per current management. Continue per consultants. June 21: Midodrine for low BP started. Albumin bolus given. Potassium and IV discontinued. Continue to monitor renal parameters. Abnormal electrolytes noted and addressed. Check TSH level. Pulmonary support Correct abnormal electrolytes and chemistries Anemia work-up Monitor renal parameters and urine output Urine studies Magnesium supplement Per orders Subjective ROS Limited/Unobtainable: Yes Objective Objective Last 24 Hour Vital Signs Date Time Temp Pulse Resp B/P (MAP) Pulse Ox O2 Delivery O2 Flow Rate FiO2 06/24/20 08:00 Mechanical Ventilator Mechanical Ventilator Mechanical Ventilator 06/24/20 08:00 98.6 105 17 115/67 (83) 100 06/24/20 08:00 68 06/24/20 07:00 17 108/66 Mechanical Ventilator 75 06/24/20 07:00 17 108/66 Mechanical Ventilator 75 06/24/20 07:00 102 17 108/66 (80) 100 06/24/20 06:30 96 17 06/24/20 06:00 18 128/66 Mechanical Ventilator 75 06/24/20 06:00 18 128/66 Mechanical Ventilator 75 06/24/20 06:00 76 18 128/66 (86) 100 06/24/20 05:02 17 136/74 75 06/24/20 05:00 76 17 136/74 (94) 100 06/24/20 05:00 17 136/74 Mechanical Ventilator 75 06/24/20 04:15 23 141/89 Mechanical Ventilator 80 06/24/20 04:00 Mechanical Ventilator Mechanical Ventilator Mechanical Ventilator 06/24/20 04:00 98.5 115 20 175/87 (116) 97 06/24/20 04:00 22 187/98 Mechanical Ventilator 75 06/24/20 04:00 80 06/24/20 04:00 74 06/24/20 03:45 21 170/103 Mechanical Ventilator 80 06/24/20 03:35 76 21 65 06/24/20 03:30 17 110/57 Mechanical Ventilator 80 06/24/20 03:15 17 139/64 Mechanical Ventilator 80 06/24/20 03:00 18 110/57 Mechanical Ventilator 80 06/24/20 03:00 107 18 110/57 (74) 100 06/24/20 02:45 17 116/58 Mechanical Ventilator 80 06/24/20 02:30 17 107/59 Mechanical Ventilator 80 06/24/20 02:15 23 127/81 Mechanical Ventilator 80 06/24/20 02:00 146 27 130/75 (93) 94 06/24/20 02:00 29 150/95 Mechanical Ventilator 80 06/24/20 01:00 69 16 144/63 (90) 100 06/24/20 00:15 17 118/61 Mechanical Ventilator 80 06/24/20 00:00 97.9 66 17 123/64 (83) 100 06/24/20 00:00 18 123/64 Mechanical Ventilator 80 06/24/20 00:00 80 06/24/20 00:00 Mechanical Ventilator Mechanical Ventilator Mechanical Ventilator 06/24/20 00:00 67 06/23/20 23:00 64 23 90 06/23/20 23:00 17 106/59 Mechanical Ventilator 80 06/23/20 23:00 61 17 106/59 (75) 100 06/23/20 22:00 56 18 95/47 (63) 100 06/23/20 22:00 18 95/47 Mechanical Ventilator 90 06/23/20 21:00 68 16 115/55 (75) 100 06/23/20 21:00 16 115/55 Mechanical Ventilator 90 06/23/20 20:00 Mechanical Ventilator Mechanical Ventilator Mechanical Ventilator 06/23/20 20:00 18 94/52 Mechanical Ventilator 90 06/23/20 20:00 90 06/23/20 20:00 68 06/23/20 20:00 98.3 63 18 94/52 (66) 100 06/23/20 19:10 70 19 90 06/23/20 19:00 108 18 100/62 (75) 100 06/23/20 19:00 17 100/62 Mechanical Ventilator 100 06/23/20 18:58 99.8 06/23/20 18:00 110 17 112/73 (86) 100 06/23/20 18:00 16 117/61 Mechanical Ventilator 100 06/23/20 17:00 128 16 103/60 (74) 100 06/23/20 17:00 17 105/57 Mechanical Ventilator 100 06/23/20 16:20 189 22 100 06/23/20 16:13 197 06/23/20 16:00 Mechanical Ventilator Mechanical Ventilator Mechanical Ventilator 06/23/20 16:00 115 06/23/20 16:00 21 155/78 Mechanical Ventilator 45 06/23/20 16:00 99.8 108 30 195/105 (135) 87 06/23/20 16:00 100 06/23/20 15:57 101 171/84 06/23/20 15:14 115 22 45 06/23/20 15:00 19 180/95 Mechanical Ventilator 45 06/23/20 15:00 86 18 145/76 (99) 100 06/23/20 14:00 18 142/77 Mechanical Ventilator 45 06/23/20 14:00 79 18 143/69 (93) 100 06/23/20 13:00 17 145/71 Mechanical Ventilator 45 06/23/20 13:00 82 17 132/70 (90) 100 06/23/20 12:50 80 18 45 06/23/20 12:00 17 133/63 Mechanical Ventilator 45 06/23/20 12:00 45 06/23/20 12:00 Mechanical Ventilator Mechanical Ventilator Mechanical Ventilator 06/23/20 12:00 98.9 78 17 143/73 (96) 100 06/23/20 12:00 76 06/23/20 11:00 80 18 147/68 (94) 100 06/23/20 11:00 17 143/72 Mechanical Ventilator 45 06/23/20 10:43 75 18 45 06/23/20 10:40 45 06/23/20 10:00 17 140/74 Mechanical Ventilator 45 06/23/20 10:00 75 18 150/70 (96) 100 Intake and Output 06/23/20 06/24/20 19:00 07:00 Intake Total 1457.498 ml 1993.835 ml Output Total 420 ml 400 ml Balance 1037.498 ml 1593.835 ml Intake Free Water 10 ml IV Total 1407.498 ml 1763.835 ml Tube Feeding 40 ml 230 ml Output Urine Total 420 ml 400 ml Current Medications Medications (Trade) Dose Ordered Sig/Augusto Route PRN Reason Start Time Stop Time Status Last Admin Dose Admin Acetaminophen (Tylenol) 650 mg EVERY 6 HOURS PRN NG Temp >100.5 06/19/20 22:30 07/19/20 22:29 06/23/20 18:28 Acetaminophen (Tylenol) 650 mg Q4H PRN RECTAL Temp >100.5 06/21/20 03:30 07/21/20 03:29 06/21/20 03:36 Amiodarone HCl 900 mg/Dextrose 500 ml @ 0 mls/hr ONCE IV 06/23/20 16:30 06/24/20 16:29 06/23/20 16:53 Amlodipine Besylate (Norvasc) 2.5 mg BIDPRN PRN NG For High Blood Pressure 06/22/20 20:30 07/22/20 20:29 06/23/20 15:57 Cefepime HCl 1 gm/ Dextrose 55 ml @ 110 mls/hr EVERY 12 HOURS IVPB 06/20/20 09:00 06/27/20 08:59 06/24/20 08:08 Dextrose/Sodium Chloride 1,000 ml @ 40 mls/hr Q24H IV 06/21/20 13:41 07/21/20 13:40 06/23/20 09:36 Fentanyl Citrate 250 ml @ 1 mls/hr Q24H IV 06/24/20 01:45 06/26/20 01:44 06/24/20 02:00 Levothyroxine Sodium (Synthroid) 50 mcg DAILY@0630 ORAL 06/22/20 11:00 07/22/20 10:59 06/24/20 06:19 Metronidazole 100 ml @ 100 mls/hr Q8HR IVPB 06/20/20 22:00 06/27/20 21:59 06/24/20 05:03 Midazolam HCl 200 ml @ 0 mls/hr Q24H IV 06/24/20 04:45 07/01/20 04:44 06/24/20 05:02 Octreotide Acetate 500 mcg/ Sodium Chloride 500 ml @ 50 mls/hr Q10H IV 06/20/20 16:30 07/20/20 16:29 06/24/20 06:19 Pantoprazole (Protonix) 40 mg EVERY 12 HOURS IVP 06/20/20 09:00 07/20/20 08:59 06/24/20 08:07 Laboratory Tests 06/24/20 03:20: White Blood Count 3.0L, Red Blood Count 3.46L, Hemoglobin 11.0L, Hematocrit 34.2L, Mean Corpuscular Volume 99, Mean Corpuscular Hemoglobin 31.8H, Mean Corpuscular Hemoglobin Concent 32.2, Red Cell Distribution Width 15.6H, Platelet Count 81L, Mean Platelet Volume 9.2, Neutrophils (%) (Auto) , Lymphocytes (%) (Auto) , Monocytes (%) (Auto) , Eosinophils (%) (Auto) , Basophils (%) (Auto) , Differential Total Cells Counted 100, Neutrophils % (Manual) 93H, Lymphocytes % (Manual) 3L, Monocytes % (Manual) 4, Eosinophils % (Manual) 0, Basophils % (Manual) 0, Band Neutrophils 0, Platelet Estimate DecreasedL, Platelet Morp hology Normal, Anisocytosis 1+, Macrocytosis 1+, Sodium Level 138, Potassium Level 4.2, Chloride Level 109H, Carbon Dioxide Level 23, Anion Gap 6, Blood Urea Nitrogen 23H, Creatinine 1.1, Estimat Glomerular Filtration Rate > 60, Glucose Level 208H, Calcium Level 7.2L Height (Feet): 5 Height (Inches): 8.00 Weight (Pounds): 119 General Appearance: no apparent distress EENT: other - Intubated on ventilator Cardiovascular: tachycardia, arrhythmia Respiratory/Chest: decreased breath sounds Abdomen: distended Kapil Rea MD Jun 24, 2020 09:09
--- NOTE | 2020-06-24 09:45 | General Progress Note ---
Subjective ROS Limited/Unobtainable: No Allergies: Coded Allergies: No Known Allergies (Unverified , 06/19/20) Objective Last 24 Hour Vital Signs Date Time Temp Pulse Resp B/P (MAP) Pulse Ox O2 Delivery O2 Flow Rate FiO2 06/24/20 09:00 131 16 131/67 (88) 100 06/24/20 08:00 Mechanical Ventilator Mechanical Ventilator Mechanical Ventilator 06/24/20 08:00 98.6 105 17 115/67 (83) 100 06/24/20 08:00 75 06/24/20 08:00 68 06/24/20 07:00 17 108/66 Mechanical Ventilator 75 06/24/20 07:00 17 108/66 Mechanical Ventilator 75 06/24/20 07:00 102 17 108/66 (80) 100 06/24/20 06:30 96 17 06/24/20 06:00 18 128/66 Mechanical Ventilator 75 06/24/20 06:00 18 128/66 Mechanical Ventilator 75 06/24/20 06:00 76 18 128/66 (86) 100 06/24/20 05:02 17 136/74 75 06/24/20 05:00 76 17 136/74 (94) 100 06/24/20 05:00 17 136/74 Mechanical Ventilator 75 06/24/20 04:15 23 141/89 Mechanical Ventilator 80 06/24/20 04:00 Mechanical Ventilator Mechanical Ventilator Mechanical Ventilator 06/24/20 04:00 98.5 115 20 175/87 (116) 97 06/24/20 04:00 22 187/98 Mechanical Ventilator 75 06/24/20 04:00 80 06/24/20 04:00 74 06/24/20 03:45 21 170/103 Mechanical Ventilator 80 06/24/20 03:35 76 21 65 06/24/20 03:30 17 110/57 Mechanical Ventilator 80 06/24/20 03:15 17 139/64 Mechanical Ventilator 80 06/24/20 03:00 18 110/57 Mechanical Ventilator 80 06/24/20 03:00 107 18 110/57 (74) 100 06/24/20 02:45 17 116/58 Mechanical Ventilator 80 06/24/20 02:30 17 107/59 Mechanical Ventilator 80 06/24/20 02:15 23 127/81 Mechanical Ventilator 80 06/24/20 02:00 146 27 130/75 (93) 94 06/24/20 02:00 29 150/95 Mechanical Ventilator 80 06/24/20 01:00 69 16 144/63 (90) 100 06/24/20 00:15 17 118/61 Mechanical Ventilator 80 06/24/20 00:00 97.9 66 17 123/64 (83) 100 06/24/20 00:00 18 123/64 Mechanical Ventilator 80 06/24/20 00:00 80 06/24/20 00:00 Mechanical Ventilator Mechanical Ventilator Mechanical Ventilator 06/24/20 00:00 67 06/23/20 23:00 64 23 90 06/23/20 23:00 17 106/59 Mechanical Ventilator 80 06/23/20 23:00 61 17 106/59 (75) 100 06/23/20 22:00 56 18 95/47 (63) 100 06/23/20 22:00 18 95/47 Mechanical Ventilator 90 06/23/20 21:00 68 16 115/55 (75) 100 06/23/20 21:00 16 115/55 Mechanical Ventilator 90 06/23/20 20:00 Mechanical Ventilator Mechanical Ventilator Mechanical Ventilator 06/23/20 20:00 18 94/52 Mechanical Ventilator 90 06/23/20 20:00 90 06/23/20 20:00 68 06/23/20 20:00 98.3 63 18 94/52 (66) 100 06/23/20 19:10 70 19 90 06/23/20 19:00 108 18 100/62 (75) 100 06/23/20 19:00 17 100/62 Mechanical Ventilator 100 06/23/20 18:58 99.8 06/23/20 18:00 110 17 112/73 (86) 100 06/23/20 18:00 16 117/61 Mechanical Ventilator 100 06/23/20 17:00 128 16 103/60 (74) 100 06/23/20 17:00 17 105/57 Mechanical Ventilator 100 06/23/20 16:20 189 22 100 06/23/20 16:13 197 06/23/20 16:00 Mechanical Ventilator Mechanical Ventilator Mechanical Ventilator 06/23/20 16:00 115 06/23/20 16:00 21 155/78 Mechanical Ventilator 45 06/23/20 16:00 99.8 108 30 195/105 (135) 87 06/23/20 16:00 100 06/23/20 15:57 101 171/84 06/23/20 15:14 115 22 45 06/23/20 15:00 19 180/95 Mechanical Ventilator 45 06/23/20 15:00 86 18 145/76 (99) 100 06/23/20 14:00 18 142/77 Mechanical Ventilator 45 06/23/20 14:00 79 18 143/69 (93) 100 06/23/20 13:00 17 145/71 Mechanical Ventilator 45 06/23/20 13:00 82 17 132/70 (90) 100 06/23/20 12:50 80 18 45 06/23/20 12:00 17 133/63 Mechanical Ventilator 45 06/23/20 12:00 45 06/23/20 12:00 Mechanical Ventilator Mechanical Ventilator Mechanical Ventilator 06/23/20 12:00 98.9 78 17 143/73 (96) 100 06/23/20 12:00 76 06/23/20 11:00 80 18 147/68 (94) 100 06/23/20 11:00 17 143/72 Mechanical Ventilator 45 06/23/20 10:43 75 18 45 06/23/20 10:40 45 06/23/20 10:00 17 140/74 Mechanical Ventilator 45 06/23/20 10:00 75 18 150/70 (96) 100 Intake and Output 06/23/20 06/24/20 19:00 07:00 Intake Total 1457.498 ml 1993.835 ml Output Total 420 ml 400 ml Balance 1037.498 ml 1593.835 ml Intake Free Water 10 ml IV Total 1407.498 ml 1763.835 ml Tube Feeding 40 ml 230 ml Output Urine Total 420 ml 400 ml Laboratory Tests 06/24/20 03:20: White Blood Count 3.0L, Red Blood Count 3.46L, Hemoglobin 11.0L, Hematocrit 34.2L, Mean Corpuscular Volume 99, Mean Corpuscular Hemoglobin 31.8H, Mean Corpuscular Hemoglobin Concent 32.2, Red Cell Distribution Width 15.6H, Platelet Count 81L, Mean Platelet Volume 9.2, Neutrophils (%) (Auto) , Lymphocytes (%) (Auto) , Monocytes (%) (Auto) , Eosinophils (%) (Auto) , Basophils (%) (Auto) , Differential Total Cells Counted 100, Neutrophils % (Manual) 93H, Lymphocytes % (Manual) 3L, Monocytes % (Manual) 4, Eosinophils % (Manual) 0, Basophils % (Manual) 0, Band Neutrophils 0, Platelet Estimate DecreasedL, Platelet Morphology Normal, Anisocytosis 1+, Macrocytosis 1+, Sodium Level 138, Potassium Level 4.2, Chloride Level 109H, Carbon Dioxide Level 23, Anion Gap 6, Blood Urea Nitrogen 23H, Creatinine 1.1, Estimat Glomerular Filtration Rate > 60, Glucose Level 208H, Calcium Level 7.2L Height (Feet): 5 Height (Inches): 8.00 Weight (Pounds): 119 General Appearance: no apparent distress EENT: normal ENT inspection Neck: supple Cardiovascular: normal rate Respiratory/Chest: decreased breath sounds Abdomen: normal bowel sounds, non tender, soft Extremities: non-tender Assessment/Plan Status: not improved, unchanged Assessment/Plan: 1. Massive hemoptysis. 2. Possible GI bleed. 3. Status post cardiopulmonary arrest/PEA. 4. Anemia. 5. elevated trop>>>improving 6. Paroxysmal atrial fibrillation. 7. Thrombocytopenia. ppi GI procedures on hold fu cardiology poor prognosis NGTF on amio Matt Cisneros MD Jun 24, 2020 09:45
--- NOTE | 2020-06-24 10:17 | Neurology Progress Note ---
Interim History Interim History ROS Limited/Unobtainable: No Events: on versed in icu Objective Physical Exam Last Vital Signs Date Time Temp Pulse Resp B/P (MAP) Pulse Ox O2 Delivery O2 Flow Rate FiO2 06/24/20 09:00 131 16 131/67 (88) 100 06/24/20 08:00 Mechanical Ventilator Mechanical Ventilator Mechanical Ventilator 06/24/20 08:00 98.6 06/24/20 08:00 75 06/19/20 16:08 4.0 Laboratory Tests Test 06/24/20 03:20 White Blood Count 3.0 K/UL (4.8-10.8) L Red Blood Count 3.46 M/UL (4.70-6.10) L Hemoglobin 11.0 G/DL (14.2-18.0) L Hematocrit 34.2 % (42.0-52.0) L Mean Corpuscular Volume 99 FL (80-99) Mean Corpuscular Hemoglobin 31.8 PG (27.0-31.0) H Mean Corpuscular Hemoglobin Concent 32.2 G/DL (32.0-36.0) Red Cell Distribution Width 15.6 % (11.6-14.8) H Platelet Count 81 K/UL (150-450) L Mean Platelet Volume 9.2 FL (6.5-10.1) Neutrophils (%) (Auto) % (45.0-75.0) Lymphocytes (%) (Auto) % (20.0-45.0) Monocytes (%) (Auto) % (1.0-10.0) Eosinophils (%) (Auto) % (0.0-3.0) Basophils (%) (Auto) % (0.0-2.0) Differential Total Cells Counted 100 Neutrophils % (Manual) 93 % (45-75) H Lymphocytes % (Manual) 3 % (20-45) L Monocytes % (Manual) 4 % (1-10) Eosinophils % (Manual) 0 % (0-3) Basophils % (Manual) 0 % (0-2) Band Neutrophils 0 % (0-8) Platelet Estimate Decreased L Platelet Morphology Normal Anisocytosis 1+ Macrocytosis 1+ Sodium Level 138 MMOL/L (136-145) Potassium Level 4.2 MMOL/L (3.5-5.1) Chloride Level 109 MMOL/L (98-107) H Carbon Dioxide Level 23 MMOL/L (21-32) Anion Gap 6 mmol/L (5-15) Blood Urea Nitrogen 23 mg/dL (7-18) H Creatinine 1.1 MG/DL (0.55-1.30) Estimat Glomerular Filtration Rate > 60 mL/min (>60) Glucose Level 208 MG/DL (74-106) H Calcium Level 7.2 MG/DL (8.5-10.1) L Neurologic Exam Objective ROS difficult to assess PE Neuro exam is limited at this time he is awake today , tracts eyes PERRLA has spontaneous movements of upper extremities. No facial droop symmetrical withdraws to painful stimul Impression/Recommendations Status: not improved, unchanged Diagnostic Impression LAB Reviewed IMAGING: CT of the head was done. No acute intracranial abnormality, parenchymal atrophy, and mild chronic microvascular ischemic changes. MEDS: Reviewed Assessment and Plan: 1. Syncope --> likely due to vasovagal was having Bowel movement at that time also hypovolemic due to amount of blood loss from gi bleeding vomiting --> we will follow along at this time no further neuro recommendations. Continue to monitor. 2. Resp Arrest --> s/p intubation on vent 3. Hypertension 4. Anemia Thank you for allowing us to participate in patient's care plan of care was discussed with Dr. Edmar Valencia who agrees with plan. Jacqueline Solis NP Jun 24, 2020 10:17
--- NOTE | 2020-06-24 10:55 | Pulmonology Progress Note ---
Subjective ROS Limited/Unobtainable: No Interval Events: Afib with rvr last night -> now on amiodarone drip Constitutional: Reports: no symptoms HEENT: Repors: no symptoms Respiratory: Reports: no symptoms Cardiovascular: Reports: no symptoms Allergies: Coded Allergies: No Known Allergies (Unverified , 06/19/20) Objective Last 24 Hour Vital Signs Date Time Temp Pulse Resp B/P (MAP) Pulse Ox O2 Delivery O2 Flow Rate FiO2 06/24/20 10:00 65 06/24/20 10:00 82 17 129/66 (87) 100 06/24/20 10:00 17 134/64 Mechanical Ventilator 75 06/24/20 09:00 17 131/67 Mechanical Ventilator 75 06/24/20 09:00 131 16 131/67 (88) 100 06/24/20 08:00 Mechanical Ventilator Mechanical Ventilator Mechanical Ventilator 06/24/20 08:00 98.6 105 17 115/67 (83) 100 06/24/20 08:00 75 06/24/20 08:00 17 115/67 Mechanical Ventilator 75 06/24/20 08:00 68 06/24/20 07:00 17 108/66 Mechanical Ventilator 75 06/24/20 07:00 17 108/66 Mechanical Ventilator 75 06/24/20 07:00 102 17 108/66 (80) 100 06/24/20 06:30 96 17 06/24/20 06:00 18 128/66 Mechanical Ventilator 75 06/24/20 06:00 18 128/66 Mechanical Ventilator 75 06/24/20 06:00 76 18 128/66 (86) 100 06/24/20 05:02 17 136/74 75 06/24/20 05:00 76 17 136/74 (94) 100 06/24/20 05:00 17 136/74 Mechanical Ventilator 75 06/24/20 04:15 23 141/89 Mechanical Ventilator 80 06/24/20 04:00 Mechanical Ventilator Mechanical Ventilator Mechanical Ventilator 06/24/20 04:00 98.5 115 20 175/87 (116) 97 06/24/20 04:00 22 187/98 Mechanical Ventilator 75 06/24/20 04:00 80 06/24/20 04:00 74 06/24/20 03:45 21 170/103 Mechanical Ventilator 80 06/24/20 03:35 76 21 65 06/24/20 03:30 17 110/57 Mechanical Ventilator 80 06/24/20 03:15 17 139/64 Mechanical Ventilator 80 06/24/20 03:00 18 110/57 Mechanical Ventilator 80 06/24/20 03:00 107 18 110/57 (74) 100 06/24/20 02:45 17 116/58 Mechanical Ventilator 80 06/24/20 02:30 17 107/59 Mechanical Ventilator 80 06/24/20 02:15 23 127/81 Mechanical Ventilator 80 06/24/20 02:00 146 27 130/75 (93) 94 06/24/20 02:00 29 150/95 Mechanical Ventilator 80 06/24/20 01:00 69 16 144/63 (90) 100 06/24/20 00:15 17 118/61 Mechanical Ventilator 80 06/24/20 00:00 97.9 66 17 123/64 (83) 100 06/24/20 00:00 18 123/64 Mechanical Ventilator 80 06/24/20 00:00 80 06/24/20 00:00 Mechanical Ventilator Mechanical Ventilator Mechanical Ventilator 06/24/20 00:00 67 06/23/20 23:00 64 23 90 06/23/20 23:00 17 106/59 Mechanical Ventilator 80 06/23/20 23:00 61 17 106/59 (75) 100 06/23/20 22:00 56 18 95/47 (63) 100 06/23/20 22:00 18 95/47 Mechanical Ventilator 90 06/23/20 21:00 68 16 115/55 (75) 100 06/23/20 21:00 16 115/55 Mechanical Ventilator 90 06/23/20 20:00 Mechanical Ventilator Mechanical Ventilator Mechanical Ventilator 06/23/20 20:00 18 94/52 Mechanical Ventilator 90 06/23/20 20:00 90 06/23/20 20:00 68 06/23/20 20:00 98.3 63 18 94/52 (66) 100 06/23/20 19:10 70 19 90 06/23/20 19:00 108 18 100/62 (75) 100 06/23/20 19:00 17 100/62 Mechanical Ventilator 100 06/23/20 18:58 99.8 06/23/20 18:00 110 17 112/73 (86) 100 06/23/20 18:00 16 117/61 Mechanical Ventilator 100 06/23/20 17:00 128 16 103/60 (74) 100 06/23/20 17:00 17 105/57 Mechanical Ventilator 100 06/23/20 16:20 189 22 100 06/23/20 16:13 197 06/23/20 16:00 Mechanical Ventilator Mechanical Ventilator Mechanical Ventilator 06/23/20 16:00 115 06/23/20 16:00 21 155/78 Mechanical Ventilator 45 06/23/20 16:00 99.8 108 30 195/105 (135) 87 06/23/20 16:00 100 06/23/20 15:57 101 171/84 06/23/20 15:14 115 22 45 06/23/20 15:00 19 180/95 Mechanical Ventilator 45 06/23/20 15:00 86 18 145/76 (99) 100 06/23/20 14:00 18 142/77 Mechanical Ventilator 45 06/23/20 14:00 79 18 143/69 (93) 100 06/23/20 13:00 17 145/71 Mechanical Ventilator 45 06/23/20 13:00 82 17 132/70 (90) 100 06/23/20 12:50 80 18 45 06/23/20 12:00 17 133/63 Mechanical Ventilator 45 06/23/20 12:00 45 06/23/20 12:00 Mechanical Ventilator Mechanical Ventilator Mechanical Ventilator 06/23/20 12:00 98.9 78 17 143/73 (96) 100 06/23/20 12:00 76 06/23/20 11:00 80 18 147/68 (94) 100 06/23/20 11:00 17 143/72 Mechanical Ventilator 45 l Intake and Output 06/23/20 06/24/20 19:00 07:00 Intake Total 1457.498 ml 1993.835 ml Output Total 420 ml 400 ml Balance 1037.498 ml 1593.835 ml Intake Free Water 10 ml IV Total 1407.498 ml 1763.835 ml Tube Feeding 40 ml 230 ml Output Urine Total 420 ml 400 ml General Appearance: no acute distress HEENT: normocephalic Respiratory: chest wall non-tender, lungs clear Cardiovascular: normal peripheral pulses, normal rate Abdomen: normal bowel sounds Laboratory Tests 06/24/20 03:20: White Blood Count 3.0L, Red Blood Count 3.46L, Hemoglobin 11.0L, Hematocrit 34.2L, Mean Corpuscular Volume 99, Mean Corpuscular Hemoglobin 31.8H, Mean Corpuscular Hemoglobin Concent 32.2, Red Cell Distribution Width 15.6H, Platelet Count 81L, Mean Platelet Volume 9.2, Neutrophils (%) (Auto) , Lymphocytes (%) (Auto) , Monocytes (%) (Auto) , Eosinophils (%) (Auto) , Basophils (%) (Auto) , Differential Total Cells Counted 100, Neutrophils % (Manual) 93H, Lymphocytes % (Manual) 3L, Monocytes % (Manual) 4, Eosinophils % (Manual) 0, Basophils % (Manual) 0, Band Neutrophils 0, Platelet Estimate DecreasedL, Platelet Morphology Normal, Anisocytosis 1+, Macrocytosis 1+, Sodium Level 138, Potassium Level 4.2, Chloride Level 109H, Carbon Dioxide Level 23, Anion Gap 6, Blood Urea Nitrogen 23H, Creatinine 1.1, Estimat Glomerular Filtration Rate > 60, Glucose Level 208H, Calcium Level 7.2L Current Medications Medications (Trade) Dose Ordered Sig/Augusto Route PRN Reason Start Time Stop Time Status Last Admin Dose Admin Acetaminophen (Tylenol) 650 mg EVERY 6 HOURS PRN NG Temp >100.5 06/19/20 22:30 07/19/20 22:29 06/23/20 18:28 Acetaminophen (Tylenol) 650 mg Q4H PRN RECTAL Temp >100.5 06/21/20 03:30 07/21/20 03:29 06/21/20 03:36 Amiodarone HCl 900 mg/Dextrose 500 ml @ 0 mls/hr ONCE IV 06/23/20 16:30 06/24/20 16:29 06/23/20 16:53 Amlodipine Besylate (Norvasc) 2.5 mg BIDPRN PRN NG For High Blood Pressure 06/22/20 20:30 07/22/20 20:29 06/23/20 15:57 Cefepime HCl 1 gm/ Dextrose 55 ml @ 110 mls/hr EVERY 12 HOURS IVPB 06/20/20 09:00 06/27/20 08:59 06/24/20 08:08 Dextrose/Sodium Chloride 1,000 ml @ 40 mls/hr Q24H IV 06/21/20 13:41 07/21/20 13:40 06/23/20 09:36 Fentanyl Citrate 250 ml @ 1 mls/hr Q24H IV 06/24/20 01:45 06/26/20 01:44 06/24/20 02:00 Levothyroxine Sodium (Synthroid) 50 mcg DAILY@0630 ORAL 06/22/20 11:00 07/22/20 10:59 06/24/20 06:19 Metronidazole 100 ml @ 100 mls/hr Q8HR IVPB 06/20/20 22:00 06/27/20 21:59 06/24/20 05:03 Midazolam HCl 200 ml @ 0 mls/hr Q24H IV 06/24/20 04:45 07/01/20 04:44 06/24/20 05:02 Pantoprazole (Protonix) 40 mg EVERY 12 HOURS IVP 06/20/20 09:00 07/20/20 08:59 06/24/20 08:07 Assessment/Plan Assessment/Plan 1. GI bleed. Now resolved; on Octreotide - TB result pending 2. Respiratory failure. Will continue AC mode 3. Shock. 4. Patchy bilateral infiltrates. 5. Non-STEMI. DISCUSSION: Patient cannot receive anticoagulation for STEMI given his GI bleed. Agree with the use of Protonix and octreotide. We will maintain assist-control mechanical ventilation. 65% FiO2, PEEP 5 Deep prophylaxis with SCD. Sedation as required; Still on Fentanyl, off Versed IV fluids. I will follow carefully. Empiric antibiotics as appropriate. ABG noted; will hold weaning given respiratory acidosis -> Vent adjusted The care of this patient was discussed with my supervising physician Time spent for this encounter was approximately 31 minutes Saad Renteria Jun 24, 2020 10:55
[2020-06-24] MEDS ORDERED: SODIUM CHLORIDE IV SCH (11:15)
[2020-06-24] MEDS ORDERED: FENTANYL IV SCH (11:15)
[2020-06-24] MEDS: D5 1/2NS 1,000 ML IV SCH (11:51)
--- NOTE | 2020-06-24 11:56 | Surgery Progress Note ---
Surgery Progress Note Subjective Additional Comments weaning vent peep 5 fio2 50 no n/v labs noted non responsive Objective Last 24 Hour Vital Signs Date Time Temp Pulse Resp B/P (MAP) Pulse Ox O2 Delivery O2 Flow Rate FiO2 06/24/20 11:10 19 121/61 Mechanical Ventilator 65 06/24/20 11:00 17 121/61 Endotracheal Tube 65 06/24/20 11:00 81 17 121/61 (81) 100 06/24/20 10:00 65 06/24/20 10:00 82 17 129/66 (87) 100 06/24/20 10:00 17 134/64 Mechanical Ventilator 75 06/24/20 10:00 17 131/65 Endotracheal Tube 65 06/24/20 09:00 17 131/67 Mechanical Ventilator 75 06/24/20 09:00 17 131/67 Endotracheal Tube 65 06/24/20 09:00 131 16 131/67 (88) 100 06/24/20 08:00 Mechanical Ventilator Mechanical Ventilator Mechanical Ventilator 06/24/20 08:00 98.6 105 17 115/67 (83) 100 06/24/20 08:00 75 06/24/20 08:00 17 115/67 Mechanical Ventilator 75 06/24/20 08:00 17 115/67 Endotracheal Tube 75 06/24/20 08:00 68 06/24/20 07:00 17 108/66 Mechanical Ventilator 75 06/24/20 07:00 17 108/66 Mechanical Ventilator 75 06/24/20 07:00 102 17 108/66 (80) 100 06/24/20 06:30 96 17 06/24/20 06:00 18 128/66 Mechanical Ventilator 75 06/24/20 06:00 18 128/66 Mechanical Ventilator 75 06/24/20 06:00 76 18 128/66 (86) 100 06/24/20 05:02 17 136/74 75 06/24/20 05:00 76 17 136/74 (94) 100 06/24/20 05:00 17 136/74 Mechanical Ventilator 75 06/24/20 04:15 23 141/89 Mechanical Ventilator 80 06/24/20 04:00 Mechanical Ventilator Mechanical Ventilator Mechanical Ventilator 06/24/20 04:00 98.5 115 20 175/87 (116) 97 06/24/20 04:00 22 187/98 Mechanical Ventilator 75 06/24/20 04:00 80 06/24/20 04:00 74 3/9/21 03:45 21 170/103 Mechanical Ventilator 80 06/24/20 03:35 76 21 65 06/24/20 03:30 17 110/57 Mechanical Ventilator 80 06/24/20 03:15 17 139/64 Mechanical Ventilator 80 06/24/20 03:00 18 110/57 Mechanical Ventilator 80 06/24/20 03:00 107 18 110/57 (74) 100 06/24/20 02:45 17 116/58 Mechanical Ventilator 80 06/24/20 02:30 17 107/59 Mechanical Ventilator 80 06/24/20 02:15 23 127/81 Mechanical Ventilator 80 06/24/20 02:00 146 27 130/75 (93) 94 06/24/20 02:00 29 150/95 Mechanical Ventilator 80 06/24/20 01:00 69 16 144/63 (90) 100 06/24/20 00:15 17 118/61 Mechanical Ventilator 80 06/24/20 00:00 97.9 66 17 123/64 (83) 100 06/24/20 00:00 18 123/64 Mechanical Ventilator 80 06/24/20 00:00 80 06/24/20 00:00 Mechanical Ventilator Mechanical Ventilator Mechanical Ventilator 06/24/20 00:00 67 06/23/20 23:00 64 23 90 06/23/20 23:00 17 106/59 Mechanical Ventilator 80 06/23/20 23:00 61 17 106/59 (75) 100 06/23/20 22:00 56 18 95/47 (63) 100 06/23/20 22:00 18 95/47 Mechanical Ventilator 90 06/23/20 21:00 68 16 115/55 (75) 100 06/23/20 21:00 16 115/55 Mechanical Ventilator 90 06/23/20 20:00 Mechanical Ventilator Mechanical Ventilator Mechanical Ventilator 06/23/20 20:00 18 94/52 Mechanical Ventilator 90 06/23/20 20:00 90 06/23/20 20:00 68 06/23/20 20:00 98.3 63 18 94/52 (66) 100 06/23/20 19:10 70 19 90 06/23/20 19:00 108 18 100/62 (75) 100 06/23/20 19:00 17 100/62 Mechanical Ventilator 100 06/23/20 18:58 99.8 06/23/20 18:00 110 17 112/73 (86) 100 06/23/20 18:00 16 117/61 Mechanical Ventilator 100 06/23/20 17:00 128 16 103/60 (74) 100 06/23/20 17:00 17 105/57 Mechanical Ventilator 100 06/23/20 16:20 189 22 100 06/23/20 16:13 197 06/23/20 16:00 Mechanical Ventilator Mechanical Ventilator Mechanical Ventilator 06/23/20 16:00 115 06/23/20 16:00 21 155/78 Mechanical Ventilator 45 06/23/20 16:00 99.8 108 30 195/105 (135) 87 06/23/20 16:00 100 06/23/20 15:57 101 171/84 06/23/20 15:14 115 22 45 06/23/20 15:00 19 180/95 Mechanical Ventilator 45 06/23/20 15:00 86 18 145/76 (99) 100 06/23/20 14:00 18 142/77 Mechanical Ventilator 45 06/23/20 14:00 79 18 143/69 (93) 100 06/23/20 13:00 17 145/71 Mechanical Ventilator 45 06/23/20 13:00 82 17 132/70 (90) 100 06/23/20 12:50 80 18 45 06/23/20 12:00 17 133/63 Mechanical Ventilator 45 06/23/20 12:00 45 06/23/20 12:00 Mechanical Ventilator Mechanical Ventilator Mechanical Ventilator 06/23/20 12:00 98.9 78 17 143/73 (96) 100 06/23/20 12:00 76 I&O Intake and Output 06/23/20 06/24/20 19:00 07:00 Intake Total 1457.498 ml 1993.835 ml Output Total 420 ml 400 ml Balance 1037.498 ml 1593.835 ml Intake Free Water 10 ml IV Total 1407.498 ml 1763.835 ml Tube Feeding 40 ml 230 ml Output Urine Total 420 ml 400 ml Dressing: saturated Cardiovascular: RSR Respiratory: decreased breath sounds, other Abdomen: soft, non-tender, present bowel sounds, non-distended Extremities: no edema, no tenderness, no cyanosis Laboratory Tests Test 06/24/20 03:20 White Blood Count 3.0 K/UL (4.8-10.8) L Red Blood Count 3.46 M/UL (4.70-6.10) L Hemoglobin 11.0 G/DL (14.2-18.0) L Hematocrit 34.2 % (42.0-52.0) L Mean Corpuscular Volume 99 FL (80-99) Mean Corpuscular Hemoglobin 31.8 PG (27.0-31.0) H Mean Corpuscular Hemoglobin Concent 32.2 G/DL (32.0-36.0) Red Cell Distribution Width 15.6 % (11.6-14.8) H Platelet Count 81 K/UL (150-450) L Mean Platelet Volume 9.2 FL (6.5-10.1) Neutrophils (%) (Auto) % (45.0-75.0) Lymphocytes (%) (Auto) % (20.0-45.0) Monocytes (%) (Auto) % (1.0-10.0) Eosinophils (%) (Auto) % (0.0-3.0) Basophils (%) (Auto) % (0.0-2.0) Differential Total Cells Counted 100 Neutrophils % (Manual) 93 % (45-75) H Lymphocytes % (Manual) 3 % (20-45) L Monocytes % (Manual) 4 % (1-10) Eosinophils % (Manual) 0 % (0-3) Basophils % (Manual) 0 % (0-2) Band Neutrophils 0 % (0-8) Platelet Estimate Decreased L Platelet Morphology Normal Anisocytosis 1+ Macrocytosis 1+ Sodium Level 138 MMOL/L (136-145) Potassium Level 4.2 MMOL/L (3.5-5.1) Chloride Level 109 MMOL/L (98-107) H Carbon Dioxide Level 23 MMOL/L (21-32) Anion Gap 6 mmol/L (5-15) Blood Urea Nitrogen 23 mg/dL (7-18) H Creatinine 1.1 MG/DL (0.55-1.30) Estimat Glomerular Filtration Rate > 60 mL/min (>60) Glucose Level 208 MG/DL (74-106) H Calcium Level 7.2 MG/DL (8.5-10.1) L Plan Problems: (1) Massive hemoptysis Assessment & Plan: Trend h/h no active bleeding ? gi malignancy GI consult ?EGD NG tube (2) Cardiopulmonary arrest (3) Lactic acidosis (4) Anemia (5) Respiratory failure Assessment & Plan: intubated on vent abd exam stable kub noted wean vent non responsive (6) Elevated troponin (7) Abdominal distension Assessment & Plan: CT noted sbo vs ileus gas filled bowel loops abd distended on exam limited exam given condition critically ill will follow with exam and recs KUB ordered - improved ng with bilious output likely ileus or resolving sbo will follow with clinical exam ABDOMEN: Liver: Few incompletely characterized low-attenuation lesions within the liver. Gallbladder and bile ducts: Cholelithiasis. Pancreas: Unremarkable. Spleen: Unremarkable. Adrenals: Unremarkable. Kidneys and ureters: Unremarkable. No obstructing stones. No hydronephrosis. Stomach and bowel: Gas filled mildly distended small bowel loops measuring up to 4 cm. There is mucosal thickening within the stomach potentially representing gastritis or malignancy. PELVIS: Appendix: No findings to suggest acute appendicitis. Bladder: Calabrese catheter in the bladder. Reproductive: Unremarkable as visualized. ABDOMEN and PELVIS: Intraperitoneal space: Trace nonspecific ascites. No free air. Bones/joints: Status post left hip ORIF. Multiple bones within the pelvis and spine. Soft tissues: Unremarkable. Vasculature: Unremarkable. Lymph nodes: Unremarkable. Tubes, lines and devices: Esophagogastric tube within the stomach. IMPRESSION: 1. Gas filled mildly distended small bowel loops measuring up to 4 cm. Abrupt transition point difficult to identify. Obstruction on the differential. Also consider ileus. 2. There is mucosal thickening within the stomach potentially representing gastritis or malignancy. 3. Few incompletely characterized low-attenuation lesions within the liver. 4. Cholelithiasis. 5. Trace nonspecific ascites. Samuel Lazar Jun 24, 2020 11:56
[2020-06-24] MEDS: Acetaminophen 650mg/20.3ml NG PRN (15:11)
--- NOTE | 2020-06-24 15:43 | NUR ---
NURSE NOTES: Dr. Sevilla made aware patient on Amiodarone drip 0.5mg/min, a.fib with RVR, Rate of 150s SBP 140s. Per MD IVP Metoprolol 5mg IVP Once, order noted, entered, carried out. Patient Desaturating , RT called, Fio2 100% at this time. Will continue to monitor.
[2020-06-24] MEDS ORDERED: Metoprolol Tartrate 5mg/5ml Inj IVP SCH (15:45)
--- NOTE | 2020-06-24 15:58 | NUR ---
NURSE NOTES: IVP Metoprolol given, SBP 110s, A. fib with HR 113 at this time, will continue to monitor.
--- NOTE | 2020-06-24 17:00 | NUR ---
NURSE NOTES: Patient no BM, 4 quadrants of abd auscultated, active bowel sound. Will continue to monitor.
--- NOTE | 2020-06-24 17:24 | NUR ---
NURSE NOTES: Patient bilateral upper extremity swollen, Per Dr. Peter, insert PICC, order noted, entered, carried out.
--- NOTE | 2020-06-24 17:32 | Internal Med Progress Note ---
Subjective Date of Service: Jun 24, 2020 Physician Name Angel Peter Attending Physician Ventura Pelletier MD Current Medications Medications (Trade) Dose Ordered Sig/Augusto Route PRN Reason Start Time Stop Time Status Last Admin Dose Admin Acetaminophen (Tylenol) 650 mg EVERY 6 HOURS PRN NG Temp >100.5 06/19/20 22:30 07/19/20 22:29 06/24/20 15:11 Acetaminophen (Tylenol) 650 mg Q4H PRN RECTAL Temp >100.5 06/21/20 03:30 07/21/20 03:29 06/21/20 03:36 Amlodipine Besylate (Norvasc) 2.5 mg BIDPRN PRN NG For High Blood Pressure 06/22/20 20:30 07/22/20 20:29 06/23/20 15:57 Cefepime HCl 1 gm/ Dextrose 55 ml @ 110 mls/hr EVERY 12 HOURS IVPB 06/20/20 09:00 06/27/20 08:59 06/24/20 08:08 Dextrose/Sodium Chloride 1,000 ml @ 40 mls/hr Q24H IV 06/21/20 13:41 07/21/20 13:40 06/24/20 11:51 Fentanyl Citrate 90 ml @ 10 mls/hr Q24H IV 06/24/20 11:15 06/24/20 19:59 06/24/20 11:10 Fentanyl Citrate 250 ml @ 10 mls/hr Q24H IV 06/24/20 20:00 06/26/20 19:59 Levothyroxine Sodium (Synthroid) 50 mcg DAILY@0630 ORAL 06/22/20 11:00 07/22/20 10:59 06/24/20 06:19 Metronidazole 100 ml @ 100 mls/hr Q8HR IVPB 06/20/20 22:00 06/27/20 21:59 06/24/20 15:12 Midazolam HCl 200 ml @ 0 mls/hr Q24H IV 06/24/20 04:45 07/01/20 04:44 06/24/20 05:02 Pantoprazole (Protonix) 40 mg EVERY 12 HOURS IVP 06/20/20 09:00 07/20/20 08:59 06/24/20 08:07 Allergies: Coded Allergies: No Known Allergies (Unverified , 06/19/20) ROS Limited/Unobtainable: Yes Subjective 89 YO M admitted with syncopal episode. Now S/P cardiac arrest and GI bleed. Cover for Int Rashaun-Dr Pelletier. ICU. Intubated and sedated Objective Last Vital Signs Date Time Temp Pulse Resp B/P (MAP) Pulse Ox O2 Delivery O2 Flow Rate FiO2 06/24/20 17:00 92 16 110/50 (70) 99 06/24/20 16:00 98.9 06/24/20 16:00 Mechanical Ventilator Mechanical Ventilator Mechanical Ventilator 06/24/20 15:56 100 06/19/20 16:08 4.0 Laboratory Tests Test 06/24/20 03:20 White Blood Count 3.0 K/UL (4.8-10.8) L Red Blood Count 3.46 M/UL (4.70-6.10) L Hemoglobin 11.0 G/DL (14.2-18.0) L Hematocrit 34.2 % (42.0-52.0) L Mean Corpuscular Volume 99 FL (80-99) Mean Corpuscular Hemoglobin 31.8 PG (27.0-31.0) H Mean Corpuscular Hemoglobin Concent 32.2 G/DL (32.0-36.0) Red Cell Distribution Width 15.6 % (11.6-14.8) H Platelet Count 81 K/UL (150-450) L Mean Platelet Volume 9.2 FL (6.5-10.1) Neutrophils (%) (Auto) % (45.0-75.0) Lymphocytes (%) (Auto) % (20.0-45.0) Monocytes (%) (Auto) % (1.0-10.0) Eosinophils (%) (Auto) % (0.0-3.0) Basophils (%) (Auto) % (0.0-2.0) Differential Total Cells Counted 100 Neutrophils % (Manual) 93 % (45-75) H Lymphocytes % (Manual) 3 % (20-45) L Monocytes % (Manual) 4 % (1-10) Eosinophils % (Manual) 0 % (0-3) Basophils % (Manual) 0 % (0-2) Band Neutrophils 0 % (0-8) Platelet Estimate Decreased L Platelet Morphology Normal Anisocytosis 1+ Macrocytosis 1+ Sodium Level 138 MMOL/L (136-145) Potassium Level 4.2 MMOL/L (3.5-5.1) Chloride Level 109 MMOL/L (98-107) H Carbon Dioxide Level 23 MMOL/L (21-32) Anion Gap 6 mmol/L (5-15) Blood Urea Nitrogen 23 mg/dL (7-18) H Creatinine 1.1 MG/DL (0.55-1.30) Estimat Glomerular Filtration Rate > 60 mL/min (>60) Glucose Level 208 MG/DL (74-106) H Calcium Level 7.2 MG/DL (8.5-10.1) L Intake and Output 06/23/20 06/24/20 19:00 07:00 Intake Total 1457.498 ml 1993.835 ml Output Total 420 ml 400 ml Balance 1037.498 ml 1593.835 ml Intake Free Water 10 ml IV Total 1407.498 ml 1763.835 ml Tube Feeding 40 ml 230 ml Output Urine Total 420 ml 400 ml Objective Objective General: intubated, remained on ventilation, sedated. HEENT: NCAT, sclera anicteric, PERRL, ET Tube, NG Tube. Neck: Supple, no significant jugular venous distention, Lungs: mech vent; coarse breath sounds with Wheeze and Rales. Heart: Regular rate and rhythm, normal S1/S2, no murmurs. Abdomen: soft, nontender, nondistended. Normoactive bowel sounds. / Rectal: Refused and deferred. Extremities: No Cyanosis , clubbing or edema. Neuro: limited secondary to patient's status, able to move extremities slowly. Skin: warm, no rash. Assessment/Plan Assessment/Plan ASSESSMENT: 1. Acute hypoxemic respiratory failure. 2. PEA arrest. 3. Upper GI bleed. 4. Severe anemia, most likely secondary to acute GI bleed and acute blood loss. 5. History of hypertension. 6. Hypothyroidism. 7. BPH. 8. Thrombocytopenia. 9. The patient has elevated troponin, most likely secondary to non-ST elevation [place] type 2 as a result of demand ischemia. PLAN 1. Admit the patient to ICU. 2. Dr. Ken Sevilla = Cardiology 3. Dr. Davis = Gastroenterology 4. Dr. Cormier = Pulmonary Critical Care. 5. code status is full code. 6. ABX=cefepime 7. PICC line Angel Peter MD Jun 24, 2020 17:32
--- NOTE | 2020-06-24 18:54 | NUR ---
NURSE NOTES: Paged Dr. Souza to clarify order or amiodaroneMD made aware IV amiodarone about to finish, no PO med ordered at this time, no new order received at this time.
--- NOTE | 2020-06-24 19:05 | NUR ---
NURSE NOTES: Per Dr. Sevilla, Amiodarone 400 mg BID for 4 days, then 200 mg Qdaily. Stop the drip 1/2 hour after 1st does of Amiodarone via OGT. Order noted, entered, carried out.
--- NOTE | 2020-06-24 19:23 | NUR ---
NURSE HAND-OFF REPORT: Latest Vital Signs: Temperature 99.1 , Pulse 94 , B/P 123 /79 , Respiratory Rate 16 , O2 SAT 100 , Endotracheal Tube, O2 Flow Rate . Vital Sign Comment: one time a.fib with RVR EKG Rhythm: Atrial Fibrillation Rhythm change?: N Notified?: N -Dr. Roel LEUNG Response: Order Received& Read Back Latest Coyle Fall Score: 50 Fall Risk: High Risk Safety Measures: Call light Within Reach, Bed Alarm Zone 2, Side Rails Side Rails x2, Bed position Low and Locked. Fall Precautions: Yellow Socks Report given to JAVI Hannon.
[2020-06-24] MEDS ORDERED: Amiodarone 200mg tab NG SCH ×2 (19:30)
--- NOTE | 2020-06-24 19:30 | NUR ---
NURSE NOTES: Received pt in bed, sedated, LUIS E -2, on Fentanyl @ 100mcg/hr via left upper arm #20, on vent via ETT not showing any signs of distress at present settings. D5 1/2 infusing at 40cc/hr. Amiodarone running at 16.667ml/hr or 1 mg/min. via left hand #22. Glucerna 1.5 running on hold as pt has been having a olot of residuals in the previous shift. Calabrese in place draining tony colored urine. VSS and pt is A. Fib on the monitor.
--- NOTE | 2020-06-24 21:15 | NUR ---
NURSE NOTES: Dr. Sevilla in to see pt. Made aware of isma episode in the 30's at around 1930.
--- NOTE | 2020-06-24 21:28 | Cardiology Progress Note ---
Assessment/Plan Assessment/Plan respiratory failure s/p cp arrest / pea resolved with in 1 min massive hemoptysis vs gi bleed vs both svt paf phtn ar / mr / tr with normal lv function abn trop due to demand anemia thrombocytopenia pui probable aspiration sytemic htn not clear why such high pasp duplex neg metoprolol for tachy if needed supportive care silvino abx empiric in isolation fro possible TB (but 3 fb smear neg) amlodipien started for sig elevated bp d/w rn has high residual nwo on ivf 40 cc / hr urne concentrated if need bolus of ns for low bp reapt cxr in am Subjective ROS Limited/Unobtainable: Yes Objective Last 24 Hour Vital Signs Date Time Temp Pulse Resp B/P (MAP) Pulse Ox O2 Delivery O2 Flow Rate FiO2 06/24/20 20:00 Mechanical Ventilator Mechanical Ventilator Mechanical Ventilator 06/24/20 19:30 139 27 60 06/24/20 19:00 94 16 123/79 (94) 100 06/24/20 19:00 16 123/79 Endotracheal Tube 60 06/24/20 18:00 99.1 90 16 122/61 (81) 99 06/24/20 18:00 16 122/61 Endotracheal Tube 60 06/24/20 17:00 17 110/50 Endotracheal Tube 60 06/24/20 17:00 92 16 110/50 (70) 99 06/24/20 16:30 60 06/24/20 16:20 60 06/24/20 16:00 105 06/24/20 16:00 17 85/52 Endotracheal Tube 100 06/24/20 16:00 98.9 107 17 85/52 (63) 100 06/24/20 16:00 Mechanical Ventilator Mechanical Ventilator Mechanical Ventilator 06/24/20 15:56 100 06/24/20 15:49 140 113/73 06/24/20 15:41 98.9 06/24/20 15:20 84 20 55 06/24/20 15:00 17 114/70 Endotracheal Tube 65 06/24/20 15:00 131 16 113/73 (86) 99 06/24/20 14:00 117 18 113/73 (86) 99 06/24/20 14:00 16 112/56 Endotracheal Tube 65 06/24/20 13:00 17 110/58 Endotracheal Tube 65 06/24/20 13:00 73 16 103/73 (83) 99 06/24/20 12:00 80 06/24/20 12:00 Mechanical Ventilator Mechanical Ventilator Mechanical Ventilator 06/24/20 12:00 17 110/58 Endotracheal Tube 65 06/24/20 12:00 99.0 78 17 122/59 (80) 98 06/24/20 11:10 19 121/61 Mechanical Ventilator 65 06/24/20 11:05 81 20 65 06/24/20 11:00 17 121/61 Endotracheal Tube 65 06/24/20 11:00 81 17 121/61 (81) 100 06/24/20 10:00 65 06/24/20 10:00 82 17 129/66 (87) 100 06/24/20 10:00 17 131/65 Mechanical Ventilator 75 06/24/20 10:00 17 131/65 Endotracheal Tube 65 06/24/20 09:00 17 131/67 Mechanical Ventilator 75 06/24/20 09:00 17 131/67 Endotracheal Tube 65 06/24/20 09:00 131 16 131/67 (88) 100 06/24/20 08:25 65 06/24/20 08:00 Mechanical Ventilator Mechanical Ventilator Mechanical Ventilator 06/24/20 08:00 98.6 105 17 115/67 (83) 100 06/24/20 08:00 75 06/24/20 08:00 17 115/67 Mechanical Ventilator 75 06/24/20 08:00 17 115/67 Endotracheal Tube 75 06/24/20 08:00 68 06/24/20 07:36 76 18 75 06/24/20 07:00 17 108/66 Mechanical Ventilator 75 06/24/20 07:00 17 108/66 Mechanical Ventilator 75 06/24/20 07:00 102 17 108/66 (80) 100 06/24/20 06:30 96 17 06/24/20 06:00 18 128/66 Mechanical Ventilator 75 06/24/20 06:00 18 128/66 Mechanical Ventilator 75 06/24/20 06:00 76 18 128/66 (86) 100 06/24/20 05:02 17 136/74 75 06/24/20 05:00 76 17 136/74 (94) 100 06/24/20 05:00 17 136/74 Mechanical Ventilator 75 06/24/20 04:15 23 141/89 Mechanical Ventilator 80 06/24/20 04:00 Mechanical Ventilator Mechanical Ventilator Mechanical Ventilator 06/24/20 04:00 98.5 115 20 175/87 (116) 97 06/24/20 04:00 22 187/98 Mechanical Ventilator 75 06/24/20 04:00 80 06/24/20 04:00 74 06/24/20 03:45 21 170/103 Mechanical Ventilator 80 06/24/20 03:35 76 21 65 06/24/20 03:30 17 110/57 Mechanical Ventilator 80 06/24/20 03:15 17 139/64 Mechanical Ventilator 80 06/24/20 03:00 18 110/57 Mechanical Ventilator 80 06/24/20 03:00 107 18 110/57 (74) 100 06/24/20 02:45 17 116/58 Mechanical Ventilator 80 06/24/20 02:30 17 107/59 Mechanical Ventilator 80 06/24/20 02:15 23 127/81 Mechanical Ventilator 80 06/24/20 02:00 146 27 130/75 (93) 94 06/24/20 02:00 29 150/95 Mechanical Ventilator 80 06/24/20 01:00 69 16 144/63 (90) 100 06/24/20 00:15 17 118/61 Mechanical Ventilator 80 06/24/20 00:00 97.9 66 17 123/64 (83) 100 06/24/20 00:00 18 123/64 Mechanical Ventilator 80 06/24/20 00:00 80 06/24/20 00:00 Mechanical Ventilator Mechanical Ventilator Mechanical Ventilator 06/24/20 00:00 67 06/23/20 23:00 64 23 90 06/23/20 23:00 17 106/59 Mechanical Ventilator 80 06/23/20 23:00 61 17 106/59 (75) 100 06/23/20 22:00 56 18 95/47 (63) 100 06/23/20 22:00 18 95/47 Mechanical Ventilator 90 General Appearance: no apparent distress, on vent, patient on isolation Extremities: no swelling Intake and Output 06/23/20 06/24/20 19:00 07:00 Intake Total 1457.498 ml 1993.835 ml Output Total 420 ml 400 ml Balance 1037.498 ml 1593.835 ml Intake Free Water 10 ml IV Total 1407.498 ml 1763.835 ml Tube Feeding 40 ml 230 ml Output Urine Total 420 ml 400 ml Laboratory Tests Test 06/24/20 03:20 White Blood Count 3.0 K/UL (4.8-10.8) L Red Blood Count 3.46 M/UL (4.70-6.10) L Hemoglobin 11.0 G/DL (14.2-18.0) L Hematocrit 34.2 % (42.0-52.0) L Mean Corpuscular Volume 99 FL (80-99) Mean Corpuscular Hemoglobin 31.8 PG (27.0-31.0) H Mean Corpuscular Hemoglobin Concent 32.2 G/DL (32.0-36.0) Red Cell Distribution Width 15.6 % (11.6-14.8) H Platelet Count 81 K/UL (150-450) L Mean Platelet Volume 9.2 FL (6.5-10.1) Neutrophils (%) (Auto) % (45.0-75.0) Lymphocytes (%) (Auto) % (20.0-45.0) Monocytes (%) (Auto) % (1.0-10.0) Eosinophils (%) (Auto) % (0.0-3.0) Basophils (%) (Auto) % (0.0-2.0) Differential Total Cells Counted 100 Neutrophils % (Manual) 93 % (45-75) H Lymphocytes % (Manual) 3 % (20-45) L Monocytes % (Manual) 4 % (1-10) Eosinophils % (Manual) 0 % (0-3) Basophils % (Manual) 0 % (0-2) Band Neutrophils 0 % (0-8) Platelet Estimate Decreased L Platelet Morphology Normal Anisocytosis 1+ Macrocytosis 1+ Sodium Level 138 MMOL/L (136-145) Potassium Level 4.2 MMOL/L (3.5-5.1) Chloride Level 109 MMOL/L (98-107) H Carbon Dioxide Level 23 MMOL/L (21-32) Anion Gap 6 mmol/L (5-15) Blood Urea Nitrogen 23 mg/dL (7-18) H Creatinine 1.1 MG/DL (0.55-1.30) Estimat Glomerular Filtration Rate > 60 mL/min (>60) Glucose Level 208 MG/DL (74-106) H Calcium Level 7.2 MG/DL (8.5-10.1) Ken Roberts MD Jun 24, 2020 21:28
[2020-06-24] MEDS: fentaNYL 2500mcg/NS 250ml 250 ML IV SCH (22:00)
[2020-06-25] VITALS (82 sets, daily range): BP systolic 61–145; BP diastolic 37–94
--- NOTE | 2020-06-25 00:30 | NUR ---
NURSE NOTES: Pt hypotensive 56/33. Pt responsive to sternal rub by grimacing
--- NOTE | 2020-06-25 00:40 | NUR ---
NURSE NOTES: 00:35 Spoke on the phone to Dr. Sevilla. Order to give 500ml of NS bolus given and if BP doesnt improve, to start Levophed per protocol. 01:10 BP 74/32 after 500ml blous. 01:12 Levophed started per protocol
[2020-06-25] MEDS: Norepinephrine 4mg/NS Premix 250 ML IV SCH ×3 (01:12→23:26)
--- NOTE | 2020-06-25 02:00 | NUR ---
NURSE NOTES: Pt condition unchanged. Pt's BP stable at 2mcg/min of Levophed. Will continue to monitor pt.
--- NOTE | 2020-06-25 04:00 | NUR ---
NURSE NOTES: Pt tachycardic and tachypneic and is desaturating to the 70's. Fentanyl re started and FiO2 increased to 100%. Levophed decreased to 1mcg/min. Will continue to monitor pt.
[2020-06-25] MEDS: Versed 100mg/NS 200ml 200 ML IV SCH (04:45)
[2020-06-25 05:08] LABS: HEMATOCRIT 38.4 % (42.0-52.0); HEMOGLOBIN 12.6 G/DL (14.2-18.0); MEAN CORPUSCULAR VOLUME 99 FL (80-99); PLATELET COUNT 120 K/UL (150-450); RED BLOOD COUNT 3.87 M/UL (4.70-6.10); RED CELL DISTRIBUTION WIDTH 15.5 % (11.6-14.8); WHITE BLOOD COUNT 9.5 K/UL (4.8-10.8)
[2020-06-25 06:11] LABS: ALBUMIN 1.5 G/DL (3.4-5.0); ALBUMIN/GLOBULIN RATIO 0.3 (1.0-2.7); BILIRUBIN,TOTAL 2.2 MG/DL (0.2-1.0); CALCIUM 7.7 MG/DL (8.5-10.1); CREATININE 1.4 MG/DL (0.55-1.30); PHOSPHORUS 1.9 MG/DL (2.5-4.9); POTASSIUM 5.2 MMOL/L (3.5-5.1)
--- NOTE | 2020-06-25 07:15 | NUR ---
NURSE NOTES: Received pt from JAVI Hernandez. pt sedated. No withdraw of upper ext. grimace to pain stimuli noted. Positive Babinski reflex of lower ext. Right pupil dilated and irregular with sluggish pupil. Left pupil 2-3, round and sluggish. HR elevated at this time in atrial fibrillation. Pt orally intubated with 7.5 ET tube with 22cm at the lip. Tracheal aspirate bloody, moderate, thin. Pt tolerating ventilator setting with no s/s of distress. SpO2 99% on FiO2 100%. Pt has OGT with green stomach secretions 20mL. Tube feeding restarted at this time at 20mL/hr. Calabrese in place. Scrotum severe edema. Urine dark tony with minimal output. Bilateral arms edema +2-3 with ecchymosis noted. IV sites clean, dry, and intact. pt on Levophed at 10mcg/min, fentanyl at 100mcg/hr, and D5 o.45% NS at 40mL/hr. K is 5.2 this AM. Phos 1.9. Will ensure Dr Rea is aware. Will continue to monitor. Pt has order for PICC line insertion today. Will follow up. consent signed and in the chart.
--- NOTE | 2020-06-25 07:38 | NUR ---
NURSE NOTES: NURSE HAND-OFF REPORT: Latest Vital Signs: Temperature 99.3 , Pulse 99 , B/P 103 /63 , Respiratory Rate 18 , O2 SAT 100 , Mechanical Ventilator, O2 Flow Rate . Vital Sign Comment: EKG Rhythm: Atrial Fibrillation Rhythm change?: N Notified?: N -Dr. Roel LEUNG Response: Order Received& Read Back Latest Coyle Fall Score: 50 Fall Risk: High Risk Safety Measures: Call light Within Reach, Bed Alarm Zone 2, Side Rails Side Rails x2, Bed position Low and Locked. Fall Precautions: Yellow Socks Report given to JAVI Davis.
--- NOTE | 2020-06-25 08:10 | NUR ---
NURSE NOTES: Dr Davis rounded on the pt. Update given. Notified him that pt tube feeding held overnight due to HTN. Notified him that pt previously having high residual. TF restarted at 20mL/hr at this time. He reported he would order Reglan for the pt.
[2020-06-25] MEDS: Pantoprazole Inj IVP SCH ×2 (08:23→20:56)
[2020-06-25] MEDS: Amiodarone 200mg tab NG SCH ×2 (08:23→20:56)
--- NOTE | 2020-06-25 08:38 | Consultation ---
History of Present Illness General Date patient seen: Jun 25, 2020 Chief Complaint: Syncope Reason for Consultation: PNA Present Illness HPI Mr. Yadav is an 89 yo male with PMHx of HTN, Hypothyroid, BPH, Hip fx s/p surgical repair who presented to the ED on 06/19/20 with bloody vomit. Per notes he had been coughing up blood for 4 days [employer] with syncope the day of admission. He a PEA arest and was coded. He was found to have STEMI, GIB and B/L lung opacities. He is currently intuabted in the ICU. He also has developed Afib RVR. Blood Cx and Urine Cx negative. He had had no leukocytosis but some mild fevers. ID was consulted for PNA PMHx/PSHx HTN Hypothyroid BPH Hip fx s/p surgical repair SocHx No E/T/D FamHx Unable to obtain Allergies: Coded Allergies: No Known Allergies (Unverified , 06/19/20) Medication History Scheduled Amlodipine Besylate* (Amlodipine Besylate*), 2.5 MG ORAL DAILY, (Reported) Levothyroxine Sodium (Synthroid*), 50 MCG ORAL DAILY, (Reported) Silodosin (Rapaflo), 8 MG ORAL DAILY, (Reported) Temazepam (Temazepam*), 15 MG ORAL BEDTIME, (Reported) Valacyclovir Hcl* (Valtrex*), 500 MG ORAL DAILY, (Reported) Patient History Healthcare decision maker N Resuscitation status Advanced Directive on File Review of Systems ROS Narrative Unable to obtain Physical Exam Last 24 Hour Vital Signs Date Time Temp Pulse Resp B/P (MAP) Pulse Ox O2 Delivery O2 Flow Rate FiO2 06/25/20 07:14 100 20 80 06/25/20 07:00 18 103/63 Mechanical Ventilator 100 06/25/20 07:00 99 18 103/63 (76) 100 06/25/20 06:30 112 17 06/25/20 06:25 112 16 92/55 (67) 99 06/25/20 06:00 127 17 70/42 (51) 99 06/25/20 06:00 17 70/42 Mechanical Ventilator 100 06/25/20 05:00 26 99/52 Mechanical Ventilator 100 06/25/20 05:00 146 26 99/52 (68) 91 06/25/20 04:00 Mechanical Ventilator Mechanical Ventilator Mechanical Ventilator 06/25/20 04:00 99.3 155 30 117/71 (86) 85 06/25/20 04:00 30 117/71 Mechanical Ventilator 100 06/25/20 04:00 50 06/25/20 04:00 136 06/25/20 03:29 149 32 60 06/25/20 03:00 136 23 125/74 (91) 90 06/25/20 02:00 107 16 102/57 (72) 94 06/25/20 01:12 76/43 06/25/20 01:00 108 15 61/37 (45) 94 06/25/20 00:00 Mechanical Ventilator Mechanical Ventilator Mechanical Ventilator 06/25/20 00:00 20 96/61 Mechanical Ventilator 50 06/25/20 00:00 99.9 148 20 96/61 (73) 87 06/25/20 00:00 50 06/24/20 23:26 138 19 60 06/24/20 23:00 17 116/79 Mechanical Ventilator 50 06/24/20 23:00 135 17 116/79 (91) 99 06/24/20 22:00 16 101/57 Mechanical Ventilator 60 06/24/20 22:00 41 16 104/65 (78) 97 06/24/20 21:00 126 21 95/56 (69) 91 06/24/20 21:00 21 95/56 Mechanical Ventilator 60 06/24/20 20:00 107 06/24/20 20:00 Mechanical Ventilator Mechanical Ventilator Mechanical Ventilator 06/24/20 20:00 28 132/79 Mechanical Ventilator 60 06/24/20 20:00 98.9 128 28 132/79 (96) 86 06/24/20 19:30 139 27 60 06/24/20 19:00 94 16 123/79 (94) 100 06/24/20 19:00 16 123/79 Endotracheal Tube 60 06/24/20 18:00 99.1 90 16 122/61 (81) 99 06/24/20 18:00 16 122/61 Endotracheal Tube 60 06/24/20 17:00 17 110/50 Endotracheal Tube 60 06/24/20 17:00 92 16 110/50 (70) 99 06/24/20 16:30 60 06/24/20 16:20 60 06/24/20 16:00 105 06/24/20 16:00 17 85/52 Endotracheal Tube 100 06/24/20 16:00 98.9 107 17 85/52 (63) 100 06/24/20 16:00 Mechanical Ventilator Mechanical Ventilator Mechanical Ventilator 06/24/20 15:56 100 06/24/20 15:49 140 113/73 06/24/20 15:41 98.9 06/24/20 15:20 84 20 55 06/24/20 15:00 17 114/70 Endotracheal Tube 65 06/24/20 15:00 131 16 113/73 (86) 99 06/24/20 14:00 117 18 113/73 (86) 99 06/24/20 14:00 16 112/56 Endotracheal Tube 65 06/24/20 13:00 17 110/58 Endotracheal Tube 65 06/24/20 13:00 73 16 103/73 (83) 99 06/24/20 12:00 80 06/24/20 12:00 Mechanical Ventilator Mechanical Ventilator Mechanical Ventilator 06/24/20 12:00 17 110/58 Endotracheal Tube 65 06/24/20 12:00 99.0 78 17 122/59 (80) 98 06/24/20 11:10 19 121/61 Mechanical Ventilator 65 06/24/20 11:05 81 20 65 06/24/20 11:00 17 121/61 Endotracheal Tube 65 06/24/20 11:00 81 17 121/61 (81) 100 06/24/20 10:00 65 06/24/20 10:00 82 17 129/66 (87) 100 06/24/20 10:00 17 131/65 Mechanical Ventilator 75 06/24/20 10:00 17 131/65 Endotracheal Tube 65 06/24/20 09:00 17 131/67 Mechanical Ventilator 75 06/24/20 09:00 17 131/67 Endotracheal Tube 65 06/24/20 09:00 131 16 131/67 (88) 100 Intake and Output 06/24/20 06/25/20 19:00 07:00 Intake Total 1410.337 ml 1389.727 ml Output Total 355 ml 360 ml Balance 1055.337 ml 1029.727 ml Intake Free Water 20 ml IV Total 1000.337 ml 1349.727 ml Tube Feeding 390 ml 40 ml Output Urine Total 355 ml 360 ml Laboratory Tests Test 06/25/20 03:16 06/25/20 07:43 White Blood Count 9.5 K/UL (4.8-10.8) # Red Blood Count 3.87 M/UL (4.70-6.10) L Hemoglobin 12.6 G/DL (14.2-18.0) L Hematocrit 38.4 % (42.0-52.0) L Mean Corpuscular Volume 99 FL (80-99) Mean Corpuscular Hemoglobin 32.6 PG (27.0-31.0) H Mean Corpuscular Hemoglobin Concent 32.9 G/DL (32.0-36.0) Red Cell Distribution Width 15.5 % (11.6-14.8) H Platelet Count 120 K/UL (150-450) L Mean Platelet Volume 9.8 FL (6.5-10.1) Neutrophils (%) (Auto) % (45.0-75.0) Lymphocytes (%) (Auto) % (20.0-45.0) Monocytes (%) (Auto) % (1.0-10.0) Eosinophils (%) (Auto) % (0.0-3.0) Basophils (%) (Auto) % (0.0-2.0) Neutrophils % (Manual) Pending Lymphocytes % (Manual) Pending Platelet Estimate Pending Platelet Morphology Pending Sodium Level 137 MMOL/L (136-145) Potassium Level 5.2 MMOL/L (3.5-5.1) H Chloride Level 107 MMOL/L (98-107) Carbon Dioxide Level 20 MMOL/L (21-32) L Anion Gap 10 mmol/L (5-15) Blood Urea Nitrogen 32 mg/dL (7-18) H Creatinine 1.4 MG/DL (0.55-1.30) H Estimat Glomerular Filtration Rate 47.8 mL/min (>60) Glucose Level 176 MG/DL (74-106) H Calcium Level 7.7 MG/DL (8.5-10.1) L Phosphorus Level 1.9 MG/DL (2.5-4.9) L Magnesium Level 2.0 MG/DL (1.8-2.4) Total Bilirubin 2.2 MG/DL (0.2-1.0) H Direct Bilirubin 1.0 MG/DL (0.0-0.3) H Aspartate Amino Transf (AST/SGOT) 59 U/L (15-37) H Alanine Aminotransferase (ALT/SGPT) 21 U/L (12-78) Alkaline Phosphatase 58 U/L (46-116) C-Reactive Protein, Quantitative 13.1 mg/dL (0.00-0.90) H Pro-B-Type Natriuretic Peptide 8022 pg/mL (0-125) H Total Protein 5.8 G/DL (6.4-8.2) L Albumin 1.5 G/DL (3.4-5.0) L Globulin 4.3 g/dL Albumin/Globulin Ratio 0.3 (1.0-2.7) L Arterial Blood pH 7.269 (7.350-7.450) Arterial Blood Partial Pressure CO2 43.5 mmHg (35.0-45.0) Arterial Blood Partial Pressure O2 98.8 mmHg (75.0-100.0) Arterial Blood HCO3 19.5 mmol/L (22.0-26.0) L Arterial Blood Oxygen Saturation 96.0 % (95-100) Arterial Blood Base Excess -7.1 (-2-2) L Manan Test Positive Height (Feet): 5 Height (Inches): 8.00 Weight (Pounds): 119 Medications Current Medications Medications (Trade) Dose Ordered Sig/Augusto Route PRN Reason Start Time Stop Time Status Last Admin Dose Admin Acetaminophen (Tylenol) 650 mg EVERY 6 HOURS PRN NG Temp >100.5 06/19/20 22:30 07/19/20 22:29 06/24/20 15:11 Acetaminophen (Tylenol) 650 mg Q4H PRN RECTAL Temp >100.5 06/21/20 03:30 07/21/20 03:29 06/21/20 03:36 Amiodarone HCl (Cordarone) 200 mg DAILY NG 06/29/20 09:00 09/27/20 08:59 Amiodarone HCl (Cordarone) 200 mg EVERY 12 HOURS NG 06/25/20 09:00 09/23/20 08:59 Amlodipine Besylate (Norvasc) 2.5 mg BIDPRN PRN NG For High Blood Pressure 06/22/20 20:30 07/22/20 20:29 06/23/20 15:57 Cefepime HCl 1 gm/ Dextrose 55 ml @ 110 mls/hr Q24H IVPB 06/25/20 21:00 07/02/20 20:59 Dextrose/Sodium Chloride 1,000 ml @ 40 mls/hr Q24H IV 06/21/20 13:41 07/21/20 13:40 06/24/20 11:51 Fentanyl Citrate 250 ml @ 10 mls/hr Q24H IV 06/24/20 20:00 06/26/20 02:00 06/24/20 22:00 Fentanyl Citrate 250 ml @ 0 mls/hr Q24H PRN IV . 06/26/20 02:00 06/28/20 01:59 Levothyroxine Sodium (Synthroid) 50 mcg DAILY@0630 ORAL 06/22/20 11:00 07/22/20 10:59 06/25/20 06:40 Metoprolol Tartrate (Lopressor) 2.5 mg Q4H PRN IVP hr more thatn 125 06/24/20 21:30 09/22/20 21:29 Metronidazole 100 ml @ 100 mls/hr Q8HR IVPB 06/20/20 22:00 06/27/20 21:59 06/25/20 05:03 Midazolam HCl 200 ml @ 0 mls/hr Q24H IV 06/24/20 04:45 07/01/20 04:44 06/24/20 05:02 Norepinephrine Bitartrate 250 ml @ 0 mls/hr Q24H IV 06/25/20 01:00 06/28/20 00:47 06/25/20 01:12 Pantoprazole (Protonix) 40 mg EVERY 12 HOURS IVP 06/20/20 09:00 07/20/20 08:59 06/24/20 20:20 Objective Narrative Gen: Not follwoing on vent HEENT: NCAT, Intubated, No scleral icterus NECK Supple, No LAD HEART: IRIR, S1, S2 Pulm: Coarse B/L, No W No accessory mescle use Abd: Soft, NT, ND, + BS : Differed Neuro: Intubated on Vent, Not following and sedated SKIN: Exposed skin normal in color no rash noted Assessment/Plan Assessment/Plan: CT C/A/P 06/19/20 Extensive bilateral airspace opacities. Secretions in the airways. Consider large volume aspiration or multifocal infection as the most likely etiologies. Gas filled mildly distended small bowel loops measuring up to 4 cm. Abrupt transition point difficult to identify. Obstruction on the differential. Also consider ileus. 2. There is mucosal thickening within the stomach potentially representing gastritis or malignancy. 3. Few incompletely characterized low-attenuation lesions within the liver. 4. Cholelithiasis. 5. Trace nonspecific ascites. 89 yo male with PMHx of HTN, Hypothyroid, BPH, Hip fx s/p surgical repair who presented to the ED on 06/19/20 with bloody vomit. PNA - Likely Aspiration CT C/A/P 06/19/20 - Extensive bilateral airspace opacities. Secretions in the airways. Consider large volume aspiration or multifocal infection as the most likely etiologies. AFB Smears Neg x 3 (06/20, 06/20, 06/21) Sp Cx 06/25/20 - Pend LGF intermittent No Leukocytosis STEMI GIB Afib RVR HTN Hypothyroid BPH Hx of Hip fx s/p surgical repair CT C/A/P 06/19/20 - Extensive bilateral airspace opacities. Secretions in the airways. Consider large volume aspiration or multifocal infection as the most likely etiologies. PLAN - Continue Cefepime #4 and Flagyl #3 - f/u Sp Cx - f/u Legionella, Strep Uag - f/u Cultures - Monitor CBC and Temps Thank you for this consult. [facility] will continue to follow the patient with you during this hospitalization. Jani Oneill MD Jun 25, 2020 08:38
[2020-06-25] MEDS: Metoprolol Tartrate 5mg/5ml Inj IVP PRN ×3 (09:08→22:52)
--- NOTE | 2020-06-25 09:35 | NUR ---
NURSE NOTES: left message for Dr Cormier regarding ABG result.
--- NOTE | 2020-06-25 09:58 | General Progress Note ---
Subjective ROS Limited/Unobtainable: No Allergies: Coded Allergies: No Known Allergies (Unverified , 06/19/20) Objective Last 24 Hour Vital Signs Date Time Temp Pulse Resp B/P (MAP) Pulse Ox O2 Delivery O2 Flow Rate FiO2 06/25/20 09:08 141 126/76 06/25/20 09:00 98.0 125 18 101/68 (79) 100 06/25/20 08:45 142 17 108/72 (84) 98 06/25/20 08:30 142 17 122/74 (90) 98 06/25/20 08:15 141 18 127/78 (94) 98 06/25/20 08:00 Mechanical Ventilator Mechanical Ventilator 06/25/20 08:00 100 06/25/20 08:00 142 18 113/69 (84) 100 06/25/20 08:00 98.4 139 17 135/74 (94) 98 06/25/20 08:00 142 06/25/20 07:45 96 18 116/63 (80) 100 06/25/20 07:30 96 18 109/57 (74) 100 06/25/20 07:15 97 17 110/59 (76) 100 06/25/20 07:14 100 20 80 06/25/20 07:00 18 103/63 Mechanical Ventilator 100 06/25/20 07:00 99 18 103/63 (76) 100 06/25/20 06:30 112 17 06/25/20 06:25 112 16 92/55 (67) 99 06/25/20 06:00 127 17 70/42 (51) 99 06/25/20 06:00 17 70/42 Mechanical Ventilator 100 06/25/20 05:00 26 99/52 Mechanical Ventilator 100 06/25/20 05:00 146 26 99/52 (68) 91 06/25/20 04:00 Mechanical Ventilator Mechanical Ventilator Mechanical Ventilator 06/25/20 04:00 99.3 155 30 117/71 (86) 85 06/25/20 04:00 30 117/71 Mechanical Ventilator 100 06/25/20 04:00 50 06/25/20 04:00 136 06/25/20 03:29 149 32 60 06/25/20 03:00 136 23 125/74 (91) 90 06/25/20 02:00 107 16 102/57 (72) 94 06/25/20 01:12 76/43 06/25/20 01:00 108 15 61/37 (45) 94 06/25/20 00:00 Mechanical Ventilator Mechanical Ventilator Mechanical Ventilator 06/25/20 00:00 20 96/61 Mechanical Ventilator 50 06/25/20 00:00 99.9 148 20 96/61 (73) 87 06/25/20 00:00 50 06/24/20 23:26 138 19 60 06/24/20 23:00 17 116/79 Mechanical Ventilator 50 06/24/20 23:00 135 17 116/79 (91) 99 06/24/20 22:00 16 101/57 Mechanical Ventilator 60 06/24/20 22:00 41 16 104/65 (78) 97 06/24/20 21:00 126 21 95/56 (69) 91 06/24/20 21:00 21 95/56 Mechanical Ventilator 60 06/24/20 20:00 107 06/24/20 20:00 Mechanical Ventilator Mechanical Ventilator Mechanical Ventilator 06/24/20 20:00 28 132/79 Mechanical Ventilator 60 06/24/20 20:00 98.9 128 28 132/79 (96) 86 06/24/20 19:30 139 27 60 06/24/20 19:00 94 16 123/79 (94) 100 06/24/20 19:00 16 123/79 Endotracheal Tube 60 06/24/20 18:00 99.1 90 16 122/61 (81) 99 06/24/20 18:00 16 122/61 Endotracheal Tube 60 06/24/20 17:00 17 110/50 Endotracheal Tube 60 06/24/20 17:00 92 16 110/50 (70) 99 06/24/20 16:30 60 06/24/20 16:20 60 06/24/20 16:00 105 06/24/20 16:00 17 85/52 Endotracheal Tube 100 06/24/20 16:00 98.9 107 17 85/52 (63) 100 06/24/20 16:00 Mechanical Ventilator Mechanical Ventilator Mechanical Ventilator 06/24/20 15:56 100 06/24/20 15:49 140 113/73 06/24/20 15:41 98.9 06/24/20 15:20 84 20 55 06/24/20 15:00 17 114/70 Endotracheal Tube 65 06/24/20 15:00 131 16 113/73 (86) 99 06/24/20 14:00 117 18 113/73 (86) 99 06/24/20 14:00 16 112/56 Endotracheal Tube 65 06/24/20 13:00 17 110/58 Endotracheal Tube 65 06/24/20 13:00 73 16 103/73 (83) 99 06/24/20 12:00 80 06/24/20 12:00 Mechanical Ventilator Mechanical Ventilator Mechanical Ventilator 06/24/20 12:00 17 110/58 Endotracheal Tube 65 06/24/20 12:00 99.0 78 17 122/59 (80) 98 06/24/20 11:10 19 121/61 Mechanical Ventilator 65 06/24/20 11:05 81 20 65 06/24/20 11:00 17 121/61 Endotracheal Tube 65 06/24/20 11:00 81 17 121/61 (81) 100 06/24/20 10:00 65 06/24/20 10:00 82 17 129/66 (87) 100 06/24/20 10:00 17 131/65 Mechanical Ventilator 75 06/24/20 10:00 17 131/65 Endotracheal Tube 65 Intake and Output 06/24/20 06/25/20 19:00 07:00 Intake Total 1410.337 ml 1389.727 ml Output Total 355 ml 360 ml Balance 1055.337 ml 1029.727 ml Intake Free Water 20 ml IV Total 1000.337 ml 1349.727 ml Tube Feeding 390 ml 40 ml Output Urine Total 355 ml 360 ml Laboratory Tests 06/25/20 03:16: White Blood Count 9.5#, Red Blood Count 3.87L, Hemoglobin 12.6L, Hematocrit 38.4L, Mean Corpuscular Volume 99, Mean Corpuscular Hemoglobin 32.6H, Mean Corpuscular Hemoglobin Concent 32.9, Red Cell Distribution Width 15.5H, Platelet Count 120L, Mean Platelet Volume 9.8, Neutrophils (%) (Auto) , Lymphocytes (%) (Auto) , Monocytes (%) (Auto) , Eosinophils (%) (Auto) , Basophils (%) (Auto) , Differential Total Cells Counted 100, Neutrophils % (Manual) 87H, Lymphocytes % (Manual) 12L, Monocytes % (Manual) 1, Eosinophils % (Manual) 0, Basophils % (Manual) 0, Band Neutrophils 0, Platelet Estimate DecreasedL, Platelet Morphology Normal, Anisocytosis 1+, Sodium Level 137, Potassium Level 5.2H, Chloride Level 107, Carbon Dioxide Level 20L, Anion Gap 10, Blood Urea Nitrogen 32H, Creatinine 1.4H, Estimat Glomerular Filtration Rate 47.8, Glucose Level 176H, Calcium Level 7.7L, Phosphorus Level 1.9L, Magnesium Level 2.0, Total Bilirubin 2.2H, Direct Bilirubin 1.0H, Aspartate Amino Transf (AST/SGOT) 59H, Alanine Aminotransferase (ALT/SGPT) 21, Alkaline Phosphatase 58, C-Reactive Protein, Quantitative 13.1H, Pro-B-Type Natriuretic Peptide 8022H, Total Protein 5.8L, Albumin 1.5L, Globulin 4.3, Albumin/Globulin Ratio 0.3L, HIV (1&2) Antibody Rapid [Pending] 06/25/20 07:43: Arterial Blood pH 7.269L, Arterial Blood Partial Pressure CO2 43.5, Arterial Blood Partial Pressure O2 98.8, Arterial Blood HCO3 19.5L, Arterial Blood Oxygen Saturation 96.0, Arterial Blood Base Excess -7.1L, Manan Test Positive 06/25/20 09:19: Urine Legionella Antigen [Pending] Height (Feet): 5 Height (Inches): 8.00 Weight (Pounds): 119 General Appearance: no apparent distress EENT: normal ENT inspection Neck: normal alignment Cardiovascular: normal rate Respiratory/Chest: decreased breath sounds Abdomen: hypoactive bowel sounds Extremities: non-tender Assessment/Plan Status: not improved, unchanged Assessment/Plan: 1. Massive hemoptysis. 2. Possible GI bleed. 3. Status post cardiopulmonary arrest/PEA. 4. Anemia. 5. elevated trop>>>improving 6. Paroxysmal atrial fibrillation. 7. Thrombocytopenia. ppi GI procedures on hold fu cardiology poor prognosis NGTF add low dose Matt Fish MD Jun 25, 2020 09:57
[2020-06-25] MEDS ORDERED: Lidocaine 1% Plain 30 ml INJ PRN (10:39)
--- NOTE | 2020-06-25 10:39 | NUR ---
NURSE NOTES: JIGNA Renteria for Dr Cormier rounded on the pt. Update given. Notified him that pt FiO2 increased to 100% overnight due to low saturation. Notified him regarding current drips and BP low overnight. Notified him that pt HR and rhythm irregular, fluctuating from A fib to A fib with RVR to SR. Notified him that pt continues to have thin/bloody tracheal aspirate. Notified him regarding ABG result. No verbal orders received.
[2020-06-25] MEDS ORDERED: Heparin1,000 units/500ml Premix(Conc:2 units/ml) IV PRN (10:40)
[2020-06-25] MEDS ORDERED: Sodium Phosphate 15 MM in NS 275 ML IVPB ONE (11:00)
[2020-06-25] MEDS: Metoclopramide 10mg/10ml Liq NG SCH ×3 (11:05→23:30)
--- NOTE | 2020-06-25 12:00 | NUR ---
NURSE NOTES: Pt remains sedated. NO withdraw of upper ext to pain. Positive Babinski reflex of lower ext. Right pupil dilated and irregular with sluggish pupil. Left pupil 2-3, round and sluggish. HR elevated at this time in atrial fibrillation. Pt remains orally intubated with 7.5 ET tube with 22cm at the lip. Tracheal aspirate remains bloody, moderate, thin. Pt tolerating ventilator setting with no s/s of distress. SpO2 99% on FiO2 80%. Tube feeding remains at 20mL/hr. 40mL residual noted. Scrotal edema again noted. Bilateral arms edema +2-3 with ecchymosis and weeping serous fluid noted. IV sites clean, dry, and intact. pt on Levophed at 7mcg/min, fentanyl at 130mcg/hr, and D5 o.45% NS at 40mL/hr. Will continue to monitor.
--- NOTE | 2020-06-25 12:05 | Pulmonology Progress Note ---
Subjective ROS Limited/Unobtainable: No Interval Events: Afib with rvr last again night -> now on PO amiodarone and metoprolol Constitutional: Reports: no symptoms HEENT: Repors: no symptoms Respiratory: Reports: no symptoms Cardiovascular: Reports: no symptoms Allergies: Coded Allergies: No Known Allergies (Unverified , 06/19/20) Objective Last 24 Hour Vital Signs Date Time Temp Pulse Resp B/P (MAP) Pulse Ox O2 Delivery O2 Flow Rate FiO2 06/25/20 11:12 104 20 65 06/25/20 10:00 70 17 94/58 (70) 99 06/25/20 09:08 141 126/76 06/25/20 09:00 98.0 125 18 101/68 (79) 100 06/25/20 08:45 142 17 108/72 (84) 98 06/25/20 08:30 142 17 122/74 (90) 98 06/25/20 08:15 141 18 127/78 (94) 98 06/25/20 08:00 Mechanical Ventilator Mechanical Ventilator 06/25/20 08:00 100 06/25/20 08:00 142 18 113/69 (84) 100 06/25/20 08:00 98.4 139 17 135/74 (94) 98 06/25/20 08:00 142 06/25/20 07:45 96 18 116/63 (80) 100 06/25/20 07:30 96 18 109/57 (74) 100 06/25/20 07:15 97 17 110/59 (76) 100 06/25/20 07:14 100 20 80 06/25/20 07:00 18 103/63 Mechanical Ventilator 100 06/25/20 07:00 99 18 103/63 (76) 100 06/25/20 06:30 112 17 06/25/20 06:25 112 16 92/55 (67) 99 06/25/20 06:00 127 17 70/42 (51) 99 06/25/20 06:00 17 70/42 Mechanical Ventilator 100 06/25/20 05:00 26 99/52 Mechanical Ventilator 100 06/25/20 05:00 146 26 99/52 (68) 91 06/25/20 04:00 Mechanical Ventilator Mechanical Ventilator Mechanical Ventilator 06/25/20 04:00 99.3 155 30 117/71 (86) 85 06/25/20 04:00 30 117/71 Mechanical Ventilator 100 06/25/20 04:00 50 06/25/20 04:00 136 06/25/20 03:29 149 32 60 06/25/20 03:00 136 23 125/74 (91) 90 06/25/20 02:00 107 16 102/57 (72) 94 06/25/20 01:12 76/43 06/25/20 01:00 108 15 61/37 (45) 94 06/25/20 00:00 Mechanical Ventilator Mechanical Ventilator Mechanical Ventilator 06/25/20 00:00 20 96/61 Mechanical Ventilator 50 06/25/20 00:00 99.9 148 20 96/61 (73) 87 06/25/20 00:00 50 06/24/20 23:26 138 19 60 06/24/20 23:00 17 116/79 Mechanical Ventilator 50 06/24/20 23:00 135 17 116/79 (91) 99 06/24/20 22:00 16 101/57 Mechanical Ventilator 60 06/24/20 22:00 41 16 104/65 (78) 97 06/24/20 21:00 126 21 95/56 (69) 91 06/24/20 21:00 21 95/56 Mechanical Ventilator 60 06/24/20 20:00 107 06/24/20 20:00 Mechanical Ventilator Mechanical Ventilator Mechanical Ventilator 06/24/20 20:00 28 132/79 Mechanical Ventilator 60 06/24/20 20:00 98.9 128 28 132/79 (96) 86 06/24/20 19:30 139 27 60 06/24/20 19:00 94 16 123/79 (94) 100 06/24/20 19:00 16 123/79 Endotracheal Tube 60 06/24/20 18:00 99.1 90 16 122/61 (81) 99 06/24/20 18:00 16 122/61 Endotracheal Tube 60 06/24/20 17:00 17 110/50 Endotracheal Tube 60 06/24/20 17:00 92 16 110/50 (70) 99 06/24/20 16:30 60 06/24/20 16:20 60 06/24/20 16:00 105 06/24/20 16:00 17 85/52 Endotracheal Tube 100 06/24/20 16:00 98.9 107 17 85/52 (63) 100 06/24/20 16:00 Mechanical Ventilator Mechanical Ventilator Mechanical Ventilator 06/24/20 15:56 100 06/24/20 15:49 140 113/73 06/24/20 15:41 98.9 06/24/20 15:20 84 20 55 06/24/20 15:00 17 114/70 Endotracheal Tube 65 06/24/20 15:00 131 16 113/73 (86) 99 06/24/20 14:00 117 18 113/73 (86) 99 06/24/20 14:00 16 112/56 Endotracheal Tube 65 06/24/20 13:00 17 110/58 Endotracheal Tube 65 06/24/20 13:00 73 16 103/73 (83) 99 Intake and Output 06/24/20 06/25/20 19:00 07:00 Intake Total 1410.337 ml 1389.727 ml Output Total 355 ml 360 ml Balance 1055.337 ml 1029.727 ml Intake Free Water 20 ml IV Total 1000.337 ml 1349.727 ml Tube Feeding 390 ml 40 ml Output Urine Total 355 ml 360 ml General Appearance: no acute distress HEENT: normocephalic Respiratory: chest wall non-tender, lungs clear Cardiovascular: normal peripheral pulses, normal rate Abdomen: normal bowel sounds Laboratory Tests 06/25/20 03:16: White Blood Count 9.5#, Red Blood Count 3.87L, Hemoglobin 12.6L, Hematocrit 38.4L, Mean Corpuscular Volume 99, Mean Corpuscular Hemoglobin 32.6H, Mean Corpuscular Hemoglobin Concent 32.9, Red Cell Distribution Width 15.5H, Platelet Count 120L, Mean Platelet Volume 9.8, Neutrophils (%) (Auto) , Lymphocytes (%) (Auto) , Monocytes (%) (Auto) , Eosinophils (%) (Auto) , Basophils (%) (Auto) , Differential Total Cells Counted 100, Neutrophils % (Manual) 87H, Lymphocytes % (Manual) 12L, Monocytes % (Manual) 1, Eosinophils % (Manual) 0, Basophils % (Manual) 0, Band Neutrophils 0, Platelet Estimate DecreasedL, Platelet Morphology Normal, Anisocytosis 1+, Sodium Level 137, Potassium Level 5.2H, Chloride Level 107, Carbon Dioxide Level 20L, Anion Gap 10, Blood Urea Nitrogen 32H, Creatinine 1.4H, Estimat Glomerular Filtration Rate 47.8, Glucose Level 176H, Calcium Level 7.7L, Phosphorus Level 1.9L, Magnesium Level 2.0, Total Bilirubin 2.2H, Direct Bilirubin 1.0H, Aspartate Amino Transf (AST/SGOT) 59H, Alanine Aminotransferase (ALT/SGPT) 21, Alkaline Phosphatase 58, C-Reactive Protein, Quantitative 13.1H, Pro-B-Type Natriuretic Peptide 8022H, Total Protein 5.8L, Albumin 1.5L, Globulin 4.3, Albumin/Globulin Ratio 0.3L, HIV (1&2) Antibody Rapid [Pending] 06/25/20 07:43: Arterial Blood pH 7.269L, Arterial Blood Partial Pressure CO2 43.5, Arterial Blood Partial Pressure O2 98.8, Arterial Blood HCO3 19.5L, Arterial Blood Oxygen Saturation 96.0, Arterial Blood Base Excess -7.1L, Manan Test Positive 06/25/20 09:19: Urine Legionella Antigen [Pending] Current Medications Medications (Trade) Dose Ordered Sig/Augusto Route PRN Reason Start Time Stop Time Status Last Admin Dose Admin Acetaminophen (Tylenol) 650 mg EVERY 6 HOURS PRN NG Temp >100.5 06/19/20 22:30 07/19/20 22:29 06/24/20 15:11 Acetaminophen (Tylenol) 650 mg Q4H PRN RECTAL Temp >100.5 06/21/20 03:30 07/21/20 03:29 06/21/20 03:36 Amiodarone HCl (Cordarone) 200 mg DAILY NG 06/29/20 09:00 09/27/20 08:59 Amiodarone HCl (Cordarone) 200 mg EVERY 12 HOURS NG 06/25/20 09:00 09/23/20 08:59 06/25/20 08:23 Amlodipine Besylate (Norvasc) 2.5 mg BIDPRN PRN NG For High Blood Pressure 06/22/20 20:30 07/22/20 20:29 06/23/20 15:57 Cefepime HCl 1 gm/ Dextrose 55 ml @ 110 mls/hr Q24H IVPB 06/25/20 21:00 07/02/20 20:59 Chlorhexidine Gluconate (Tram-Hex 2%) 1 applic DAILY@2000 TOPIC 06/25/20 20:00 09/23/20 19:59 Dextrose/Sodium Chloride 1,000 ml @ 40 mls/hr Q24H IV 06/21/20 13:41 07/21/20 13:40 06/24/20 11:51 Fentanyl Citrate 250 ml @ 10 mls/hr Q24H IV 06/24/20 20:00 06/26/20 02:00 06/24/20 22:00 Fentanyl Citrate 250 ml @ 0 mls/hr Q24H PRN IV . 06/26/20 02:00 06/28/20 01:59 Heparin Sodium/ Sodium Chloride (Heparin 1000 units/500ml Premix) 1,000 unit ONCE PRN IV PICC 06/25/20 10:40 06/25/20 23:59 Levothyroxine Sodium (Synthroid) 50 mcg DAILY@0630 ORAL 06/22/20 11:00 07/22/20 10:59 06/25/20 06:40 Lidocaine HCl (Xylocaine 1% 30ml) 30 ml ONCE PRN INJ PICC 06/25/20 10:39 06/25/20 23:59 Metoclopramide HCl (Reglan) 5 mg EVERY 6 HOURS NG 06/25/20 12:00 07/25/20 11:59 06/25/20 11:05 Metoprolol Tartrate (Lopressor) 2.5 mg Q4H PRN IVP hr more thatn 125 06/24/20 21:30 09/22/20 21:29 06/25/20 09:08 Metronidazole 100 ml @ 100 mls/hr Q8HR IVPB 06/20/20 22:00 06/27/20 21:59 06/25/20 05:03 Midazolam HCl 200 ml @ 0 mls/hr Q24H IV 06/24/20 04:45 07/01/20 04:44 06/24/20 05:02 Norepinephrine Bitartrate 250 ml @ 0 mls/hr Q24H IV 06/25/20 01:00 06/28/20 00:47 06/25/20 01:12 Pantoprazole (Protonix) 40 mg EVERY 12 HOURS IVP 06/20/20 09:00 07/20/20 08:59 06/25/20 08:23 Sodium Phosphate 15 mm/Sodium Chloride 280 ml @ 70.273 mls/ hr ONCE ONCE IVPB 06/25/20 11:00 06/25/20 14:59 06/25/20 11:03 Assessment/Plan Assessment/Plan 1. GI bleed. Now resolved; on Octreotide - AFB smear neg (06/20, 06/20, 06/21) 2. Respiratory failure. Will continue AC mode 3. Shock. 4. Patchy bilateral infiltrates. 5. Non-STEMI. DISCUSSION: Patient cannot receive anticoagulation for STEMI given his GI bleed. Agree with the use of Protonix and octreotide. We will maintain assist-control mechanical ventilation. 65->80% FiO2, PEEP 5 DVT prophylaxis with SCD. Sedation as required; Still on Fentanyl, off Versed IV fluids. I will follow carefully. Empiric antibiotics as appropriate. ABG noted; will hold weaning given respiratory acidosis -> Vent adjusted The care of this patient was discussed with my supervising physician Time spent for this encounter was approximately 31 minutes Saad Renteria Jun 25, 2020 12:05
--- NOTE | 2020-06-25 12:15 | Internal Med Progress Note ---
Subjective Date of Service: Jun 25, 2020 Physician Name Angel Peter Attending Physician Ventura Pelletier MD Current Medications Medications (Trade) Dose Ordered Sig/Augusto Route PRN Reason Start Time Stop Time Status Last Admin Dose Admin Acetaminophen (Tylenol) 650 mg EVERY 6 HOURS PRN NG Temp >100.5 06/19/20 22:30 07/19/20 22:29 06/24/20 15:11 Acetaminophen (Tylenol) 650 mg Q4H PRN RECTAL Temp >100.5 06/21/20 03:30 07/21/20 03:29 06/21/20 03:36 Amiodarone HCl (Cordarone) 200 mg DAILY NG 06/29/20 09:00 09/27/20 08:59 Amiodarone HCl (Cordarone) 200 mg EVERY 12 HOURS NG 06/25/20 09:00 09/23/20 08:59 06/25/20 08:23 Amlodipine Besylate (Norvasc) 2.5 mg BIDPRN PRN NG For High Blood Pressure 06/22/20 20:30 07/22/20 20:29 06/23/20 15:57 Cefepime HCl 1 gm/ Dextrose 55 ml @ 110 mls/hr Q24H IVPB 06/25/20 21:00 07/02/20 20:59 Chlorhexidine Gluconate (Tram-Hex 2%) 1 applic DAILY@2000 TOPIC 06/25/20 20:00 09/23/20 19:59 Dextrose/Sodium Chloride 1,000 ml @ 40 mls/hr Q24H IV 06/21/20 13:41 07/21/20 13:40 06/24/20 11:51 Fentanyl Citrate 250 ml @ 10 mls/hr Q24H IV 06/24/20 20:00 06/26/20 02:00 06/24/20 22:00 Fentanyl Citrate 250 ml @ 0 mls/hr Q24H PRN IV . 06/26/20 02:00 06/28/20 01:59 Heparin Sodium/ Sodium Chloride (Heparin 1000 units/500ml Premix) 1,000 unit ONCE PRN IV PICC 06/25/20 10:40 06/25/20 23:59 Levothyroxine Sodium (Synthroid) 50 mcg DAILY@0630 ORAL 06/22/20 11:00 07/22/20 10:59 06/25/20 06:40 Lidocaine HCl (Xylocaine 1% 30ml) 30 ml ONCE PRN INJ PICC 06/25/20 10:39 06/25/20 23:59 Metoclopramide HCl (Reglan) 5 mg EVERY 6 HOURS NG 06/25/20 12:00 07/25/20 11:59 06/25/20 11:05 Metoprolol Tartrate (Lopressor) 2.5 mg Q4H PRN IVP hr more thatn 125 06/24/20 21:30 09/22/20 21:29 06/25/20 09:08 Metronidazole 100 ml @ 100 mls/hr Q8HR IVPB 06/20/20 22:00 06/27/20 21:59 06/25/20 05:03 Midazolam HCl 200 ml @ 0 mls/hr Q24H IV 06/24/20 04:45 07/01/20 04:44 06/24/20 05:02 Norepinephrine Bitartrate 250 ml @ 0 mls/hr Q24H IV 06/25/20 01:00 06/28/20 00:47 06/25/20 01:12 Pantoprazole (Protonix) 40 mg EVERY 12 HOURS IVP 06/20/20 09:00 07/20/20 08:59 06/25/20 08:23 Sodium Phosphate 15 mm/Sodium Chloride 280 ml @ 70.273 mls/ hr ONCE ONCE IVPB 06/25/20 11:00 06/25/20 14:59 06/25/20 11:03 Allergies: Coded Allergies: No Known Allergies (Unverified , 06/19/20) ROS Limited/Unobtainable: Yes Subjective 89 YO M admitted with syncopal episode. Now S/P cardiac arrest and GI bleed. Cover for Int Rashaun-Dr Pelletier. ICU. Intubated and sedated Objective Last Vital Signs Date Time Temp Pulse Resp B/P (MAP) Pulse Ox O2 Delivery O2 Flow Rate FiO2 06/25/20 11:12 104 20 65 06/25/20 10:00 94/58 (70) 99 06/25/20 09:00 98.0 06/25/20 08:00 Mechanical Ventilator Mechanical Ventilator 06/19/20 16:08 4.0 Laboratory Tests Test 06/25/20 03:16 06/25/20 07:43 06/25/20 09:19 White Blood Count 9.5 K/UL (4.8-10.8) # Red Blood Count 3.87 M/UL (4.70-6.10) L Hemoglobin 12.6 G/DL (14.2-18.0) L Hematocrit 38.4 % (42.0-52.0) L Mean Corpuscular Volume 99 FL (80-99) Mean Corpuscular Hemoglobin 32.6 PG (27.0-31.0) H Mean Corpuscular Hemoglobin Concent 32.9 G/DL (32.0-36.0) Red Cell Distribution Width 15.5 % (11.6-14.8) H Platelet Count 120 K/UL (150-450) L Mean Platelet Volume 9.8 FL (6.5-10.1) Neutrophils (%) (Auto) % (45.0-75.0) Lymphocytes (%) (Auto) % (20.0-45.0) Monocytes (%) (Auto) % (1.0-10.0) Eosinophils (%) (Auto) % (0.0-3.0) Basophils (%) (Auto) % (0.0-2.0) Differential Total Cells Counted 100 Neutrophils % (Manual) 87 % (45-75) H Lymphocytes % (Manual) 12 % (20-45) L Monocytes % (Manual) 1 % (1-10) Eosinophils % (Manual) 0 % (0-3) Basophils % (Manual) 0 % (0-2) Band Neutrophils 0 % (0-8) Platelet Estimate Decreased L Platelet Morphology Normal Anisocytosis 1+ Sodium Level 137 MMOL/L (136-145) Potassium Level 5.2 MMOL/L (3.5-5.1) H Chloride Level 107 MMOL/L (98-107) Carbon Dioxide Level 20 MMOL/L (21-32) L Anion Gap 10 mmol/L (5-15) Blood Urea Nitrogen 32 mg/dL (7-18) H Creatinine 1.4 MG/DL (0.55-1.30) H Estimat Glomerular Filtration Rate 47.8 mL/min (>60) Glucose Level 176 MG/DL (74-106) H Calcium Level 7.7 MG/DL (8.5-10.1) L Phosphorus Level 1.9 MG/DL (2.5-4.9) L Magnesium Level 2.0 MG/DL (1.8-2.4) Total Bilirubin 2.2 MG/DL (0.2-1.0) H Direct Bilirubin 1.0 MG/DL (0.0-0.3) H Aspartate Amino Transf (AST/SGOT) 59 U/L (15-37) H Alanine Aminotransferase (ALT/SGPT) 21 U/L (12-78) Alkaline Phosphatase 58 U/L (46-116) C-Reactive Protein, Quantitative 13.1 mg/dL (0.00-0.90) H Pro-B-Type Natriuretic Peptide 8022 pg/mL (0-125) H Total Protein 5.8 G/DL (6.4-8.2) L Albumin 1.5 G/DL (3.4-5.0) L Globulin 4.3 g/dL Albumin/Globulin Ratio 0.3 (1.0-2.7) L HIV (1&2) Antibody Rapid Pending Arterial Blood pH 7.269 (7.350-7.450) Arterial Blood Partial Pressure CO2 43.5 mmHg (35.0-45.0) Arterial Blood Partial Pressure O2 98.8 mmHg (75.0-100.0) Arterial Blood HCO3 19.5 mmol/L (22.0-26.0) L Arterial Blood Oxygen Saturation 96.0 % (95-100) Arterial Blood Base Excess -7.1 (-2-2) L Manan Test Positive Urine Legionella Antigen Pending Intake and Output 06/24/20 06/25/20 19:00 07:00 Intake Total 1410.337 ml 1389.727 ml Output Total 355 ml 360 ml Balance 1055.337 ml 1029.727 ml Intake Free Water 20 ml IV Total 1000.337 ml 1349.727 ml Tube Feeding 390 ml 40 ml Output Urine Total 355 ml 360 ml Objective Objective General: intubated, remained on ventilation, sedated. HEENT: NCAT, sclera anicteric, PERRL, ET Tube, NG Tube. Neck: Supple, no significant jugular venous distention, Lungs: mech vent; coarse breath sounds with Wheeze and Rales. Heart: Regular rate and rhythm, normal S1/S2, no murmurs. Abdomen: soft, nontender, nondistended. Normoactive bowel sounds. / Rectal: Refused and deferred. Extremities: No Cyanosis , clubbing or edema. Neuro: limited secondary to patient's status, able to move extremities slowly. Skin: warm, no rash. Assessment/Plan Assessment/Plan ASSESSMENT: 1. Acute hypoxemic respiratory failure. 2. PEA arrest. 3. Upper GI bleed. 4. Severe anemia, most likely secondary to acute GI bleed and acute blood loss. 5. History of hypertension. 6. Hypothyroidism. 7. BPH. 8. Thrombocytopenia. 9. The patient has elevated troponin, most likely secondary to non-ST elevation GA type 2 as a result of demand ischemia. PLAN 1. Admit the patient to ICU. 2. Dr. Ken Sevilla = Cardiology 3. Dr. Davis = Gastroenterology 4. Dr. Cormier = Pulmonary Critical Care. 5. code status is full code. 6. ABX=cefepime 7. PICC line 8. Discussed with granddaughter, Landy at length. Patient now Do Not resuscitate (no chest compressions) Angel Peter MD Jun 25, 2020 12:15
--- NOTE | 2020-06-25 12:22 | Neurology Progress Note ---
Interim History Interim History ROS Limited/Unobtainable: Yes Events: getting picc line staff in room Objective Physical Exam Last Vital Signs Date Time Temp Pulse Resp B/P (MAP) Pulse Ox O2 Delivery O2 Flow Rate FiO2 06/25/20 12:05 99/65 06/25/20 12:00 100 06/25/20 12:00 125 06/25/20 12:00 17 97 06/25/20 09:00 98.0 06/25/20 08:00 Mechanical Ventilator Mechanical Ventilator 06/19/20 16:08 4.0 Laboratory Tests Test 06/25/20 03:16 06/25/20 07:43 06/25/20 09:19 White Blood Count 9.5 K/UL (4.8-10.8) # Red Blood Count 3.87 M/UL (4.70-6.10) L Hemoglobin 12.6 G/DL (14.2-18.0) L Hematocrit 38.4 % (42.0-52.0) L Mean Corpuscular Volume 99 FL (80-99) Mean Corpuscular Hemoglobin 32.6 PG (27.0-31.0) H Mean Corpuscular Hemoglobin Concent 32.9 G/DL (32.0-36.0) Red Cell Distribution Width 15.5 % (11.6-14.8) H Platelet Count 120 K/UL (150-450) L Mean Platelet Volume 9.8 FL (6.5-10.1) Neutrophils (%) (Auto) % (45.0-75.0) Lymphocytes (%) (Auto) % (20.0-45.0) Monocytes (%) (Auto) % (1.0-10.0) Eosinophils (%) (Auto) % (0.0-3.0) Basophils (%) (Auto) % (0.0-2.0) Differential Total Cells Counted 100 Neutrophils % (Manual) 87 % (45-75) H Lymphocytes % (Manual) 12 % (20-45) L Monocytes % (Manual) 1 % (1-10) Eosinophils % (Manual) 0 % (0-3) Basophils % (Manual) 0 % (0-2) Band Neutrophils 0 % (0-8) Platelet Estimate Decreased L Platelet Morphology Normal Anisocytosis 1+ Sodium Level 137 MMOL/L (136-145) Potassium Level 5.2 MMOL/L (3.5-5.1) H Chloride Level 107 MMOL/L (98-107) Carbon Dioxide Level 20 MMOL/L (21-32) L Anion Gap 10 mmol/L (5-15) Blood Urea Nitrogen 32 mg/dL (7-18) H Creatinine 1.4 MG/DL (0.55-1.30) H Estimat Glomerular Filtration Rate 47.8 mL/min (>60) Glucose Level 176 MG/DL (74-106) H Calcium Level 7.7 MG/DL (8.5-10.1) L Phosphorus Level 1.9 MG/DL (2.5-4.9) L Magnesium Level 2.0 MG/DL (1.8-2.4) Total Bilirubin 2.2 MG/DL (0.2-1.0) H Direct Bilirubin 1.0 MG/DL (0.0-0.3) H Aspartate Amino Transf (AST/SGOT) 59 U/L (15-37) H Alanine Aminotransferase (ALT/SGPT) 21 U/L (12-78) Alkaline Phosphatase 58 U/L (46-116) C-Reactive Protein, Quantitative 13.1 mg/dL (0.00-0.90) H Pro-B-Type Natriuretic Peptide 8022 pg/mL (0-125) H Total Protein 5.8 G/DL (6.4-8.2) L Albumin 1.5 G/DL (3.4-5.0) L Globulin 4.3 g/dL Albumin/Globulin Ratio 0.3 (1.0-2.7) L HIV (1&2) Antibody Rapid Pending Arterial Blood pH 7.269 (7.350-7.450) Arterial Blood Partial Pressure CO2 43.5 mmHg (35.0-45.0) Arterial Blood Partial Pressure O2 98.8 mmHg (75.0-100.0) Arterial Blood HCO3 19.5 mmol/L (22.0-26.0) L Arterial Blood Oxygen Saturation 96.0 % (95-100) Arterial Blood Base Excess -7.1 (-2-2) L Manan Test Positive Urine Legionella Antigen Pending Neurologic Exam Objective ROS difficult to assess PE Neuro exam is limited at this time he is awake today , tracts eyes PERRLA has spontaneous movements of upper extremities. No facial droop symmetrical withdraws to painful stimul Impression/Recommendations Status: not improved, unchanged Diagnostic Impression LAB Reviewed IMAGING: CT of the head was done. No acute intracranial abnormality, parenchymal atrophy, and mild chronic microvascular ischemic changes. MEDS: Reviewed Assessment and Plan: 1. Syncope --> likely due to vasovagal was having Bowel movement at that time also hypovolemic due to amount of blood loss from gi bleeding vomiting --> we will follow along at this time no further neuro recommendations. Continue to monitor. --> he is awake, alert, responsive. per recharger slightly lethargic today 2. Resp Arrest --> s/p intubation on vent 3. AFIB in RVR 4. Hypertension 5. Anemia Thank you for allowing us to participate in patient's care plan of care was discussed with Dr. Edmar Valencia who agrees with plan. Jacqueline Solis NP Jun 25, 2020 12:22
--- NOTE | 2020-06-25 12:42 | Pre-Procedure Note/Attestation ---
Pre-Procedure Note/Attestation Complete Prior to Procedure Planned Procedure: not applicable Procedure Narrative: picc insertion Indications for Procedure Pre-Operative Diagnosis: need iv access Attestation informed consent obtained from family by ICU staff, confirmed prior to procedure. Jon Carter M.D. Jun 25, 2020 12:42
[2020-06-25] MEDS: D5 1/2NS 1,000 ML IV SCH (13:39)
--- NOTE | 2020-06-25 14:01 | Nephrology Progress Note ---
Assessment/Plan Problem List: (1) Cardiopulmonary arrest (2) Respiratory failure (3) Elevated troponin (4) Abdominal distension (5) Electrolyte imbalance Assessment Status post cardiorespiratory arrest Elevated troponin Oliguria Lactic acidosis Massive hemoptysis Acute respiratory failure, intubated on ventilator Electrolyte imbalance Plan June 25: Labs reviewed. Serum creatinine up to 1.4. Serum potassium 5.2. Albumin bolus given. IV increased to 75 cc an hour. Patient is DNR now. Continue per current treatment plan. June 24: Labs reviewed. Seen in ICU. Discussed with RN. On amiodarone drip for atrial fibrillation with fast ventricular rate. Continues to be full code, intubated on ventilator. Renal parameters reviewed. Continue per consultants. June 23: Labs reviewed. Abnormal electrolytes addressed. Discussed with RN. FiO2 lower at 60%. Continue per current management. June 22: Labs reviewed. Abnormal electrolytes addressed. Patient is full code intubated on ventilator. FiO2 60%. Continue per current management. Continue per consultants. June 21: Midodrine for low BP started. Albumin bolus given. Potassium and IV discontinued. Continue to monitor renal parameters. Abnormal electrolytes noted and addressed. Check TSH level. Pulmonary support Correct abnormal electrolytes and chemistries Anemia work-up Monitor renal parameters and urine output Urine studies Magnesium supplement Per orders Subjective ROS Limited/Unobtainable: Yes Objective Objective Last 24 Hour Vital Signs Date Time Temp Pulse Resp B/P (MAP) Pulse Ox O2 Delivery O2 Flow Rate FiO2 06/25/20 13:00 22 132/94 Mechanical Ventilator 75 06/25/20 13:00 22 132/94 Mechanical Ventilator 75 06/25/20 13:00 120 17 122/72 (89) 99 06/25/20 12:05 99/65 06/25/20 12:00 Mechanical Ventilator Mechanical Ventilator 06/25/20 12:00 100 06/25/20 12:00 17 93/62 Mechanical Ventilator 80 06/25/20 12:00 125 06/25/20 12:00 119 17 93/62 (72) 97 06/25/20 11:12 104 20 65 06/25/20 11:00 116 17 108/58 (75) 97 06/25/20 11:00 17 108/58 Mechanical Ventilator 80 06/25/20 10:00 17 108/58 Mechanical Ventilator 90 06/25/20 10:00 70 17 94/58 (70) 99 06/25/20 09:08 141 126/76 06/25/20 09:00 98.0 125 18 101/68 (79) 100 06/25/20 09:00 18 126/76 Mechanical Ventilator 90 06/25/20 08:45 142 17 108/72 (84) 98 06/25/20 08:30 142 17 122/74 (90) 98 06/25/20 08:15 141 18 127/78 (94) 98 06/25/20 08:00 Mechanical Ventilator Mechanical Ventilator 06/25/20 08:00 100 06/25/20 08:00 142 18 113/69 (84) 100 06/25/20 08:00 18 126/74 Mechanical Ventilator 100 06/25/20 08:00 98.4 139 17 135/74 (94) 98 06/25/20 08:00 142 06/25/20 07:45 96 18 116/63 (80) 100 06/25/20 07:30 96 18 109/57 (74) 100 06/25/20 07:15 97 17 110/59 (76) 100 06/25/20 07:14 100 20 80 06/25/20 07:00 18 103/63 Mechanical Ventilator 100 06/25/20 07:00 99 18 103/63 (76) 100 06/25/20 06:30 112 17 06/25/20 06:25 112 16 92/55 (67) 99 06/25/20 06:00 127 17 70/42 (51) 99 06/25/20 06:00 17 70/42 Mechanical Ventilator 100 06/25/20 05:00 26 99/52 Mechanical Ventilator 100 06/25/20 05:00 146 26 99/52 (68) 91 06/25/20 04:00 Mechanical Ventilator Mechanical Ventilator Mechanical Ventilator 06/25/20 04:00 99.3 155 30 117/71 (86) 85 06/25/20 04:00 30 117/71 Mechanical Ventilator 100 06/25/20 04:00 50 06/25/20 04:00 136 06/25/20 03:29 149 32 60 06/25/20 03:00 136 23 125/74 (91) 90 06/25/20 02:00 107 16 102/57 (72) 94 06/25/20 01:12 76/43 06/25/20 01:00 108 15 61/37 (45) 94 06/25/20 00:00 Mechanical Ventilator Mechanical Ventilator Mechanical Ventilator 06/25/20 00:00 20 96/61 Mechanical Ventilator 50 06/25/20 00:00 99.9 148 20 96/61 (73) 87 06/25/20 00:00 50 06/24/20 23:26 138 19 60 06/24/20 23:00 17 116/79 Mechanical Ventilator 50 06/24/20 23:00 135 17 116/79 (91) 99 06/24/20 22:00 16 101/57 Mechanical Ventilator 60 06/24/20 22:00 41 16 104/65 (78) 97 06/24/20 21:00 126 21 95/56 (69) 91 06/24/20 21:00 21 95/56 Mechanical Ventilator 60 06/24/20 20:00 107 06/24/20 20:00 Mechanical Ventilator Mechanical Ventilator Mechanical Ventilator 06/24/20 20:00 28 132/79 Mechanical Ventilator 60 06/24/20 20:00 98.9 128 28 132/79 (96) 86 06/24/20 19:30 139 27 60 06/24/20 19:00 94 16 123/79 (94) 100 06/24/20 19:00 16 123/79 Endotracheal Tube 60 06/24/20 18:00 99.1 90 16 122/61 (81) 99 06/24/20 18:00 16 122/61 Endotracheal Tube 60 06/24/20 17:00 17 110/50 Endotracheal Tube 60 06/24/20 17:00 92 16 110/50 (70) 99 06/24/20 16:30 60 06/24/20 16:20 60 06/24/20 16:00 105 06/24/20 16:00 17 85/52 Endotracheal Tube 100 06/24/20 16:00 98.9 107 17 85/52 (63) 100 06/24/20 16:00 Mechanical Ventilator Mechanical Ventilator Mechanical Ventilator 06/24/20 15:56 100 06/24/20 15:49 140 113/73 06/24/20 15:41 98.9 06/24/20 15:20 84 20 55 06/24/20 15:00 17 114/70 Endotracheal Tube 65 06/24/20 15:00 131 16 113/73 (86) 99 Intake and Output 06/24/20 06/25/20 19:00 07:00 Intake Total 1410.337 ml 1389.727 ml Output Total 355 ml 360 ml Balance 1055.337 ml 1029.727 ml Intake Free Water 20 ml IV Total 1000.337 ml 1349.727 ml Tube Feeding 390 ml 40 ml Output Urine Total 355 ml 360 ml Current Medications Medications (Trade) Dose Ordered Sig/Augusto Route PRN Reason Start Time Stop Time Status Last Admin Dose Admin Acetaminophen (Tylenol) 650 mg EVERY 6 HOURS PRN NG Temp >100.5 06/19/20 22:30 07/19/20 22:29 06/24/20 15:11 Acetaminophen (Tylenol) 650 mg Q4H PRN RECTAL Temp >100.5 06/21/20 03:30 07/21/20 03:29 06/21/20 03:36 Amiodarone HCl (Cordarone) 200 mg DAILY NG 06/29/20 09:00 09/27/20 08:59 Amiodarone HCl (Cordarone) 200 mg EVERY 12 HOURS NG 06/25/20 09:00 09/23/20 08:59 06/25/20 08:23 Amlodipine Besylate (Norvasc) 2.5 mg BIDPRN PRN NG For High Blood Pressure 06/22/20 20:30 07/22/20 20:29 06/23/20 15:57 Cefepime HCl 1 gm/ Dextrose 55 ml @ 110 mls/hr Q24H IVPB 06/25/20 21:00 07/02/20 20:59 Chlorhexidine Gluconate (Tram-Hex 2%) 1 applic DAILY@2000 TOPIC 06/25/20 20:00 09/23/20 19:59 Dextrose/Sodium Chloride 1,000 ml @ 40 mls/hr Q24H IV 06/21/20 13:41 07/21/20 13:40 06/25/20 13:39 Fentanyl Citrate 250 ml @ 10 mls/hr Q24H IV 06/24/20 20:00 06/26/20 02:00 06/24/20 22:00 Fentanyl Citrate 250 ml @ 0 mls/hr Q24H PRN IV . 06/26/20 02:00 06/28/20 01:59 Heparin Sodium/ Sodium Chloride (Heparin 1000 units/500ml Premix) 1,000 unit ONCE PRN IV PICC 06/25/20 10:40 06/25/20 23:59 Levothyroxine Sodium (Synthroid) 50 mcg DAILY@0630 ORAL 06/22/20 11:00 07/22/20 10:59 06/25/20 06:40 Lidocaine HCl (Xylocaine 1% 30ml) 30 ml ONCE PRN INJ PICC 06/25/20 10:39 06/25/20 23:59 Metoclopramide HCl (Reglan) 5 mg EVERY 6 HOURS NG 06/25/20 12:00 07/25/20 11:59 06/25/20 11:05 Metoprolol Tartrate (Lopressor) 2.5 mg Q4H PRN IVP hr more thatn 125 06/24/20 21:30 09/22/20 21:29 06/25/20 09:08 Metronidazole 100 ml @ 100 mls/hr Q8HR IVPB 06/20/20 22:00 06/27/20 21:59 06/25/20 13:41 Midazolam HCl 200 ml @ 0 mls/hr Q24H IV 06/24/20 04:45 07/01/20 04:44 06/24/20 05:02 Norepinephrine Bitartrate 250 ml @ 0 mls/hr Q24H IV 06/25/20 01:00 06/28/20 00:47 06/25/20 12:05 Pantoprazole (Protonix) 40 mg EVERY 12 HOURS IVP 06/20/20 09:00 07/20/20 08:59 06/25/20 08:23 Sodium Phosphate 15 mm/Sodium Chloride 280 ml @ 70.273 mls/ hr ONCE ONCE IVPB 06/25/20 11:00 06/25/20 14:59 06/25/20 11:03 Laboratory Tests 06/25/20 03:16: White Blood Count 9.5#, Red Blood Count 3.87L, Hemoglobin 12.6L, Hematocrit 38.4L, Mean Corpuscular Volume 99, Mean Corpuscular Hemoglobin 32.6H, Mean Corpuscular Hemoglobin Concent 32.9, Red Cell Distribution Width 15.5H, Platelet Count 120L, Mean Platelet Volume 9.8, Neutrophils (%) (Auto) , Lymphocytes (%) (Auto) , Monocytes (%) (Auto) , Eosinophils (%) (Auto) , Basophils (%) (Auto) , Differential Total Cells Counted 100, Neutrophils % (Manual) 87H, Lymphocytes % (Manual) 12L, Monocytes % (Manual) 1, Eosinophils % (Manual) 0, Basophils % (Manual) 0, Band Neutrophils 0, Platelet Estimate DecreasedL, Platelet Morphology Normal, Anisocytosis 1+, Sodium Level 137, Potassium Level 5.2H, Chloride Level 107, Carbon Dioxide Level 20L, Anion Gap 10, Blood Urea Nitrogen 32H, Creatinine 1.4H, Estimat Glomerular Filtration Rate 47.8, Glucose Level 176H, Calcium Level 7.7L, Phosphorus Level 1.9L, Magnesium Level 2.0, Total Bilirubin 2.2H, Direct Bilirubin 1.0H, Aspartate Amino Transf (AST/SGOT) 59H, Alanine Aminotransferase (ALT/SGPT) 21, Alkaline Phosphatase 58, C-Reactive Protein, Quantitative 13.1H, Pro-B-Type Natriuretic Peptide 8022H, Total Protein 5.8L, Albumin 1.5L, Globulin 4.3, Albumin/Globulin Ratio 0.3L, HIV (1&2) Antibody Rapid [Pending] 06/25/20 07:43: Arterial Blood pH 7.269L, Arterial Blood Partial Pressure CO2 43.5, Arterial Blood Partial Pressure O2 98.8, Arterial Blood HCO3 19.5L, Arterial Blood Oxygen Saturation 96.0, Arterial Blood Base Excess -7.1L, Manan Test Positive 06/25/20 09:19: Urine Legionella Antigen [Pending] Height (Feet): 5 Height (Inches): 8.00 Weight (Pounds): 119 General Appearance: no apparent distress EENT: other - Intubated on ventilator Cardiovascular: tachycardia Respiratory/Chest: decreased breath sounds Abdomen: distended Kapil Rea MD Jun 25, 2020 14:01
[2020-06-25] MEDS: Acetaminophen 650mg/20.3ml NG PRN (14:06)
--- NOTE | 2020-06-25 14:24 | Surgery Progress Note ---
Surgery Progress Note Subjective Additional Comments ill appearing picc line today no n/v Objective Last 24 Hour Vital Signs Date Time Temp Pulse Resp B/P (MAP) Pulse Ox O2 Delivery O2 Flow Rate FiO2 06/25/20 14:05 139 113/70 06/25/20 14:00 139 18 113/70 (84) 99 06/25/20 13:00 22 132/94 Mechanical Ventilator 75 06/25/20 13:00 22 132/94 Mechanical Ventilator 75 06/25/20 13:00 120 17 122/72 (89) 99 06/25/20 12:05 99/65 06/25/20 12:00 Mechanical Ventilator Mechanical Ventilator 06/25/20 12:00 100 06/25/20 12:00 17 93/62 Mechanical Ventilator 80 06/25/20 12:00 125 06/25/20 12:00 119 17 93/62 (72) 97 06/25/20 11:12 104 20 65 06/25/20 11:00 116 17 108/58 (75) 97 06/25/20 11:00 17 108/58 Mechanical Ventilator 80 06/25/20 10:00 17 108/58 Mechanical Ventilator 90 06/25/20 10:00 70 17 94/58 (70) 99 06/25/20 09:08 141 126/76 06/25/20 09:00 98.0 125 18 101/68 (79) 100 06/25/20 09:00 18 126/76 Mechanical Ventilator 90 06/25/20 08:45 142 17 108/72 (84) 98 06/25/20 08:30 142 17 122/74 (90) 98 06/25/20 08:15 141 18 127/78 (94) 98 06/25/20 08:00 Mechanical Ventilator Mechanical Ventilator 06/25/20 08:00 100 06/25/20 08:00 142 18 113/69 (84) 100 06/25/20 08:00 18 126/74 Mechanical Ventilator 100 06/25/20 08:00 98.4 139 17 135/74 (94) 98 06/25/20 08:00 142 06/25/20 07:45 96 18 116/63 (80) 100 06/25/20 07:30 96 18 109/57 (74) 100 06/25/20 07:15 97 17 110/59 (76) 100 06/25/20 07:14 100 20 80 06/25/20 07:00 18 103/63 Mechanical Ventilator 100 06/25/20 07:00 99 18 103/63 (76) 100 06/25/20 06:30 112 17 06/25/20 06:25 112 16 92/55 (67) 99 06/25/20 06:00 127 17 70/42 (51) 99 06/25/20 06:00 17 70/42 Mechanical Ventilator 100 06/25/20 05:00 26 99/52 Mechanical Ventilator 100 06/25/20 05:00 146 26 99/52 (68) 91 06/25/20 04:00 Mechanical Ventilator Mechanical Ventilator Mechanical Ventilator 06/25/20 04:00 99.3 155 30 117/71 (86) 85 06/25/20 04:00 30 117/71 Mechanical Ventilator 100 06/25/20 04:00 50 06/25/20 04:00 136 06/25/20 03:29 149 32 60 06/25/20 03:00 136 23 125/74 (91) 90 06/25/20 02:00 107 16 102/57 (72) 94 06/25/20 01:12 76/43 06/25/20 01:00 108 15 61/37 (45) 94 06/25/20 00:00 Mechanical Ventilator Mechanical Ventilator Mechanical Ventilator 06/25/20 00:00 20 96/61 Mechanical Ventilator 50 06/25/20 00:00 99.9 148 20 96/61 (73) 87 06/25/20 00:00 50 06/24/20 23:26 138 19 60 06/24/20 23:00 17 116/79 Mechanical Ventilator 50 06/24/20 23:00 135 17 116/79 (91) 99 06/24/20 22:00 16 101/57 Mechanical Ventilator 60 06/24/20 22:00 41 16 104/65 (78) 97 06/24/20 21:00 126 21 95/56 (69) 91 06/24/20 21:00 21 95/56 Mechanical Ventilator 60 06/24/20 20:00 107 06/24/20 20:00 Mechanical Ventilator Mechanical Ventilator Mechanical Ventilator 06/24/20 20:00 28 132/79 Mechanical Ventilator 60 06/24/20 20:00 98.9 128 28 132/79 (96) 86 06/24/20 19:30 139 27 60 06/24/20 19:00 94 16 123/79 (94) 100 06/24/20 19:00 16 123/79 Endotracheal Tube 60 06/24/20 18:00 99.1 90 16 122/61 (81) 99 06/24/20 18:00 16 122/61 Endotracheal Tube 60 06/24/20 17:00 17 110/50 Endotracheal Tube 60 06/24/20 17:00 92 16 110/50 (70) 99 06/24/20 16:30 60 06/24/20 16:20 60 06/24/20 16:00 105 06/24/20 16:00 17 85/52 Endotracheal Tube 100 06/24/20 16:00 98.9 107 17 85/52 (63) 100 06/24/20 16:00 Mechanical Ventilator Mechanical Ventilator Mechanical Ventilator 06/24/20 15:56 100 06/24/20 15:49 140 113/73 06/24/20 15:41 98.9 06/24/20 15:20 84 20 55 06/24/20 15:00 17 114/70 Endotracheal Tube 65 06/24/20 15:00 131 16 113/73 (86) 99 I&O Intake and Output 06/24/20 06/25/20 19:00 07:00 Intake Total 1410.337 ml 1389.727 ml Output Total 355 ml 360 ml Balance 1055.337 ml 1029.727 ml Intake Free Water 20 ml IV Total 1000.337 ml 1349.727 ml Tube Feeding 390 ml 40 ml Output Urine Total 355 ml 360 ml Dressing: saturated Cardiovascular: RSR Respiratory: decreased breath sounds Abdomen: soft, flat, non-tender, present bowel sounds, non-distended Extremities: no edema, no tenderness, no cyanosis Laboratory Tests Test 06/25/20 03:16 06/25/20 07:43 06/25/20 09:19 White Blood Count 9.5 K/UL (4.8-10.8) # Red Blood Count 3.87 M/UL (4.70-6.10) L Hemoglobin 12.6 G/DL (14.2-18.0) L Hematocrit 38.4 % (42.0-52.0) L Mean Corpuscular Volume 99 FL (80-99) Mean Corpuscular Hemoglobin 32.6 PG (27.0-31.0) H Mean Corpuscular Hemoglobin Concent 32.9 G/DL (32.0-36.0) Red Cell Distribution Width 15.5 % (11.6-14.8) H Platelet Count 120 K/UL (150-450) L Mean Platelet Volume 9.8 FL (6.5-10.1) Neutrophils (%) (Auto) % (45.0-75.0) Lymphocytes (%) (Auto) % (20.0-45.0) Monocytes (%) (Auto) % (1.0-10.0) Eosinophils (%) (Auto) % (0.0-3.0) Basophils (%) (Auto) % (0.0-2.0) Differential Total Cells Counted 100 Neutrophils % (Manual) 87 % (45-75) H Lymphocytes % (Manual) 12 % (20-45) L Monocytes % (Manual) 1 % (1-10) Eosinophils % (Manual) 0 % (0-3) Basophils % (Manual) 0 % (0-2) Band Neutrophils 0 % (0-8) Platelet Estimate Decreased L Platelet Morphology Normal Anisocytosis 1+ Sodium Level 137 MMOL/L (136-145) Potassium Level 5.2 MMOL/L (3.5-5.1) H Chloride Level 107 MMOL/L (98-107) Carbon Dioxide Level 20 MMOL/L (21-32) L Anion Gap 10 mmol/L (5-15) Blood Urea Nitrogen 32 mg/dL (7-18) H Creatinine 1.4 MG/DL (0.55-1.30) H Estimat Glomerular Filtration Rate 47.8 mL/min (>60) Glucose Level 176 MG/DL (74-106) H Calcium Level 7.7 MG/DL (8.5-10.1) L Phosphorus Level 1.9 MG/DL (2.5-4.9) L Magnesium Level 2.0 MG/DL (1.8-2.4) Total Bilirubin 2.2 MG/DL (0.2-1.0) H Direct Bilirubin 1.0 MG/DL (0.0-0.3) H Aspartate Amino Transf (AST/SGOT) 59 U/L (15-37) H Alanine Aminotransferase (ALT/SGPT) 21 U/L (12-78) Alkaline Phosphatase 58 U/L (46-116) C-Reactive Protein, Quantitative 13.1 mg/dL (0.00-0.90) H Pro-B-Type Natriuretic Peptide 8022 pg/mL (0-125) H Total Protein 5.8 G/DL (6.4-8.2) L Albumin 1.5 G/DL (3.4-5.0) L Globulin 4.3 g/dL Albumin/Globulin Ratio 0.3 (1.0-2.7) L HIV (1&2) Antibody Rapid Pending Arterial Blood pH 7.269 (7.350-7.450) Arterial Blood Partial Pressure CO2 43.5 mmHg (35.0-45.0) Arterial Blood Partial Pressure O2 98.8 mmHg (75.0-100.0) Arterial Blood HCO3 19.5 mmol/L (22.0-26.0) L Arterial Blood Oxygen Saturation 96.0 % (95-100) Arterial Blood Base Excess -7.1 (-2-2) L Manan Test Positive Urine Legionella Antigen Pending Plan Problems: (1) Massive hemoptysis Assessment & Plan: Trend h/h no active bleeding ? gi malignancy GI consult ?EGD NG tube (2) Cardiopulmonary arrest (3) Lactic acidosis (4) Anemia (5) Respiratory failure Assessment & Plan: intubated on vent abd exam stable kub noted wean vent non responsive (6) Elevated troponin (7) Abdominal distension Assessment & Plan: CT noted sbo vs ileus gas filled bowel loops abd distended on exam limited exam given condition critically ill will follow with exam and recs KUB ordered - improved ng with bilious output likely ileus or resolving sbo will follow with clinical exam ABDOMEN: Liver: Few incompletely characterized low-attenuation lesions within the liver. Gallbladder and bile ducts: Cholelithiasis. Pancreas: Unremarkable. Spleen: Unremarkable. Adrenals: Unremarkable. Kidneys and ureters: Unremarkable. No obstructing stones. No hydronephrosis. Stomach and bowel: Gas filled mildly distended small bowel loops measuring up to 4 cm. There is mucosal thickening within the stomach potentially representing gastritis or malignancy. PELVIS: Appendix: No findings to suggest acute appendicitis. Bladder: Calabrese catheter in the bladder. Reproductive: Unremarkable as visualized. ABDOMEN and PELVIS: Intraperitoneal space: Trace nonspecific ascites. No free air. Bones/joints: Status post left hip ORIF. Multiple bones within the pelvis and spine. Soft tissues: Unremarkable. Vasculature: Unremarkable. Lymph nodes: Unremarkable. Tubes, lines and devices: Esophagogastric tube within the stomach. IMPRESSION: 1. Gas filled mildly distended small bowel loops measuring up to 4 cm. Abrupt transition point difficult to identify. Obstruction on the differential. Also consider ileus. 2. There is mucosal thickening within the stomach potentially representing gastritis or malignancy. 3. Few incompletely characterized low-attenuation lesions within the liver. 4. Cholelithiasis. 5. Trace nonspecific ascites. Samuel Lazar Jun 25, 2020 14:24
--- NOTE | 2020-06-25 14:45 | NUR ---
NURSE NOTES: Pt granddaughter called. Update given. She reported that her family will be here around 6pm. Will follow up.
--- NOTE | 2020-06-25 16:00 | NUR ---
NURSE NOTES: Pt remains sedated. NO withdraw of upper ext to pain. Positive Babinski reflex of lower ext. Right pupil dilated and irregular with sluggish pupil. Left pupil 2-3, round and sluggish. HR elevated at this time in atrial fibrillation. Pt remains orally intubated with 7.5 ET tube with 22cm at the lip. Tracheal aspirate remains bloody, moderate, thin. Pt tolerating ventilator setting with no s/s of distress. SpO2 99% on FiO2 75%. Tube feeding remains at 20mL/hr. 30mL residual noted. Scrotal edema again noted. Bilateral arms edema +2-3 with ecchymosis and weeping serous fluid noted. IV sites clean, dry, and intact. pt on Levophed at 6mcg/min, fentanyl at 120mcg/hr, and D5 o.45% NS at 40mL/hr. Will continue to monitor.
--- NOTE | 2020-06-25 17:16 | Diagnostic Imaging Report ---
Indications: Needs long-term IV access Technique: Procedure performed at bedside. Procedural timeout performed. Ultrasound confirms patent compressible left basilic vein. Total sterile technique, including sterile probe cover and sterile gel, sterile gloves, hand hygiene, hat, mask,, sterile gown, large sterile drape, and preparation with 2% chlorhexidine utilized. Local anesthesia with 1% lidocaine. Under real-time ultrasound guidance, puncture left basilic vein using 21-gauge needle, passage 0.018 guidewire, exchange for 5 Croatian peel-away sheath. 4 Croatian Bard dual-lumen power PICC cut to 40 cm. It was inserted through the peel-away sheath. Peel-away sheath and guidewire removed. Catheter fixed to the skin. Both catheter ports aspirated and flushed. Patient tolerated procedure well, without immediate complication. Followup chest x-ray obtained, documents catheter tip position at the SVC. No evidence of pneumothorax. There is worsening of bilateral airspace disease. IMPRESSION: Successful bedside placement of left arm PICC under sonographic guidance, as described above. PICC is cleared for use. Worsening of bilateral airspace disease.
--- NOTE | 2020-06-25 18:26 | NUR ---
NURSE NOTES: Pt family has arrived to see pt. Pt HR continues to be unstable from SR with frequent PAC to A fib RVR. BP remains WNL with levophed. Will continue to titrate as tolerated. Bed bath done at 1730. Sacral dressing changed. NO BM noted. Scrotal edema again noted. Barrier cream placed on coccyx and sacral/scrotal area.
--- NOTE | 2020-06-25 19:25 | NUR ---
NURSE HAND-OFF REPORT: Latest Vital Signs: Temperature 97.9 , Pulse 138 , B/P 118 /74 , Respiratory Rate 22 , O2 SAT 99 , Mechanical Ventilator, O2 Flow Rate . Vital Sign Comment: EKG Rhythm: Atrial Fibrillation Rhythm change?: N Notified?: N -Dr. Roel LEUNG Response: Order Received& Read Back Latest Coyle Fall Score: 50 Fall Risk: High Risk Safety Measures: Call light Within Reach, Bed Alarm Zone 2, Side Rails Side Rails x2, Bed position Low and Locked. Fall Precautions: Yellow Socks Report given to JAVI Staton.
--- NOTE | 2020-06-25 19:30 | NUR ---
NURSE NOTES: received pt orally intubated on ac mode , sedated with Fentanyl, 120mcg/hr/ also with D51/2 nS at 40 ml/hr. Bp been supported with Levophed drip at 5mcg/min. All IVF been infusing to Left upper, Site with drsg dry and intact. pt on Afib with RVR rate 130s-140s. Tolerated fdg glucerna 1.5 at 20ml/hr, residuals 10-20 ml/hr hOB kept elevated, on aspiration precaution. pt with 2-3 edema to his upper and lower exttremities as well as scrotal edema elevated with 1 pillow case.skin is intact hyman to gravity with tony yellow urine, approx. 10-20ml/hr, Dr Rea was aware, will continue to monitor,
[2020-06-25] MEDS: Dyna-Hex 2% Top Sol 2oz TOPIC SCH (19:53)
[2020-06-25] MEDS: fentaNYL 2500mcg/NS 250ml 250 ML IV SCH (20:35)
[2020-06-25] MEDS: Cefepime HCl 1 GM in D5W 55 ML IVPB SCH (20:56)
--- NOTE | 2020-06-25 21:00 | NUR ---
NURSE NOTES: Dr Wells called, inquiring about the pt, updated md with pts condition,
--- NOTE | 2020-06-25 22:30 | NUR ---
NURSE NOTES: repositioned for comfort. Elevated swollen extremitie with pillows.
[2020-06-25] MEDS ORDERED: Levophed 4mg/4mL Inj IV ONE (23:23)
[2020-06-26] VITALS (32 sets, daily range): BP systolic 0–171; BP diastolic 0–94
--- NOTE | 2020-06-26 01:00 | NUR ---
NURSE NOTES: yomi Bill called updated with pts condition- verbalized understanding
--- NOTE | 2020-06-26 04:00 | NUR ---
NURSE NOTES: complete bed bath with bed changed was done.
[2020-06-26] MEDS: Versed 100mg/NS 200ml 200 ML IV SCH (04:45)
[2020-06-26 05:24] LABS: CALCIUM 8.1 MG/DL (8.5-10.1); CREATININE 1.7 MG/DL (0.55-1.30)
[2020-06-26 05:28] LABS: HEMATOCRIT 39.3 % (42.0-52.0); HEMOGLOBIN 12.5 G/DL (14.2-18.0); MEAN CORPUSCULAR VOLUME 101 FL (80-99); PLATELET COUNT 128 K/UL (150-450); RED BLOOD COUNT 3.87 M/UL (4.70-6.10); RED CELL DISTRIBUTION WIDTH 16.4 % (11.6-14.8); WHITE BLOOD COUNT 11.3 K/UL (4.8-10.8)
[2020-06-26 05:32] LABS: ALANINE AMINOTRANSFERASE 46 U/L (12-78); ALBUMIN 1.9 G/DL (3.4-5.0); ALKALINE PHOSPHATASE 66 U/L (46-116); ASPARTATE AMINO TRANSFERASE 212 U/L (15-37); BILIRUBIN,DIRECT 0.8 MG/DL (0.0-0.3); BILIRUBIN,TOTAL 2.1 MG/DL (0.2-1.0); PHOSPHORUS 3.4 MG/DL (2.5-4.9)
[2020-06-26] MEDS: Metoclopramide 10mg/10ml Liq NG SCH ×2 (05:55→11:17)
[2020-06-26] MEDS: D5 1/2NS 1,000 ML IV SCH ×2 (05:56→18:31)
--- NOTE | 2020-06-26 06:00 | NUR ---
NURSE NOTES: Pts desat down to 80s, fio2 increased to 100%
--- NOTE | 2020-06-26 07:00 | NUR ---
NURSE NOTES: Received report from JAVI Staton. Pt in bed sedated with Fentanyl 12ml/hr. Pt been supported with Levophed @5mcg/min and BP currently maintained stable. Noted a-fib with hr 100-120/min on teletypesetter monitor. PICC 2 lumens on left upper arm and dressing intact and patent. Left hand 22G SL and left upper arm 20G SL patent and intact. Calabrese cath patent and intact and draining dark yellow colored urine with 10-15ml/hr during previous shift and Dr. Rea aware. Bed rails x3 up for safety. Call light within easy reach. Pt intubated with 7.5fr tube advanced at 23cm at lip line. On vent setting [id number]%, peep of 5 and sating 98%. OGT tube advanced at 57cm at lip line and running Glucerna 1.5 @20ml/hr(Goal rate 50m/lhr). On SAROJ mattress. Will continue plan of care.
--- NOTE | 2020-06-26 07:21 | NUR ---
NURSE HAND-OFF REPORT: Latest Vital Signs: Temperature 98.2 , Pulse 91 , B/P 171 /80 , Respiratory Rate 30 , O2 SAT 95 , Mechanical Ventilator, O2 Flow Rate . Vital Sign Comment: EKG Rhythm: Afib with RVR Rhythm change?: N Notified?: N -Dr. Roel LEUNG Response: Order Received& Read Back Latest Coyle Fall Score: 50 Fall Risk: High Risk Safety Measures: Call light Within Reach, Bed Alarm Zone 2, Side Rails Side Rails x2, Bed position Low and Locked. Fall Precautions: Yellow Socks Report given to Trey CALDWELL
--- NOTE | 2020-06-26 07:35 | NUR ---
RD ASSESSMENT & RECOMMENDATIONS SEE CARE ACTIVITY FOR COMPLETE ASSESSMENT DAILY ESTIMATED NEEDS: Needs based on Critical care, underweight/ 54kg 22-30 kcals/kg 6615-6841 total kcals 1.2-2 g protein/kg 65-108 g total protein 25-30 mL/kg 3562-6148 total fluid mLs NUTRITION DIAGNOSIS: Swallowing difficulty R/T respiratory failure as evidenced by orally intubated upon adm, s/p code blue, remains orally intubated and sedated, now on tube feeds. CURRENT TF: glucerna 1.5 goal of 50ml/hr ENTERAL NUTRITION RECOMMENDATIONS: Vital AF 1.2 @ 50ml/hr x 24 hrs to provide 1200ml, 1440kcal, 90g prot, 973ml free water * When medically appropriate to feed and hemodynamically stable, -> initiate Vital AF 1.2 @ 10ml/hr x 8 hrs, advance 10ml q 8 hrs as tolerated to goal rate -> HOB over 30 degrees/ H2O flush per MD -> HOLD 1 hr before and after PO synthroid ADDITIONAL RECOMMENDATIONS: * Calibrated bedscale wt * Monitor for ability to feed: s/p hematemesis, possible GIB, on pressors Now on tube feeds. * Monitor lytes (K elevated, trend, need for renal formula?) * Monitor BGs, need for hypoglycemics-> BG elevated, rec bed side BG/niss * Bed weights show uptrend from 53kg-> now 80kg. Recalibrate bed scale w/ added 12kg P200 mattress.
[2020-06-26] MEDS: Amiodarone 200mg tab NG SCH ×2 (08:05→20:16)
[2020-06-26] MEDS: Pantoprazole Inj IVP SCH ×2 (08:05→20:15)
--- NOTE | 2020-06-26 08:08 | Infectious Diseases Prog Note ---
Assessment/Plan CT C/A/P 06/19/20 Extensive bilateral airspace opacities. Secretions in the airways. Consider large volume aspiration or multifocal infection as the most likely etiologies. Gas filled mildly distended small bowel loops measuring up to 4 cm. Abrupt transition point difficult to identify. Obstruction on the differential. Also consider ileus. 2. There is mucosal thickening within the stomach potentially representing gastritis or malignancy. 3. Few incompletely characterized low-attenuation lesions within the liver. 4. Cholelithiasis. 5. Trace nonspecific ascites. 89 yo male with PMHx of HTN, Hypothyroid, BPH, Hip fx s/p surgical repair who presented to the ED on 06/19/20 with bloody vomit. PNA - Likely Aspiration CT C/A/P 06/19/20 - Extensive bilateral airspace opacities. Secretions in the airways. Consider large volume aspiration or multifocal infection as the most likely etiologies. AFB Smears Neg x 3 (06/20, 06/20, 06/21) Sp Cx 06/25/20 - Pend LGF intermittent No Leukocytosis STEMI GIB Afib RVR HTN Hypothyroid BPH Hx of Hip fx s/p surgical repair CT C/A/P 06/19/20 - Extensive bilateral airspace opacities. Secretions in the airways. Consider large volume aspiration or multifocal infection as the most likely etiologies. PLAN - Continue Cefepime #5 and Flagyl #4 - f/u Sp Cx - f/u Legionella Uag - f/u Cultures - Monitor CBC and Temps Thank you for this consult. [facility] will continue to follow the patient with you during this hospitalization. Subjective Allergies: Coded Allergies: No Known Allergies (Unverified , 06/19/20) Afebrile WBCs 11 Sp Cx NGTD Objective Last 24 Hour Vital Signs Date Time Temp Pulse Resp B/P (MAP) Pulse Ox O2 Delivery O2 Flow Rate FiO2 06/26/20 06:30 144 21 06/26/20 06:30 91 30 171/80 (110) 95 06/26/20 06:00 91 17 100/56 (71) 99 06/26/20 06:00 17 179/80 Mechanical Ventilator 80 06/26/20 05:30 147 21 116/72 (87) 90 06/26/20 05:00 20 116/72 Mechanical Ventilator 80 06/26/20 05:00 107 17 112/60 (77) 94 06/26/20 04:45 20 130/70 Mechanical Ventilator 80 06/26/20 04:30 163 23 115/77 (90) 80 06/26/20 04:00 Mechanical Ventilator Mechanical Ventilator 06/26/20 04:00 75 06/26/20 04:00 98.2 146 29 110/79 (89) 93 06/26/20 04:00 147 06/26/20 04:00 75 06/26/20 04:00 23 110/73 Mechanical Ventilator 80 06/26/20 03:30 144 17 117/77 (90) 98 06/26/20 03:26 142 22 65 06/26/20 03:00 17 117/77 Mechanical Ventilator 80 06/26/20 03:00 142 17 101/68 (79) 99 06/26/20 02:30 142 17 95/67 (76) 99 06/26/20 02:00 17 95/67 Mechanical Ventilator 80 06/26/20 02:00 143 17 96/64 (75) 98 06/26/20 01:30 143 17 97/64 (75) 99 06/26/20 01:00 143 17 104/67 (79) 99 06/26/20 01:00 22 140/62 Mechanical Ventilator 75 06/26/20 00:30 142 17 110/73 (85) 99 06/26/20 00:00 143 06/26/20 00:00 Mechanical Ventilator Mechanical Ventilator 06/26/20 00:00 22 150/68 Mechanical Ventilator 75 06/26/20 00:00 141 20 154/94 (114) 92 06/26/20 00:00 75 06/26/20 00:00 98.0 141 20 154/94 (114) 92 06/25/20 23:30 141 17 119/75 (90) 98 06/25/20 23:26 108/65 06/25/20 23:17 140 18 65 06/25/20 23:00 17 119/75 Mechanical Ventilator 75 06/25/20 23:00 139 18 108/75 (86) 99 06/25/20 22:52 145 119/65 06/25/20 22:30 144 17 119/70 (86) 100 06/25/20 22:00 21 119/70 Mechanical Ventilator 75 06/25/20 22:00 144 17 93/65 (74) 100 06/25/20 21:30 144 16 98/64 (75) 100 06/25/20 21:00 21 98/64 Mechanical Ventilator 75 06/25/20 21:00 121 17 104/66 (79) 99 06/25/20 20:35 23 141/84 Mechanical Ventilator 40 06/25/20 20:30 136 23 141/84 (103) 78 06/25/20 20:00 98.0 107 16 116/78 (91) 99 06/25/20 20:00 22 98/64 Mechanical Ventilator 75 06/25/20 20:00 135 06/25/20 20:00 Mechanical Ventilator Mechanical Ventilator 06/25/20 20:00 75 06/25/20 19:30 138 16 118/74 (89) 100 06/25/20 19:18 138 22 65 06/25/20 19:00 20 118/74 Mechanical Ventilator 75 06/25/20 19:00 137 17 99 06/25/20 18:45 135 17 114/71 (85) 100 06/25/20 18:30 133 16 117/73 (88) 99 06/25/20 18:15 133 17 124/78 (93) 99 06/25/20 18:10 77 17 129/73 (91) 100 06/25/20 18:05 78 16 120/65 (83) 99 06/25/20 18:00 79 17 123/68 (86) 99 06/25/20 18:00 17 120/65 Mechanical Ventilator 75 06/25/20 17:55 80 17 134/68 (90) 99 06/25/20 17:50 79 17 135/70 (91) 99 06/25/20 17:45 84 16 129/66 (87) 99 06/25/20 17:30 76 138/90 (106) 99 06/25/20 17:15 71 19 120/68 (85) 99 06/25/20 17:00 134 22 116/70 (85) 99 06/25/20 17:00 18 116/70 Mechanical Ventilator 75 06/25/20 16:45 113 19 108/76 (87) 99 06/25/20 16:30 101 19 99/54 (69) 98 06/25/20 16:15 106 20 96/60 (72) 99 06/25/20 16:00 104 06/25/20 16:00 19 97/62 Mechanical Ventilator 75 06/25/20 16:00 75 06/25/20 16:00 Mechanical Ventilator Mechanical Ventilator 06/25/20 16:00 106 21 96/60 (72) 99 06/25/20 15:45 97.9 125 21 106/70 (82) 99 06/25/20 15:40 128 18 120/64 (82) 99 06/25/20 15:30 123 19 105/69 (81) 98 06/25/20 15:24 123 20 75 06/25/20 15:15 120 21 107/74 (85) 98 06/25/20 15:00 20 103/63 Mechanical Ventilator 75 06/25/20 15:00 119 21 111/73 (86) 97 06/25/20 15:00 98.3 114 20 103/63 (76) 98 06/25/20 14:45 124 20 96/65 (75) 97 06/25/20 14:30 123 20 107/77 (87) 98 06/25/20 14:15 140 17 116/74 (88) 99 06/25/20 14:05 139 113/70 06/25/20 14:00 19 113/70 Mechanical Ventilator 75 06/25/20 14:00 139 18 113/70 (84) 99 06/25/20 13:45 139 17 114/70 (85) 100 06/25/20 13:40 136 17 115/73 (87) 99 06/25/20 13:35 122 17 111/73 (86) 99 06/25/20 13:30 125 17 122/72 (89) 99 06/25/20 13:25 129 17 116/73 (87) 99 06/25/20 13:20 131 17 117/75 (89) 99 06/25/20 13:15 140 17 112/68 (83) 99 06/25/20 13:10 139 20 116/71 (86) 98 06/25/20 13:05 140 23 132/94 (107) 87 06/25/20 13:00 22 132/94 Mechanical Ventilator 75 06/25/20 13:00 22 132/94 Mechanical Ventilator 75 06/25/20 13:00 138 20 128/80 (96) 88 06/25/20 13:00 120 17 122/72 (89) 99 06/25/20 12:55 132 19 123/81 (95) 88 06/25/20 12:50 136 24 145/81 (102) 87 06/25/20 12:45 136 17 127/80 (96) 95 06/25/20 12:40 130 17 122/79 (93) 95 06/25/20 12:35 130 17 109/67 (81) 96 06/25/20 12:30 129 18 112/76 (88) 96 06/25/20 12:25 120 17 112/88 (96) 97 06/25/20 12:20 116 17 84/58 (67) 97 06/25/20 12:15 121 17 89/56 (67) 97 06/25/20 12:05 99/65 06/25/20 12:00 Mechanical Ventilator Mechanical Ventilator 06/25/20 12:00 100 06/25/20 12:00 17 93/62 Mechanical Ventilator 80 06/25/20 12:00 125 06/25/20 12:00 119 17 93/62 (72) 97 06/25/20 11:45 133 17 83/57 (66) 96 06/25/20 11:30 111 17 95/62 (73) 96 06/25/20 11:15 116 18 121/72 (88) 96 06/25/20 11:12 104 20 65 06/25/20 11:00 116 17 108/58 (75) 97 06/25/20 11:00 17 108/58 Mechanical Ventilator 80 06/25/20 10:45 113 17 96/70 (79) 99 06/25/20 10:30 88 18 92/50 (64) 99 06/25/20 10:15 71 17 100/59 (73) 99 06/25/20 10:00 17 108/58 Mechanical Ventilator 90 06/25/20 10:00 70 17 94/58 (70) 99 06/25/20 10:00 95 18 102/64 (77) 98 06/25/20 09:45 136 18 101/68 (79) 99 06/25/20 09:30 137 18 106/67 (80) 98 06/25/20 09:15 140 18 101/67 (78) 98 06/25/20 09:08 141 126/76 06/25/20 09:00 98.0 125 18 101/68 (79) 100 06/25/20 09:00 18 126/76 Mechanical Ventilator 90 06/25/20 08:45 142 17 108/72 (84) 98 06/25/20 08:30 142 17 122/74 (90) 98 06/25/20 08:15 141 18 127/78 (94) 98 Height (Feet): 5 Height (Inches): 8.00 Weight (Pounds): 119 Gen: Not following on vent HEENT: NCAT, Intubated, No scleral icterus Pulm: Equal rise and fall B/L, RRR Abd: Soft, NT, ND, + BS Microbiology Date/Time Source Procedure Growth Status 06/25/20 09:02 Sputum Gram Stain Pending Resulted 06/25/20 09:02 Sputum Sputum Culture - Preliminary NORMAL UPPER RESPIRATORY ALEXEI AT 24 ... Resulted Laboratory Tests Test 06/25/20 09:19 06/26/20 04:20 Urine Legionella Antigen Pending White Blood Count 11.3 K/UL (4.8-10.8) H Red Blood Count 3.87 M/UL (4.70-6.10) L Hemoglobin 12.5 G/DL (14.2-18.0) L Hematocrit 39.3 % (42.0-52.0) L Mean Corpuscular Volume 101 FL (80-99) H Mean Corpuscular Hemoglobin 32.3 PG (27.0-31.0) H Mean Corpuscular Hemoglobin Concent 31.8 G/DL (32.0-36.0) L Red Cell Distribution Width 16.4 % (11.6-14.8) H Platelet Count 128 K/UL (150-450) L Mean Platelet Volume 9.3 FL (6.5-10.1) Neutrophils (%) (Auto) % (45.0-75.0) Lymphocytes (%) (Auto) % (20.0-45.0) Monocytes (%) (Auto) % (1.0-10.0) Eosinophils (%) (Auto) % (0.0-3.0) Basophils (%) (Auto) % (0.0-2.0) Neutrophils % (Manual) Pending Lymphocytes % (Manual) Pending Platelet Estimate Pending Platelet Morphology Pending Sodium Level 137 MMOL/L (136-145) Potassium Level 5.0 MMOL/L (3.5-5.1) Chloride Level 108 MMOL/L (98-107) H Carbon Dioxide Level 21 MMOL/L (21-32) Anion Gap 8 mmol/L (5-15) Blood Urea Nitrogen 44 mg/dL (7-18) H Creatinine 1.7 MG/DL (0.55-1.30) H Estimat Glomerular Filtration Rate 38.2 mL/min (>60) Glucose Level 215 MG/DL (74-106) H Calcium Level 8.1 MG/DL (8.5-10.1) L Phosphorus Level 3.4 MG/DL (2.5-4.9) Magnesium Level 2.3 MG/DL (1.8-2.4) Total Bilirubin 2.1 MG/DL (0.2-1.0) H Direct Bilirubin 0.8 MG/DL (0.0-0.3) H Aspartate Amino Transf (AST/SGOT) 212 U/L (15-37) H Alanine Aminotransferase (ALT/SGPT) 46 U/L (12-78) Alkaline Phosphatase 66 U/L (46-116) Total Protein 5.9 G/DL (6.4-8.2) L Albumin 1.9 G/DL (3.4-5.0) L Current Medications Medications (Trade) Dose Ordered Sig/Augusto Route PRN Reason Start Time Stop Time Status Last Admin Dose Admin Acetaminophen (Tylenol) 650 mg EVERY 6 HOURS PRN NG Temp >100.5 06/19/20 22:30 07/19/20 22:29 06/25/20 14:06 Acetaminophen (Tylenol) 650 mg Q4H PRN RECTAL Temp >100.5 06/21/20 03:30 07/21/20 03:29 06/21/20 03:36 Amiodarone HCl (Cordarone) 200 mg DAILY NG 06/29/20 09:00 09/27/20 08:59 Amiodarone HCl (Cordarone) 200 mg EVERY 12 HOURS NG 06/25/20 09:00 09/23/20 08:59 06/26/20 08:05 Amlodipine Besylate (Norvasc) 2.5 mg BIDPRN PRN NG For High Blood Pressure 06/22/20 20:30 07/22/20 20:29 06/23/20 15:57 Cefepime HCl 1 gm/ Dextrose 55 ml @ 110 mls/hr Q24H IVPB 06/25/20 21:00 07/02/20 20:59 06/25/20 20:56 Chlorhexidine Gluconate (Tram-Hex 2%) 1 applic DAILY@2000 TOPIC 06/25/20 20:00 09/23/20 19:59 06/25/20 19:53 Dextrose/Sodium Chloride 1,000 ml @ 75 mls/hr [id number] IV 06/21/20 13:41 07/21/20 13:40 06/26/20 05:56 Fentanyl Citrate 250 ml @ 10 mls/hr Q24H IV 06/24/20 20:00 06/26/20 18:30 06/25/20 20:35 Fentanyl Citrate 250 ml @ 0 mls/hr Q24H PRN IV . 06/26/20 18:31 06/28/20 18:30 Levothyroxine Sodium (Synthroid) 50 mcg DAILY@0630 ORAL 06/22/20 11:00 07/22/20 10:59 06/26/20 06:18 Metoclopramide HCl (Reglan) 5 mg EVERY 6 HOURS NG 06/25/20 12:00 07/25/20 11:59 06/26/20 05:55 Metoprolol Tartrate (Lopressor) 2.5 mg Q4H PRN IVP hr more thatn 125 06/24/20 21:30 09/22/20 21:29 06/25/20 22:52 Metronidazole 100 ml @ 100 mls/hr Q8HR IVPB 06/20/20 22:00 06/27/20 21:59 06/26/20 05:55 Midazolam HCl 200 ml @ 0 mls/hr Q24H IV 06/24/20 04:45 07/01/20 04:44 06/24/20 05:02 Norepinephrine Bitartrate 250 ml @ 0 mls/hr Q24H IV 06/25/20 01:00 06/28/20 00:47 06/25/20 23:26 Pantoprazole (Protonix) 40 mg EVERY 12 HOURS IVP 06/20/20 09:00 07/20/20 08:59 06/26/20 08:05 Jani Oneill MD Jun 26, 2020 08:08
--- NOTE | 2020-06-26 09:47 | Pulmonology Progress Note ---
Subjective ROS Limited/Unobtainable: Yes Interval Events: Afib with rvr last again -> now on PO amiodarone and metoprolol; PICC line Constitutional: Reports: no symptoms HEENT: Repors: no symptoms Respiratory: Reports: no symptoms Cardiovascular: Reports: no symptoms Allergies: Coded Allergies: No Known Allergies (Unverified , 06/19/20) Objective Last 24 Hour Vital Signs Date Time Temp Pulse Resp B/P (MAP) Pulse Ox O2 Delivery O2 Flow Rate FiO2 06/26/20 09:00 144 24 107/68 (81) 90 06/26/20 08:00 98.0 131 16 93/55 (68) 99 06/26/20 08:00 80 06/26/20 08:00 Mechanical Ventilator Mechanical Ventilator 06/26/20 07:11 136 23 65 06/26/20 07:00 141 27 135/75 (95) 88 06/26/20 06:30 144 21 06/26/20 06:30 91 30 171/80 (110) 95 06/26/20 06:00 91 17 100/56 (71) 99 06/26/20 06:00 17 179/80 Mechanical Ventilator 80 06/26/20 05:30 147 21 116/72 (87) 90 06/26/20 05:00 20 116/72 Mechanical Ventilator 80 06/26/20 05:00 107 17 112/60 (77) 94 06/26/20 04:45 20 130/70 Mechanical Ventilator 80 06/26/20 04:30 163 23 115/77 (90) 80 06/26/20 04:00 Mechanical Ventilator Mechanical Ventilator 06/26/20 04:00 75 06/26/20 04:00 98.2 146 29 110/79 (89) 93 06/26/20 04:00 147 06/26/20 04:00 75 06/26/20 04:00 23 110/73 Mechanical Ventilator 80 06/26/20 03:30 144 17 117/77 (90) 98 06/26/20 03:26 142 22 65 06/26/20 03:00 17 117/77 Mechanical Ventilator 80 06/26/20 03:00 142 17 101/68 (79) 99 06/26/20 02:30 142 17 95/67 (76) 99 06/26/20 02:00 17 95/67 Mechanical Ventilator 80 06/26/20 02:00 143 17 96/64 (75) 98 06/26/20 01:30 143 17 97/64 (75) 99 06/26/20 01:00 143 17 104/67 (79) 99 06/26/20 01:00 22 140/62 Mechanical Ventilator 75 06/26/20 00:30 142 17 110/73 (85) 99 06/26/20 00:00 143 06/26/20 00:00 Mechanical Ventilator Mechanical Ventilator 06/26/20 00:00 22 150/68 Mechanical Ventilator 75 06/26/20 00:00 141 20 154/94 (114) 92 06/26/20 00:00 75 06/26/20 00:00 98.0 141 20 154/94 (114) 92 06/25/20 23:30 141 17 119/75 (90) 98 06/25/20 23:26 108/65 06/25/20 23:17 140 18 65 06/25/20 23:00 17 119/75 Mechanical Ventilator 75 06/25/20 23:00 139 18 108/75 (86) 99 06/25/20 22:52 145 119/65 06/25/20 22:30 144 17 119/70 (86) 100 06/25/20 22:00 21 119/70 Mechanical Ventilator 75 06/25/20 22:00 144 17 93/65 (74) 100 06/25/20 21:30 144 16 98/64 (75) 100 06/25/20 21:00 21 98/64 Mechanical Ventilator 75 06/25/20 21:00 121 17 104/66 (79) 99 06/25/20 20:35 23 141/84 Mechanical Ventilator 40 06/25/20 20:30 136 23 141/84 (103) 78 06/25/20 20:00 98.0 107 16 116/78 (91) 99 06/25/20 20:00 22 98/64 Mechanical Ventilator 75 06/25/20 20:00 135 06/25/20 20:00 Mechanical Ventilator Mechanical Ventilator 06/25/20 20:00 75 06/25/20 19:30 138 16 118/74 (89) 100 06/25/20 19:18 138 22 65 06/25/20 19:00 20 118/74 Mechanical Ventilator 75 06/25/20 19:00 137 17 99 06/25/20 18:45 135 17 114/71 (85) 100 06/25/20 18:30 133 16 117/73 (88) 99 06/25/20 18:15 133 17 124/78 (93) 99 06/25/20 18:10 77 17 129/73 (91) 100 06/25/20 18:05 78 16 120/65 (83) 99 06/25/20 18:00 79 17 123/68 (86) 99 06/25/20 18:00 17 120/65 Mechanical Ventilator 75 06/25/20 17:55 80 17 134/68 (90) 99 06/25/20 17:50 79 17 135/70 (91) 99 06/25/20 17:45 84 16 129/66 (87) 99 06/25/20 17:30 76 138/90 (106) 99 06/25/20 17:15 71 19 120/68 (85) 99 06/25/20 17:00 134 22 116/70 (85) 99 06/25/20 17:00 18 116/70 Mechanical Ventilator 75 06/25/20 16:45 113 19 108/76 (87) 99 06/25/20 16:30 101 19 99/54 (69) 98 06/25/20 16:15 106 20 96/60 (72) 99 06/25/20 16:00 104 06/25/20 16:00 19 97/62 Mechanical Ventilator 75 06/25/20 16:00 75 06/25/20 16:00 Mechanical Ventilator Mechanical Ventilator 06/25/20 16:00 106 21 96/60 (72) 99 06/25/20 15:45 97.9 125 21 106/70 (82) 99 06/25/20 15:40 128 18 120/64 (82) 99 06/25/20 15:30 123 19 105/69 (81) 98 06/25/20 15:24 123 20 75 06/25/20 15:15 120 21 107/74 (85) 98 06/25/20 15:00 20 103/63 Mechanical Ventilator 75 06/25/20 15:00 119 21 111/73 (86) 97 06/25/20 15:00 98.3 114 20 103/63 (76) 98 06/25/20 14:45 124 20 96/65 (75) 97 06/25/20 14:30 123 20 107/77 (87) 98 06/25/20 14:15 140 17 116/74 (88) 99 06/25/20 14:05 139 113/70 06/25/20 14:00 19 113/70 Mechanical Ventilator 75 06/25/20 14:00 139 18 113/70 (84) 99 06/25/20 13:45 139 17 114/70 (85) 100 06/25/20 13:40 136 17 115/73 (87) 99 06/25/20 13:35 122 17 111/73 (86) 99 06/25/20 13:30 125 17 122/72 (89) 99 06/25/20 13:25 129 17 116/73 (87) 99 06/25/20 13:20 131 17 117/75 (89) 99 06/25/20 13:15 140 17 112/68 (83) 99 06/25/20 13:10 139 20 116/71 (86) 98 06/25/20 13:05 140 23 132/94 (107) 87 06/25/20 13:00 22 132/94 Mechanical Ventilator 75 06/25/20 13:00 22 132/94 Mechanical Ventilator 75 06/25/20 13:00 138 20 128/80 (96) 88 06/25/20 13:00 120 17 122/72 (89) 99 06/25/20 12:55 132 19 123/81 (95) 88 06/25/20 12:50 136 24 145/81 (102) 87 06/25/20 12:45 136 17 127/80 (96) 95 06/25/20 12:40 130 17 122/79 (93) 95 06/25/20 12:35 130 17 109/67 (81) 96 06/25/20 12:30 129 18 112/76 (88) 96 06/25/20 12:25 120 17 112/88 (96) 97 06/25/20 12:20 116 17 84/58 (67) 97 06/25/20 12:15 121 17 89/56 (67) 97 06/25/20 12:05 99/65 06/25/20 12:00 Mechanical Ventilator Mechanical Ventilator 06/25/20 12:00 100 06/25/20 12:00 17 93/62 Mechanical Ventilator 80 06/25/20 12:00 125 06/25/20 12:00 119 17 93/62 (72) 97 06/25/20 11:45 133 17 83/57 (66) 96 06/25/20 11:30 111 17 95/62 (73) 96 06/25/20 11:15 116 18 121/72 (88) 96 06/25/20 11:12 104 20 65 06/25/20 11:00 116 17 108/58 (75) 97 06/25/20 11:00 17 108/58 Mechanical Ventilator 80 06/25/20 10:45 113 17 96/70 (79) 99 06/25/20 10:30 88 18 92/50 (64) 99 06/25/20 10:15 71 17 100/59 (73) 99 06/25/20 10:00 17 108/58 Mechanical Ventilator 90 06/25/20 10:00 70 17 94/58 (70) 99 06/25/20 10:00 95 18 102/64 (77) 98 Intake and Output 06/25/20 06/26/20 19:00 07:00 Intake Total 2106.000 ml 1158.25 ml Output Total 195 ml 153 ml Balance 1911.000 ml 1005.25 ml Intake Free Water 90 ml IV Total 1866.000 ml 868.25 ml Tube Feeding 240 ml 200 ml Output Urine Total 195 ml 153 ml General Appearance: no acute distress HEENT: normocephalic Respiratory: chest wall non-tender, lungs clear Cardiovascular: normal peripheral pulses, normal rate Abdomen: normal bowel sounds Microbiology Date/Time Source Procedure Growth Status 06/25/20 09:02 Sputum Gram Stain Pending Resulted 06/25/20 09:02 Sputum Sputum Culture - Preliminary NORMAL UPPER RESPIRATORY ALEXEI AT 24 ... Resulted Laboratory Tests 06/26/20 04:20: White Blood Count 11.3H, Red Blood Count 3.87L, Hemoglobin 12.5L, Hematocrit 39.3L, Mean Corpuscular Volume 101H, Mean Corpuscular Hemoglobin 32.3H, Mean Corpuscular Hemoglobin Concent 31.8L, Red Cell Distribution Width 16.4H, Platelet Count 128L, Mean Platelet Volume 9.3, Neutrophils (%) (Auto) , Lymphocytes (%) (Auto) , Monocytes (%) (Auto) , Eosinophils (%) (Auto) , Basophils (%) (Auto) , Differential Total Cells Counted 100, Neutrophils % (Manual) 90H, Lymphocytes % (Manual) 6L, Monocytes % (Manual) 3, Eosinophils % (Manual) 0, Basophils % (Manual) 0, Band Neutrophils 1, Platelet Estimate DecreasedL, Platelet Morphology Normal, Anisocytosis 1+, Macrocytosis 1+, Sodium Level 137, Potassium Level 5.0, Chloride Level 108H, Carbon Dioxide Level 21, Anion Gap 8, Blood Urea Nitrogen 44H, Creatinine 1.7H, Estimat Glomerular Filtration Rate 38.2, Glucose Level 215H, Calcium Level 8.1L, Phosphorus Level 3.4, Magnesium Level 2.3, Total Bilirubin 2.1H, Direct Bilirubin 0.8H, Aspartate Amino Transf (AST/SGOT) 212H, Alanine Aminotransferase (ALT/SGPT) 46, Alkaline Phosphatase 66, Total Protein 5.9L, Albumin 1.9L Current Medications Medications (Trade) Dose Ordered Sig/Augusto Route PRN Reason Start Time Stop Time Status Last Admin Dose Admin Acetaminophen (Tylenol) 650 mg EVERY 6 HOURS PRN NG Temp >100.5 06/19/20 22:30 07/19/20 22:29 06/25/20 14:06 Acetaminophen (Tylenol) 650 mg Q4H PRN RECTAL Temp >100.5 06/21/20 03:30 07/21/20 03:29 06/21/20 03:36 Amiodarone HCl (Cordarone) 200 mg DAILY NG 06/29/20 09:00 09/27/20 08:59 Amiodarone HCl (Cordarone) 200 mg EVERY 12 HOURS NG 06/25/20 09:00 09/23/20 08:59 06/26/20 08:05 Amlodipine Besylate (Norvasc) 2.5 mg BIDPRN PRN NG For High Blood Pressure 06/22/20 20:30 07/22/20 20:29 06/23/20 15:57 Cefepime HCl 1 gm/ Dextrose 55 ml @ 110 mls/hr Q24H IVPB 06/25/20 21:00 07/02/20 20:59 06/25/20 20:56 Chlorhexidine Gluconate (Tram-Hex 2%) 1 applic DAILY@2000 TOPIC 06/25/20 20:00 09/23/20 19:59 06/25/20 19:53 Dextrose/Sodium Chloride 1,000 ml @ 75 mls/hr [id number] IV 06/21/20 13:41 07/21/20 13:40 06/26/20 05:56 Fentanyl Citrate 250 ml @ 10 mls/hr Q24H IV 06/24/20 20:00 06/26/20 18:30 06/25/20 20:35 Fentanyl Citrate 250 ml @ 0 mls/hr Q24H PRN IV . 06/26/20 18:31 06/28/20 18:30 Levothyroxine Sodium (Synthroid) 50 mcg DAILY@0630 ORAL 06/22/20 11:00 07/22/20 10:59 06/26/20 06:18 Metoclopramide HCl (Reglan) 5 mg EVERY 6 HOURS NG 06/25/20 12:00 07/25/20 11:59 06/26/20 05:55 Metoprolol Tartrate (Lopressor) 2.5 mg Q4H PRN IVP hr more thatn 125 06/24/20 21:30 09/22/20 21:29 06/25/20 22:52 Metronidazole 100 ml @ 100 mls/hr Q8HR IVPB 06/26/20 14:00 07/02/20 23:00 Midazolam HCl 200 ml @ 0 mls/hr Q24H IV 06/24/20 04:45 07/01/20 04:44 06/24/20 05:02 Norepinephrine Bitartrate 250 ml @ 0 mls/hr Q24H IV 06/25/20 01:00 06/28/20 00:47 06/25/20 23:26 Pantoprazole (Protonix) 40 mg EVERY 12 HOURS IVP 06/20/20 09:00 07/20/20 08:59 06/26/20 08:05 Assessment/Plan Assessment/Plan 1. GI bleed. Now resolved; on Octreotide - AFB smear neg (06/20, 06/20, 06/21) 2. Respiratory failure. Will continue AC mode 3. Shock. 4. Patchy bilateral infiltrates. 5. Non-STEMI. DISCUSSION: Patient cannot receive anticoagulation for STEMI given his GI bleed. Agree with the use of Protonix and octreotide. We will maintain assist-control mechanical ventilation. 65->80->100% FiO2, PEEP 5 DVT prophylaxis with SCD. Sedation as required; Still on Fentanyl, off Versed IV fluids. We will follow carefully. Empiric antibiotics as appropriate. ABG noted; will hold weaning given respiratory acidosis -> Vent adjusted The care of this patient was discussed with my supervising physician Time spent for this encounter was approximately 31 minutes Saad Renteria Jun 26, 2020 09:47
--- NOTE | 2020-06-26 10:25 | NUR ---
NURSE NOTES: Informed Dr. Casa HAMPTON results. No new order at this time. Continue same vent setting.
--- NOTE | 2020-06-26 10:53 | NUR ---
RADIOLOGY DEPT., CHEST X-RAY DONE.-P.DYE
[2020-06-26] MEDS: Acetaminophen 650 MG SUPP RECTAL PRN (11:38)
--- NOTE | 2020-06-26 11:38 | NUR ---
NURSE NOTES: Febrile 101.5 AX. Tylenol given as ordered. Started Cooling measure.
--- NOTE | 2020-06-26 11:51 | Diagnostic Imaging Report ---
Indication: Shortness of breath Technique: XRAY Chest 1v Comparison: 06/21/2020 Findings: Significant interval worsening aeration compared to the prior exam with increasing confluent bilateral interstitial and alveolar infiltrates. No pneumothorax. Endotracheal tube, enteric tube and left arm PICC line remain in place, stable in satisfactory position. Heart borders are secured. Osseous structures are without appreciable acute abnormality. IMPRESSION: Significant worsening aeration compared to the prior exam which may related to worsened pulmonary edema and/or worsening bilateral infectious infiltrates.
--- NOTE | 2020-06-26 12:54 | General Progress Note ---
Subjective ROS Limited/Unobtainable: No Allergies: Coded Allergies: No Known Allergies (Unverified , 06/19/20) Objective Last 24 Hour Vital Signs Date Time Temp Pulse Resp B/P (MAP) Pulse Ox O2 Delivery O2 Flow Rate FiO2 06/26/20 12:08 100.3 06/26/20 12:00 121 06/26/20 12:00 Mechanical Ventilator Mechanical Ventilator 06/26/20 12:00 100.3 130 15 102/63 (76) 98 06/26/20 12:00 100 06/26/20 11:00 101.5 130 15 93/48 (63) 99 06/26/20 10:00 141 23 131/68 (89) 93 06/26/20 09:00 144 24 107/68 (81) 90 06/26/20 08:00 98.0 131 16 93/55 (68) 99 06/26/20 08:00 80 06/26/20 08:00 128 06/26/20 08:00 Mechanical Ventilator Mechanical Ventilator 06/26/20 07:11 136 23 100 06/26/20 07:00 141 27 135/75 (95) 88 06/26/20 06:30 144 21 06/26/20 06:30 91 30 171/80 (110) 95 06/26/20 06:00 91 17 100/56 (71) 99 06/26/20 06:00 17 179/80 Mechanical Ventilator 80 06/26/20 05:30 147 21 116/72 (87) 90 06/26/20 05:00 20 116/72 Mechanical Ventilator 80 06/26/20 05:00 107 17 112/60 (77) 94 06/26/20 04:45 20 130/70 Mechanical Ventilator 80 06/26/20 04:30 163 23 115/77 (90) 80 06/26/20 04:00 Mechanical Ventilator Mechanical Ventilator 06/26/20 04:00 75 06/26/20 04:00 98.2 146 29 110/79 (89) 93 06/26/20 04:00 147 06/26/20 04:00 75 06/26/20 04:00 23 110/73 Mechanical Ventilator 80 06/26/20 03:30 144 17 117/77 (90) 98 06/26/20 03:26 142 22 65 06/26/20 03:00 17 117/77 Mechanical Ventilator 80 06/26/20 03:00 142 17 101/68 (79) 99 06/26/20 02:30 142 17 95/67 (76) 99 06/26/20 02:00 17 95/67 Mechanical Ventilator 80 06/26/20 02:00 143 17 96/64 (75) 98 06/26/20 01:30 143 17 97/64 (75) 99 06/26/20 01:00 143 17 104/67 (79) 99 06/26/20 01:00 22 140/62 Mechanical Ventilator 75 06/26/20 00:30 142 17 110/73 (85) 99 06/26/20 00:00 143 06/26/20 00:00 Mechanical Ventilator Mechanical Ventilator 06/26/20 00:00 22 150/68 Mechanical Ventilator 75 06/26/20 00:00 141 20 154/94 (114) 92 06/26/20 00:00 75 06/26/20 00:00 98.0 141 20 154/94 (114) 92 06/25/20 23:30 141 17 119/75 (90) 98 06/25/20 23:26 108/65 06/25/20 23:17 140 18 65 06/25/20 23:00 17 119/75 Mechanical Ventilator 75 06/25/20 23:00 139 18 108/75 (86) 99 06/25/20 22:52 145 119/65 06/25/20 22:30 144 17 119/70 (86) 100 06/25/20 22:00 21 119/70 Mechanical Ventilator 75 06/25/20 22:00 144 17 93/65 (74) 100 06/25/20 21:30 144 16 98/64 (75) 100 06/25/20 21:00 21 98/64 Mechanical Ventilator 75 06/25/20 21:00 121 17 104/66 (79) 99 06/25/20 20:35 23 141/84 Mechanical Ventilator 40 06/25/20 20:30 136 23 141/84 (103) 78 06/25/20 20:00 98.0 107 16 116/78 (91) 99 06/25/20 20:00 22 98/64 Mechanical Ventilator 75 06/25/20 20:00 135 06/25/20 20:00 Mechanical Ventilator Mechanical Ventilator 06/25/20 20:00 75 06/25/20 19:30 138 16 118/74 (89) 100 06/25/20 19:18 138 22 65 06/25/20 19:00 20 118/74 Mechanical Ventilator 75 06/25/20 19:00 137 17 99 06/25/20 18:45 135 17 114/71 (85) 100 06/25/20 18:30 133 16 117/73 (88) 99 06/25/20 18:15 133 17 124/78 (93) 99 06/25/20 18:10 77 17 129/73 (91) 100 06/25/20 18:05 78 16 120/65 (83) 99 06/25/20 18:00 79 17 123/68 (86) 99 06/25/20 18:00 17 120/65 Mechanical Ventilator 75 06/25/20 17:55 80 17 134/68 (90) 99 06/25/20 17:50 79 17 135/70 (91) 99 06/25/20 17:45 84 16 129/66 (87) 99 06/25/20 17:30 76 138/90 (106) 99 06/25/20 17:15 71 19 120/68 (85) 99 06/25/20 17:00 134 22 116/70 (85) 99 06/25/20 17:00 18 116/70 Mechanical Ventilator 75 06/25/20 16:45 113 19 108/76 (87) 99 06/25/20 16:30 101 19 99/54 (69) 98 06/25/20 16:15 106 20 96/60 (72) 99 06/25/20 16:00 104 06/25/20 16:00 19 97/62 Mechanical Ventilator 75 06/25/20 16:00 75 06/25/20 16:00 Mechanical Ventilator Mechanical Ventilator 06/25/20 16:00 106 21 96/60 (72) 99 06/25/20 15:45 97.9 125 21 106/70 (82) 99 06/25/20 15:40 128 18 120/64 (82) 99 06/25/20 15:30 123 19 105/69 (81) 98 06/25/20 15:24 123 20 75 06/25/20 15:15 120 21 107/74 (85) 98 06/25/20 15:00 20 103/63 Mechanical Ventilator 75 06/25/20 15:00 119 21 111/73 (86) 97 06/25/20 15:00 98.3 114 20 103/63 (76) 98 06/25/20 14:45 124 20 96/65 (75) 97 06/25/20 14:30 123 20 107/77 (87) 98 06/25/20 14:15 140 17 116/74 (88) 99 06/25/20 14:05 139 113/70 06/25/20 14:00 19 113/70 Mechanical Ventilator 75 06/25/20 14:00 139 18 113/70 (84) 99 06/25/20 13:45 139 17 114/70 (85) 100 06/25/20 13:40 136 17 115/73 (87) 99 06/25/20 13:35 122 17 111/73 (86) 99 06/25/20 13:30 125 17 122/72 (89) 99 06/25/20 13:25 129 17 116/73 (87) 99 06/25/20 13:20 131 17 117/75 (89) 99 06/25/20 13:15 140 17 112/68 (83) 99 06/25/20 13:10 139 20 116/71 (86) 98 06/25/20 13:05 140 23 132/94 (107) 87 06/25/20 13:00 22 132/94 Mechanical Ventilator 75 06/25/20 13:00 22 132/94 Mechanical Ventilator 75 06/25/20 13:00 138 20 128/80 (96) 88 06/25/20 13:00 120 17 122/72 (89) 99 06/25/20 12:55 132 19 123/81 (95) 88 Intake and Output 06/25/20 06/26/20 19:00 07:00 Intake Total 2106.000 ml 1158.25 ml Output Total 195 ml 153 ml Balance 1911.000 ml 1005.25 ml Intake Free Water 90 ml IV Total 1866.000 ml 868.25 ml Tube Feeding 240 ml 200 ml Output Urine Total 195 ml 153 ml Laboratory Tests 06/26/20 04:20: White Blood Count 11.3H, Red Blood Count 3.87L, Hemoglobin 12.5L, Hematocrit 39.3L, Mean Corpuscular Volume 101H, Mean Corpuscular Hemoglobin 32.3H, Mean Corpuscular Hemoglobin Concent 31.8L, Red Cell Distribution Width 16.4H, Platelet Count 128L, Mean Platelet Volume 9.3, Neutrophils (%) (Auto) , Lymphocytes (%) (Auto) , Monocytes (%) (Auto) , Eosinophils (%) (Auto) , Basophils (%) (Auto) , Differential Total Cells Counted 100, Neutrophils % (Manual) 90H, Lymphocytes % (Manual) 6L, Monocytes % (Manual) 3, Eosinophils % (Manual) 0, Basophils % (Manual) 0, Band Neutrophils 1, Platelet Estimate DecreasedL, Platelet Morphology Normal, Anisocytosis 1+, Macrocytosis 1+, Sodium Level 137, Potassium Level 5.0, Chloride Level 108H, Carbon Dioxide Level 21, Anion Gap 8, Blood Urea Nitrogen 44H, Creatinine 1.7H, Estimat Glomerular Filtration Rate 38.2, Glucose Level 215H, Calcium Level 8.1L, Phosphorus Level 3.4, Magnesium Level 2.3, Total Bilirubin 2.1H, Direct Bilirubin 0.8H, Aspartate Amino Transf (AST/SGOT) 212H, Alanine Aminotransferase (ALT/SGPT) 46, Alkaline Phosphatase 66, Total Protein 5.9L, Albumin 1.9L 06/26/20 10:13: Arterial Blood pH 7.160*L, Arterial Blood Partial Pressure CO2 50.1H, Arterial Blood Partial Pressure O2 63.6L, Arterial Blood HCO3 17.5*L, Arterial Blood Oxygen Saturation 89.4*L, Arterial Blood Base Excess -11.1*L, Manan Test Positive Height (Feet): 5 Height (Inches): 8.00 Weight (Pounds): 119 General Appearance: no apparent distress, lethargic EENT: normal ENT inspection Neck: supple Cardiovascular: bradycardia Respiratory/Chest: decreased breath sounds Extremities: non-tender Assessment/Plan Status: not improved, unchanged Assessment/Plan: 1. Massive hemoptysis. 2. Possible GI bleed. 3. Status post cardiopulmonary arrest/PEA. 4. Anemia. 5. elevated trop>>>improving 6. Paroxysmal atrial fibrillation. 7. Thrombocytopenia. ppi GI procedures on hold fu cardiology poor prognosis NGTF on hold low dose Matt Fish MD Jun 26, 2020 12:54
[2020-06-26] MEDS: Norepinephrine 4mg/NS Premix 250 ML IV SCH (13:19)
--- NOTE | 2020-06-26 14:02 | NUR ---
NURSE NOTES: Seen by Dr. Pelletier and assessed patient. Told him that granddaughter wants to talk with him. He said he will call later.
--- NOTE | 2020-06-26 14:11 | Surgery Progress Note ---
Surgery Progress Note Subjective Additional Comments non responsive ill appearing no n/v Objective Last 24 Hour Vital Signs Date Time Temp Pulse Resp B/P (MAP) Pulse Ox O2 Delivery O2 Flow Rate FiO2 06/26/20 14:00 97.4 113 17 91/60 (70) 99 06/26/20 13:19 102/66 06/26/20 13:00 121 15 102/66 (78) 99 06/26/20 12:08 100.3 06/26/20 12:00 121 06/26/20 12:00 Mechanical Ventilator Mechanical Ventilator 06/26/20 12:00 100.3 130 15 102/63 (76) 98 06/26/20 12:00 100 06/26/20 11:00 101.5 130 15 93/48 (63) 99 06/26/20 10:00 141 23 131/68 (89) 93 06/26/20 09:00 144 24 107/68 (81) 90 06/26/20 08:00 98.0 131 16 93/55 (68) 99 06/26/20 08:00 80 06/26/20 08:00 128 06/26/20 08:00 Mechanical Ventilator Mechanical Ventilator 06/26/20 07:11 136 23 100 06/26/20 07:00 141 27 135/75 (95) 88 06/26/20 06:30 144 21 06/26/20 06:30 91 30 171/80 (110) 95 06/26/20 06:00 91 17 100/56 (71) 99 06/26/20 06:00 17 179/80 Mechanical Ventilator 80 06/26/20 05:30 147 21 116/72 (87) 90 06/26/20 05:00 20 116/72 Mechanical Ventilator 80 06/26/20 05:00 107 17 112/60 (77) 94 06/26/20 04:45 20 130/70 Mechanical Ventilator 80 06/26/20 04:30 163 23 115/77 (90) 80 06/26/20 04:00 Mechanical Ventilator Mechanical Ventilator 06/26/20 04:00 75 06/26/20 04:00 98.2 146 29 110/79 (89) 93 06/26/20 04:00 147 06/26/20 04:00 75 06/26/20 04:00 23 110/73 Mechanical Ventilator 80 06/26/20 03:30 144 17 117/77 (90) 98 06/26/20 03:26 142 22 65 06/26/20 03:00 17 117/77 Mechanical Ventilator 80 06/26/20 03:00 142 17 101/68 (79) 99 06/26/20 02:30 142 17 95/67 (76) 99 06/26/20 02:00 17 95/67 Mechanical Ventilator 80 06/26/20 02:00 143 17 96/64 (75) 98 06/26/20 01:30 143 17 97/64 (75) 99 06/26/20 01:00 143 17 104/67 (79) 99 06/26/20 01:00 22 140/62 Mechanical Ventilator 75 06/26/20 00:30 142 17 110/73 (85) 99 06/26/20 00:00 143 06/26/20 00:00 Mechanical Ventilator Mechanical Ventilator 06/26/20 00:00 22 150/68 Mechanical Ventilator 75 06/26/20 00:00 141 20 154/94 (114) 92 06/26/20 00:00 75 06/26/20 00:00 98.0 141 20 154/94 (114) 92 06/25/20 23:30 141 17 119/75 (90) 98 06/25/20 23:26 108/65 06/25/20 23:17 140 18 65 06/25/20 23:00 17 119/75 Mechanical Ventilator 75 06/25/20 23:00 139 18 108/75 (86) 99 06/25/20 22:52 145 119/65 06/25/20 22:30 144 17 119/70 (86) 100 06/25/20 22:00 21 119/70 Mechanical Ventilator 75 06/25/20 22:00 144 17 93/65 (74) 100 06/25/20 21:30 144 16 98/64 (75) 100 06/25/20 21:00 21 98/64 Mechanical Ventilator 75 06/25/20 21:00 121 17 104/66 (79) 99 06/25/20 20:35 23 141/84 Mechanical Ventilator 40 06/25/20 20:30 136 23 141/84 (103) 78 06/25/20 20:00 98.0 107 16 116/78 (91) 99 06/25/20 20:00 22 98/64 Mechanical Ventilator 75 06/25/20 20:00 135 3/10/21 20:00 Mechanical Ventilator Mechanical Ventilator 06/25/20 20:00 75 06/25/20 19:30 138 16 118/74 (89) 100 06/25/20 19:18 138 22 65 06/25/20 19:00 20 118/74 Mechanical Ventilator 75 06/25/20 19:00 137 17 99 06/25/20 18:45 135 17 114/71 (85) 100 06/25/20 18:30 133 16 117/73 (88) 99 06/25/20 18:15 133 17 124/78 (93) 99 06/25/20 18:10 77 17 129/73 (91) 100 06/25/20 18:05 78 16 120/65 (83) 99 06/25/20 18:00 79 17 123/68 (86) 99 06/25/20 18:00 17 120/65 Mechanical Ventilator 75 06/25/20 17:55 80 17 134/68 (90) 99 06/25/20 17:50 79 17 135/70 (91) 99 06/25/20 17:45 84 16 129/66 (87) 99 06/25/20 17:30 76 138/90 (106) 99 06/25/20 17:15 71 19 120/68 (85) 99 06/25/20 17:00 134 22 116/70 (85) 99 06/25/20 17:00 18 116/70 Mechanical Ventilator 75 06/25/20 16:45 113 19 108/76 (87) 99 06/25/20 16:30 101 19 99/54 (69) 98 06/25/20 16:15 106 20 96/60 (72) 99 06/25/20 16:00 104 06/25/20 16:00 19 97/62 Mechanical Ventilator 75 06/25/20 16:00 75 06/25/20 16:00 Mechanical Ventilator Mechanical Ventilator 06/25/20 16:00 106 21 96/60 (72) 99 06/25/20 15:45 97.9 125 21 106/70 (82) 99 06/25/20 15:40 128 18 120/64 (82) 99 06/25/20 15:30 123 19 105/69 (81) 98 06/25/20 15:24 123 20 75 06/25/20 15:15 120 21 107/74 (85) 98 06/25/20 15:00 20 103/63 Mechanical Ventilator 75 06/25/20 15:00 119 21 111/73 (86) 97 06/25/20 15:00 98.3 114 20 103/63 (76) 98 06/25/20 14:45 124 20 96/65 (75) 97 06/25/20 14:30 123 20 107/77 (87) 98 06/25/20 14:15 140 17 116/74 (88) 99 I&O Intake and Output 06/25/20 06/26/20 19:00 07:00 Intake Total 2106.000 ml 1158.25 ml Output Total 195 ml 153 ml Balance 1911.000 ml 1005.25 ml Intake Free Water 90 ml IV Total 1866.000 ml 868.25 ml Tube Feeding 240 ml 200 ml Output Urine Total 195 ml 153 ml Cardiovascular: RSR Respiratory: decreased breath sounds Abdomen: non-tender, present bowel sounds, non-distended Extremities: no tenderness, no cyanosis Laboratory Tests Test 06/26/20 04:20 06/26/20 10:13 White Blood Count 11.3 K/UL (4.8-10.8) H Red Blood Count 3.87 M/UL (4.70-6.10) L Hemoglobin 12.5 G/DL (14.2-18.0) L Hematocrit 39.3 % (42.0-52.0) L Mean Corpuscular Volume 101 FL (80-99) H Mean Corpuscular Hemoglobin 32.3 PG (27.0-31.0) H Mean Corpuscular Hemoglobin Concent 31.8 G/DL (32.0-36.0) L Red Cell Distribution Width 16.4 % (11.6-14.8) H Platelet Count 128 K/UL (150-450) L Mean Platelet Volume 9.3 FL (6.5-10.1) Neutrophils (%) (Auto) % (45.0-75.0) Lymphocytes (%) (Auto) % (20.0-45.0) Monocytes (%) (Auto) % (1.0-10.0) Eosinophils (%) (Auto) % (0.0-3.0) Basophils (%) (Auto) % (0.0-2.0) Differential Total Cells Counted 100 Neutrophils % (Manual) 90 % (45-75) H Lymphocytes % (Manual) 6 % (20-45) L Monocytes % (Manual) 3 % (1-10) Eosinophils % (Manual) 0 % (0-3) Basophils % (Manual) 0 % (0-2) Band Neutrophils 1 % (0-8) Platelet Estimate Decreased L Platelet Morphology Normal Anisocytosis 1+ Macrocytosis 1+ Sodium Level 137 MMOL/L (136-145) Potassium Level 5.0 MMOL/L (3.5-5.1) Chloride Level 108 MMOL/L (98-107) H Carbon Dioxide Level 21 MMOL/L (21-32) Anion Gap 8 mmol/L (5-15) Blood Urea Nitrogen 44 mg/dL (7-18) H Creatinine 1.7 MG/DL (0.55-1.30) H Estimat Glomerular Filtration Rate 38.2 mL/min (>60) Glucose Level 215 MG/DL (74-106) H Calcium Level 8.1 MG/DL (8.5-10.1) L Phosphorus Level 3.4 MG/DL (2.5-4.9) Magnesium Level 2.3 MG/DL (1.8-2.4) Total Bilirubin 2.1 MG/DL (0.2-1.0) H Direct Bilirubin 0.8 MG/DL (0.0-0.3) H Aspartate Amino Transf (AST/SGOT) 212 U/L (15-37) H Alanine Aminotransferase (ALT/SGPT) 46 U/L (12-78) Alkaline Phosphatase 66 U/L (46-116) Total Protein 5.9 G/DL (6.4-8.2) L Albumin 1.9 G/DL (3.4-5.0) L Arterial Blood pH 7.160 (7.350-7.450) Arterial Blood Partial Pressure CO2 50.1 mmHg (35.0-45.0) H Arterial Blood Partial Pressure O2 63.6 mmHg (75.0-100.0) L Arterial Blood HCO3 17.5 mmol/L (22.0-26.0) *L Arterial Blood Oxygen Saturation 89.4 % (95-100) *L Arterial Blood Base Excess -11.1 (-2-2) *L Manan Test Positive Plan Problems: (1) Massive hemoptysis Assessment & Plan: Trend h/h no active bleeding ? gi malignancy GI consult ?EGD NG tube (2) Cardiopulmonary arrest (3) Lactic acidosis (4) Anemia (5) Respiratory failure Assessment & Plan: intubated on vent abd exam stable kub noted wean vent non responsive (6) Elevated troponin (7) Abdominal distension Assessment & Plan: CT noted sbo vs ileus gas filled bowel loops abd distended on exam limited exam given condition critically ill will follow with exam and recs KUB ordered - improved ng with bilious output likely ileus or resolving sbo will follow with clinical exam ABDOMEN: Liver: Few incompletely characterized low-attenuation lesions within the liver. Gallbladder and bile ducts: Cholelithiasis. Pancreas: Unremarkable. Spleen: Unremarkable. Adrenals: Unremarkable. Kidneys and ureters: Unremarkable. No obstructing stones. No hydronephrosis. Stomach and bowel: Gas filled mildly distended small bowel loops measuring up to 4 cm. There is mucosal thickening within the stomach potentially representing gastritis or malignancy. PELVIS: Appendix: No findings to suggest acute appendicitis. Bladder: Calabrese catheter in the bladder. Reproductive: Unremarkable as visualized. ABDOMEN and PELVIS: Intraperitoneal space: Trace nonspecific ascites. No free air. Bones/joints: Status post left hip ORIF. Multiple bones within the pelvis and spine. Soft tissues: Unremarkable. Vasculature: Unremarkable. Lymph nodes: Unremarkable. Tubes, lines and devices: Esophagogastric tube within the stomach. IMPRESSION: 1. Gas filled mildly distended small bowel loops measuring up to 4 cm. Abrupt transition point difficult to identify. Obstruction on the differential. Also consider ileus. 2. There is mucosal thickening within the stomach potentially representing gastritis or malignancy. 3. Few incompletely characterized low-attenuation lesions within the liver. 4. Cholelithiasis. 5. Trace nonspecific ascites. Samuel Lazar Jun 26, 2020 14:11
--- NOTE | 2020-06-26 14:29 | Nephrology Progress Note ---
Assessment/Plan Problem List: (1) Cardiopulmonary arrest (2) Respiratory failure (3) Elevated troponin (4) Abdominal distension (5) Electrolyte imbalance Assessment Status post cardiorespiratory arrest Elevated troponin Oliguria Lactic acidosis Massive hemoptysis Acute respiratory failure, intubated on ventilator Electrolyte imbalance Plan June 26: Labs reviewed. Serum creatinine up to 1.7. Electrolytes within normal limits. Medication list reviewed. Albumin bolus given. Continue to monitor renal parameters. Patient remains febrile and tachycardic. Patient is DNR. June 25: Labs reviewed. Serum creatinine up to 1.4. Serum potassium 5.2. Albumin bolus given. IV increased to 75 cc an hour. Patient is DNR now. Continue per current treatment plan. June 24: Labs reviewed. Seen in ICU. Discussed with RN. On amiodarone drip for atrial fibrillation with fast ventricular rate. Continues to be full code, intubated on ventilator. Renal parameters reviewed. Continue per consultants. June 23: Labs reviewed. Abnormal electrolytes addressed. Discussed with RN. FiO2 lower at 60%. Continue per current management. June 22: Labs reviewed. Abnormal electrolytes addressed. Patient is full code intubated on ventilator. FiO2 60%. Continue per current management. Continue per consultants. June 21: Midodrine for low BP started. Albumin bolus given. Potassium and IV discontinued. Continue to monitor renal parameters. Abnormal electrolytes noted and addressed. Check TSH level. Pulmonary support Correct abnormal electrolytes and chemistries Anemia work-up Monitor renal parameters and urine output Urine studies Magnesium supplement Per orders Subjective ROS Limited/Unobtainable: Yes Objective Objective Last 24 Hour Vital Signs Date Time Temp Pulse Resp B/P (MAP) Pulse Ox O2 Delivery O2 Flow Rate FiO2 06/26/20 14:00 97.4 113 17 91/60 (70) 99 06/26/20 13:19 102/66 06/26/20 13:00 121 15 102/66 (78) 99 06/26/20 12:08 100.3 06/26/20 12:00 121 06/26/20 12:00 Mechanical Ventilator Mechanical Ventilator 06/26/20 12:00 100.3 130 15 102/63 (76) 98 06/26/20 12:00 100 06/26/20 11:00 101.5 130 15 93/48 (63) 99 06/26/20 10:00 141 23 131/68 (89) 93 06/26/20 09:00 144 24 107/68 (81) 90 06/26/20 08:00 98.0 131 16 93/55 (68) 99 06/26/20 08:00 80 06/26/20 08:00 128 06/26/20 08:00 Mechanical Ventilator Mechanical Ventilator 06/26/20 07:11 136 23 100 06/26/20 07:00 141 27 135/75 (95) 88 06/26/20 06:30 144 21 06/26/20 06:30 91 30 171/80 (110) 95 06/26/20 06:00 91 17 100/56 (71) 99 06/26/20 06:00 17 179/80 Mechanical Ventilator 80 06/26/20 05:30 147 21 116/72 (87) 90 06/26/20 05:00 20 116/72 Mechanical Ventilator 80 06/26/20 05:00 107 17 112/60 (77) 94 06/26/20 04:45 20 130/70 Mechanical Ventilator 80 06/26/20 04:30 163 23 115/77 (90) 80 06/26/20 04:00 Mechanical Ventilator Mechanical Ventilator 06/26/20 04:00 75 06/26/20 04:00 98.2 146 29 110/79 (89) 93 06/26/20 04:00 147 06/26/20 04:00 75 06/26/20 04:00 23 110/73 Mechanical Ventilator 80 06/26/20 03:30 144 17 117/77 (90) 98 06/26/20 03:26 142 22 65 06/26/20 03:00 17 117/77 Mechanical Ventilator 80 06/26/20 03:00 142 17 101/68 (79) 99 06/26/20 02:30 142 17 95/67 (76) 99 06/26/20 02:00 17 95/67 Mechanical Ventilator 80 06/26/20 02:00 143 17 96/64 (75) 98 06/26/20 01:30 143 17 97/64 (75) 99 06/26/20 01:00 143 17 104/67 (79) 99 06/26/20 01:00 22 140/62 Mechanical Ventilator 75 06/26/20 00:30 142 17 110/73 (85) 99 06/26/20 00:00 143 06/26/20 00:00 Mechanical Ventilator Mechanical Ventilator 06/26/20 00:00 22 150/68 Mechanical Ventilator 75 06/26/20 00:00 141 20 154/94 (114) 92 06/26/20 00:00 75 06/26/20 00:00 98.0 141 20 154/94 (114) 92 06/25/20 23:30 141 17 119/75 (90) 98 06/25/20 23:26 108/65 06/25/20 23:17 140 18 65 06/25/20 23:00 17 119/75 Mechanical Ventilator 75 06/25/20 23:00 139 18 108/75 (86) 99 06/25/20 22:52 145 119/65 06/25/20 22:30 144 17 119/70 (86) 100 06/25/20 22:00 21 119/70 Mechanical Ventilator 75 06/25/20 22:00 144 17 93/65 (74) 100 06/25/20 21:30 144 16 98/64 (75) 100 06/25/20 21:00 21 98/64 Mechanical Ventilator 75 06/25/20 21:00 121 17 104/66 (79) 99 06/25/20 20:35 23 141/84 Mechanical Ventilator 40 06/25/20 20:30 136 23 141/84 (103) 78 06/25/20 20:00 98.0 107 16 116/78 (91) 99 06/25/20 20:00 22 98/64 Mechanical Ventilator 75 06/25/20 20:00 135 06/25/20 20:00 Mechanical Ventilator Mechanical Ventilator 06/25/20 20:00 75 06/25/20 19:30 138 16 118/74 (89) 100 06/25/20 19:18 138 22 65 06/25/20 19:00 20 118/74 Mechanical Ventilator 75 06/25/20 19:00 137 17 99 06/25/20 18:45 135 17 114/71 (85) 100 06/25/20 18:30 133 16 117/73 (88) 99 06/25/20 18:15 133 17 124/78 (93) 99 06/25/20 18:10 77 17 129/73 (91) 100 06/25/20 18:05 78 16 120/65 (83) 99 06/25/20 18:00 79 17 123/68 (86) 99 06/25/20 18:00 17 120/65 Mechanical Ventilator 75 06/25/20 17:55 80 17 134/68 (90) 99 06/25/20 17:50 79 17 135/70 (91) 99 06/25/20 17:45 84 16 129/66 (87) 99 06/25/20 17:30 76 138/90 (106) 99 06/25/20 17:15 71 19 120/68 (85) 99 06/25/20 17:00 134 22 116/70 (85) 99 06/25/20 17:00 18 116/70 Mechanical Ventilator 75 06/25/20 16:45 113 19 108/76 (87) 99 06/25/20 16:30 101 19 99/54 (69) 98 06/25/20 16:15 106 20 96/60 (72) 99 06/25/20 16:00 104 06/25/20 16:00 19 97/62 Mechanical Ventilator 75 06/25/20 16:00 75 06/25/20 16:00 Mechanical Ventilator Mechanical Ventilator 06/25/20 16:00 106 21 96/60 (72) 99 06/25/20 15:45 97.9 125 21 106/70 (82) 99 06/25/20 15:40 128 18 120/64 (82) 99 06/25/20 15:30 123 19 105/69 (81) 98 06/25/20 15:24 123 20 75 06/25/20 15:15 120 21 107/74 (85) 98 06/25/20 15:00 20 103/63 Mechanical Ventilator 75 06/25/20 15:00 119 21 111/73 (86) 97 06/25/20 15:00 98.3 114 20 103/63 (76) 98 06/25/20 14:45 124 20 96/65 (75) 97 06/25/20 14:30 123 20 107/77 (87) 98 Intake and Output 06/25/20 06/26/20 19:00 07:00 Intake Total 2106.000 ml 1158.25 ml Output Total 195 ml 153 ml Balance 1911.000 ml 1005.25 ml Intake Free Water 90 ml IV Total 1866.000 ml 868.25 ml Tube Feeding 240 ml 200 ml Output Urine Total 195 ml 153 ml Current Medications Medications (Trade) Dose Ordered Sig/Augusto Route PRN Reason Start Time Stop Time Status Last Admin Dose Admin Acetaminophen (Tylenol) 650 mg EVERY 6 HOURS PRN NG Temp >100.5 06/19/20 22:30 07/19/20 22:29 06/25/20 14:06 Acetaminophen (Tylenol) 650 mg Q4H PRN RECTAL Temp >100.5 06/21/20 03:30 07/21/20 03:29 06/26/20 11:38 Amiodarone HCl (Cordarone) 200 mg DAILY NG 06/29/20 09:00 09/27/20 08:59 Amiodarone HCl (Cordarone) 200 mg EVERY 12 HOURS NG 06/25/20 09:00 09/23/20 08:59 06/26/20 08:05 Amlodipine Besylate (Norvasc) 2.5 mg BIDPRN PRN NG For High Blood Pressure 06/22/20 20:30 07/22/20 20:29 06/23/20 15:57 Cefepime HCl 1 gm/ Dextrose 55 ml @ 110 mls/hr Q24H IVPB 06/25/20 21:00 07/02/20 20:59 06/25/20 20:56 Chlorhexidine Gluconate (Tram-Hex 2%) 1 applic DAILY@2000 TOPIC 06/25/20 20:00 09/23/20 19:59 06/25/20 19:53 Dextrose/Sodium Chloride 1,000 ml @ 75 mls/hr [id number] IV 06/21/20 13:41 07/21/20 13:40 06/26/20 05:56 Fentanyl Citrate 250 ml @ 10 mls/hr Q24H IV 06/24/20 20:00 06/26/20 18:30 06/25/20 20:35 Fentanyl Citrate 250 ml @ 0 mls/hr Q24H PRN IV . 06/26/20 18:31 06/28/20 18:30 Levothyroxine Sodium (Synthroid) 50 mcg DAILY@0630 ORAL 06/22/20 11:00 07/22/20 10:59 06/26/20 06:18 Metoclopramide HCl (Reglan) 5 mg EVERY 6 HOURS NG 06/25/20 12:00 07/25/20 11:59 06/26/20 11:17 Metoprolol Tartrate (Lopressor) 2.5 mg Q4H PRN IVP hr more thatn 125 06/24/20 21:30 09/22/20 21:29 06/25/20 22:52 Metronidazole 100 ml @ 100 mls/hr Q8HR IVPB 06/26/20 14:00 07/02/20 23:00 06/26/20 13:21 Midazolam HCl 200 ml @ 0 mls/hr Q24H IV 06/24/20 04:45 07/01/20 04:44 06/24/20 05:02 Norepinephrine Bitartrate 250 ml @ 0 mls/hr Q24H IV 06/25/20 01:00 06/28/20 00:47 06/26/20 13:19 Pantoprazole (Protonix) 40 mg EVERY 12 HOURS IVP 06/20/20 09:00 07/20/20 08:59 06/26/20 08:05 Laboratory Tests 06/26/20 04:20: White Blood Count 11.3H, Red Blood Count 3.87L, Hemoglobin 12.5L, Hematocrit 39.3L, Mean Corpuscular Volume 101H, Mean Corpuscular Hemoglobin 32.3H, Mean Corpuscular Hemoglobin Concent 31.8L, Red Cell Distribution Width 16.4H, Platelet Count 128L, Mean Platelet Volume 9.3, Neutrophils (%) (Auto) , Lymphocytes (%) (Auto) , Monocytes (%) (Auto) , Eosinophils (%) (Auto) , Basophils (%) (Auto) , Differential Total Cells Counted 100, Neutrophils % (Manual) 90H, Lymphocytes % (Manual) 6L, Monocytes % (Manual) 3, Eosinophils % (Manual) 0, Basophils % (Manual) 0, Band Neutrophils 1, Platelet Estimate DecreasedL, Platelet Morphology Normal, Anisocytosis 1+, Macrocytosis 1+, Sodium Level 137, Potassium Level 5.0, Chloride Level 108H, Carbon Dioxide Level 21, Anion Gap 8, Blood Urea Nitrogen 44H, Creatinine 1.7H, Estimat Glomerular Filtration Rate 38.2, Glucose Level 215H, Calcium Level 8.1L, Phosphorus Level 3.4, Magnesium Level 2.3, Total Bilirubin 2.1H, Direct Bilirubin 0.8H, Aspartate Amino Transf (AST/SGOT) 212H, Alanine Aminotransferase (ALT/SGPT) 46, Alkaline Phosphatase 66, Total Protein 5.9L, Albumin 1.9L 06/26/20 10:13: Arterial Blood pH 7.160*L, Arterial Blood Partial Pressure CO2 50.1H, Arterial Blood Partial Pressure O2 63.6L, Arterial Blood HCO3 17.5*L, Arterial Blood Oxygen Saturation 89.4*L, Arterial Blood Base Excess -11.1*L, Manan Test Positive Height (Feet): 5 Height (Inches): 8.00 Weight (Pounds): 119 General Appearance: no apparent distress EENT: other - Intubated on ventilator Cardiovascular: tachycardia Respiratory/Chest: decreased breath sounds Abdomen: distended Kapil Rea MD Jun 26, 2020 14:29
--- NOTE | 2020-06-26 14:45 | Neurology Progress Note ---
Interim History Interim History ROS Limited/Unobtainable: Yes Events: on fentanyl Objective Physical Exam Last Vital Signs Date Time Temp Pulse Resp B/P (MAP) Pulse Ox O2 Delivery O2 Flow Rate FiO2 06/26/20 14:00 97.4 113 17 91/60 (70) 99 06/26/20 12:00 Mechanical Ventilator Mechanical Ventilator 06/26/20 12:00 100 06/19/20 16:08 4.0 Laboratory Tests Test 06/26/20 04:20 06/26/20 10:13 White Blood Count 11.3 K/UL (4.8-10.8) H Red Blood Count 3.87 M/UL (4.70-6.10) L Hemoglobin 12.5 G/DL (14.2-18.0) L Hematocrit 39.3 % (42.0-52.0) L Mean Corpuscular Volume 101 FL (80-99) H Mean Corpuscular Hemoglobin 32.3 PG (27.0-31.0) H Mean Corpuscular Hemoglobin Concent 31.8 G/DL (32.0-36.0) L Red Cell Distribution Width 16.4 % (11.6-14.8) H Platelet Count 128 K/UL (150-450) L Mean Platelet Volume 9.3 FL (6.5-10.1) Neutrophils (%) (Auto) % (45.0-75.0) Lymphocytes (%) (Auto) % (20.0-45.0) Monocytes (%) (Auto) % (1.0-10.0) Eosinophils (%) (Auto) % (0.0-3.0) Basophils (%) (Auto) % (0.0-2.0) Differential Total Cells Counted 100 Neutrophils % (Manual) 90 % (45-75) H Lymphocytes % (Manual) 6 % (20-45) L Monocytes % (Manual) 3 % (1-10) Eosinophils % (Manual) 0 % (0-3) Basophils % (Manual) 0 % (0-2) Band Neutrophils 1 % (0-8) Platelet Estimate Decreased L Platelet Morphology Normal Anisocytosis 1+ Macrocytosis 1+ Sodium Level 137 MMOL/L (136-145) Potassium Level 5.0 MMOL/L (3.5-5.1) Chloride Level 108 MMOL/L (98-107) H Carbon Dioxide Level 21 MMOL/L (21-32) Anion Gap 8 mmol/L (5-15) Blood Urea Nitrogen 44 mg/dL (7-18) H Creatinine 1.7 MG/DL (0.55-1.30) H Estimat Glomerular Filtration Rate 38.2 mL/min (>60) Glucose Level 215 MG/DL (74-106) H Calcium Level 8.1 MG/DL (8.5-10.1) L Phosphorus Level 3.4 MG/DL (2.5-4.9) Magnesium Level 2.3 MG/DL (1.8-2.4) Total Bilirubin 2.1 MG/DL (0.2-1.0) H Direct Bilirubin 0.8 MG/DL (0.0-0.3) H Aspartate Amino Transf (AST/SGOT) 212 U/L (15-37) H Alanine Aminotransferase (ALT/SGPT) 46 U/L (12-78) Alkaline Phosphatase 66 U/L (46-116) Total Protein 5.9 G/DL (6.4-8.2) L Albumin 1.9 G/DL (3.4-5.0) L Arterial Blood pH 7.160 (7.350-7.450) Arterial Blood Partial Pressure CO2 50.1 mmHg (35.0-45.0) H Arterial Blood Partial Pressure O2 63.6 mmHg (75.0-100.0) L Arterial Blood HCO3 17.5 mmol/L (22.0-26.0) *L Arterial Blood Oxygen Saturation 89.4 % (95-100) *L Arterial Blood Base Excess -11.1 (-2-2) *L Manan Test Positive Neurologic Exam Objective ROS difficult to assess PE Neuro exam is limited at this time he is awake today , tracts eyes PERRLA has spontaneous movements of upper extremities. No facial droop symmetrical withdraws to painful stimul Impression/Recommendations Status: not improved, unchanged Diagnostic Impression LAB Reviewed IMAGING: CT of the head was done. No acute intracranial abnormality, parenchym al atrophy, and mild chronic microvascular ischemic changes. MEDS: Reviewed Assessment and Plan: 1. Syncope --> likely due to vasovagal was having Bowel movement at that time also hypovolemic due to amount of blood loss from gi bleeding vomiting --> we will follow along at this time no further neuro recommendations. Continue to monitor. --> slightly lethargic today on fentanyl 2. Resp Arrest --> s/p intubation on vent 3. AFIB in RVR 4. Hypertension 5. Anemia Thank you for allowing us to participate in patient's care plan of care was discussed with Dr. Edmar Valencia who agrees with plan. Jacqueline Solis NP Jun 26, 2020 14:45
--- NOTE | 2020-06-26 15:10 | Internal Med Progress Note ---
Subjective Physician Name Ventura Pelletier Attending Physician Ventura Pelletier MD Current Medications Medications (Trade) Dose Ordered Sig/Augusto Route PRN Reason Start Time Stop Time Status Last Admin Dose Admin Acetaminophen (Tylenol) 650 mg EVERY 6 HOURS PRN NG Temp >100.5 06/19/20 22:30 07/19/20 22:29 06/25/20 14:06 Acetaminophen (Tylenol) 650 mg Q4H PRN RECTAL Temp >100.5 06/21/20 03:30 07/21/20 03:29 06/26/20 11:38 Amiodarone HCl (Cordarone) 200 mg DAILY NG 06/29/20 09:00 09/27/20 08:59 Amiodarone HCl (Cordarone) 200 mg EVERY 12 HOURS NG 06/25/20 09:00 09/23/20 08:59 06/26/20 08:05 Amlodipine Besylate (Norvasc) 2.5 mg BIDPRN PRN NG For High Blood Pressure 06/22/20 20:30 07/22/20 20:29 06/23/20 15:57 Cefepime HCl 1 gm/ Dextrose 55 ml @ 110 mls/hr Q24H IVPB 06/25/20 21:00 07/02/20 20:59 06/25/20 20:56 Chlorhexidine Gluconate (Tram-Hex 2%) 1 applic DAILY@2000 TOPIC 06/25/20 20:00 09/23/20 19:59 06/25/20 19:53 Dextrose/Sodium Chloride 1,000 ml @ 75 mls/hr [id number] IV 06/21/20 13:41 07/21/20 13:40 06/26/20 05:56 Fentanyl Citrate 250 ml @ 10 mls/hr Q24H IV 06/24/20 20:00 06/26/20 16:00 06/25/20 20:35 Fentanyl Citrate 250 ml @ 0 mls/hr Q24H PRN IV . 06/26/20 16:00 06/28/20 15:59 Levothyroxine Sodium (Synthroid) 50 mcg DAILY@0630 ORAL 06/22/20 11:00 07/22/20 10:59 06/26/20 06:18 Metoclopramide HCl (Reglan) 5 mg EVERY 6 HOURS NG 06/25/20 12:00 07/25/20 11:59 06/26/20 11:17 Metoprolol Tartrate (Lopressor) 2.5 mg Q4H PRN IVP hr more thatn 125 06/24/20 21:30 09/22/20 21:29 06/25/20 22:52 Metronidazole 100 ml @ 100 mls/hr Q8HR IVPB 06/26/20 14:00 07/02/20 23:00 06/26/20 13:21 Midazolam HCl 200 ml @ 0 mls/hr Q24H IV 06/24/20 04:45 07/01/20 04:44 06/24/20 05:02 Norepinephrine Bitartrate 250 ml @ 0 mls/hr Q24H IV 06/25/20 01:00 06/28/20 00:47 06/26/20 13:19 Pantoprazole (Protonix) 40 mg EVERY 12 HOURS IVP 06/20/20 09:00 07/20/20 08:59 06/26/20 08:05 Allergies: Coded Allergies: No Known Allergies (Unverified , 06/19/20) Subjective In MICU, remain intubated, on ventilation, sedated, WBC: 11.3, worsening renal function. Objective Last Vital Signs Date Time Temp Pulse Resp B/P (MAP) Pulse Ox O2 Delivery O2 Flow Rate FiO2 06/26/20 14:00 97.4 113 17 91/60 (70) 99 06/26/20 12:00 Mechanical Ventilator Mechanical Ventilator 06/26/20 12:00 100 06/19/20 16:08 4.0 Laboratory Tests Test 06/26/20 04:20 06/26/20 10:13 White Blood Count 11.3 K/UL (4.8-10.8) H Red Blood Count 3.87 M/UL (4.70-6.10) L Hemoglobin 12.5 G/DL (14.2-18.0) L Hematocrit 39.3 % (42.0-52.0) L Mean Corpuscular Volume 101 FL (80-99) H Mean Corpuscular Hemoglobin 32.3 PG (27.0-31.0) H Mean Corpuscular Hemoglobin Concent 31.8 G/DL (32.0-36.0) L Red Cell Distribution Width 16.4 % (11.6-14.8) H Platelet Count 128 K/UL (150-450) L Mean Platelet Volume 9.3 FL (6.5-10.1) Neutrophils (%) (Auto) % (45.0-75.0) Lymphocytes (%) (Auto) % (20.0-45.0) Monocytes (%) (Auto) % (1.0-10.0) Eosinophils (%) (Auto) % (0.0-3.0) Basophils (%) (Auto) % (0.0-2.0) Differential Total Cells Counted 100 Neutrophils % (Manual) 90 % (45-75) H Lymphocytes % (Manual) 6 % (20-45) L Monocytes % (Manual) 3 % (1-10) Eosinophils % (Manual) 0 % (0-3) Basophils % (Manual) 0 % (0-2) Band Neutrophils 1 % (0-8) Platelet Estimate Decreased L Platelet Morphology Normal Anisocytosis 1+ Macrocytosis 1+ Sodium Level 137 MMOL/L (136-145) Potassium Level 5.0 MMOL/L (3.5-5.1) Chloride Level 108 MMOL/L (98-107) H Carbon Dioxide Level 21 MMOL/L (21-32) Anion Gap 8 mmol/L (5-15) Blood Urea Nitrogen 44 mg/dL (7-18) H Creatinine 1.7 MG/DL (0.55-1.30) H Estimat Glomerular Filtration Rate 38.2 mL/min (>60) Glucose Level 215 MG/DL (74-106) H Calcium Level 8.1 MG/DL (8.5-10.1) L Phosphorus Level 3.4 MG/DL (2.5-4.9) Magnesium Level 2.3 MG/DL (1.8-2.4) Total Bilirubin 2.1 MG/DL (0.2-1.0) H Direct Bilirubin 0.8 MG/DL (0.0-0.3) H Aspartate Amino Transf (AST/SGOT) 212 U/L (15-37) H Alanine Aminotransferase (ALT/SGPT) 46 U/L (12-78) Alkaline Phosphatase 66 U/L (46-116) Total Protein 5.9 G/DL (6.4-8.2) L Albumin 1.9 G/DL (3.4-5.0) L Arterial Blood pH 7.160 (7.350-7.450) Arterial Blood Partial Pressure CO2 50.1 mmHg (35.0-45.0) H Arterial Blood Partial Pressure O2 63.6 mmHg (75.0-100.0) L Arterial Blood HCO3 17.5 mmol/L (22.0-26.0) *L Arterial Blood Oxygen Saturation 89.4 % (95-100) *L Arterial Blood Base Excess -11.1 (-2-2) *L Manan Test Positive Microbiology Date/Time Source Procedure Growth Status 06/25/20 09:02 Sputum Gram Stain - Final Resulted 06/25/20 09:02 Sputum Sputum Culture - Preliminary NORMAL UPPER RESPIRATORY ALEXEI AT 24 ... Resulted Intake and Output 06/25/20 06/26/20 19:00 07:00 Intake Total 2106.000 ml 1158.25 ml Output Total 195 ml 153 ml Balance 1911.000 ml 1005.25 ml Intake Free Water 90 ml IV Total 1866.000 ml 868.25 ml Tube Feeding 240 ml 200 ml Output Urine Total 195 ml 153 ml Objective General: intubated, remained on ventilation, sedated. HEENT: NCAT, sclera anicteric, PERRL, ET Tube, OG Tube. Neck: Supple, no significant jugular venous distention, Lungs: mechanical breath sounds, no Wheeze or Rales. Heart: Regular rate and rhythm, normal S1/S2, no murmurs. Abdomen: soft, nontender, nondistended. Normoactive bowel sounds. Extremities: No cyanosis , clubbing, upper extremities +2 edema. left upper extremity PICCLINE. Neuro: limited secondary to patient's status, unable to move extremities. Skin: warm, no rash. Assessment/Plan Assessment/Plan Acute respiratory failure Acute PE arrest. Elevated troponin most likely due to non-ST elevation SD type 2 , demand ischemia. Thrombocytopenia. Upper GI bleed. Severe anemia most likely secondary to acute blood loss as a result of GI bleed. Aspiration pneumonia. Hypertension. Hypothyroidism. BPH. Plan: Follow up with cultures and laboratory. Antibiotics: Cefepime DVT prophylaxis: SCD. Protonix IV twice a day. Discussed with the granddaughter Landy at [phone] extensively with regard to the plan of care laboratory and poor prognosis. Consider withdraw care and palliative extubation. CODE STATUS: DNR. Ventura Pelletier MD Jun 26, 2020 15:10
--- NOTE | 2020-06-26 15:41 | NUR ---
NURSE NOTES: Seen by Dr. Davis and assessed patient. Changed metoclopramide 5mg OG q6hr to metoclopramide 5mg IV q6hr.
[2020-06-26] MEDS ORDERED: fentaNYL 2500mcg/NS 250ml 250 ML IV PRN ×2 (16:00→18:31)
--- NOTE | 2020-06-26 17:05 | NUR ---
NURSE NOTES: Bed bath given. Kept dry, clean and comfortable.
[2020-06-26] MEDS ORDERED: Metoclopramide 10mg/2ml Inj IVP SCH (18:00)
--- NOTE | 2020-06-26 18:02 | NUR ---
NURSE NOTES: Family is at the bedside.
--- NOTE | 2020-06-26 19:00 | NUR ---
NURSE HAND-OFF REPORT: Latest Vital Signs: Temperature 97.8 , Pulse 88 , B/P 110 /53 , Respiratory Rate 18 , O2 SAT 98 , Mechanical Ventilator, O2 Flow Rate . Vital Sign Comment: stable supported on Levophed EKG Rhythm: Sinus Rhythm Rhythm change?: N Notified?: N -Dr. Roel LEUNG Response: Order Received& Read Back Latest Coyle Fall Score: 50 Fall Risk: High Risk Safety Measures: Call light Within Reach, Bed Alarm Zone 2, Side Rails Side Rails x2, Bed position Low and Locked. Fall Precautions: Y Yellow Socks Report given to JAVI Perez. Addendum: 06/26/20 at 1910 by Ac Dumont RN Report given to JAVI Bazzi.
--- NOTE | 2020-06-26 19:40 | NUR ---
NURSE NOTES: received report from jatin rn pt sedated with versed drip 80 mg with -2ross and levo drip at 5 mcg/min [id number] orally intubated with 02 sat 98 % no resp distress noted reposition and suction not tolerating tube feeding > residual well cont monitor pt
--- NOTE | 2020-06-26 20:10 | Cardiology Progress Note ---
Assessment/Plan Assessment/Plan respiratory failure s/p cp arrest / pea resolved with in 1 min massive hemoptysis vs gi bleed vs both svt paf phtn ar / mr / tr with normal lv function abn trop due to demand anemia thrombocytopenia pui probable aspiration sytemic htn not clear why such high pasp duplex neg metoprolol for tachy if needed supportive care silvino abx empiric in isolation fro possible TB (but 3 fb smear neg) nwo on ivf 40 cc / hr urne concentrated cxr reviwed sig worsening i have discussed with grand dtr last ntie extensively today rn indicates family is deciding on terminal extuabeation soon Subjective ROS Limited/Unobtainable: Yes Objective Last 24 Hour Vital Signs Date Time Temp Pulse Resp B/P (MAP) Pulse Ox O2 Delivery O2 Flow Rate FiO2 06/26/20 19:11 90 18 100 06/26/20 19:00 88 18 110/53 (72) 98 06/26/20 18:45 20 120/58 Mechanical Ventilator 100 06/26/20 18:30 21 101/44 Mechanical Ventilator 100 06/26/20 18:15 20 102/45 Mechanical Ventilator 100 06/26/20 18:00 90 18 122/58 (79) 98 06/26/20 18:00 22 101/44 Mechanical Ventilator 100 06/26/20 17:45 20 98/58 Mechanical Ventilator 100 06/26/20 17:30 18 124/61 Mechanical Ventilator 100 06/26/20 17:15 17 129/66 Mechanical Ventilator 100 06/26/20 17:00 17 126/62 Mechanical Ventilator 100 06/26/20 17:00 88 17 123/64 (83) 100 06/26/20 16:52 17 107/69 Mechanical Ventilator 100 06/26/20 16:00 Mechanical Ventilator Mechanical Ventilator 06/26/20 16:00 97.8 117 17 93/54 (67) 100 06/26/20 16:00 100 06/26/20 16:00 17 93/54 Mechanical Ventilator 100 06/26/20 16:00 109 06/26/20 15:06 115 20 100 06/26/20 15:00 117 17 100/61 (74) 99 06/26/20 15:00 17 100/61 Mechanical Ventilator 100 06/26/20 14:00 16 99/61 Mechanical Ventilator 100 06/26/20 14:00 97.4 113 17 91/60 (70) 99 06/26/20 13:19 102/66 06/26/20 13:00 16 100/63 Mechanical Ventilator 100 06/26/20 13:00 121 15 102/66 (78) 99 06/26/20 12:08 100.3 06/26/20 12:00 121 06/26/20 12:00 Mechanical Ventilator Mechanical Ventilator 06/26/20 12:00 100.3 130 15 102/63 (76) 98 06/26/20 12:00 16 99/58 Mechanical Ventilator 100 06/26/20 12:00 100 06/26/20 11:36 122 21 100 06/26/20 11:00 15 118/73 Mechanical Ventilator 100 06/26/20 11:00 101.5 130 15 93/48 (63) 99 06/26/20 10:00 22 113/79 Mechanical Ventilator 100 06/26/20 10:00 141 23 131/68 (89) 93 06/26/20 09:00 144 24 107/68 (81) 90 06/26/20 09:00 21 110/62 Mechanical Ventilator 100 06/26/20 08:00 98.0 131 16 93/55 (68) 99 06/26/20 08:00 23 93/55 Mechanical Ventilator 100 06/26/20 08:00 80 06/26/20 08:00 128 06/26/20 08:00 Mechanical Ventilator Mechanical Ventilator 06/26/20 07:11 136 23 100 06/26/20 07:00 22 135/71 Mechanical Ventilator 100 06/26/20 07:00 141 27 135/75 (95) 88 06/26/20 06:30 144 21 06/26/20 06:30 91 30 171/80 (110) 95 06/26/20 06:00 91 17 100/56 (71) 99 06/26/20 06:00 17 179/80 Mechanical Ventilator 80 06/26/20 05:30 147 21 116/72 (87) 90 06/26/20 05:00 20 116/72 Mechanical Ventilator 80 06/26/20 05:00 107 17 112/60 (77) 94 06/26/20 04:45 20 130/70 Mechanical Ventilator 80 06/26/20 04:30 163 23 115/77 (90) 80 06/26/20 04:00 Mechanical Ventilator Mechanical Ventilator 06/26/20 04:00 75 06/26/20 04:00 98.2 146 29 110/79 (89) 93 06/26/20 04:00 147 06/26/20 04:00 75 06/26/20 04:00 23 110/73 Mechanical Ventilator 80 06/26/20 03:30 144 17 117/77 (90) 98 06/26/20 03:26 142 22 65 06/26/20 03:00 17 117/77 Mechanical Ventilator 80 06/26/20 03:00 142 17 101/68 (79) 99 06/26/20 02:30 142 17 95/67 (76) 99 06/26/20 02:00 17 95/67 Mechanical Ventilator 80 06/26/20 02:00 143 17 96/64 (75) 98 06/26/20 01:30 143 17 97/64 (75) 99 06/26/20 01:00 143 17 104/67 (79) 99 06/26/20 01:00 22 140/62 Mechanical Ventilator 75 06/26/20 00:30 142 17 110/73 (85) 99 06/26/20 00:00 143 06/26/20 00:00 Mechanical Ventilator Mechanical Ventilator 06/26/20 00:00 22 150/68 Mechanical Ventilator 75 06/26/20 00:00 141 20 154/94 (114) 92 06/26/20 00:00 75 06/26/20 00:00 98.0 141 20 154/94 (114) 92 06/25/20 23:30 141 17 119/75 (90) 98 06/25/20 23:26 108/65 06/25/20 23:17 140 18 65 06/25/20 23:00 17 119/75 Mechanical Ventilator 75 06/25/20 23:00 139 18 108/75 (86) 99 06/25/20 22:52 145 119/65 06/25/20 22:30 144 17 119/70 (86) 100 06/25/20 22:00 21 119/70 Mechanical Ventilator 75 06/25/20 22:00 144 17 93/65 (74) 100 06/25/20 21:30 144 16 98/64 (75) 100 06/25/20 21:00 21 98/64 Mechanical Ventilator 75 06/25/20 21:00 121 17 104/66 (79) 99 06/25/20 20:35 23 141/84 Mechanical Ventilator 40 06/25/20 20:30 136 23 141/84 (103) 78 General Appearance: no apparent distress, on vent, patient on isolation, isolation precautions Intake and Output 06/25/20 06/26/20 18:59 06:59 Intake Total 2115.250 ml 1229.00 ml Output Total 225 ml 133 ml Balance 1890.250 ml 1096.00 ml Intake Free Water 90 ml IV Total 1875.250 ml 939.00 ml Tube Feeding 240 ml 200 ml Output Urine Total 225 ml 133 ml Laboratory Tests Test 06/26/20 04:20 06/26/20 10:13 White Blood Count 11.3 K/UL (4.8-10.8) H Red Blood Count 3.87 M/UL (4.70-6.10) L Hemoglobin 12.5 G/DL (14.2-18.0) L Hematocrit 39.3 % (42.0-52.0) L Mean Corpuscular Volume 101 FL (80-99) H Mean Corpuscular Hemoglobin 32.3 PG (27.0-31.0) H Mean Corpuscular Hemoglobin Concent 31.8 G/DL (32.0-36.0) L Red Cell Distribution Width 16.4 % (11.6-14.8) H Platelet Count 128 K/UL (150-450) L Mean Platelet Volume 9.3 FL (6.5-10.1) Neutrophils (%) (Auto) % (45.0-75.0) Lymphocytes (%) (Auto) % (20.0-45.0) Monocytes (%) (Auto) % (1.0-10.0) Eosinophils (%) (Auto) % (0.0-3.0) Basophils (%) (Auto) % (0.0-2.0) Differential Total Cells Counted 100 Neutrophils % (Manual) 90 % (45-75) H Lymphocytes % (Manual) 6 % (20-45) L Monocytes % (Manual) 3 % (1-10) Eosinophils % (Manual) 0 % (0-3) Basophils % (Manual) 0 % (0-2) Band Neutrophils 1 % (0-8) Platelet Estimate Decreased L Platelet Morphology Normal Anisocytosis 1+ Macrocytosis 1+ Sodium Level 137 MMOL/L (136-145) Potassium Level 5.0 MMOL/L (3.5-5.1) Chloride Level 108 MMOL/L (98-107) H Carbon Dioxide Level 21 MMOL/L (21-32) Anion Gap 8 mmol/L (5-15) Blood Urea Nitrogen 44 mg/dL (7-18) H Creatinine 1.7 MG/DL (0.55-1.30) H Estimat Glomerular Filtration Rate 38.2 mL/min (>60) Glucose Level 215 MG/DL (74-106) H Calcium Level 8.1 MG/DL (8.5-10.1) L Phosphorus Level 3.4 MG/DL (2.5-4.9) Magnesium Level 2.3 MG/DL (1.8-2.4) Total Bilirubin 2.1 MG/DL (0.2-1.0) H Direct Bilirubin 0.8 MG/DL (0.0-0.3) H Aspartate Amino Transf (AST/SGOT) 212 U/L (15-37) H Alanine Aminotransferase (ALT/SGPT) 46 U/L (12-78) Alkaline Phosphatase 66 U/L (46-116) Total Protein 5.9 G/DL (6.4-8.2) L Albumin 1.9 G/DL (3.4-5.0) L Arterial Blood pH 7.160 (7.350-7.450) Arterial Blood Partial Pressure CO2 50.1 mmHg (35.0-45.0) H Arterial Blood Partial Pressure O2 63.6 mmHg (75.0-100.0) L Arterial Blood HCO3 17.5 mmol/L (22.0-26.0) *L Arterial Blood Oxygen Saturation 89.4 % (95-100) *L Arterial Blood Base Excess -11.1 (-2-2) *L Manan Test Positive Microbiology Date/Time Source Procedure Growth Status 06/25/20 09:02 Sputum Gram Stain - Final Resulted 06/25/20 09:02 Sputum Sputum Culture - Preliminary NORMAL UPPER RESPIRATORY ALEXEI AT 24 ... Resulted Ken Sevilla MD Jun 26, 2020 20:10
[2020-06-26] MEDS: Dyna-Hex 2% Top Sol 2oz TOPIC SCH (20:15)
[2020-06-26] MEDS: Cefepime HCl 1 GM in D5W 55 ML IVPB SCH (20:16)
[2020-06-26] MEDS ORDERED: Morphine Sulfate 2mg/ml Inj(IV/IM USE ONLY) IVP PRN (20:45)
--- NOTE | 2020-06-26 21:33 | NUR ---
RESPIRATORY NOTE: Patient terminally extubated. On 3L nasal cannula.
--- NOTE | 2020-06-26 21:33 | NUR ---
NURSE NOTES: pt terminal extubated on n/c 3l medication and iv dc morpine 2mg iv given family at bedside at 2146 no pulse no bp hr o pron[facility]ce [facility] dr [facility]
--- NOTE | 2020-06-26 23:08 | Emergency Room Report ---
Physical Exam Vital Signs Date Time Temp Pulse Resp B/P (MAP) Pulse Ox O2 Delivery O2 Flow Rate FiO2 06/22/20 07:00 110 21 166/90 (115) 92 06/22/20 07:00 Mechanical Ventilator 40 06/22/20 08:00 98.7 06/26/20 21:00 4.0 Medical Decision Making Diagnostic Impression: Primary Impression: Massive hemoptysis Additional Impressions: Anemia Cardiopulmonary arrest Respiratory failure Elevated troponin Lactic acidosis ER Course This patient was admitted a week prior for a cardiac arrest and massive hemoptysis. He was intubated and was in ICU. Patient coded tonight and subsequently passed. I was called to pronounce the patient. On my arrival, there was no pulse, blood pressure or respiration. I pronounced the patient at 9:46 PM. Last Vital Signs Date Time Temp Pulse Resp B/P (MAP) Pulse Ox O2 Delivery O2 Flow Rate FiO2 06/26/20 22:01 0 0 06/26/20 21:46 0 06/26/20 21:45 0/0 (0) 06/26/20 21:00 Nasal Cannula 4.0 06/26/20 20:00 97.2 06/26/20 20:00 100 Status: worsened Disposition: ADMITTED INPATIENT Condition: Referrals: NON PHYSICIAN (PCP) Greg Duggan MD Jun 26, 2020 23:08
--- NOTE | 2020-06-27 12:07 | Discharge Summary ---
Discharge Summary Discharge Summary _ Date of admission: 06/19/2020 Date of expiration: 06/26/2020 History of Present Illness and Brief Hospital Course Mr. Yadav is an 89-year-old male who presented to ED after a syncopal episode while having a bowel movement. While in the ER, patient suddenly began coughing up large amounts of blood and blood clots. Patient became extremely hypoxemic with respiratory distress. Patient was bagged by bag valve mask and he was in tubated by rapid sequence intubation. He went into PEA and underwent CPR and ACLS for 1 round. ROSC was achieved. An NG tube was placed as the patient's abdomen was slightly distended. A large amount of blood was suctioned from the patient's airway. He was also transfused. After the patient was intubated his heart rate became very rapid over 200 and irregular consistent with atrial fibrillation with rapid ventricular rate. Given that the patient was sedated and unstable, the patient underwent cardioversion x2. This effectively converted the patient into sinus rhythm. Patient underwent emergent chest/abdomen/pelvis CT which revealed extensive bilateral airspace opacities, cholelithiasis, gas-filled mildly distended small bowel loops, and mucosal thick ening within the stomach potentially representing gastritis or malignancy. Chest x-ray revealed pleural effusion. Patient's family was updated who requested the patient to remain full code. Patient was admitted to the hospital for further management. After admission, patient's CODE STATUS was changed to DNR per family request. Patient remained intubated. Patient also had elevated troponin which was most likely secondary to non-STEMI as a result of demand ischemia. Echocardiogram revealed ejection fraction of 55%. Given massive hemoptysis and possible GI bleed, patient was kept NPO. Patient was given octreotide and Reglan. Patient was also ruled out for tuberculosis with AFB smears which were negative. Given the syncopal episode prior to presentation, patient was evaluated with a CT of head. Head CT was negative for acute intracranial abnormality. The syncope was likely due to vasovagal given that patient was having bowel movement at the time and was hypovolemic due to large amount of blood loss from GI bleeding. Venous duplex ultrasound of legs was negative for DVT. Patient was placed on SCDs for DVT prophylaxis. On 06/26/2020, patient was terminally extubated per family request. Patient was given low flow oxygen via nasal cannula and pain medication. Family was at bedside. Unfortunately, patient was pronounced on 06/26/2020 at 2146. Cause of : Cardiopulmonary arrest Consultants: Cardiology Dr. Sevilla Infectious disease Dr. Oneill Neurology Jacqueline Solis NP Pulmonology Dr. Cormier Gastroenterology Dr. Davis Neurology Dr. Blood Surgery Dr. Lazar Final diagnoses Pulseless electrical activity, status post resuscitation Massive hemoptysis SVT Paroxysmal atrial fibrillation Hypertension Atrial regurgitation Mitral regurgitation Tricuspid regurgitation Anemia Thrombocytopenia Acute hypoxemic respiratory failure, status post intubation Hypothyroidism BPH Thrombocytopenia Elevated troponin Syncopal episode likely vasovagal Lactic acidosis Cholelithiasis Pleural effusion I have been assigned to dictate discharge summary for this account. Saad Renteria Jun 27, 2020 12:07
[2020-06-29] MEDS ORDERED: Amiodarone 200mg tab NG SCH (09:00)
== END 2020-06-26 21:46 | disposition expired ==
LOC: EDBD 15:45 → EMR 16:27 → ICU 18:12 → EDBEDREQ 20:01
PROC: 5A12012 Performance of Cardiac Output, Single, Manual (ICD-10-PCS; principal; 2020-06-19)
PROC: 0BH17EZ Insertion of Endotracheal Airway into Trachea, Via Natural or Artificial Opening (ICD-10-PCS; principal; 2020-06-19)
PROC: 30233N1 Transfusion of Nonautologous Red Blood Cells into Peripheral Vein, Percutaneous Approach (ICD-10-PCS; principal; 2020-06-19)
PROC: 5A1955Z Respiratory Ventilation, Greater than 96 Consecutive Hours (ICD-10-PCS; principal; 2020-06-19)
PROC: 02HV33Z Insertion of Infusion Device into Superior Vena Cava, Percutaneous Approach (ICD-10-PCS; 2020-06-25)
DX: I46.9 Cardiac arrest, cause unspecified (principal); J96.01 Acute respiratory failure with hypoxia; I21.A1 Myocardial infarction type 2; E87.2 Acidosis; K92.2 Gastrointestinal hemorrhage, unspecified; D62 Acute posthemorrhagic anemia; Z51.5 Encounter for palliative care; Z66 Do not resuscitate; I47.1 Supraventricular tachycardia; I10 Essential (primary) hypertension; E03.9 Hypothyroidism, unspecified; D69.6 Thrombocytopenia, unspecified; N40.0 Benign prostatic hyperplasia without lower urinary tract symptoms; K80.20 Calculus of gallbladder without cholecystitis without obstruction; I34.0 Nonrheumatic mitral (valve) insufficiency; I35.1 Nonrheumatic aortic (valve) insufficiency; I36.1 Nonrheumatic tricuspid (valve) insufficiency; R55 Syncope and collapse; E87.8 Other disorders of electrolyte and fluid balance, not elsewhere classified; I27.20 Pulmonary hypertension, unspecified; I48.0 Paroxysmal atrial fibrillation; Z91.81 History of falling
CPT/HCPCS: 31500; 36415; 36569; 70450; 71045; 71250; 74018; 74176; 76700; 76937; 80048; 80053; 80076; 81003; 82150; 82164; 82248; 82378; 82550; 82553; 82728; 82803; 83605; 83615; 83690; 83735; 83880; 84100; 84443; 84478; 84484; 84550; 85007; 85025; 85610; 85651; 85730; 86140; 86703; 86705; 86709; 86803; 86850; 86900; 86901; 86920; 87040; 87070; 87081; 87086; 87116; 87205; 87340; 92950; 93005; 93306; 93970; 94002; 94003; 95819; 96361; 96365; 96375; 99291; J0282; J2765; J7030